=== PATIENT | female | born 1935 | race Hispanic/Latino ===

== ENCOUNTER 2016-12-12 18:47 | Inpatient (IN) | payer MEDICARE ==
[2016-12-12 18:59] VITALS: BMI 49.1
[2016-12-12] MEDS ORDERED: Albuterol-Ipratrop 3 mg / 0.5 (3 ml) UD IH STA (19:13)
--- NOTE | 2016-12-12 19:17 | ED PDOC ---
Arrival/HPI - General Chief Complaint: Dizziness/Lightheaded Time Seen by Provider: 12/12/16 19:04 Historian: Patient, Family (son) - History of Present Illness Time/Duration: Prior to Arrival Symptom Course: Unchanged Severity Level: Moderate Activities at Onset: Rest Associated Symptoms (Text): 12/12/16 19:14 Son reports that the patient got up this morning and her blood sugar was 69. Today around noon time she was getting her lunch and felt dizzy and fell and possibly had a syncopal episode. She spent the afternoon on the floor and was able to drag herself from the kitchen into the living room and speak with her son on the telephone. She did not eat her lunch. She denies any trauma. No chest pain. There is chronic dyspnea. No abdominal pain nausea or vomiting. She did have several days of diarrhea last week. No fever. 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, had hyst) Hx Chemotherapy: Yes (15 yrs ago) - Integumentary Hx Dermatological Disorder: No Other/Comment: ble dry discolored, slightly reddened, slight redness under abd fold, small red raises rash under both breasts, dry skin both feet - Musculoskeletal/Rheumatological Hx Arthritis: Yes Hx Falls: No - Gastrointestinal Hx Gastrointestinal Disorders: Yes (CONSTIPATION) - Genitourinary/Gynecological Hx Genitourinary Disorders: (unknown) Hx Incontinence: Yes (urgency) - Psychiatric Hx Psychophysiologic Disorder: No Hx Substance Use: No - Surgical History Hx Hysterectomy: Yes (uterine ca 15 yrs ago) Other/Comment: abd surgery had obstruction hernia repaired at the same time around 8 yrs ago...partial colectomy? for obstruction 8 yrs ago... and pacemaker - Anesthesia Hx Anesthesia: Yes Hx Anesthesia Reactions: No Hx Malignant Hyperthermia: No Family/Social History - Physician Review Nursing Documentation Reviewed: Yes Family/Social History: Unknown Family HX Smoking Status: Never Smoked Hx Alcohol Use: No Hx Substance Use: No Allergies/Home Meds Allergies/Adverse Reactions: Allergies hydrocodone bitartrate [From Vicoprofen] Allergy (Intermediate, Verified 00:51) RASH ibuprofen [From Vicoprofen] Allergy (Intermediate, Verified 08/09/16 00:51) RASH adhesive Allergy (Verified 08/09/16 00:51) RASH Penicillins Allergy (Verified 08/09/16 00:51) RASH warfarin sodium [From Coumadin] Allergy (Verified 08/09/16 00:51) RASH blisters on her legs Home Medications: Home Meds Medication Instructions Recorded Confirmed Arformoterol [Brovana] 15 mcg IH BID 06/11/16 12/12/16 Budesonide [Pulmicort Respules] 0.5 mg IH BID 06/11/16 12/12/16 Carvedilol [Coreg] 12.5 mg PO BID 06/11/16 12/12/16 Gabapentin [Neurontin] 100 mg PO TID 06/11/16 12/12/16 Levothyroxine Sodium [Levothroid] 0.137 mg PO QAM 06/11/16 12/12/16 Saxagliptin HCl [Onglyza] 2.5 mg PO DAILY 06/11/16 12/12/16 Spironolactone [Aldactone] 50 mg PO DAILY 06/11/16 12/12/16 GlipiZIDE [Glucotrol] 5 mg PO BID 12/12/16 12/12/16 Insulin Detemir [Levemir] 55 units SC DAILY 12/12/16 12/12/16 Losartan [Cozaar] 100 mg PO DAILY 12/12/16 12/12/16 Torsemide [Torsemide] 20 mg PO DAILY 12/12/16 12/12/16 Review of Systems - Physician Review All systems were reviewed & negative as marked: Yes - Review of Systems Constitutional: Fatigue. absent: Fevers Respiratory: SOB. absent: Cough, Sputum, Wheezing Cardiovascular: Syncope. absent: Chest Pain, Palpitations Gastrointestinal: Diarrhea. absent: Abdominal Pain, Nausea, Vomiting Genitourinary Female: absent: Dysuria, Frequency, Hematuria Neurological: absent: Headache, Dizziness Physical Exam Vital Signs Temp Pulse Resp BP Pulse Ox 12/12/16 20:26 121/68 12/12/16 20:10 97.5 F L 12/12/16 18:58 98.6 F 78 26 H 151/71 H 86 L Temperature: Afebrile Blood Pressure: Hypertensive Pulse: Regular Respiratory Rate: Tachypneic Appearance: Positive for: Well-Appearing, Non-Toxic, Comfortable, Other ( orbidly obese) Pain Distress: None Mental Status: Positive for: Alert and Oriented X 3 - Systems Exam Head: Present: Atraumatic, Normocephalic Pupils: Present: PERRL Extroacular Muscles: Present: EOMI Conjunctiva: Present: Normal Mouth: Present: Dry Pharnyx: No: ERYTHEMA, EXUDATE, TONSILS ENLARGED Neck: Present: Normal Range of Motion. No: MIDLINE TENDERNESS, Paraspinal Tenderness Respiratory/Chest: Present: Respiratory Distress, Accessory Muscle Use, Wheezes , Decreased Breath Sounds, Rhonchi, Tachypneic. No: Good Air Exchange, Rales, Retracting, Tender to Palpation Cardiovascular: Present: Regular Rate and Rhythm, Normal S1, S2. No: Murmurs Abdomen: Present: Normal Bowel Sounds. No: Tenderness, Distention, Peritoneal Signs, Rebound, Guarding Upper Extremity: Present: Normal Inspection. No: Cyanosis, Edema Lower Extremity: Present: Normal Inspection. No: Edema Neurological: Present: GCS=15, CN II-XII Intact, Speech Normal, Motor Func Grossly Intact Skin: Present: Warm, Dry, Normal Color, Other (bilateral lower extremity chronic venous stasis changes). No: Rashes Psychiatric: Present: Alert, Oriented x 3, Normal Insight, Normal Concentration Medical Decision Making ED Course and Treatment: 12/12/16 19:19 EKG is pacing rate approximately 75 12/12/16 20:04 chest 1 view shows extremely poor quality films with cardiomegaly and a pacemaker 12/12/16 21:30 discussed with , who requested consults with Drs. Garcia and Burton, who both have been called. - Lab Interpretations Lab Results: 12/12/16 19:00 12/12/16 19:00 Lab Results 12/12/16 20:10: pCO2 47 H, pO2 51.0 L, HCO3 22.1, ABG pH 7.28 L, ABG Total CO2 23.5, ABG O2 Saturation 87.0 L, ABG O2 Content 13.7 L, ABG Base Excess -4.7 L, ABG Hemoglobin 11.6 L, ABG Carboxyhemoglobin 2.4 H, POC ABG HHb (Measured) 12.6 H, ABG Methemoglobin 1.0, ABG O2 Capacity 15.7 L, Hgb O2 Saturation 84.0 L, FiO2 28.0, Urine Color Yellow, Urine Appearance Sl cloudy, Urine pH 6.0, Ur Specific [place] 1.025, Urine Protein Trace H, Urine Glucose (UA) Negative, Urine Ketones Negative, Urine Blood Moderate H, Urine Nitrate Negative, Urine Bilirubin Negative, Urine Urobilinogen 0.2, Ur Leukocyte Esterase Negative, Urine RBC 2 - 5, Urine WBC 0 - 2, Ur Epithelial Cells 0 - 2 12/12/16 19:00: WBC 14.1 H D, RBC 4.26, Hgb 12.5, Hct 37.6, MCV 88.3, MCH 29.3, MCHC 33.2, RDW 15.8 H, Plt Count 178, MPV 10.0, Gran % 87.5 H, Lymph % (Auto) 7.3 L, [place] % (Auto) 5.0, Eos % (Auto) 0.1 L, Baso % (Auto) 0.1, Gran # 12.35 H , Lymph # 1.0 L, [place] # 0.7 H, Eos # 0.0, Baso # 0.01, PT 15.1 H, INR 1.40 H, APTT 27.7, Sodium 138, Potassium 5.3 H, Chloride 101, Carbon Dioxide 24, Anion Gap 18, BUN 52 H, Creatinine 2.5 H, Est GFR ( Amer) 22, Est GFR (Non-Af Amer) 18, Random Glucose 156 H, Calcium 9.1, Phosphorus 4.6 H, Magnesium 1.5 L, Total Bilirubin 0.7, AST 40 H, ALT 33, Alkaline Phosphatase 63, Ammonia 20, Lactate Dehydrogenase 805 H, Total Creatine Kinase 908 H, CK-MB (CK-2) 9.0 H, CK -MB (CK-2) % 1.0 L, Troponin I 0.10, NT-Pro-B Natriuret Pep 9590 H, Total Protein 7.5, Albumin 3.8, Globulin 3.7, Albumin/Globulin Ratio 1.0 L, Alcohol, Quantitative < 10 - RAD Interpretation Radiology Orders: 12/12/16 19:11 HEAD W/O CONTRAST [CT] Stat CHEST PORTABLE [RAD] Stat CT scan of the head as read by the radiologist shows no acute findings. Pharmacist Manager: Radiologist - Medication Orders Current Medication Orders: Discontinued Medications Albuterol/Ipratropium (Duoneb 3 Mg/0.5 Mg (3 Ml) Ud) 3 ml IH ONCE STA Stop: 12/12/16 19:14 Last Admin: 12/12/16 20:25 Dose: 3 ML Furosemide (Lasix) 40 mg IVP ONCE ONE Stop: 12/12/16 20:05 Last Admin: 12/12/16 20:26 Dose: 40 MG MAR Blood Pressure Document 12/12/16 20:26 MR (Rec: 12/12/16 20:26 MR [id number]) Blood Pressure Blood Pressure (100/60-150/90 mm Hg) 121/68 IVP Administration Document 12/12/16 20:26 MR (Rec: 12/12/16 20:26 MR [id number]) Charges for Administration # of IVP Administrations 1 Nitroglycerin (Nitro-Bid 2% Oint) 1 ea TOP STAT STA Stop: 12/12/16 20:05 Last Admin: 12/12/16 20:26 Dose: 1 EA Disposition/Present on Arrival - Present on Arrival Any Indicators Present on Arrival: No History of DVT/PE: No History of Uncontrolled Diabetes: No Urinary Catheter: No History of Decub. Ulcer: No History Surgical Site Infection Following: None - Disposition Have Diagnosis and Disposition been Completed?: Yes Diagnosis: Acute exacerbation of CHF (congestive heart failure), Syncope, Hyperkalemia, Leukocytosis, Hypoxia, Renal failure, Elevated troponin, Dyspnea, COPD exacerbation Disposition: HOSPITALIZED Disposition Time: 21:30 Patient Plan: Admission, Telemetry Patient Problems: Current Active Problems Problem Status Diagnosed Acute exacerbation of CHF (congestive heart failure) Acute COPD exacerbation Acute Dyspnea Acute Elevated troponin Acute Hyperkalemia Acute Hypoxia Acute Leukocytosis Acute Renal failure Acute Syncope Acute Condition: SERIOUS Discharge Instructions (ExitCare): Heart Failure (ED), Syncope (ED) Referrals: Shreyas Kaplan MD [Primary Care Provider] - Follow up with primary
[2016-12-12 19:31] LABS: ADD MANUAL DIFF? NO
[2016-12-12 19:40] LABS: BASO # 0.01 K/mm3 (0.0-2.0); BASO % 0.1 % (0.0-3.0); EOS % 0.1 % (1.5-5.0); GRAN # 12.35 (1.4-6.5); GRAN % 87.5 % (50.0-68.0); HEMATOCRIT 37.6 % (36.0-48.0); LYMPH % 7.3 % (22.0-35.0); MEAN CELL VOLUME 88.3 fL (80.0-105.0); MEAN CORPUSCULAR HEMOGLOBIN 29.3 pg (25.0-35.0); MEAN CORPUSCULAR HGB CONC 33.2 g/dl (31.0-37.0); MONO # 0.7 (0.1-0.6); PLATELET COUNT 178 10^3/uL (120.0-450.0); RED CELL DISTRIBUTION WIDTH 15.8 % (11.5-14.5); WHITE BLOOD COUNT 14.1 10^3/ul (4.5-11.0)
[2016-12-12 19:48] LABS: BILIRUBIN,TOTAL 0.7 mg/dL (0.2-1.3); CALCIUM 9.1 mg/dL (8.4-10.5); INR 1.4 (0.93-1.08); MAGNESIUM 1.5 mg/dL (1.7-2.2); PARTIAL THROMBOPLASTIN TIME 27.7 Seconds (23.7-30.8); PHOSPHOROUS 4.6 mg/dL (2.5-4.5); POTASSIUM 5.3 mmol/L (3.6-5.0); TOTAL PROTEIN 7.5 g/dL (5.8-8.3)
[2016-12-12 19:59] LABS: TROPONIN I 0.1 ng/mL
--- NOTE | 2016-12-12 20:01 | CT ---
EXAM: CT Head Without Intravenous Contrast CLINICAL HISTORY: 81 years old, female; Signs and symptoms; Altered mental status/memory loss; Age related cognitive decline; Additional info: AMS TECHNIQUE: Axial computed tomography images of the head/brain without intravenous contrast. This CT exam was performed using one or more of the following dose reduction techniques: automated exposure control, adjustment of the mA and/or kV according to patient size, and/or use of iterative reconstruction technique. EXAM DATE/TIME: 12/12/2016 7:11 PM COMPARISON: No relevant prior studies available. FINDINGS: LIMITATIONS: Exam is limited by moderate streak/motion artifact. BRAIN: Areas of low density in the periventricular white matter bilaterally, most likely representing mild chronic small vessel ischemic changes. Diffuse, age-related cortical atrophy and ventriculomegaly. No definite acute abnormality identified, allowing for motion artifact. No definite acute hemorrhage seen within the brain. No acute extra-axial fluid collections visualized. No evidence of significant mass effect within the brain. VENTRICLES: See above. BONES/JOINTS: No acute fractures or other acute bony abnormality noted. SOFT TISSUES: No acute abnormality of the visualized soft tissues is seen. SINUSES: Visualized paranasal sinuses appear clear, except for a mucous retention cyst in the left maxillary sinus. MASTOID AIR CELLS: Mastoid air cells appear clear. IMPRESSION: - No definite acute findings seen within the brain, allowing for motion artifact. - See above for remaining findings.
[2016-12-12] MEDS ORDERED: Nitroglycerin 2% Ointment Foilpak UD TOP STA (20:04)
[2016-12-12 20:38] LABS: ARTERIAL BLOOD GAS HCO3 22.1 mmol/L (21-28); ARTERIAL BLOOD GAS O2 CAPACITY 15.7 mL/dl (16-24); ARTERIAL BLOOD GAS O2 CONTENT 13.7 ML/dl (15-23); ARTERIAL BLOOD GAS PH 7.28 (7.35-7.45); CARBOXYHEMOGLOBIN 2.4 % (0.5-1.5); HHB 12.6 % (0-5)
[2016-12-12 20:53] LABS: URINE BILIRUBIN NEGATIVE (NEGATIVE); URINE BLOOD MODERATE (NEGATIVE); URINE GLUCOSE (UA) NEGATIVE (NEGATIVE); URINE KETONE NEGATIVE (NEGATIVE); URINE LEUKOCYTE ESTERASE NEGATIVE Leu/uL (NEGATIVE); URINE PROTEIN TRACE mg/dL (<30 mg/dL); URINE UROBILINOGEN 0.2 E.U./dL (<1 E.U./dL)
[2016-12-12 20:54] LABS: URINE COLOR YELLOW (YELLOW)
[2016-12-12 20:55] LABS: URINE APPEARANCE SL CLOUDY (CLEAR)
[2016-12-12 21:15] LABS: URINE EPITHELIAL CELLS 0 - 2 /hpf (0-5); URINE WBC 0 - 2 /hpf (0-6)
[2016-12-13] MEDS ORDERED: Vancomycin 500mg in NS 500 MG/100 ML BAG IVPB ONE (03:57)
--- NOTE | 2016-12-13 08:04 | RAD ---
HISTORY: ams COMPARISON: 08/08/2016 FINDINGS: LUNGS: No active pulmonary disease. PLEURA: No significant pleural effusion identified, no pneumothorax apparent. CARDIOVASCULAR: Moderate cardiomegaly OSSEOUS STRUCTURES: No significant abnormalities. VISUALIZED UPPER ABDOMEN: Normal. OTHER FINDINGS: Right-sided dual lead pacemaker IMPRESSION: No active disease.
[2016-12-13] MEDS ORDERED: LEVOTHYROXINE SODIUM PO SCH ×2 (10:00)
[2016-12-13] MEDS ORDERED: Insulin Detemir 100 units/ml Vial (Levemir) SC SCH (10:00)
[2016-12-13] MEDS: Budesonide 0.5 mg/2 ml Inhal Susp UD IH SCH ×2 (10:19→19:07)
[2016-12-13] MEDS: Sodium Chloride 0.45% 1,000 ML IV SCH (10:41)
[2016-12-13] MEDS: Magnesium Oxide 400 mg Tab UD PO SCH ×2 (10:41→18:28)
[2016-12-13] MEDS: Arformoterol 15 mcg/2 ml Inh Sol IH SCH ×2 (10:53→19:07)
--- NOTE | 2016-12-13 11:20 | CARD ---
APPROVED REPORT EKG Measurement Heart [id number] IL [id number] <Conclusion> Electronic ventricular pacemaker
[2016-12-13] MEDS: LEVOTHYROXINE SODIUM PO SCH (11:28)
[2016-12-13] MEDS ORDERED: Insulin Reg-MEDIUM-Coverage SC SCH (11:30)
[2016-12-13] MEDS ORDERED: Insulin Reg-MEDIUM-Coverage SC ONE (11:45)
[2016-12-13] MEDS ORDERED: Insulin Regular 1 UNITS/0.01 ML ML ONE (11:46)
--- NOTE | 2016-12-13 12:11 | CON ---
DATE: 12/13/2016 INDICATIONS: Syncope. HISTORY OF PRESENT ILLNESS: This is an 81-year-old woman known to me from prior admission, admitted yesterday after a syncopal spell at home. Her blood sugar was low and she has been running relatively low blood sugars recently. She became dizzy and fell to the floor. She remained on the floor for about 5 hours, at which time her son found her after returning home from work. She was brought to the Emergency Room. Subsequently, she has remained stable. She remembers the event. This does not appear to have been true syncope. There was no vertigo, chest pain, shortness of breath, orthopnea, PND, palpitations. There is edema which has been a bit worse lately. There was no fever, chills, cough, sputum production, hemoptysis, abdominal pain, nausea, vomiting, diarrhea , constipation, melena. PAST MEDICAL HISTORY: Complex. She has COPD, congestive heart failure, hypertension, diabetes. Valvular heart disease with an echocardiogram in 2015 showing moderately severe aortic stenosis, moderate mitral regurgitation and tricuspid regurgitation with moderately severe pulmonary hypertension. She has a permanent pacemaker since the . She has had a hysterectomy for uterine cancer, a partial colectomy for diverticular disease. 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 There is no history of rheumatic fever, myocardial infarction, stroke, TIA or gout. MEDICATIONS: At the time of admission included spironolactone, Brovana, Coreg, Cozaar, Glucotrol, Levemir, levothyroid, Neurontin, Onglyza, Pulmicort, torsemide. ALLERGIES: SHE NOTES ALLERGIES TO SEVERAL MEDICATIONS INCLUDING HYDROCODONE, MOTRIN, PENICILLIN AND OTHERS. SOCIAL HISTORY: She lives at home. She has limited mobility. She uses a walker. She gets out to see physicians with assistance. She does not smoke. She does not drink alcohol. Her son assists her. FAMILY HISTORY: Notable for heart disease. REVIEW OF SYSTEMS: A 10-point review of systems is otherwise unremarkable except as noted above. PHYSICAL EXAMINATION: GENERAL: She is a well-developed elderly woman lying on a stretcher in the Emergency Room in no acute distress. VITAL SIGNS: Unremarkable. She is in a ventricular paced rhythm at about 70- 80 beats per minute. She is afebrile. Blood pressure 131/67, respirations 18, O2 sat 96% on nasal cannula. HEENT: Reveals no neck vein distention, thyromegaly or carotid bruits. Mucous membranes are moist. Conjunctivae pink. NECK: Supple. LUNG BERMUDEZ: A few scattered rhonchi. HEART: Revealed normal first and second heart sounds with systolic murmur along the left sternal border and at the cardiac apex. PMI not palpable. ABDOMEN: Obese, soft, benign. Bowel sounds present. No mass, organomegaly, tenderness, rebound guarding, CVA tenderness or palpable abdominal aortic aneurysm. EXTREMITIES: Revealed mild edema up to the shins. NEUROLOGIC: Awake, alert and oriented. SKIN: Warm and dry. No rash or cellulitis. PSYCHIATRIC: Normal as to mood and affect. LABORATORY AND IMAGING: A portable chest x-ray reveals no active disease. EKG demonstrates ventricular paced rhythm, atrial sensed. CT scan of the head reveals no definite acute findings. White count 14,100; hemoglobin 12.5; hematocrit 37.6; platelet count 178,000. PT, INR, PTT normal. Blood gases are noted. Electrolytes notable for potassium of 5.3, creatinine 2.5, BUN 52, magnesium 1.5, AST 40, ALT 33, alk phos 63, total bilirubin 0.7. CK elevated at 908, troponin 0.10, BNP 9590. Urinalysis is noted. IMPRESSION: The patient is an 81-year-old woman who suffered a fall at home, possibly related to hypoglycemia, possibly due to syncope. She has a ventricular paced rhythm. She was found to have a creatinine of 2.5 with elevated muscle enzymes and BNP, possible rhabdomyolysis. PLAN: At this time, she will be admitted to a telemetry bed. I would give her some IV fluids. We will get serial EKGs and enzymes. I will review her old records. We will monitor her blood sugars carefully. We will check stool for occult blood. We will monitor her renal function and her potassium level. We will check her for orthostatic changes. She can be out of bed to a chair. I will follow along with you. I will make additional recommendations based on her clinical course. Jona Manrique MD cc: [id number] TT: 12/13/2016 12:10:33 Confirmation # [id number] Dictation # [id number] dn JIM
[2016-12-13] MEDS: Insulin Reg-MEDIUM-Coverage SC SCH ×2 (17:03→22:00)
--- NOTE | 2016-12-13 17:07 | CON ---
DATE: 12/13/2016 REQUESTING PHYSICIAN: Dr. Kaplan. CHIEF COMPLAINT: The patient presents with dizziness and had a falling episode and noted to have con gestive heart failure. HISTORY OF PRESENT ILLNESS: The patient is an 81-year-old female with a history of COPD and chronic shortness of breath, congestive heart failure, renal insufficiency, and obesity, that presented to [facility] Emergency Room with a syncopal episode. The patient stated that she got dizzy and fell, but did no t feel she hurt herself. No fever, chills. No nausea, vomiting, no abdominal pain, no chest pain, n o diarrhea. PAST MEDICAL HISTORY: As above. ALLERGIES: SHE HAS ALLERGIES TO HYDROCODONE, IBUPROPHEN, ADHESIVE TAPE, PENICILLIN AND WARFARIN. MEDICATIONS: Can be evaluated as per the nurse's intake form. SOCIAL HISTORY: She has no history of ETOH abuse or drug abuse and no smoking. PHYSICAL EXAMINATION: VITAL SIGNS: Note that her temperature is 98.4, her pulse is 70, respirations are 18, and BP is 110/ 61. SKIN: Warm and dry. HEAD: Atraumatic, normocephalic. EYES: Reactive to light. EARS, NOSE AND THROAT: Seem to be within normal limits. NECK: Supple, no JVD, no thyroid enlargement, no lymph nodes. HEART: Has a regular rate and rhythm, normal S1, S2. LUNGS: Reveal decreased breath sounds at the bases. ABDOMEN: Soft, nontender, but obese. GENITALIA AND RECTAL: Deferred. MUSCULOSKELETAL: No joint deformities. EXTREMITIES: Reveal trace lower extremity edema. NEUROLOGIC: She seemed to be grossly intact. LABORATORY DATA: As far as her chest x-ray, it reveals no active disease. As far as her laboratorie s, the patient's white count is 14.1, hemoglobin is 12.5, hematocrit 37.6 with platelets of 178,000. Arterial blood gas reveals a pH of 7.28, pCO2 of 47, pO2 of 51. This was in the Emergency Room. He r sodium is 138, potassium 5.3, chloride 101, CO2 of 24 with a BUN of 52, creatinine of 5.5, and a, g lucose of 156. The patient's BNP is 9590. IMPRESSION: This patient has episode of syncope, etiology unclear. She has a history of chronic obs tructive pulmonary disease, renal insufficiency and noted to have increased troponins, must rule out myocardial infarction. The patient had increased BNP, most likely secondary to acute congestive hear t failure. Note that her white count is elevated and we must follow and she does have some renal ins ufficiency. PLAN: We will continue with aggressive pulmonary toilet. The patient is on Lasix for appropriate di uresis and is getting budesonide as well as Brovana. The patient will continue with aggressive pulmo nary toilet and will continue with O2 via nasal cannula. Follow labs and correct as needed and agata nue to treat aggressively along with the other consultants and the primary care doctor. Dillon Garcia MD cc: [id number] TT: 12/13/2016 17:07:09 Confirmation # [id number] Dictation # [id number] tn
[2016-12-13] MEDS: Tmp-Smz 800 mg-160 mg DS Tab PO SCH (18:27)
[2016-12-14] MEDS: Sodium Chloride 0.45% 1,000 ML IV SCH (06:28)
[2016-12-14] MEDS: Budesonide 0.5 mg/2 ml Inhal Susp UD IH SCH ×2 (07:38→19:46)
[2016-12-14] MEDS: Arformoterol 15 mcg/2 ml Inh Sol IH SCH ×2 (07:38→19:46)
[2016-12-14] MEDS: Insulin Reg-MEDIUM-Coverage SC SCH (07:54)
--- NOTE | 2016-12-14 07:58 | HP ---
HISTORY OF PRESENT ILLNESS: An 81-year-old white female with history of congestive cardiomyopathy, C OPD, Pickwickian syndrome, morbid obesity, vwv-gvklydi-knfbvblyn diabetes mellitus, chronic renal ins ufficiency, stage III. The patient has recently noticed to have had increasing swelling in the legs, also, and a small cellulitic lesion on the right lower extremity. The patient was home. She fell in the kitchen, became short of breath. Was unable to get to her feet, was unable to get to the phone. Eventually was able to call her family and was brought to Emergency Room. Was found to be in conge stive heart failure with BNP markedly elevated, and mild hypoxia and hypercarbia. The patient is on BiPAP at home. SOCIAL HISTORY: The patient is a nonsmoker, nondrinker. PAST MEDICAL HISTORY: She has a past medical history significant only for what has been stated above and also past surgical for a pacemaker inserted for complete heart block. REVIEW OF SYSTEMS: A 12-point review of systems is positive only for shortness of breath, dyspnea on exertion, and swell ing of the legs, without chest pain, without nausea, vomiting, without diaphoresis. The patient yuriy es any nausea, vomiting. Does complain of some diarrhea. Denies any headache, loss of consciousness , or change in strength in the upper or lower extremities. PHYSICAL EXAMINATION: GENERAL: Shows a well-developed, but obese, white female in no apparent distress. HEENT: Essentially normal limits. HEART: Regular sinus rhythm with controlled ventricular response. CHEST: Shows decreased breath sounds with some rales at both bases. ABDOMEN: Obese, but benign. EXTREMITIES: Show less edema this morning. There is a cellulitic area on the right lateral lower le g. NEUROLOGIC: Grossly intact. IMPRESSION: An 81-year-old white female presenting with congestive heart failure, exacerbation of ch ronic obstructive pulmonary disease, Pickwickian syndrome, insulin-dependent diabetes mellitus, cellu litis of the leg. Shreyas Kaplan MD cc: [id number] TT: 12/13/2016 16:39:03 carlos manuel
[2016-12-14 08:33] LABS: CALCIUM 8.8 mg/dL (8.4-10.5); MAGNESIUM 1.8 mg/dL (1.7-2.2); POTASSIUM 5.2 mmol/L (3.6-5.0)
[2016-12-14 09:03] LABS: TROPONIN I 0.29 ng/mL
[2016-12-14] MEDS ORDERED: LEVOTHYROXINE SODIUM PO SCH (10:00)
--- NOTE | 2016-12-14 10:25 | PN ---
DATE: 12/14/2016 An 81-year-old white female with history of congestive cardiomyopathy, pickwickian syndrome, COPD, pa danoaker, morbid obesity, cmc-hdiqimi-hbatdsniz diabetes mellitus. The patient was admitted with shor tness of breath and dyspnea after a fall at home. She also had some low blood sugar last night. Her insulin will be reduced and her protocol will also be reduced to low dose coverage. The patient is sitting up eating without complaints this morning. Her abdomen has some midepigastric pain, but tole rating her diet well. PHYSICAL EXAMINATION: EXTREMITIES: Without cyanosis, clubbing or edema. There is decreased edema from her on admission. There is also a small eschar in the right lateral leg with some cellulitis which is resolving on IV a ntibiotics. CHEST: Shows decreased breath sounds, but clear. HEART: Regular sinus rhythm. ABDOMEN: Obese, but benign. NEUROLOGIC: She is grossly intact. IMPRESSION: The patient does have an elevated BUN and creatinine of 52 and 2.5. She is on 40 mg of Lasix a day. Her white count is 14,000, her hemoglobin is 12.5. PLAN: To continue IV antibiotics, bronchodilators, afterload reduction and some diuretics and to fol low her BUN and creatinine closely. Shreyas Kaplan MD cc: [id number] TT: 12/14/2016 10:24:51 Confirmation # [id number] Dictation # [id number] tn
[2016-12-14] MEDS: Tmp-Smz 800 mg-160 mg DS Tab PO SCH ×2 (10:36→17:33)
[2016-12-14] MEDS: Insulin Detemir 100 units/ml Vial (Levemir) SC SCH (10:38)
[2016-12-14] MEDS: Magnesium Oxide 400 mg Tab UD PO SCH ×2 (10:38→17:38)
[2016-12-14] MEDS: POLYETHYLENE GLYCOL 3350 17 GM/Dose PACKET PO SCH ×2 (10:39→11:36)
[2016-12-14] MEDS: LEVOTHYROXINE SODIUM PO SCH (10:53)
[2016-12-14] MEDS: Insulin Reg-LOW-Coverage SC SCH ×3 (11:41→23:24)
--- NOTE | 2016-12-14 12:11 | PN ---
DATE: 12/14/2016 SUBJECTIVE: The patient is seen sitting in a chair on telemetry. She denies any lightheadedness. S he denies any chest pain either. CURRENT MEDICATIONS: Include Bactrim, Brovana, Colace, carvedilol 12.5 mg b.i.d., Cozaar 100 mg radha y, subcutaneous heparin, Klonopin, Lasix 40 mg daily, Levemir insulin, Levothroid 137 mcg daily, Pulm icort inhaler. OBJECTIVE: GENERAL: She is an elderly woman, appears comfortable at rest. VITAL SIGNS: Her blood pressure is 110/60 with a pulse of 70 with ventricular pacing, respirations a re 16. She is afebrile. HEENT: No JVD. Carotid upstrokes are diminished and delayed. CHEST: Bilateral scattered rhonchi are heard. HEART: PMI displaced laterally with a mid-peaking systolic murmur at the base as well as a systolic murmur at the lower left sternal border and apex. ABDOMEN: Soft, nontender, normoactive bowel sounds. EXTREMITIES: Mild cellulitic changes with 1+ leg edema. DIAGNOSTIC DATA: Potassium is 5.2, BUN and creatinine are 57 and 2.5. Total CK is 506 with negative MB fraction. This is improved from 908 yesterday. IMPRESSION: 1. Recent fall at home with mild rhabdomyolysis. 2. Moderate aortic stenosis. 3. Moderate mitral regurgitation. 4. Moderate left ventricular systolic dysfunction. 5. Hypertension and diabetes. 6. Rest of problems as noted. 7. Mildly elevated troponin in the setting of renal insufficiency, clinical significance unclear. RECOMMENDATIONS: Continued respiratory and antibiotic therapy is advised. Beta niko therapy will be continued at this time as well. A repeat troponin will be ordered for the morning. In general, conservative management is most appropriate at this time. We will continue to follow along and make further recommendations as appropriate. Greg Mcclure MD cc: [id number] TT: 12/14/2016 12:10:01 Confirmation # [id number] Dictation # [id number] en
[2016-12-14] MEDS: Nystatin 100,000 Units/gm Topical Pow(15 gm) TOP SCH ×2 (13:29→22:49)
--- NOTE | 2016-12-14 18:19 | PN ---
DATE: 12/14/2016 SUBJECTIVE: The patient is resting in the chair next to the bed with O2 via nasal cannula. She is e ating supper with no complaints of increased shortness of breath at this time. Family members are at the bedside. The patient stated that she had an episode of low blood sugar last night, for which th ey had to give her some IV dextrose. She, at this time, has no complaints of chest pain, no active w heezing; only occasional cough and phlegm. No abdominal pain. No diarrhea. PHYSICAL EXAMINATION: VITAL SIGNS: Note that her temperature is 97.2, her pulse is 62, respirations are 20, and BP is 103/ 68. SKIN: Warm and dry. HEAD: Atraumatic, normocephalic. EYES: Reactive to light. EARS, NOSE, AND THROAT: Seem to be within normal limits. NECK: Supple. No JVD, no thyroid enlargement, no lymph nodes. HEART: Regular rate and rhythm. Normal S1, S2. LUNGS: Reveal decreased breath sounds bilaterally. ABDOMEN: Soft, nontender, normal bowel sounds, but obese. GENITALIA AND RECTAL: Deferred. MUSCULOSKELETAL: No joint deformities. EXTREMITIES: Reveal positive lower extremity edema. NEUROLOGIC: She seemed to be grossly intact. IMPRESSION: This patient initially presented with syncopal episode and has a history of chronic obst ructive pulmonary disease. She has renal insufficiency and noted to have initially increased troponi ns, rule out acute coronary syndrome. The patient has increased BNP, most likely secondary to conges tive heart failure. PLAN: Will continue with aggressive pulmonary toilet. She is getting Lasix, as well as Brovana and budesonide. She is getting O2 via nasal cannula and will continue with her usual medications. We wi ll get the patient out of bed to chair and will follow closely and treat aggressively along with the other consultants and her primary care doctor. Dillon Garcia MD cc: [id number] TT: 12/14/2016 18:18:15 Confirmation # [id number] Dictation # [id number] carlos manuel
[2016-12-15 07:19] LABS: ADD MANUAL DIFF? NO
[2016-12-15 07:27] LABS: BASO # 0.02 K/mm3 (0.0-2.0); BASO % 0.3 % (0.0-3.0); EOS # 0.2 (0.0-0.7); EOS % 2.5 % (1.5-5.0); GRAN # 4.25 (1.4-6.5); GRAN % 65.6 % (50.0-68.0); HEMATOCRIT 35.4 % (36.0-48.0); LYMPH # 1.6 (1.2-3.4); LYMPH % 24.6 % (22.0-35.0); MEAN CELL VOLUME 88.1 fL (80.0-105.0); MEAN CORPUSCULAR HEMOGLOBIN 28.4 pg (25.0-35.0); MEAN CORPUSCULAR HGB CONC 32.2 g/dl (31.0-37.0); MEAN PLATELET VOLUME 10.1 fl (7.0-11.0); MONO # 0.5 (0.1-0.6); PLATELET COUNT 158 10^3/uL (120.0-450.0); RED CELL DISTRIBUTION WIDTH 15.9 % (11.5-14.5); WHITE BLOOD COUNT 6.5 10^3/ul (4.5-11.0)
[2016-12-15] MEDS: Insulin Reg-LOW-Coverage SC SCH ×4 (07:37→22:04)
[2016-12-15 07:55] LABS: TROPONIN I 0.22 ng/mL
[2016-12-15 07:57] LABS: ALB/GLOB RATIO 0.9 (1.1-1.8); BILIRUBIN,TOTAL 0.6 mg/dL (0.2-1.3); CALCIUM 8.7 mg/dL (8.4-10.5); MAGNESIUM 1.8 mg/dL (1.7-2.2); POTASSIUM 5.1 mmol/L (3.6-5.0); TOTAL PROTEIN 6.9 g/dL (5.8-8.3)
[2016-12-15] MEDS: Arformoterol 15 mcg/2 ml Inh Sol IH SCH ×2 (07:58→20:12)
[2016-12-15] MEDS: Budesonide 0.5 mg/2 ml Inhal Susp UD IH SCH ×2 (07:58→20:12)
[2016-12-15] MEDS: Levothyroxine 112 MCG TAB PO SCH (08:09)
[2016-12-15] MEDS: Levothyroxine 25 MCG TAB PO SCH (08:11)
--- NOTE | 2016-12-15 09:09 | CP.PCM.PN ---
Subjective - Date & Time of Evaluation Date of Evaluation: 12/15/16 Time of Evaluation: 07:00 - Subjective Subjective: Stable on 2R. She feels better. No CP or SOB. V/S noted. V. Paced PE: Lungs: rhonchi Cor.: S1s2 Abd.: soft Ext.; mild edema, chr. skin changes Neuro.; alert Labs noted: K+= 5.1, BS = 79, Cr.= 2.4, trop. = 0.22 BC x2 NG at 48 hrs. Objective - Vital Signs/Intake and Output Vital Signs (last 24 hours): Temp Pulse Resp BP Pulse Ox 97.9 F 65 20 97/46 L 98 12/15/16 00:00 12/15/16 06:00 12/15/16 00:00 12/15/16 00:00 12/15/16 00:00 Intake and Output: 12/15/16 12/15/16 06:59 18:59 Intake Total 360 Balance 360 - Medications Medications: Current Medications Arformoterol Tartrate (Brovana) 15 mcg IH BID [facility] Last Admin: 12/15/16 07:58 Dose: 15 mcg Budesonide (Pulmicort Respules) 0.5 mg IH BID [facility] Last Admin: 12/15/16 07:58 Dose: 0.5 mg Carvedilol (Coreg) 12.5 mg PO BID [facility] Last Admin: 12/14/16 17:33 Dose: 12.5 mg Clonazepam (Klonopin) 0.5 mg PO HS [facility] PRN Reason: Protocol Last Admin: 12/14/16 22:45 Dose: 0.5 mg Docusate Sodium (Colace) 100 mg PO BID [facility] Last Admin: 12/14/16 17:33 Dose: 100 mg Furosemide (Lasix) 40 mg IVP DAILY [facility] Last Admin: 12/14/16 10:37 Dose: 40 mg Heparin Sodium (Porcine) (Heparin) 5,000 units SC Q12 [facility] PRN Reason: Protocol Last Admin: 12/14/16 22:44 Dose: 5,000 units Home Med (Home Med) 0 unit PO DAILY [facility] Sodium Chloride (Sodium Chloride 0.45%) 1,000 mls @ 50 mls/hr IV .Q20H [facility] Last Admin: 12/14/16 06:28 Dose: Not Given Insulin Detemir (Levemir) 50 unit SC DAILY [facility] Last Admin: 12/14/16 10:38 Dose: 50 unit Insulin Human Regular (Humulin R Low) 0 units SC ACHS [facility] PRN Reason: Protocol Last Admin: 12/15/16 07:37 Dose: Not Given Levothyroxine Sodium (Synthroid) 112 mcg PO ACB [facility] Last Admin: 12/15/16 08:09 Dose: 112 mcg Levothyroxine Sodium (Synthroid) 25 mcg PO ACB [facility] Last Admin: 12/15/16 08:11 Dose: 25 mcg Losartan Potassium (Cozaar) 100 mg PO DAILY [facility] Last Admin: 12/14/16 10:37 Dose: 100 mg Magnesium Oxide (Mag-Ox) 400 mg PO BID [facility] Last Admin: 12/14/16 17:38 Dose: 400 mg Nystatin (Nystop Topical Powder) 0 gm TOP BID [facility] Last Admin: 12/14/16 22:49 Dose: Not Given Trimethoprim/Sulfamethoxazole (Bactrim Ds Tab) 1 tab PO BID [facility] PRN Reason: Protocol Last Admin: 12/14/16 17:33 Dose: 1 tab - Labs Labs: 12/15/16 07:08 12/15/16 07:08 PT 15.1 Seconds (9.9-11.8) H 12/12/16 19:00 INR 1.40 (0.93-1.08) H 12/12/16 19:00 APTT 27.7 Seconds (23.7-30.8) 12/12/16 19:00 Assessment and Plan - Assessment and Plan (Free Text) Plan: Assessment: Syncope/Fall Acute rhabdomyolysis Acute renal insufficiency Hypomagnesemia COPD CHF Diabetes HBP Valvular Heart Disease: Mod/Sev , Mod. MR and TR PH, mod./sev. 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 Plan: IVF AB OOB as shekhar. Monitor labs, I/O, renal fx., Mg.++, CKs, etc. As per Pulm., and Dr. Levy
[2016-12-15] MEDS ORDERED: Lactulose 10 gm/15 ml (Rectal Use) PR SCH (10:00)
[2016-12-15] MEDS: Nystatin 100,000 Units/gm Topical Pow(15 gm) TOP SCH ×2 (10:03→17:05)
[2016-12-15] MEDS: Tmp-Smz 800 mg-160 mg DS Tab PO SCH (10:09)
[2016-12-15] MEDS: GENERLAC PO SCH (10:10)
[2016-12-15] MEDS: Magnesium Oxide 400 mg Tab UD PO SCH ×2 (10:12→17:01)
[2016-12-15] MEDS: Insulin Detemir 100 units/ml Vial (Levemir) SC SCH (10:12)
[2016-12-15] MEDS: Sodium Chloride 0.45% 1,000 ML IV SCH (12:42)
[2016-12-15] MEDS ORDERED: Bacitracin Ointment 30 GM TUBE TOP SCH (14:21)
[2016-12-15] MEDS ORDERED: Bacitracin 500 Units/gm Oint Foilpak UD TOP SCH (15:44)
[2016-12-15] MEDS ORDERED: Bacitracin 500 Units/gm Oint Foilpak UD TOP STA (15:44)
--- NOTE | 2016-12-15 20:00 | PN ---
DATE: 12/15/2016 SUBJECTIVE: The patient is resting in a chair next to the bed with O2 via nasal cannula, eating some crackers. The patient has no complaints of increased shortness of breath. Does have occasional cou gh, no chest pain. No wheezing or congestion. No fever, chills, nausea or vomiting. PHYSICAL EXAMINATION: VITAL SIGNS: Her temperature is 98.4, her pulse is 62, respirations are 20, and BP is 123/58. SKIN: Warm and dry. HEENT: Head is atraumatic, normocephalic. Eyes reactive to light. Ear, nose and throat seemed to b e within normal limits. NECK: Supple. No JVD, no thyroid enlargement, no lymph nodes. HEART: Has a regular rate and rhythm. Normal S1, S2. LUNGS: Reveal decreased breath sounds bilaterally. No significant rales, rhonchi or wheezes. ABDOMEN: Soft, nontender, normal bowel sounds, but obese. GENITALIA AND RECTAL: Deferred. MUSCULOSKELETAL: No joint deformities. EXTREMITIES: Reveal positive lower extremity edema. NEUROLOGIC: She seemed to be grossly intact. LABORATORY DATA: Her white count is 6.5, hemoglobin is 11.4, hematocrit 35.4 with platelets of now o f . The patient's sodium is 135, potassium 5.1, chloride 101, CO2 of 26 with a BUN of 57, creat inine of 2.4, glucose of 117. Troponin is still elevated at 0.22. IMPRESSION: The patient presented with a history of a syncopal episode at home. She has a history o f chronic obstructive pulmonary disease, obesity, hypoventilation syndrome. The patient has renal in sufficiency and continues to have increased troponins, rule out myocardial infarction. The patient p resented with congestive heart failure as well. She has morbid obesity. PLAN: We will continue with aggressive pulmonary toilet. The patient is getting Lasix for diuresis and is on Brovana and budesonide. She is getting O2 via nasal cannula and is encouraged to get out o f bed to chair. We will continue to treat aggressively along with the other consultants and the [facility] doctor. Dillon Garcia MD cc: [id number] TT: 12/15/2016 19:58:59 Confirmation # [id number] Dictation # [id number] dn
[2016-12-16 02:39] VITALS: RESP 19; O2SAT 94
[2016-12-16 06:54] VITALS: TEMP 97.8
[2016-12-16 07:14] LABS: CALCIUM 8.8 mg/dL (8.4-10.5)
[2016-12-16 07:26] LABS: POTASSIUM 5.1 mmol/L (3.6-5.0)
--- NOTE | 2016-12-16 08:12 | PN ---
DATE: 12/15/2016 The patient is an 81-year-old, patient of Dr. Kaplan; covering for him. Came to Emergency Room on ___; came with shortness of breath and increasing leg swelling so patient is being diurese d, but currently in telemetry. PHYSICAL EXAMINATION: GENERAL: She is fully awake, alert, oriented, communicative. VITAL SIGNS: She is afebrile, pulse 64, respirations 20, blood pressure 121/63. LUNGS: Bilaterally a few ____ expiratory rhonchi and decreased breath sounds at bases. HEART: S1, S2 audible. ABDOMEN: Soft, very obese, nontender. No rebound. No guarding. Bilateral legs, +3 edema. LABORATORY: WBC 6.5, hemoglobin 11.4, hematocrit 35.4, platelets of 158. Chemistry: Sodium 135, po tassium 5.1, chloride 101, CO2 of 26, BUN 57, creatinine 2.4, blood sugar of 77. Troponin 0.22. Blo od cultures are negative. CT scan of the head is unremarkable. ASSESSMENT: 1. Morbid obesity. 2. Acute on chronic congestive heart failure. 3. Hyperkalemia. 4. Syncope, status post fall. 5. Mild rhabdomyolysis, improving. 6. Renal insufficiency, improving. 7. Chronic obstructive pulmonary disease. 8. Kzb-qgdcpfj-sawpadfyj diabetes. 9. Severe aortic stenosis. 10. Pulmonary hypertension. 11. Status post pacemaker placement. 12. Leukocytosis, improving. PLAN: Currently, the patient is on IV fluid. She is on Bactrim. Because of renal insufficiency, I will discontinue her Bactrim. For her leg ulcer, I would rather give her doxycycline. She is on DVT prophylaxis. She is receiving diuretics. Her blood sugar is being monitored. Will follow up her e lectrolytes in the a.m. Will reevaluate patient in the a.m. Sarah Park MD cc: [phone] TT: 12/15/2016 12:35:52 Confirmation # [id number] Dictation # [id number] mn
[2016-12-16] MEDS: Levothyroxine 112 MCG TAB PO SCH (08:40)
[2016-12-16] MEDS: Levothyroxine 25 MCG TAB PO SCH (08:40)
[2016-12-16] MEDS: Arformoterol 15 mcg/2 ml Inh Sol IH SCH (08:42)
[2016-12-16] MEDS: Budesonide 0.5 mg/2 ml Inhal Susp UD IH SCH (08:43)
[2016-12-16] MEDS: Magnesium Oxide 400 mg Tab UD PO SCH (09:48)
[2016-12-16] MEDS: GENERLAC PO SCH (09:50)
[2016-12-16] MEDS: Insulin Reg-LOW-Coverage SC SCH (09:50)
[2016-12-16] MEDS: Nystatin 100,000 Units/gm Topical Pow(15 gm) TOP SCH (09:51)
[2016-12-16 09:52] VITALS: BP 114/84
[2016-12-16 10:22] VITALS: PULSE 60
--- NOTE | 2016-12-16 10:28 | PN ---
DATE: 12/16/2016 SUBJECTIVE: The patient is seen sitting in a chair on telemetry. She feels somewhat better. She de nies any recurrent dizziness. She is awaiting a transitional care unit bed. CURRENT MEDICATIONS: Include Brovana, Cipro 500 mg b.i.d., carvedilol 12.5 mg b.i.d., Cozaar 100 mg daily, subcutaneous heparin, insulin coverage, Lasix 40 mg daily, Synthroid 137 mcg daily, Pulmicort inhaler and Klonopin at bedtime as well as Chronulac. PHYSICAL EXAMINATION: GENERAL: She is an obese, elderly woman. VITAL SIGNS: Her blood pressure is 114/84 with a pulse of 80 with ventricular paced rhythm. Respira tions are 16. She is afebrile. HEENT: No JVD. CHEST: A few scattered rhonchi, no rales noted. HEART: PMI displaced laterally with a mid-peaking systolic murmur at the base radiating to the carot ids as well as a systolic murmur at the apex radiating to the axilla. ABDOMEN: Soft, nontender, normoactive bowel sounds. EXTREMITIES: No edema. Chronic cellulitic changes noted. DIAGNOSTIC DATA: BUN and creatinine 59 and 2.4, potassium is 5.1. IMPRESSION: 1. Recent near syncope and fall, appears clinically improved. 2. Acute on chronic renal insufficiency. 3. History of chronic obstructive pulmonary disease. 4. Moderately severe aortic stenosis with moderate mitral and tricuspid regurgitation. 5. Status post permanent pacemaker implant. 6. Rest of problems as noted. RECOMMENDATIONS: IV fluids will be discontinued at this time. Lasix will be switched to oral admini stration as well. She appears stable from a cardiac standpoint for transfer to TCU at this time. Fa ll precautions should continue. We will continue to follow along and make further recommendations as appropriate. Greg Mcclure MD cc: [id number] TT: 12/16/2016 10:27:59 Confirmation # [id number] Dictation # [id number] shabbir
[2016-12-16] MEDS: Insulin Detemir 100 units/ml Vial (Levemir) SC SCH (10:36)
--- NOTE | 2016-12-16 11:39 | PQF CHF ---
This form is a permanent part of the medical record Clarification of your documentation is requested to better reflect the severity of illness and intensity of treatment of your patient. Indicators present DX of CHF documented. Pt on IV Lasix. Please document type & severity to best reflect severity of illness & intensity of service [x] Diagnosis of CHF and/or history of CHF [] BNP > 200 [] Imaging Finding of Pulmonary Edema /Pleural Effusions [] Fluid/Volume Overload [] Pitting edema [] Ejection Fraction < 40% (Indicative of Systolic Heart Failure) [] Ejection Fraction > 40% (Indicative of Diastolic Heart Failure) [x] Dyspnea / Orthopenea / Paroxysmal Nocturnal Dyspnea [] Other: Location in the medical record that reflects the above clinical findings: [] Admission note Treatment Provided: [] IV Lasix PHYSICIAN'S RESPONSE Based on your medical judgment of the clinical indicators outlined above, are you treating this patient for a known or suspected: [] Acute CHF [] Systolic [] Diastolic [] Combined [] Chronic CHF [] Systolic [] Diastolic [] Combined [] Acute on Chronic CHF []Systolic [] Diastolic [x] Combined [] CHF due hypertension [] Acute systolic []Chronic systolic [] Acute/ chronic systolic [] Other, please indicate: [] [] If Unable to Determine, please check the box, sign and date. Present On Admission (POA) Indicator: [x] Present at the time of admission [] Not present at the time of admission [] Clinically Undetermined In responding to this query, please exercise your independent professional judgment. The fact that a question is asked does not imply that any particular answer is desired or expected. Thank you for your clarification on this documentation. If you have any questions please call:[ ] * Thank you, [ ]Jaz Feng RN CDS verification clerk JIM
--- NOTE | 2016-12-16 23:25 | DS ---
HISTORY OF PRESENT ILLNESS: The patient is an 81-year-old patient of Dr. Kaplan who was admitted on 12/12. She felt dizzy and she fell and patient states her blood sugar was low at 69. She got ___ __ to eat lunch, but she felt very dizzy and passed out. She was on the floor and was able to drag h erself into the kitchen and spoke with her son who called ambulance and she was brought to the ER. S he was found to have CHF. The patient was diuresed and seemed to be deconditioned, being sent to TCU for further evaluation. PAST MEDICAL HISTORY: 1. Morbid obesity. 2. Congestive heart failure. 3. Insulin-dependent diabetes. 4. Hypertension. 5. Valvular heart disease. 6. Severe aortic stenosis. 7. Mitral regurgitation. 8. Pulmonary hypertension. 9. Status post pacemaker placement in 1989. 10. Status post hysterectomy secondary to uterine cancer. 11. Status post partial colectomy. ALLERGIES: SHE HAS MULTIPLE ALLERGIES INCLUDING HYDROCODONE, MOTRIN, . SOCIAL HISTORY: She lives at home and she has limited mobility, mostly sits in the chair and moves a round with a walker. FAMILY HISTORY: Notable for coronary artery disease and parents. PHYSICAL EXAMINATION: GENERAL: She is awake and alert, communicative. VITAL SIGNS: She is afebrile. Pulse 84, respirations 19, blood pressure 114/84. LUNGS: Bilateral diffuse decreased breath sounds. HEART: S1, S2 audible. No murmur. ABDOMEN: Soft, nontender, no rebound, no guarding. NEUROLOGIC: She is awake and alert and communicative. Moves all extremities. She has a healing ulc er on the left garcia. LABORATORY EXAM: Sodium 136, potassium 5.1, chloride 100, CO2 25, BUN 59, creatinine 2.4, blood suga r 83. Troponin yesterday was 0.22. ASSESSMENT AND PLAN: 1. Status post syncope secondary to hypoglycemia. 2. Congestive heart failure. 3. Morbid obesity. 4. Hypertension. 5. Pulmonary hypertension. 6. Non-insulin dependent diabetes. PLAN: The patient is being transferred to TCU, will resume her medications. We will follow up close ly and will evaluate the patient in a.m. Sarah Park MD cc: [phone] TT: 12/16/2016 23:24:27 mn
== END 2016-12-16 11:35 | DRG 292 ==
LOC: ED 18:47 → ERH 21:27 → 2RSO 12-13 12:19
PROVIDERS: ADMIT Internal Medicine; ATTEND Internal Medicine
PROC: 5A09457 Assistance with Respiratory Ventilation, 24-96 Consecutive Hours, Continuous Positive Airway Pressure (ICD-10-PCS; principal; 2016-12-13)
PROC: 3E0F7GC Introduction of Other Therapeutic Substance into Respiratory Tract, Via Natural or Artificial Opening (ICD-10-PCS; 2016-12-13)
DX: I13.0 Hypertensive heart and chronic kidney disease with heart failure and stage 1 through stage 4 chronic kidney disease, or unspecified chronic kidney disease (principal); I50.40 Unspecified combined systolic (congestive) and diastolic (congestive) heart failure; M62.82 Rhabdomyolysis; E11.649 Type 2 diabetes mellitus with hypoglycemia without coma; L03.115 Cellulitis of right lower limb; I42.0 Dilated cardiomyopathy; E11.22 Type 2 diabetes mellitus with diabetic chronic kidney disease; E66.2 Morbid (severe) obesity with alveolar hypoventilation; Z68.43 Body mass index [BMI] 50.0-59.9, adult; J44.1 Chronic obstructive pulmonary disease with (acute) exacerbation; I27.2 Other secondary pulmonary hypertension; N18.3 Chronic kidney disease, stage 3 (moderate); I08.3 Combined rheumatic disorders of mitral, aortic and tricuspid valves; E83.42 Hypomagnesemia; E87.5 Hyperkalemia; Z91.81 History of falling; Z79.84 Long term (current) use of oral hypoglycemic drugs; Z85.42 Personal history of malignant neoplasm of other parts of uterus; Z90.710 Acquired absence of both cervix and uterus; Z90.49 Acquired absence of other specified parts of digestive tract; Z95.0 Presence of cardiac pacemaker; Z82.49 Family history of ischemic heart disease and other diseases of the circulatory system

== ENCOUNTER 2016-12-16 11:35 | Inpatient (IN) | payer OTHER, MEDICARE ==
[2016-12-16 12:20] VITALS: BMI 45.6
[2016-12-16] MEDS ORDERED: Pneumococcal 23-Valent Vaccine IM ONE (13:32)
[2016-12-16] MEDS: Insulin Reg-LOW-Coverage SC SCH ×2 (17:23→21:47)
[2016-12-16] MEDS: Nystatin 100,000 Units/gm Topical Pow(15 gm) TOP SCH (18:37)
[2016-12-16] MEDS: Magnesium Oxide 400 mg Tab UD PO SCH (18:38)
[2016-12-16] MEDS: Arformoterol 15 mcg/2 ml Inh Sol IH SCH (20:28)
[2016-12-16] MEDS: Budesonide 0.5 mg/2 ml Inhal Susp UD IH SCH (20:28)
[2016-12-17] MEDS: Insulin Reg-LOW-Coverage SC SCH ×4 (06:47→22:41)
[2016-12-17] MEDS: Budesonide 0.5 mg/2 ml Inhal Susp UD IH SCH ×3 (07:06→21:50)
[2016-12-17] MEDS: Arformoterol 15 mcg/2 ml Inh Sol IH SCH ×3 (07:06→21:50)
[2016-12-17] MEDS ORDERED: LEVOTHYROXINE SODIUM PO SCH (10:00)
[2016-12-17] MEDS: Magnesium Oxide 400 mg Tab UD PO SCH ×2 (10:07→17:39)
[2016-12-17] MEDS: Nystatin 100,000 Units/gm Topical Pow(15 gm) TOP SCH ×2 (10:08→17:47)
[2016-12-17] MEDS: Insulin Detemir 100 units/ml Vial (Levemir) SC SCH (10:09)
[2016-12-17] MEDS: Bacitracin Ointment 30 GM TUBE TOP SCH (10:09)
--- NOTE | 2016-12-17 12:04 | PN ---
DATE: 12/17/2016 SUBJECTIVE: The patient is seen sitting in a chair on TCU. She was transferred there yesterday. Sh yvette is comfortable. She does complain of some abdominal bloating and continues to have exertional dysp norma. She denies any further lightheadedness. CURRENT MEDICATIONS: Include Brovana, carvedilol 12.5 mg b.i.d., losartan 100 mg daily, subcutaneous heparin, insulin, Klonopin, Lasix 40 mg daily, Pulmicort inhaler as well as levothyroxine 137 mcg da wolf. OBJECTIVE: GENERAL: She is an elderly woman who is morbidly obese. VITAL SIGNS: Her blood pressure is 96/56 with a pulse of 100, respirations are 16. She is afebrile. HEENT: No JVD. CHEST: A few scattered rhonchi noted. HEART: PMI displaced laterally with a mid-peaking systolic murmur at the base radiating to the carot ids as well as a systolic murmur at the apex. ABDOMEN: Soft, protuberant, nontender, normoactive bowel sounds. EXTREMITIES: No edema. Chronic cellulitic changes are present. IMPRESSION: 1. Recent syncope and fall. Exact etiology unclear. 2. Acute on chronic renal insufficiency. 3. Moderately severe aortic stenosis with moderate mitral and tricuspid regurgitation. 4. Status post remote pacemaker implant. 5. Morbid obesity. RECOMMENDATIONS: Her current medications will continue. Intensified exercise efforts were encourage d. Sodium restriction should continue as well. In general, conservative management appears most arpita ropriate at this time. If she has recurrent syncope, more aggressive workup can be entertained. We will continue to follow along as needed. Greg Mcclure MD cc: [id number] TT: 12/17/2016 12:03:35 Confirmation # [id number] Dictation # [id number] shabbir
--- NOTE | 2016-12-17 19:31 | PN ---
DATE: 12/17/2016 SUBJECTIVE: The patient is resting in the chair with O2 via nasal cannula. No complaints of [facility] shortness of breath, cough, wheezing or chest congestion. She still has dyspnea on exertion. No chest pain. No fever or chills, nausea or vomiting. PHYSICAL EXAMINATION: VITAL SIGNS: Are stable. HEENT: Within normal limits. LUNGS: Reveal decreased breath sounds bilaterally. ABDOMEN: Soft, nontender, normal bowel sounds. GENITALIA AND RECTAL: Deferred. MUSCULOSKELETAL: No joint deformities. EXTREMITIES: Reveal positive lower extremity edema. NEUROLOGIC: She seemed to be grossly intact. IMPRESSION: This patient has a history of a syncopal episode at home. She has a history of chronic obstructive pulmonary disease as well as obesity, and obesity hypoventilation syndrome. The patient has renal insufficiency and associated increased troponins on this admission, rule out myocardial inf arction. She has a history of congestive heart failure as well as morbid obesity. PLAN: We will continue with aggressive pulmonary toilet, continue with O2 via nasal cannula, Lasix, Brovana and budesonide. The patient is out of bed to chair and we will continue to treat aggressivel y along with the other consultants and the primary care doctor. Dillon Garcia MD cc: [id number] TT: 12/17/2016 19:30:02 Confirmation # [id number] Dictation # [id number] carlos manuel
--- NOTE | 2016-12-17 19:45 | HP ---
HISTORY OF PRESENT ILLNESS: The patient is an 81-year-old who came to Emergency Room on 12/12 after e passed out. She states her sugar was low, she got up to eat something, but she fell. After some ti me she regained consciousness and called son who came to help her out and brought her to Emergency Ro om. She was found to be in congestive heart failure, so she was admitted for diuresis and rehabilita tion. Transferred to TCU yesterday. Denies any fever or chills. No nausea, vomiting, no diarrhea. PAST MEDICAL HISTORY: Significant for: 1. Hypertension. 2. Morbid obesity. 3. Renal insufficiency. 4. Severe aortic stenosis. 5. History of pacemaker placement. ALLERGIES: 1. HYDROCODONE. 2. IBUPROFEN. 3. ____ 4. PENICILLIN. 5. COUMADIN. SOCIAL HISTORY: She lives alone; however, the son is around who helps her out alot. REVIEW OF SYSTEMS: Significant for shortness of breath on exertion and generalized weakness, difficu lty walking. PHYSICAL EXAMINATION: GENERAL: She is sleepy, but arousable. VITAL SIGNS: She is afebrile, pulse 60, respirations 20, blood pressure 125/59. LUNGS: Bilateral fair airflow, no rhonchi or crackle. HEART: S1, S2 audible. ABDOMEN: Soft, nontender, no rebound, no guarding. NEUROLOGIC: The patient is awake and alert, communicative. EXTREMITIES: Bilateral leg +2 edema. She has a healing ulcer and a scab on the left garcia. LABORATORY EXAM: Blood sugar is 131. ASSESSMENT: 1. Status post syncope, probably secondary to hypoglycemia. 2. Hypertension. 3. Morbid obesity. 4. Congestive heart failure. 5. Insulin-dependent diabetes. 6. Deconditioning and difficulty walking. PLAN: The patient MAR reviewed. She is currently on Brovana, Colace. She is on Coreg 12.5 twice a day, losartan 100 daily. She is on DVT prophylaxis. Her blood sugar is being monitored. She is on Klonopin 0.5 twice a day. She was on Levemir. Encourage physical therapy. The patient will be foll owed by Dr. Kaplan. Sarah Park MD cc: [phone] TT: 12/17/2016 19:44:16 jn
[2016-12-18] MEDS: Insulin Reg-LOW-Coverage SC SCH ×4 (08:16→22:06)
[2016-12-18] MEDS: Arformoterol 15 mcg/2 ml Inh Sol IH SCH ×2 (09:13→21:22)
[2016-12-18] MEDS: Budesonide 0.5 mg/2 ml Inhal Susp UD IH SCH ×2 (09:13→21:22)
[2016-12-18] MEDS: Bacitracin Ointment 30 GM TUBE TOP SCH (09:39)
[2016-12-18] MEDS: Insulin Detemir 100 units/ml Vial (Levemir) SC SCH (09:41)
[2016-12-18] MEDS: Magnesium Oxide 400 mg Tab UD PO SCH ×2 (09:42→17:46)
[2016-12-18] MEDS: Nystatin 100,000 Units/gm Topical Pow(15 gm) TOP SCH ×2 (09:42→17:47)
[2016-12-18] MEDS: LACTULOSE 10 GM/15 ML PO PRN (10:28)
--- NOTE | 2016-12-18 17:19 | PN ---
DATE: 12/18/2016 SUBJECTIVE: The patient is resting in the chair with O2 via nasal cannula. No complaints of [facility] ed shortness of breath today. No cough, no wheezing, no congestion. She does get significantly dysp neic with minimal exertion. No chest pain, no fever or chills. PHYSICAL EXAMINATION: VITAL SIGNS: Stable. HEENT: Within normal limits. LUNGS: Reveal decreased breath sounds bilaterally. ABDOMEN: Soft, nontender, but obese. GENITALIA AND RECTAL: Deferred. MUSCULOSKELETAL: No joint deformities. EXTREMITIES: Reveal positive lower extremity edema. NEUROLOGIC: She seems to be grossly intact. IMPRESSION: The patient has a history of syncopal episode and carries a diagnosis of chronic obstruc tive pulmonary disease, obesity, obesity hypoventilation syndrome, renal insufficiency, congestive he art failure and morbid obesity. She had increased troponins, so there is a likelihood there may have been a myocardial infarction. PLAN: We will continue to be aggressive with our pulmonary toilet. The patient is getting O2 via na say cannula as well as Lasix, Brovana, and budesonide. She is out of bed to chair. We will continue treat aggressively along with the other consultants and the primary care doctor. Dillon Garcia MD cc: [id number] TT: 12/18/2016 17:18:17 Confirmation # [id number] Dictation # [id number] mn
[2016-12-19] MEDS: Arformoterol 15 mcg/2 ml Inh Sol IH SCH ×2 (07:30→21:19)
[2016-12-19] MEDS: Budesonide 0.5 mg/2 ml Inhal Susp UD IH SCH ×2 (07:31→21:20)
[2016-12-19] MEDS: Insulin Reg-LOW-Coverage SC SCH ×4 (07:46→23:00)
[2016-12-19] MEDS: Magnesium Oxide 400 mg Tab UD PO SCH ×2 (09:29→17:51)
[2016-12-19] MEDS: Nystatin 100,000 Units/gm Topical Pow(15 gm) TOP SCH ×2 (09:31→17:52)
--- NOTE | 2016-12-19 10:26 | PN ---
DATE: 12/19/2016 An 81-year-old white female admitted to the hospital with congestive heart failure, acute systolic an d diastolic on history of combined systolic and diastolic heart failure, COPD, Pickwickian syndrome, noninsulin-dependent diabetes mellitus, peripheral edema. The patient is doing well with physical th erapy and occupational therapy. She is tolerating CPAP. She has been diuresed. VITAL SIGNS: She is afebrile. We will repeat her laboratory data. She does have renal insufficiency stage III and we will need to be careful with her diuretics. The patient will continue present medication and we will repeat her l abs and continue physical therapy. Shreyas Kaplan MD cc: [id number] TT: 12/19/2016 10:26:26 Confirmation # [id number] Dictation # [id number] en
[2016-12-19] MEDS: Bacitracin Ointment 30 GM TUBE TOP SCH (11:45)
[2016-12-19] MEDS: Insulin Detemir 100 units/ml Vial (Levemir) SC SCH (11:46)
[2016-12-20] MEDS: Insulin Reg-LOW-Coverage SC SCH ×4 (06:43→21:57)
[2016-12-20] MEDS: Budesonide 0.5 mg/2 ml Inhal Susp UD IH SCH ×2 (07:25→20:41)
[2016-12-20] MEDS: Arformoterol 15 mcg/2 ml Inh Sol IH SCH ×3 (07:25→20:46)
[2016-12-20 07:35] LABS: ADD MANUAL DIFF? NO
[2016-12-20 07:39] LABS: BASO # 0.03 K/mm3 (0.0-2.0); BASO % 0.6 % (0.0-3.0); EOS # 0.2 (0.0-0.7); EOS % 3.9 % (1.5-5.0); GRAN # 3.27 (1.4-6.5); GRAN % 60.8 % (50.0-68.0); LYMPH # 1.5 (1.2-3.4); LYMPH % 27.1 % (22.0-35.0); MEAN CELL VOLUME 90.7 fL (80.0-105.0); MEAN CORPUSCULAR HEMOGLOBIN 28.2 pg (25.0-35.0); MEAN CORPUSCULAR HGB CONC 31.1 g/dl (31.0-37.0); MEAN PLATELET VOLUME 9.6 fl (7.0-11.0); MONO # 0.4 (0.1-0.6); MONO % 7.6 % (1.0-6.0); PLATELET COUNT 171 10^3/uL (120.0-450.0); RED CELL DISTRIBUTION WIDTH 16.1 % (11.5-14.5); WHITE BLOOD COUNT 5.4 10^3/ul (4.5-11.0)
[2016-12-20 07:54] LABS: ALB/GLOB RATIO 0.9 (1.1-1.8); BILIRUBIN,TOTAL 0.8 mg/dL (0.2-1.3); CALCIUM 9.2 mg/dL (8.4-10.5); POTASSIUM 5.3 mmol/L (3.6-5.0); TOTAL PROTEIN 7.2 g/dL (5.8-8.3)
[2016-12-20] MEDS: Magnesium Oxide 400 mg Tab UD PO SCH ×2 (11:07→18:46)
[2016-12-20] MEDS: Bacitracin Ointment 30 GM TUBE TOP SCH (13:58)
[2016-12-20] MEDS: Insulin Detemir 100 units/ml Vial (Levemir) SC SCH (14:05)
[2016-12-20] MEDS: Nystatin 100,000 Units/gm Topical Pow(15 gm) TOP SCH ×2 (14:07→18:47)
--- NOTE | 2016-12-20 16:28 | PN ---
DATE: 12/20/2016 SUBJECTIVE: The patient is resting in chair with O2 via nasal cannula. No complaints of increased c ough or congestion. The patient is getting BiPAP at bedtime and O2 via nasal cannula during the day. No fever or chills. No nausea, vomiting, no chest pain, no abdominal pain. PHYSICAL EXAMINATION: VITAL SIGNS: Stable. HEENT: Within normal limits. LUNGS: Reveal good breath sounds bilaterally. ABDOMEN: Soft, nontender, normal bowel sounds. No organomegaly noted. GENITALIA AND RECTAL: Deferred. MUSCULOSKELETAL: No joint deformities. EXTREMITIES: Reveal no edema. NEUROLOGIC: She seems to be grossly intact. IMPRESSION: This patient has a history of syncopal episodes as well as a diagnosis of chronic obstru ctive pulmonary disease, obesity, obesity hypoventilation syndrome, renal insufficiency, congestive h eart failure, morbid obesity and possible myocardial infarction. PLAN: We will continue with aggressive pulmonary toilet. The patient is on oxygen via nasal cannula and Lasix, Brovana and budesonide. Dillon Garcia MD cc: [id number] TT: 12/20/2016 16:27:51 Confirmation # [id number] Dictation # [id number] shabbir
--- NOTE | 2016-12-20 18:44 | PN ---
DATE: 12/20/2016 An 81-year-old white female admitted to the hospital with congestive heart failure, history of [facility] systolic and diastolic heart failure, COPD, Pickwickian syndrome, noninsulin-dependent diabetes me llitus, hypertension, morbid obesity. The patient is doing well on BiPAP, diuretics and afterload re duction. Repeat blood test that shows a normal H and H of 11.5 and 37. Her BUN and creatinine have dropped to 48 and 1.4, potassium is 5.3. PHYSICAL EXAMINATION: VITAL SIGNS: She is afebrile. Vital signs are stable. Blood pressure 126/61. CHEST: She has diffuse rales bilaterally. EXTREMITIES: Without cyanosis, clubbing or edema. HEART: Regular sinus rhythm. The patient has a pacemaker for heart block. The patient should continue physical therapy and occupa tional therapy and mild diuresis. Shreyas Kaplan MD cc: [id number] TT: 12/20/2016 18:43:34 Confirmation # [id number] Dictation # [id number] shabbir
[2016-12-21] MEDS: Insulin Reg-LOW-Coverage SC SCH ×4 (06:37→22:02)
[2016-12-21] MEDS: Arformoterol 15 mcg/2 ml Inh Sol IH SCH ×2 (07:22→20:07)
[2016-12-21] MEDS: Budesonide 0.5 mg/2 ml Inhal Susp UD IH SCH ×2 (07:22→20:07)
--- NOTE | 2016-12-21 09:01 | PN ---
DATE: 12/21/2016 An 81-year-old white female in TCU doing physical therapy and occupational therapy, recovering from e xacerbation of heart failure and COPD. The patient is doing well. Vital signs are stable. Her blood pressure is 134/73. Her BUN and creatinine have improved to 48 an d 1.4. Potassium is slightly elevated at 5.3 but within normal limits. Chest is clear to auscultatio n and percussion. The patient unable to do physical therapy without being excessively short of breat h. Heart rate is controlled at 61. Plan is to continue physical therapy and occupational therapy. Continue afterload reduction and diur etics. Shreyas Kaplan MD cc: 356 TT: 12/21/2016 09:00:40 Confirmation # [id number] Dictation # [id number] bhupendra
--- NOTE | 2016-12-21 09:26 | PN ---
DATE: 12/21/2016 SUBJECTIVE: The patient is seen sitting in a chair in the TCU. She is feeling somewhat better. She continues to have exertional dyspnea and uses oxygen occasionally. She denies any chest pain or pal pitations. CURRENT MEDICATIONS: Include Brovana, carvedilol 12.5 mg b.i.d., Cozaar 100 mg daily, subcutaneous h eparin, Klonopin 0.5 mg b.i.d., insulin coverage, Lasix 40 mg daily, Levemir insulin, Pulmicort inhal er, and Synthroid 137 mcg daily. OBJECTIVE: GENERAL: She is a morbidly obese, elderly woman. VITAL SIGNS: Her blood pressure is 130/70 with a pulse of 60, respirations are 16. She is afebrile. HEENT: No JVD. CHEST: Bilateral scattered rhonchi heard. No rales noted. HEART: PMI displaced laterally with a systolic murmur at the base as well as at the apex. ABDOMEN: Soft, morbidly obese with normoactive bowel sounds. EXTREMITIES: Chronic cellulitic changes with trace leg edema. DIAGNOSTIC DATA: No blood work pending from this morning. Last BUN and creatinine were 48 and 1.4 w ith a potassium of 5.3. IMPRESSION: 1. Recent syncopal event, etiology uncertain, possibly related to hypoglycemia. 2. Acute on chronic renal insufficiency, clinically improved. 3. Moderately severe aortic stenosis. 4. Moderate mitral and tricuspid regurgitation. 5. Morbid obesity. 6. Severe deconditioning. 7. Status post permanent pacemaker implant. RECOMMENDATIONS: Her current medications should be continued. Increased exercise efforts as able is advised. Attempts at weight loss would be beneficial. We will continue to follow along and make fu rther recommendations as appropriate. Greg Mcclure MD cc: [id number] TT: 12/21/2016 09:25:48 Confirmation # [id number] Dictation # [id number] tn
[2016-12-21] MEDS: Bacitracin Ointment 30 GM TUBE TOP SCH (11:15)
[2016-12-21] MEDS: Insulin Detemir 100 units/ml Vial (Levemir) SC SCH (11:28)
[2016-12-21] MEDS: Nystatin 100,000 Units/gm Topical Pow(15 gm) TOP SCH ×2 (11:29→18:14)
[2016-12-21] MEDS: Magnesium Oxide 400 mg Tab UD PO SCH ×2 (11:29→18:14)
[2016-12-22] MEDS: Insulin Reg-LOW-Coverage SC SCH ×4 (07:06→22:00)
[2016-12-22] MEDS: Arformoterol 15 mcg/2 ml Inh Sol IH SCH ×4 (07:33→22:13)
[2016-12-22] MEDS: Budesonide 0.5 mg/2 ml Inhal Susp UD IH SCH ×4 (07:33→22:13)
--- NOTE | 2016-12-22 09:34 | PN ---
DATE: 12/22/2016 An 81-year-old white female in TCU for deconditioning, recovering from congestive heart failure, COPD . The patient is doing well with physical therapy and occupational therapy. She is using BiPAP at [facility]. Her BUN and creatinine are stable at 48 and 1.4, potassium is 5.3. PHYSICAL EXAMINATION: VITAL SIGNS: She is afebrile. Blood pressure 132/64. EXTREMITIES: Decreased edema, decreased swelling in her legs. LUNGS: Decreased rales. She is less short of breath. Shreyas Kaplan MD cc: 356 TT: 12/22/2016 09:34:01 Confirmation # [id number] Dictation # [id number] en
[2016-12-22] MEDS: Magnesium Oxide 400 mg Tab UD PO SCH ×2 (10:14→18:00)
[2016-12-22] MEDS: Bacitracin Ointment 30 GM TUBE TOP SCH (10:14)
[2016-12-22] MEDS: Insulin Detemir 100 units/ml Vial (Levemir) SC SCH (10:14)
[2016-12-22] MEDS: Nystatin 100,000 Units/gm Topical Pow(15 gm) TOP SCH ×2 (10:15→18:48)
[2016-12-23] MEDS: Insulin Reg-LOW-Coverage SC SCH ×4 (06:30→21:49)
[2016-12-23] MEDS: Budesonide 0.5 mg/2 ml Inhal Susp UD IH SCH ×2 (09:17→20:04)
[2016-12-23] MEDS: Arformoterol 15 mcg/2 ml Inh Sol IH SCH ×2 (09:17→20:04)
[2016-12-23] MEDS: Bacitracin Ointment 30 GM TUBE TOP SCH (10:00)
[2016-12-23] MEDS: LACTULOSE 10 GM/15 ML PO PRN (10:00)
[2016-12-23] MEDS: Insulin Detemir 100 units/ml Vial (Levemir) SC SCH (10:01)
[2016-12-23] MEDS: Magnesium Oxide 400 mg Tab UD PO SCH ×2 (10:02→17:49)
[2016-12-23] MEDS: Nystatin 100,000 Units/gm Topical Pow(15 gm) TOP SCH ×2 (10:03→17:49)
--- NOTE | 2016-12-23 10:16 | PN ---
DATE: 12/23/2016 An 81-year-old white female in TCU, doing physical therapy and occupational therapy. The patient has a history of CHF, acute on chronic systolic and diastolic, COPD, Pickwickian syndrome, cellulitis of the legs, edema. The patient is doing well on diuretics. She is stable. Blood pressure is 150/76. She is afebrile. She is doing physical therapy, complaining today only of constipation. The patie nt will get her Genlac home medication today. PHYSICAL EXAMINATION: CHEST: Has decreased breath sounds and rales. EXTREMITIES: There is some slight erythema of the right lower extremity, but it is improving. NEUROLOGIC: Grossly intact. REVIEW OF SYSTEMS: A 12-point review of systems is unremarkable except for constipation. Shreyas Kaplan MD cc: 356 TT: 12/23/2016 10:15:55 Confirmation # [id number] Dictation # [id number] tn
[2016-12-24] MEDS: Insulin Reg-LOW-Coverage SC SCH ×4 (06:43→21:55)
[2016-12-24] MEDS: Budesonide 0.5 mg/2 ml Inhal Susp UD IH SCH ×3 (07:27→21:20)
[2016-12-24] MEDS: Arformoterol 15 mcg/2 ml Inh Sol IH SCH ×3 (07:27→21:20)
--- NOTE | 2016-12-24 10:02 | PN ---
DATE: 12/24/2016 SUBJECTIVE: An 81-year-old white female admitted with acute on chronic heart failure, systolic and d iastolic, COPD, Pickwickian syndrome, infected right lower leg. VITAL SIGNS: Stable. The patient is doing physical therapy and occupational therapy. She has completed a course of antibi otics and she also has been on BiPAP and diuretics and afterload reduction. The patient is planned f or discharge home in the morning. The patient is to continue physical therapy and occupational thera py. REVIEW OF SYSTEMS: A 12-point review of systems is unremarkable. PHYSICAL EXAMINATION: GENERAL: Unchanged. The patient is stable. Shreyas Kaplan MD cc: 356 TT: 12/24/2016 10:02:03 Confirmation # [id number] Dictation # [id number] vineet
[2016-12-24] MEDS: Bacitracin Ointment 30 GM TUBE TOP SCH (10:21)
[2016-12-24] MEDS: Magnesium Oxide 400 mg Tab UD PO SCH ×2 (10:23→17:31)
[2016-12-24] MEDS: Insulin Detemir 100 units/ml Vial (Levemir) SC SCH (10:24)
[2016-12-24] MEDS: Nystatin 100,000 Units/gm Topical Pow(15 gm) TOP SCH ×2 (10:24→17:31)
[2016-12-24 18:04] VITALS: RESP 14; TEMP 97.7; O2SAT 93
--- NOTE | 2016-12-24 18:08 | PN ---
DATE: 12/24/2016 SUBJECTIVE: The patient is resting in the chair, eating dinner, and her son is at the bedside. She has O2 via nasal cannula. No complaints of increased shortness of breath, cough, wheezing, chest con gestion. No chest pain, no abdominal pain. The patient, as per the son, is scheduled to go home in the morning. PHYSICAL EXAMINATION: VITAL SIGNS: Stable. HEENT: Within normal limits. LUNGS: Reveal decreased breath sounds bilaterally at the bases. ABDOMEN: Soft, obese. Decreased bowel sounds, nontender. EXTREMITIES: Reveal 1+ lower extremity edema. NEUROLOGIC: She seemed to be grossly intact. IMPRESSION: The patient has a history of severe chronic obstructive pulmonary disease, obesity, and obesity hypoventilation syndrome, renal insufficiency, congestive heart failure, morbid obesity, and presented this time with a syncopal episode. PLAN: We will continue with aggressive pulmonary toilet. The patient is on oxygen via nasal cannula . She is getting her Lasix as well as Brovana and budesonide. The patient is getting physical thera py and, as per son, is scheduled for discharge in the morning. Dillon Garcia MD cc: [id number] TT: 12/24/2016 18:07:28 Confirmation # [id number] Dictation # [id number] bhupendra
[2016-12-25] MEDS: Insulin Reg-LOW-Coverage SC SCH ×2 (06:57→11:06)
[2016-12-25] MEDS: Budesonide 0.5 mg/2 ml Inhal Susp UD IH SCH (07:20)
[2016-12-25] MEDS: Arformoterol 15 mcg/2 ml Inh Sol IH SCH (07:20)
[2016-12-25 08:27] VITALS: BP 126/70; PULSE 92
[2016-12-25] MEDS: Magnesium Oxide 400 mg Tab UD PO SCH (09:30)
[2016-12-25] MEDS: Nystatin 100,000 Units/gm Topical Pow(15 gm) TOP SCH (10:06)
[2016-12-25] MEDS: Bacitracin Ointment 30 GM TUBE TOP SCH (10:56)
[2016-12-25] MEDS: Insulin Detemir 100 units/ml Vial (Levemir) SC SCH (11:05)
--- NOTE | 2016-12-26 08:13 | DS ---
The patient is an 81-year-old white female admitted to the hospital with acute on chronic systolic an d diastolic heart failure. The patient was transferred to [facility] to TCU. She spent 8 days in TCU. She was admitted on 12/16/16. She is being discharged on 12/25/16. She was seen in [facility] by Dr. Garcia and Dr. Manrique. Her vital signs are stable on discharge. Her blood sugars were co ntrolled. She had less shortness of breath. Her BUN and creatinine were stable. On her last chemis try her blood sugar was 195. She is less short of breath. She has less rales. She is tolerating he r BiPAP at night. She will be discharged home in improved condition. FINAL DISCHARGE DIAGNOSES: Deconditioning, acute systolic and diastolic heart failure on chronic sys tolic and diastolic heart failure, pickwickian syndrome, chronic obstructive pulmonary disease, non-i nsulin dependent diabetes mellitus, obesity and heart failure. Shreyas Kaplan MD cc: [id number] TT: 12/25/2016 22:52:47 dc 12/26/2016 07:12:21
== END 2016-12-25 15:59 | disposition home or self-care (01) | DRG 291 ==
LOC: TRCU 11:35
PROVIDERS: ADMIT Internal Medicine; ATTEND Internal Medicine
PROC: 5A09557 Assistance with Respiratory Ventilation, Greater than 96 Consecutive Hours, Continuous Positive Airway Pressure (ICD-10-PCS; 2016-12-16)
PROC: F07Z9FZ Gait Training/Functional Ambulation Treatment using Assistive, Adaptive, Supportive or Protective Equipment (ICD-10-PCS; principal; 2016-12-18)
PROC: F07Z8FZ Transfer Training Treatment using Assistive, Adaptive, Supportive or Protective Equipment (ICD-10-PCS; 2016-12-18)
PROC: F07L6ZZ Therapeutic Exercise Treatment of Musculoskeletal System - Lower Back / Lower Extremity (ICD-10-PCS; 2016-12-18)
PROC: F08Z2FZ Grooming/Personal Hygiene Treatment using Assistive, Adaptive, Supportive or Protective Equipment (ICD-10-PCS; 2016-12-18)
DX: I13.0 Hypertensive heart and chronic kidney disease with heart failure and stage 1 through stage 4 chronic kidney disease, or unspecified chronic kidney disease (principal); I50.43 Acute on chronic combined systolic (congestive) and diastolic (congestive) heart failure; E11.22 Type 2 diabetes mellitus with diabetic chronic kidney disease; E66.2 Morbid (severe) obesity with alveolar hypoventilation; Z68.42 Body mass index [BMI] 45.0-49.9, adult; L03.119 Cellulitis of unspecified part of limb; I08.3 Combined rheumatic disorders of mitral, aortic and tricuspid valves; J44.9 Chronic obstructive pulmonary disease, unspecified; R26.2 Difficulty in walking, not elsewhere classified; N18.3 Chronic kidney disease, stage 3 (moderate); I45.9 Conduction disorder, unspecified; K59.00 Constipation, unspecified; Z95.0 Presence of cardiac pacemaker

== ENCOUNTER 2017-03-09 17:56 | Inpatient (IN) | payer MEDICARE ==
[2017-03-09 18:26] LABS: VENOUS BLOOD GAS BASE EXCESS -4.1 mmol/L (0.0-2.0); VENOUS BLOOD GAS PO2 67 mm/Hg (30-55); VENOUS BLOOD PH 7.31 (7.32-7.43)
--- NOTE | 2017-03-09 18:27 | ED PDOC ---
Arrival/HPI - General Chief Complaint: Shortness Of Breath Time Seen by Provider: 03/09/17 18:00 Historian: Patient, EMS, Other (Friend who translated for patient in Syrian) - History of Present Illness Narrative History of Present Illness (Text): 03/09/17 18:23 A 81 year old female, whose past medical history includes diabetes, CHF, hypothyroidism, aortic stenosis and pacemaker, presents to the emergency department complaining of shortness of breath that started 1 hour prior to arrival. Patient is Syrian speaking, history obtained by EMS and friend who translated for patient. Patient notes bilateral leg swelling, which is normal to baseline. She denies any fever, chills, nausea vomiting, abdominal pain, chest pain, cough or any other complaints. Patient is complaint with her medication. PMD: Dr. Kaplan Hydro Sprayer Operator: Dr. 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) Symptom Course: Unchanged Quality: Other Context: Home Past Medical History - Provider Review Nursing Documentation Reviewed: Yes - Infectious Disease Hx of Infectious Diseases: None - Cardiac Hx Cardiac Disorders: Yes Hx Hypertension: Yes - Pulmonary Hx Respiratory Disorders: Yes Hx Chronic Obstructive Pulmonary Disease (COPD): Yes - Neurological Hx Neurological Disorder: Yes (syncope) - HEENT Hx HEENT Disorder: No - Renal Hx Renal Disorder: Yes Hx Renal Failure: Yes - Endocrine/Metabolic Hx Endocrine Disorders: Yes Hx Diabetes Mellitus Type 2: Yes - Hematological/Oncological Hx Blood Disorders: Yes 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, had hyst) Hx Chemotherapy: Yes (15 yrs ago) - Integumentary Hx Dermatological Disorder: No - Musculoskeletal/Rheumatological Hx Musculoskeletal Disorders: No Hx Falls: No - Gastrointestinal Hx Gastrointestinal Disorders: Yes (CONSTIPATION) - Genitourinary/Gynecological Hx Genitourinary Disorders: Yes Hx Reproductive Disorders: Yes (uterine ca hyst chemo 15 yr ago) - Psychiatric Hx Psychophysiologic Disorder: No Hx Substance Use: No - Surgical History Hx Hysterectomy: Yes (uterine ca 15 yrs ago) Other/Comment: abd surgery had obstruction hernia repaired at the same time around 8 yrs ago...partial colectomy? for obstruction 8 yrs ago... and pacemaker - Anesthesia Hx Anesthesia: Yes Hx Anesthesia Reactions: No Hx Malignant Hyperthermia: No Family/Social History - Physician Review Nursing Documentation Reviewed: Yes Family/Social History: No Known Family HX Smoking Status: Smoker Currrent Status Unknown Hx Alcohol Use: No Hx Substance Use: No Allergies/Home Meds Allergies/Adverse Reactions: Allergies hydrocodone bitartrate [From Vicoprofen] Allergy (Intermediate, Verified 18:00) RASH ibuprofen [From Vicoprofen] Allergy (Intermediate, Verified 03/09/17 18:00) RASH adhesive Allergy (Verified 03/09/17 18:00) RASH Penicillins Allergy (Verified 03/09/17 18:00) RASH warfarin sodium [From Coumadin] Allergy (Verified 03/09/17 18:00) RASH blisters on her legs Home Medications: Home Meds Medication Instructions Recorded Confirmed Arformoterol [Brovana] 15 mcg IH BID 06/11/16 03/09/17 Budesonide [Pulmicort Respules] 0.5 mg IH BID 06/11/16 03/09/17 Carvedilol [Coreg] 12.5 mg PO BID 06/11/16 03/09/17 Gabapentin [Neurontin] 100 mg PO TID 06/11/16 03/09/17 Saxagliptin HCl [Onglyza] 2.5 mg PO DAILY 06/11/16 03/09/17 GlipiZIDE [Glucotrol] 5 mg PO BID 12/12/16 03/09/17 Insulin Detemir [Levemir] 55 units SC DAILY 12/12/16 03/09/17 Losartan [Cozaar] 100 mg PO DAILY 12/12/16 03/09/17 Torsemide 20 mg PO DAILY 12/12/16 03/09/17 Levothyroxine [Synthroid] 137 mcg PO DAILY 03/09/17 03/09/17 Review of Systems - Physician Review All systems were reviewed & negative as marked: Yes - Review of Systems Constitutional: absent: Fevers, Night Sweats Respiratory: SOB. absent: Cough Cardiovascular: absent: Chest Pain Gastrointestinal: absent: Abdominal Pain, Diarrhea, Nausea, Vomiting Physical Exam Vital Signs Reviewed: Yes Vital Signs Temp Pulse Resp BP Pulse Ox 03/09/17 18:27 77 26 H 156/85 H 98 03/09/17 18:26 163/103 H 03/09/17 18:16 97 F L 03/09/17 18:10 82 28 H 163/103 H 94 L 03/09/17 18:00 32 H 163/103 H Temperature: Afebrile Blood Pressure: Hypertensive Pulse: Regular Respiratory Rate: Tachypneic Appearance: Positive for: Well-Appearing, Non-Toxic, Comfortable Pain Distress: None Mental Status: Positive for: Alert and Oriented X 3 Finger Stick Blood Glucose: 197 - Systems Exam Head: Present: Atraumatic, Normocephalic Pupils: Present: PERRL Extroacular Muscles: Present: EOMI Conjunctiva: Present: Normal Mouth: Present: Moist Mucous Membranes Neck: Present: Normal Range of Motion Respiratory/Chest: Present: Good Air Exchange, Tachypneic (on bipap machine), Other (Bilateral lower lung field crackles). No: Respiratory Distress, Accessory Muscle Use Cardiovascular: Present: Regular Rate and Rhythm, Normal S1, S2. No: Murmurs Abdomen: Present: Normal Bowel Sounds. No: Tenderness, Distention, Peritoneal Signs Back: Present: Normal Inspection Upper Extremity: Present: Normal Inspection. No: Cyanosis, Edema Lower Extremity: Present: Edema (+2 pitting edema bilaterally), NORMAL PULSES. No: CALF TENDERNESS Neurological: Present: GCS=15, CN II-XII Intact, Speech Normal Skin: Present: Warm, Dry, Normal Color. No: Rashes Psychiatric: Present: Alert, Oriented x 3, Normal Insight, Normal Concentration Medical Decision Making ED Course and Treatment: 03/09/17 18:23 Impression: A 81 year old female with shortness of breath Differential Diagnosis included but are not limited to: CHF exacerbation Plan: -- Chest xray -- EKG -- Labs -- Blood culture -- Lasix -- Reassess and disposition Progress Notes: EKG shows paced rhythm at [address]-segment elevations, normal intervals , normal axis. Interpreted by me. 03/09/17 19:[address] Kaplan who will accept the patient to his service. Patient's respiratory status improved. Saturating well on BiPap 60%, 12/5. 03/09/17 19:36 Potassium elevated and treated with Dextrose/Insulin, Albuterol and Kayexlate. Patient improved and feels better. Will remove BiPap and place on Ventimask. 03/09/17 20:06 Patient doing well on ventimask at 40%. - Lab Interpretations Lab Results: 03/09/17 18:05 03/09/17 18:05 Lab Results 03/09/17 19:20: pCO2 41, pO2 108.0 H, HCO3 22.6, ABG pH 7.35, ABG Total CO2 23.9 , ABG O2 Saturation 99.4 H, ABG O2 Content 16.1, ABG Base Excess -2.9 L, ABG Hemoglobin 11.9, ABG Carboxyhemoglobin 2.3 H, POC ABG HHb (Measured) 0.6, ABG Methemoglobin 1.7, ABG O2 Capacity 16.2, Hgb O2 Saturation 95.5, FiO2 21.0 03/09/17 18:06: POC Glucose (mg/dL) 197 H 03/09/17 18:05: Sodium 137, Chloride 105, Potassium 6.2 H*, Carbon Dioxide 22, Anion Gap 16, BUN 66 H, Creatinine 2.1 H, Est GFR ( Amer) 27, Est GFR ( Non-Af Amer) 23, Random Glucose 196 H, Calcium 9.6, Total Bilirubin 0.6, AST 18 , ALT 20, Alkaline Phosphatase 64, Lactate Dehydrogenase 669, Total Creatine Kinase 85, Troponin I 0.07 D, NT-Pro-B Natriuret Pep 91420 H, Total Protein 7.5 , Albumin 4.0, Globulin 3.5, Albumin/Globulin Ratio 1.1 03/09/17 18:05: pO2 67 H, VBG pH 7.31 L, VBG pCO2 44.0, VBG HCO3 22.2, VBG Total CO2 23.6, VBG O2 Sat (Calc) 95.7 H, VBG Base Excess -4.1 L, VBG Potassium 6.1 H, Sodium 136.0, Chloride 106.0, Glucose 203 H, Lactate 0.8, FiO2 21.0, Venous Blood Potassium 6.1 H 03/09/17 18:05: PT 12.8 H, INR 1.19 H, APTT 26.8 03/09/17 18:05: WBC 10.0 D, RBC 4.12, Hgb 12.5, Hct 36.1, MCV 87.6, MCH 30.3, MCHC 34.6, RDW 14.7 H, Plt Count 200, MPV 9.4, Gran % 75.5 H, Lymph % (Auto) 17.4 L, Shoshone % (Auto) 5.2, Eos % (Auto) 1.7, Baso % (Auto) 0.2, Gran # 7.56 H, Lymph # 1.7, Shoshone # 0.5, Eos # 0.2, Baso # 0.02 I have reviewed the lab results: Yes - RAD Interpretation Radiology Orders: 03/09/17 18:01 CHEST PORTABLE [RAD] Stat - Medication Orders Current Medication Orders: Ondansetron HCl (Zofran Inj) 4 mg IVP Q4H PRN PRN Reason: Nausea/Vomiting Discontinued Medications Albuterol Sulfate (Albuterol 0.083% Inhal Kelly (2.5 Mg/3 Ml) Ud) 2.5 mg INH STAT STA Stop: 03/09/17 18:42 Last Admin: 03/09/17 19:19 Dose: 2.5 mg Dextrose (Dextrose 50% Inj) 50 ml IVP STAT STA Stop: 03/09/17 18:42 Last Admin: 03/09/17 19:19 Dose: 50 ml Furosemide (Lasix) Confirm Administered Dose 20 mg .ROUTE .[facility] Stop: 03/09/17 18:00 Last Admin: 03/09/17 18:00 Dose: 20 mg Furosemide (Lasix) 20 mg IVP STAT STA Stop: 03/09/17 18:01 Last Admin: 03/09/17 18:26 Dose: Insulin Human Regular (Humulin R) 10 units IVP STAT STA Stop: 03/09/17 18:42 Last Admin: 03/09/17 19:19 Dose: 10 units Sodium Polystyrene Sulfonate (Kayexalate Oral Susp) 15 gm PO STAT STA Stop: 03/09/17 18:42 Last Admin: 03/09/17 19:19 Dose: 15 gm - Scribe Statement The provider has reviewed the documentation as recorded by the Scribe Yari Lorenzana Provider Scribe Attestation: All medical record entries made by the Scribe were at my direction and personally dictated by me. I have reviewed the chart and agree that the record accurately reflects my personal performance of the history, physical exam, medical decision making, and the department course for this patient. I have also personally directed, reviewed, and agree with the discharge instructions and disposition. Disposition/Present on Arrival - Present on Arrival Any Indicators Present on Arrival: No History of DVT/PE: No History of Uncontrolled Diabetes: No Urinary Catheter: No History of Decub. Ulcer: No History Surgical Site Infection Following: None - Disposition Have Diagnosis and Disposition been Completed?: Yes Diagnosis: Congestive heart failure (CHF) Disposition: HOSPITALIZED Disposition Time: 19:03 Patient Plan: Admission Patient Problems: Current Active Problems Problem Status Onset Congestive heart failure (CHF) Acute Condition: GUARDED Discharge Instructions (ExitCare): Heart Failure (ED) Referrals: Shreyas Kaplan MD [Primary Care Provider] - Follow up with primary
[2017-03-09 18:32] LABS: BASO # 0.02 K/mm3 (0.0-2.0); BASO % 0.2 % (0.0-3.0); EOS # 0.2 (0.0-0.7); EOS % 1.7 % (1.5-5.0); GRAN # 7.56 (1.4-6.5); GRAN % 75.5 % (50.0-68.0); HEMOGLOBIN 12.5 gm/dL (12.0-16.0); LYMPH # 1.7 (1.2-3.4); LYMPH % 17.4 % (22.0-35.0); MEAN CELL VOLUME 87.6 fL (80.0-105.0); MEAN CORPUSCULAR HEMOGLOBIN 30.3 pg (25.0-35.0); MEAN CORPUSCULAR HGB CONC 34.6 g/dl (31.0-37.0); MEAN PLATELET VOLUME 9.4 fl (7.0-11.0); MONO # 0.5 (0.1-0.6); MONO % 5.2 % (1.0-6.0); PLATELET COUNT 200 10^3/uL (120.0-450.0); RBC 4.12 10^6/uL (3.5-6.1); RED CELL DISTRIBUTION WIDTH 14.7 % (11.5-14.5)
[2017-03-09 18:34] LABS: ALB/GLOB RATIO 1.1 (1.1-1.8); CALCIUM 9.6 mg/dL (8.4-10.5)
[2017-03-09 18:37] LABS: INR 1.19 (0.93-1.08); PARTIAL THROMBOPLASTIN TIME 26.8 Seconds (23.7-30.8); PROTHROMBIN TIME 12.8 Seconds (9.9-11.8)
[2017-03-09] MEDS ORDERED: Dextrose 50% SYRINGE Inj (50 ml) IVP STA (18:41)
[2017-03-09] MEDS ORDERED: Insulin Regular 1 UNITS/0.01 ML ML IVP STA (18:41)
[2017-03-09] MEDS ORDERED: Albuterol 0.083% Inhal Sol (2.5 mg/3 mL) UD INH STA (18:41)
[2017-03-09] MEDS ORDERED: Sod Polystyrene Sulf 15 gm/60 ml Oral Susp PO STA (18:41)
[2017-03-09 18:46] LABS: TROPONIN I 0.07 ng/mL
[2017-03-09 19:24] LABS: ARTERIAL BLOOD GAS HCO3 22.6 mmol/L (21-28); ARTERIAL BLOOD GAS HEMOGLOBIN 11.9 g/dL (11.7-17.4); ARTERIAL BLOOD GAS O2 CAPACITY 16.2 mL/dl (16-24); ARTERIAL BLOOD GAS O2 CONTENT 16.1 ML/dl (15-23); ARTERIAL BLOOD GAS O2 SAT 99.4 % (95-98); ARTERIAL BLOOD GAS PCO2 41 mm/Hg (35-45); ARTERIAL BLOOD GAS PH 7.35 (7.35-7.45); ARTERIAL BLOOD GAS TCO2 23.9 mmol.L (22-28)
--- NOTE | 2017-03-09 21:31 | CP.PCM.CON ---
<SAM TAYLOR - Last Filed: 03/09/17 21:03> History of Present Illness - History of Present Illness History of Present Illness: Patient is a 81 year old grenadian speaking female with a PMHx of CHF, DM, HTN, arthritis, hypothyroidism, valvular heart disease and chronic constipation, who presents today with a cc of shortness of breath. Pt reports multiple CHF exacerbations in the last year which required hospitalization. Pt states that her SOB began today around 5pm while she was watching TV. She states that she is compliant with all of her medications and her son was at bedside and confirmed this. She did not try anything to alleviate the shortness of breath. She states that she remains SOB while at rest and worsens with activity. Pt requires two pillows to elevate her while she sleeps. Pt also c/o of subjective fever over the last day. She denies chest pain, cough, n/v/d, chills, and abdominal pain. PMHx: CHF, COPD, DM, HTN, arthritis, hypothyroidism, valvular heart disease and chronic constipation PSH: abdominal hernia repair, bowel resection, pacemaker insertion Social: denies tobacco use, illicit drug use, and current alcohol use FMH: HTN, DM Allergies: Hydrocodone, ibuprofen, adhesive, penicillin, warfarin Meds: Carvedilol 12.5 mg BID gerenolac 10mg, torsemide 20mg clonazepam 0.5mg BID PRN spironolactone 50mg losartan 100mg synthroid 0.137mg onglyza 2.5mg levemir 55units brovana 15mcg BID nebulized Review of Systems - Review of Systems All systems: reviewed and no additional remarkable complaints except (12 point ROS negative other than those stated in HPI) Past Patient History - Infectious Disease Hx of Infectious Diseases: None - Past Social History Smoking Status: Smoker Currrent Status Unknown - CARDIAC Hx Cardiac Disorders: Yes Hx Hypertension: Yes - PULMONARY Hx Respiratory Disorders: Yes Hx Chronic Obstructive Pulmonary Disease (COPD): Yes - NEUROLOGICAL Hx Neurological Disorder: Yes (syncope) - HEENT Hx HEENT Problems: No - RENAL Hx Chronic Kidney Disease: Yes Hx Renal Failure: Yes - ENDOCRINE/METABOLIC Hx Endocrine Disorders: Yes Hx Diabetes Mellitus Type 2: Yes - HEMATOLOGICAL/ONCOLOGICAL Hx Blood Disorders: Yes 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, had hyst) Hx Chemotherapy: Yes (15 yrs ago) - INTEGUMENTARY Hx Dermatological Problems: No - MUSCULOSKELETAL/RHEUMATOLOGICAL Hx Musculoskeletal Disorders: No Hx Falls: No - GASTROINTESTINAL Hx Gastrointestinal Disorders: Yes (CONSTIPATION) - GENITOURINARY/GYNECOLOGICAL Hx Genitourinary Disorders: Yes Hx Reproductive Disorders: Yes (uterine ca hyst chemo 15 yr ago) - PSYCHIATRIC Hx Psychophysiologic Disorder: No Hx Substance Use: No - SURGICAL HISTORY Hx Hysterectomy: Yes (uterine ca 15 yrs ago) Other/Comment: abd surgery had obstruction hernia repaired at the same time around 8 yrs ago...partial colectomy? for obstruction 8 yrs ago... and pacemaker - ANESTHESIA Hx Anesthesia: Yes Hx Anesthesia Reactions: No Hx Malignant Hyperthermia: No Meds Allergies/Adverse Reactions: Allergies Allergy/AdvReac Type Severity Reaction Status Date / Time hydrocodone bitartrate Allergy Intermediate RASH Verified 03/09/17 18:00 [From Vicoprofen] ibuprofen [From Vicoprofen] Allergy Intermediate RASH Verified 03/09/17 18:00 adhesive Allergy RASH Verified 03/09/17 18:00 Penicillins Allergy RASH Verified 03/09/17 18:00 warfarin sodium Allergy RASH Verified 03/09/17 18:00 [From Coumadin] - Medications Medications: Current Medications Arformoterol Tartrate (Brovana) 15 mcg IH BID [facility] Budesonide (Pulmicort Respules) 0.5 mg IH BID [facility] Carvedilol (Coreg) 12.5 mg PO BID [facility] Gabapentin (Neurontin) 100 mg PO TID [facility] PRN Reason: Protocol Insulin Detemir (Levemir) 55 unit SC DAILY [facility] Levothyroxine Sodium (Synthroid) 137 mcg PO DAILY [facility] Losartan Potassium (Cozaar) 100 mg PO DAILY [facility] Magnesium Oxide (Mag-Ox) 400 mg PO BID [facility] Ondansetron HCl (Zofran Inj) 4 mg IVP Q4H PRN PRN Reason: Nausea/Vomiting Torsemide (Demadex) 20 mg PO DAILY [facility] Physical Exam - Head Exam Head Exam: ATRAUMATIC, NORMOCEPHALIC - Eye Exam Eye Exam: EOMI, PERRL - ENT Exam ENT Exam: Mucous Membranes Moist - Neck Exam Neck exam: Positive for: Full Rom. Negative for: Lymphadenopathy, Tenderness, Thyromegaly - Respiratory Exam Respiratory Exam: Accessory Muscle Use, Rales. absent: Chest Wall Tenderness, Rhonchi, Wheezes - Cardiovascular Exam Cardiovascular Exam: RRR, +S1, +S2. absent: Diastolic murmur, Gallop, Rubs, Systolic Murmur - GI/Abdominal Exam GI & Abdominal Exam: Soft. absent: Distended, Guarding, Rebound, Tenderness - Extremities Exam Extremities exam: Positive for: pedal edema (1+/4 b/l LE edema), pedal pulses present - Neurological Exam Neurological exam: Alert, Oriented x3 - Psychiatric Exam Psychiatric exam: Normal Affect, Normal Mood - Skin Skin Exam: Dry, Intact, Normal Color, Warm Results - Vital Signs Recent Vital Signs: Last Vital Signs Temp 97 F L 03/09/17 18:16 Pulse 75 03/09/17 20:32 Resp 22 03/09/17 20:32 BP 148/84 03/09/17 20:32 Pulse Ox 96 03/09/17 20:32 - Labs Result Diagrams: 03/09/17 18:05 03/09/17 18:05 Assessment & Plan - Assessment and Plan (Free Text) Assessment: 81 yo with PMHx of CHF,valvular heart disease, pacemaker, DM, HTN, and hypothyroidism to be admitted for evaluation and treatment for CHF exacerbation. 1. CHF exacerbation -CXR consistent with CHF exacerbation: cardiomegaly, b/l pleural edema, vascular congestion -BNP 03491, Trop 0.07 -F/u cardiology consult -F/u pulm consult -Cont Torsemide 20 mg daily -Monitor I's and O's -Limit fluid intake due to concern for fluid overload 2. Valvular Heart Disease -Cont coreg -EKG shows electronic pacing 3. COPD -Cont Brovana, Pulmacort -CPAP -Maintain O2 sat >88% 4. Hyperkalemia -K 6.2 -Cont Kayexalate -Monitor electrolytes and correct as needed 5. HTN -Cont. Cozaar -Heart healthy diet, limit fluid intake 6. DM -Cont Levemir 55 units SC daily -Cont gabapentin for diabetic neuropathy -Humalog ISS 7. Hypothroidism -Cont Synthroid -F/u TSH 8. GI/DVT PPx -Protonix -HSQ Pt seen and discussed in detail with Dr. Jett. Pt is hemodynamically stable and will be monitor further on tele, please reconsult if necessary. <Maliha POWELL,Sumeet - Last Filed: 03/11/17 20:16> Meds - Medications Medications: Current Medications Arformoterol Tartrate (Brovana) 15 mcg IH 799,1999 [facility] Budesonide (Pulmicort Respules) 0.5 mg IH [facility] Carvedilol (Coreg) 12.5 mg PO BID [facility] Last Admin: 03/11/17 17:35 Dose: 12.5 mg Clonazepam (Klonopin) 0.5 mg PO HS [facility] PRN Reason: Protocol Last Admin: 03/10/17 21:28 Dose: 0.5 mg Furosemide (Lasix) 40 mg IVP DAILY [facility] Last Admin: 03/11/17 10:27 Dose: 40 mg Heparin Sodium (Porcine) (Heparin) 5,000 units SC Q8H [facility] PRN Reason: Protocol Last Admin: 03/11/17 16:57 Dose: 5,000 units Insulin Detemir (Levemir) 45 unit SC DAILY [facility] Insulin Human Regular (Humulin R Low) 0 units SC ACHS [facility] PRN Reason: Protocol Last Admin: 03/11/17 16:57 Dose: 3 units Levothyroxine Sodium (Synthroid) 25 mcg PO ACB [facility] Last Admin: 03/11/17 07:44 Dose: 25 mcg Levothyroxine Sodium (Synthroid) 112 mcg PO ACB [facility] Last Admin: 03/11/17 07:44 Dose: 112 mcg Losartan Potassium (Cozaar) 100 mg PO DAILY [facility] Last Admin: 03/11/17 10:27 Dose: 100 mg Magnesium Oxide (Mag-Ox) 400 mg PO BID [facility] Last Admin: 03/11/17 17:35 Dose: 400 mg Nystatin (Nystop Topical Powder) 0 gm TOP BID [facility] Last Admin: 03/11/17 17:35 Dose: 1 applic Ondansetron HCl (Zofran Inj) 4 mg IVP Q4H PRN PRN Reason: Nausea/Vomiting Torsemide (Demadex) 20 mg PO DAILY [facility] Results - Vital Signs Recent Vital Signs: Last Vital Signs Temp 98 F 03/11/17 17:08 Pulse 60 03/11/17 17:08 Resp 20 03/11/17 17:08 BP 129/64 03/11/17 17:08 Pulse Ox 100 03/11/17 06:00 - Labs Result Diagrams: 03/09/17 18:05 03/11/17 07:12 Labs: Laboratory Results - last 24 hr 03/10/17 03/10/17 03/11/17 16:22 21:21 07:12 Sodium 137 Potassium 5.2 H Chloride 103 Carbon Dioxide 24 Anion Gap 15 BUN 67 H Creatinine 1.7 H Est GFR ( Amer) 35 Est GFR (Non-Af Amer) 29 POC Glucose (mg/dL) 203 H 172 H Random Glucose 61 L Calcium 9.2 03/11/17 03/11/17 03/11/17 07:20 10:12 11:54 Sodium Potassium Chloride Carbon Dioxide Anion Gap BUN Creatinine Est GFR ( Amer) Est GFR (Non-Af Amer) POC Glucose (mg/dL) 53 L 193 H 153 H Random Glucose Calcium 03/11/17 16:30 Sodium Potassium Chloride Carbon Dioxide Anion Gap BUN Creatinine Est GFR ( Amer) Est GFR (Non-Af Amer) POC Glucose (mg/dL) 257 H Random Glucose Calcium Attending/Attestation - Attestation I have personally seen and examined this patient.: Yes I have fully participated in the care of the patient.: Yes I have reviewed all pertinent clinical information: Yes Notes (Text): 03/11/17 20:14 -I agree with the above ICU evaluation/consult note completed by the resident physician. Because the patient's vitals normalized after initiation of O2 via venti mask in the ED, she doesn't require ICU level of care. Also, her elevated potassium was treated in the ED. If her condition deteriorates, please feel free to re- consult. Thanks.
[2017-03-09 23:21] VITALS: BMI 47.2
[2017-03-10 07:05] LABS: ALB/GLOB RATIO 1.1 (1.1-1.8); ALBUMIN 3.7 g/dL (3.0-4.8); CALCIUM 9.5 mg/dL (8.4-10.5)
--- NOTE | 2017-03-10 07:28 | RAD ---
HISTORY: sob r/o pna r/o chf COMPARISON: 12/12/2016. FINDINGS: LUNGS: There is pulmonary venous congestion and redistribution. There is subsegmental atelectasis in the right lower lobe and left mid lung. PLEURA: Question of small pleural effusions, no pneumothorax apparent. CARDIOVASCULAR: There is mild cardiomegaly. There is a right-sided dual lead transvenous permanent pacing device. OSSEOUS STRUCTURES: No significant abnormalities. VISUALIZED UPPER ABDOMEN: Normal. OTHER FINDINGS: None. IMPRESSION: Findings are most compatible with mild congestive heart failure.
[2017-03-10] MEDS: Levothyroxine 112 MCG TAB PO SCH (07:33)
[2017-03-10] MEDS: Levothyroxine 25 MCG TAB PO SCH (07:33)
[2017-03-10] MEDS: Budesonide 0.5 mg/2 ml Inhal Susp UD IH SCH ×2 (09:46→19:48)
[2017-03-10] MEDS: Arformoterol 15 mcg/2 ml Inh Sol IH SCH ×2 (09:46→19:47)
--- NOTE | 2017-03-10 09:58 | CON ---
DATE: 03/10/2017 INDICATIONS: Dyspnea, CHF. HISTORY OF PRESENT ILLNESS: This is an 81-year-old woman, known to me, admitted through the emergency room yesterday with a several hours of increasing shortness of breath, which became severe. She was brought to the emergency room where she complained of edema, shortness of breath, but no chest pain, syncope, pre-syncope, lightheadedness, dizziness, vertigo, fever, chills, cough, sputum production, hemoptysis, abdominal pain, nausea, vomiting, diarrhea, constipation, melena. PAST MEDICAL HISTORY: Notable for COPD, CHF, hypertension, diabetes. Echocardiography has demonstrated moderate to severe aortic stenosis with moderate mitral regurgitation and tricuspid regurgitation and moderate to severe pulmonary hypertension. She has a permanent pacemaker. She has undergone hysterectomy for uterine cancer, a partial colectomy for diverticulosis. She has had necrotizing fasciitis due to warfarin. There is no history of stroke, TIA, rheumatic fever or gout. MEDICATIONS: At the time of admission includes spironolactone, Brovana, Coreg, Cozaar, glipizide, Levemir, Mag-Ox, gabapentin, nystatin, Onglyza, Pulmicort, Synthroid and torsemide. ALLERGIES: SHE NOTES ALLERGIES TO HYDROCODONE, IBUPROFEN, PENICILLIN AND WARFARIN. SOCIAL HISTORY: She lives at home. She does not smoke cigarettes or drink alcohol. She is limited in her mobility. REVIEW OF SYSTEMS: Ten-point review of systems otherwise unremarkable except as noted above limited by language barrier. FAMILY HISTORY: Noncontributory. PHYSICAL EXAMINATION GENERAL: She is a well-developed elderly woman, sitting in bed with a BiPAP mask, in no acute distress. VITAL SIGNS: Notable for a paced rhythm at 60 beats per minute. She is afebrile. Blood pressure 149/73, respirations 18, O2 sat 97% to 99% on BiPAP mask. HEENT AND NECK: Reveals some neck vein distention. No carotid bruits. Mucous membranes moist. Conjunctivae pink. No thyromegaly. Neck is supple. CARDIOPULMONARY: Examination of the heart reveals normal first and second heart sounds, somewhat obscured. Systolic murmur along the left sternal border. PMI not palpable. LUNGS: Lung livingston have scattered rhonchi and rales at the bases. ABDOMEN: Soft. Bowel sounds present. No mass, organomegaly, tenderness, rebound, guarding, CVA tenderness or palpable abdominal aortic aneurysm. EXTREMITIES: Revealed mild edema. NEUROLOGIC: Awake, alert and oriented. SKIN: Warm and dry. No rashes or cellulitis. LABORATORY DATA AND IMAGING: A portable chest x-ray reveals congestive heart failure. EKG reveals a ventricular paced rhythm. White count, hemoglobin, hematocrit and platelet count are unremarkable. PT, INR and PTT unremarkable. Blood gas noted. Electrolytes are notable for a potassium of 6.2, after treatment this morning, 5.5. BUN 66, repeat 64. Creatinine 2.1, repeat 1.8. Blood sugars in the 100 to 200 range. LFTs unremarkable. CK 85, troponin 0.07, BNP 14,100. IMPRESSION: The patient is an 81-year-old woman admitted with relatively acute onset of shortness of breath with edema, found to have congestive heart failure, treated with IV Lasix and respiratory treatments as well as BiPAP mask during the night with some improvement this morning. There was no chest pain. Her potassium was elevated, this was treated. Repeat potassium is 5.5. She was on spironolactone. PLAN: At this time, I agree with current plans. Spironolactone will be held. I will check a troponin level this morning. She will get IV Lasix. We will monitor I's and O's and stool for occult blood. I would continue Coreg, Cozaar, insulin, Synthroid, Neurontin and Mag-Ox. She can be out of bed to chair. I will review her old records. I will order an echocardiogram. She will have an pulmonary consultation. Blood cultures are pending. I will follow along with you. I will make additional recommendations based on her clinical course. Jona Manrique MD MTDD
[2017-03-10] MEDS: Nystatin 100,000 Units/gm Topical Pow(15 gm) TOP SCH ×2 (10:04→17:41)
[2017-03-10] MEDS: Magnesium Oxide 400 mg Tab UD PO SCH ×2 (10:09→17:39)
--- NOTE | 2017-03-10 10:30 | IP.NPCORE ---
Heart Failure Core Measure - Heart Failure Left Ventricular Function to be assessed after discharge: Yes KAMRAN Inhibitor Prescribed: Yes Beta-Janet Prescribed: Carvedilol Angiotensin II Receptor Janet Prescribed: Yes AnticoagulationTherapy for Atrial Fibrillation/Atrialflutter: No Contraindication/Reason for not providing: n/a Hydralazine Nitrate Prescribed: No Contraindication/Reason for not providing: ri Implantable Cardioverter Defibrillator Therapy: Yes Cardiac Resynchronization Therapy Prescribed: Yes - Follow up Will be discharged to: Home Follow Up Date (must be within 7 days from discharge): 03/17/17 Follow Up Time: 09:00
[2017-03-10] MEDS: Insulin Detemir 100 units/ml Vial (Levemir) SC SCH (11:28)
[2017-03-10] MEDS: Insulin Reg-LOW-Coverage SC SCH ×3 (11:29→21:29)
--- NOTE | 2017-03-10 16:29 | CARD ---
APPROVED REPORT EKG Measurement Heart [id number] <Conclusion> Electronic ventricular pacemaker
--- NOTE | 2017-03-10 21:19 | HP ---
SUBJECTIVE: An 81-year-old white female with a long history of history of COPD, Pickwickian syndrome, CAD, history of congestive heart failure, systolic and diastolic chronic with acute exacerbation systolic heart failure. The patient was in her usual state of health at home; however, refusing to use *------* on a regular basis. Temperature was over 95 degrees with a high humidity. The patient became short of breath and had to be transported to the ER because of severe shortness of breath, was found to be hypoxic and hypercarbic, elevated BNP of over 14,000, accustomed with acute systolic heart failure on top of combined systolic and diastolic heart failure. The patient denies any fever or chills. Denies any cough. Denies any chest pain. PHYSICAL EXAMINATION: GENERAL: She is a well-developed and obese white female, improved this following morning after a night of sleeping with BiPAP. VITAL SIGNS: Stable. Blood pressure 149/73, temperature was 97.9, pulse of 60. CHEST: Clear to auscultation and percussion with decreased breath sounds in both bases. ABDOMEN: Obese but benign. HEART: Regular sinus rhythm. EXTREMITIES: Without cyanosis, clubbing, or edema. NEUROLOGIC: Sensation grossly intact. The patient also has a history of insulin and diabetes mellitus. She does not take insulin on a regular basis. LABORATORY DATA: BUN and creatinine are elevated to 64 and 1.8. She has a history of stage 3 chronic renal sufficiency in the past. Potassium was 5.5. She had a potassium of 6.2 in the ER, which was treated. IMPRESSION: Exacerbation of heart failure; poorly controlled diabetes mellitus, Pickwickian syndrome, chronic obstructive pulmonary disease and hypertension. Shreyas Kaplan MD
[2017-03-11] MEDS: Insulin Reg-LOW-Coverage SC SCH ×4 (07:30→22:10)
[2017-03-11] MEDS: Levothyroxine 112 MCG TAB PO SCH (07:44)
[2017-03-11] MEDS: Levothyroxine 25 MCG TAB PO SCH (07:44)
--- NOTE | 2017-03-11 07:48 | CP.PCM.PN ---
Subjective - Date & Time of Evaluation Date of Evaluation: 03/11/17 Time of Evaluation: 07:00 - Subjective Subjective: Stable on 2R. Slept with BiPap mask. No CP or SOB. V/S noted. Paced rhythm. PE: Lungs: rhonchi Cor.: S1S2, systolic murmur Abd.: soft Ext. Mild edema Neuro.: alert I/O N/A- incontinence Labs today pending BC x2 NG at 24 hrs. Objective - Vital Signs/Intake and Output Vital Signs (last 24 hours): Temp Pulse Resp BP Pulse Ox 98.0 F 60 20 125/69 100 03/11/17 06:00 03/11/17 06:00 03/11/17 06:00 03/11/17 06:00 03/11/17 06:00 Intake and Output: 03/11/17 03/11/17 06:59 18:59 Intake Total 360 Output Total 1 Balance 359 - Medications Medications: Current Medications Arformoterol Tartrate (Brovana) 15 mcg IH BID [facility] Last Admin: 03/10/17 19:47 Dose: 15 mcg Budesonide (Pulmicort Respules) 0.5 mg IH BID [facility] Last Admin: 03/10/17 19:48 Dose: 0.5 mg Carvedilol (Coreg) 12.5 mg PO BID [facility] Last Admin: 03/10/17 17:39 Dose: 12.5 mg Clonazepam (Klonopin) 0.5 mg PO HS [facility] PRN Reason: Protocol Last Admin: 03/10/17 21:28 Dose: 0.5 mg Furosemide (Lasix) 40 mg IVP DAILY [facility] Last Admin: 03/10/17 10:09 Dose: 40 mg Gabapentin (Neurontin) 100 mg PO TID [facility] PRN Reason: Protocol Last Admin: 03/10/17 17:39 Dose: 100 mg Insulin Detemir (Levemir) 55 unit SC DAILY [facility] Last Admin: 03/10/17 11:28 Dose: 55 unit Insulin Human Regular (Humulin R Low) 0 units SC ACHS [facility] PRN Reason: Protocol Last Admin: 03/11/17 07:30 Dose: Not Given Levothyroxine Sodium (Synthroid) 25 mcg PO ACB [facility] Last Admin: 03/10/17 07:33 Dose: 25 mcg Levothyroxine Sodium (Synthroid) 112 mcg PO ACB [facility] Last Admin: 03/10/17 07:33 Dose: 112 mcg Losartan Potassium (Cozaar) 100 mg PO DAILY [facility] Last Admin: 03/10/17 10:09 Dose: 100 mg Magnesium Oxide (Mag-Ox) 400 mg PO BID [facility] Last Admin: 03/10/17 17:39 Dose: 400 mg Nystatin (Nystop Topical Powder) 0 gm TOP BID [facility] Last Admin: 03/10/17 17:41 Dose: 1 applic Ondansetron HCl (Zofran Inj) 4 mg IVP Q4H PRN PRN Reason: Nausea/Vomiting Torsemide (Demadex) 20 mg PO DAILY [facility] - Labs Labs: 03/10/17 06:00 PT 12.8 Seconds (9.9-11.8) H 03/09/17 18:05 INR 1.19 (0.93-1.08) H 03/09/17 18:05 APTT 26.8 Seconds (23.7-30.8) 03/09/17 18:05 Assessment and Plan - Assessment and Plan (Free Text) Assessment: Dyspnea CHF COPD HBP Diabetes Obesity Valvular Heart Disease: Mod./Sev. , moderate M, moderate TR. Moderate/severe PH PPM S/P hysterectomy for uterine cancer Diverticulosis, s/p colectomy H/O nec. fasciitis due to warfarin Plan: Continue IV Lasix Pulmonary treatments Await AM labs OOB to chair as shekhar. DVT prevention: SQ heparin Monitor: labs, I/O, sats., BS's, etc. F/U CXR tomorrow. Will follow.
[2017-03-11] MEDS: Budesonide 0.5 mg/2 ml Inhal Susp UD IH SCH ×2 (08:21→22:30)
[2017-03-11] MEDS: Arformoterol 15 mcg/2 ml Inh Sol IH SCH ×2 (08:21→22:30)
[2017-03-11 08:27] LABS: CALCIUM 9.2 mg/dL (8.4-10.5)
[2017-03-11] MEDS: Insulin Detemir 100 units/ml Vial (Levemir) SC SCH (10:21)
[2017-03-11] MEDS: Magnesium Oxide 400 mg Tab UD PO SCH ×2 (10:28→17:35)
[2017-03-11] MEDS: Nystatin 100,000 Units/gm Topical Pow(15 gm) TOP SCH ×2 (10:29→17:35)
--- NOTE | 2017-03-11 16:58 | PN ---
DATE: 03/11/2017 HISTORY OF PRESENT ILLNESS: Ms. Umana she is an 81-year-old female with a chief complaint of developing shortness of breath several hours prior to coming to the emergency room. She has a lower extremity swelling as well as chest congestion and occasional cough. The patient has a history of congestive heart failure, obstructive sleep apnea, obesity, COPD, diabetes, hypothyroidism, and aortic stenosis. At this time feels much better with diuresis, she has on O2 via nasal cannula. No fever chills, nausea or vomiting. No abdominal pain. No chest pain. No diarrhea. The patient is using the CPAP at night and that does help. PAST MEDICAL HISTORY: As above. ALLERGIES: SHE HAS ALLERGIES TO WARFARIN, PENICILLIN, ADHESIVE TAPES, IBUPROFEN AND HYDROCODONE. MEDICATIONS: Medications can be evaluated as per the nurses intake form. SOCIAL HISTORY: No history of alcohol or substance abuse and no recent history of smoking. FAMILY HISTORY: Noncontributory. REVIEW OF SYSTEMS: Constitutional: All negative. HEENT: All negative. Respiratory: The patient presented with the shortness of breath and an congestion. Cardiovascular: No chest pain. No palpitations. Gastrointestinal: All negative. : All negative: Musculoskeletal: All negative. Neuropsychiatric: All negative. Hematological: All negative. Immunologic: All negative. Endocrine: All negative. all negative. PHYSICAL EXAMINATION: VITAL SIGNS: Her temperature is 97, her pulse is 60, respirations are 18, and blood pressure is 113/55. SKIN: Warm and dry. HEENT: Head is atraumatic and normocephalic. Eyes reactive to light. Ear, nose and throat seem to be within normal limits. NECK: Supple. No JVD. No thyroid enlargement. No lymph nodes. HEART: Regular rate rhythm, normal S1 and S2. LUNGS: Reveal decreased breath sound at the bases with occasional rhonchi. ABDOMEN: Soft and nontender, obese. Decreased bowel sounds. GENITALIA AND RECTAL: Deferred. MUSCULOSKELETAL: No joint deformities. EXTREMITIES: Reveal 1+ lower extremity edema. NEUROLOGICALLY: She seemed to be grossly intact. LABORATORY DATA: As far as her laboratories are concerned; her white count is 10.0, hemoglobin is 12.5, hematocrit is 36.1, platelets of 200,000. Her arterial blood gas reveals as pH of 7.35, pCO2 of 40, pO2 of 108. Sodium is 137, potassium 5.2, chloride 103, CO2 of 24, BUN of 61, creatinine of 1.7, and glucose of 61. IMPRESSION: This patient has congestive heart failure as noted on chest x-ray that had a small pleural effusion with right lower lobe atelectasis, as well as left mid lung small area of atelectasis as well. She has obstructive sleep apnea, obesity, chronic obstructive pulmonary disease, renal insufficiency, diabetes, hypothyroidism, and aortic stenosis. PLAN: We will continue with Brovana as a bronchodilators. The patient is getting heparin subq q. 8 and Lasix as appropriate diuretic. She is on Pulmicort via nebulizer as well and continues to get her Synthroid. We will continue to aggressive pulmonary toilet. She will continue with the BiPAP with O2 support. We will continue treat aggressively along with the other consultants and the primary care doctor. Dillon Garcia MD
--- NOTE | 2017-03-12 06:17 | ENDO ---
An 81-year-old white female with COPD, heart failure, elevated troponin, shortness of breath, congestive changes on EKG, hypoxia, chronic renal insufficiency, 67 and 1.7. White count of 10,000. Hemoglobin stable. Hyperkalemia on admission down to 5.2 today. Afebrile. Plan is to continue hydration for treatment of heart failure, treatment of COPD, Pickwickian syndrome, on BiPAP. The patient is improved with less shortness of breath. She did make enzymes, which has been slightly come down to the point that she did have also some elevated troponin, which have reduced. She is comfortable today. She is . Her blood sugars are better controlled. Plan is to continue treatment for heart failure and chronic renal insufficiency and exacerbation of COPD. Shreyas Kaplan MD
--- NOTE | 2017-03-12 07:14 | CP.PCM.PN ---
Subjective - Date & Time of Evaluation Date of Evaluation: 03/12/17 Time of Evaluation: 07:00 - Subjective Subjective: Stable on 2R. Slept with BiPap mask. No CP or SOB. V/S noted. Paced rhythm. PE: Lungs: rhonchi Cor.: S1S2, systolic murmur Abd.: soft Ext. Mild edema Neuro.: alert I/O N/A- incontinence Labs 03/11 noted. Cr.= 1.7, K+= 5.2. todays labs pending. BC x2 NG at 48 hrs. Objective - Vital Signs/Intake and Output Vital Signs (last 24 hours): Temp Pulse Resp BP Pulse Ox 97.5 F L 60 18 114/51 L 98 03/12/17 06:00 03/12/17 06:00 03/12/17 06:00 03/12/17 06:00 03/12/17 06:00 - Medications Medications: Current Medications Arformoterol Tartrate (Brovana) 15 mcg [facility] Last Admin: 03/11/17 22:30 Dose: 15 mcg Budesonide (Pulmicort Respules) 0.5 mg [facility] Last Admin: 03/11/17 22:30 Dose: 0.5 mg Carvedilol (Coreg) 12.5 mg PO BID [facility] Last Admin: 03/11/17 17:35 Dose: 12.5 mg Clonazepam (Klonopin) 0.5 mg PO HS [facility] PRN Reason: Protocol Last Admin: 03/11/17 22:10 Dose: 0.5 mg Furosemide (Lasix) 40 mg IVP DAILY [facility] Last Admin: 03/11/17 10:27 Dose: 40 mg Heparin Sodium (Porcine) (Heparin) 5,000 units SC Q8H [facility] PRN Reason: Protocol Last Admin: 03/11/17 22:56 Dose: 5,000 units Insulin Detemir (Levemir) 45 unit SC DAILY [facility] Insulin Human Regular (Humulin R Low) 0 units SC [facility] PRN Reason: Protocol Last Admin: 03/11/17 22:10 Dose: Not Given Levothyroxine Sodium (Synthroid) 25 mcg PO ACB [facility] Last Admin: 03/11/17 07:44 Dose: 25 mcg Levothyroxine Sodium (Synthroid) 112 mcg PO ACB [facility] Last Admin: 03/11/17 07:44 Dose: 112 mcg Losartan Potassium (Cozaar) 100 mg PO DAILY [facility] Last Admin: 03/11/17 10:27 Dose: 100 mg Magnesium Oxide (Mag-Ox) 400 mg PO BID [facility] Last Admin: 03/11/17 17:35 Dose: 400 mg Nystatin (Nystop Topical Powder) 0 gm TOP BID [facility] Last Admin: 03/11/17 17:35 Dose: 1 applic Ondansetron HCl (Zofran Inj) 4 mg IVP Q4H PRN PRN Reason: Nausea/Vomiting Torsemide (Demadex) 20 mg PO DAILY [facility] - Labs Labs: 03/11/17 07:12 PT 12.8 Seconds (9.9-11.8) H 03/09/17 18:05 INR 1.19 (0.93-1.08) H 03/09/17 18:05 APTT 26.8 Seconds (23.7-30.8) 03/09/17 18:05 Assessment and Plan - Assessment and Plan (Free Text) Assessment: Dyspnea CHF COPD HBP Diabetes Obesity Valvular Heart Disease: Mod./Sev. , moderate M, moderate TR. Moderate/severe PH PPM S/P hysterectomy for uterine cancer Diverticulosis, s/p colectomy H/O nec. fasciitis due to warfarin Plan: Continue IV Lasix Pulmonary treatments, as per Dr. Radha Farias AM labs OOB to chair as shekhar. DVT prevention: SQ heparin Monitor: labs, I/O, sats., BS's, etc. F/U CXR. Will follow.
[2017-03-12] MEDS: Arformoterol 15 mcg/2 ml Inh Sol IH SCH ×2 (07:43→20:04)
[2017-03-12] MEDS: Budesonide 0.5 mg/2 ml Inhal Susp UD IH SCH ×2 (07:43→20:04)
[2017-03-12] MEDS: Insulin Reg-LOW-Coverage SC SCH ×4 (08:03→21:57)
[2017-03-12] MEDS: Levothyroxine 112 MCG TAB PO SCH (08:04)
[2017-03-12] MEDS: Levothyroxine 25 MCG TAB PO SCH (08:04)
[2017-03-12 08:24] LABS: CALCIUM 9.2 mg/dL (8.4-10.5); MAGNESIUM 1.9 mg/dL (1.7-2.2)
[2017-03-12] MEDS: Insulin Detemir 100 units/ml Vial (Levemir) SC SCH (10:06)
[2017-03-12] MEDS: Nystatin 100,000 Units/gm Topical Pow(15 gm) TOP SCH (10:06)
[2017-03-12] MEDS: Magnesium Oxide 400 mg Tab UD PO SCH ×2 (10:06→17:27)
--- NOTE | 2017-03-12 10:18 | PN ---
DATE: SUBJECTIVE: The patient is an 81-year-old white female admitted to hospital with COPD and CHF and stage III renal insufficiency. The patient is improving steadily. PHYSICAL EXAMINATION GENERAL: She is awake, alert, and oriented x3. VITAL SIGNS: Stable. She is afebrile. Blood pressure is 114/51. CHEST: Clear to auscultation and percussion. CARDIOVASCULAR: Regular sinus rhythm. EXTREMITIES: Without cyanosis, clubbing, or edema. Her last BUN and creatinine 67 and 1.7. She has a repeat for tomorrow. She was hyperkalemic, but has now a potassium of 5.2 which will also be repeated in the morning. Vital signs are stable. The patient is an insulin dependant diabetic. Her blood sugars are better controlled. She is tolerating her CPAP, but the CPAP pressure will be changed to 12/6 with 35% FiO2. The patient is tolerating CPAP well. ASSESSMENT AND PLAN: Start physical therapy and occupational therapy, to remonitor her kidney function and I will continue to treat her for heart failure and chronic obstructive pulmonary disease. Shreyas Kaplan MD
--- NOTE | 2017-03-12 10:28 | RAD ---
HISTORY: CHF COMPARISON: 03/09/2017 TECHNIQUE: Chest PA and lateral FINDINGS: LUNGS: Please note that the film is mislabeled, right and left markers being reversed. Linear scar/atelectasis mid left lung, unchanged. No infiltrate. PLEURA: No significant pleural effusion identified. No pneumothorax apparent. CARDIOVASCULAR: Mild cardiomegaly. Permanent pacemaker. No congestive change. OSSEOUS STRUCTURES: No significant abnormalities. VISUALIZED UPPER ABDOMEN: Normal. OTHER FINDINGS: None. IMPRESSION: No acute infiltrate. Linear scar/ atelectasis mid left lung. Permanent pacemaker. Cardiomegaly.
[2017-03-13 06:30] VITALS: O2SAT 97
[2017-03-13] MEDS: Levothyroxine 25 MCG TAB PO SCH (07:58)
[2017-03-13] MEDS: Insulin Reg-LOW-Coverage SC SCH ×2 (07:58→12:04)
[2017-03-13] MEDS: Levothyroxine 112 MCG TAB PO SCH (07:58)
[2017-03-13 08:07] LABS: ALB/GLOB RATIO 1.1 (1.1-1.8); ALBUMIN 3.6 g/dL (3.0-4.8); CALCIUM 9.4 mg/dL (8.4-10.5)
--- NOTE | 2017-03-13 08:13 | CP.PCM.PN ---
Subjective - Date & Time of Evaluation Date of Evaluation: 03/13/17 Time of Evaluation: 07:00 - Subjective Subjective: Stable on 2R. She feels better. No CP or SOB. V/S noted. Paced rhythm. PE: Lungs: few rhonchi Cor.: S1S2, systolic murmur Abd.: soft Ext. no edema Neuro.: alert I/O N/A- incontinence Labs 03/12 noted. Cr.= 1.8, K+= 5.5. Todays labs pending. BC x2 NG at 3 days CXR: see report. Lungs appear clear now. No effusion. Objective - Vital Signs/Intake and Output Vital Signs (last 24 hours): Temp Pulse Resp BP Pulse Ox 97.5 F L 80 20 133/89 97 03/13/17 06:00 03/13/17 06:00 03/13/17 06:00 03/13/17 06:00 03/13/17 06:00 Intake and Output: 03/13/17 03/13/17 06:59 18:59 Intake Total 600 Balance 600 - Medications Medications: Current Medications Arformoterol Tartrate (Brovana) 15 mcg 799,1999 [facility] Last Admin: 03/12/17 20:04 Dose: 15 mcg Budesonide (Pulmicort Respules) 0.5 mg [facility] Last Admin: 03/12/17 20:04 Dose: 0.5 mg Carvedilol (Coreg) 12.5 mg PO BID [facility] Last Admin: 03/12/17 17:27 Dose: 12.5 mg Clonazepam (Klonopin) 0.5 mg PO HS [facility] PRN Reason: Protocol Last Admin: 03/12/17 21:51 Dose: 0.5 mg Heparin Sodium (Porcine) (Heparin) 5,000 units SC Q8H [facility] PRN Reason: Protocol Last Admin: 03/13/17 07:58 Dose: 5,000 units Insulin Detemir (Levemir) 45 unit SC DAILY [facility] Last Admin: 03/12/17 10:06 Dose: 45 unit Insulin Human Regular (Humulin R Low) 0 units SC ACHS [facility] PRN Reason: Protocol Last Admin: 03/13/17 07:58 Dose: Not Given Lactulose (Enulose) 10 gm PO DAILY [facility] Last Admin: 03/12/17 11:51 Dose: 10 gm Levothyroxine Sodium (Synthroid) 25 mcg PO ACB [facility] Last Admin: 03/13/17 07:58 Dose: 25 mcg Levothyroxine Sodium (Synthroid) 112 mcg PO ACB [facility] Last Admin: 03/13/17 07:58 Dose: 112 mcg Losartan Potassium (Cozaar) 100 mg PO DAILY [facility] Last Admin: 03/12/17 10:04 Dose: 100 mg Magnesium Oxide (Mag-Ox) 400 mg PO BID [facility] Last Admin: 03/12/17 17:27 Dose: 400 mg Nystatin (Nystop Topical Powder) 0 gm TOP BID [facility] Last Admin: 03/12/17 10:06 Dose: 1 applic Ondansetron HCl (Zofran Inj) 4 mg IVP Q4H PRN PRN Reason: Nausea/Vomiting Torsemide (Demadex) 20 mg PO DAILY [facility] - Labs Labs: 03/12/17 08:07 PT 12.8 Seconds (9.9-11.8) H 03/09/17 18:05 INR 1.19 (0.93-1.08) H 03/09/17 18:05 APTT 26.8 Seconds (23.7-30.8) 03/09/17 18:05 Assessment and Plan - Assessment and Plan (Free Text) Assessment: Dyspnea CHF COPD HBP Diabetes Obesity Valvular Heart Disease: Mod./Sev. , moderate M, moderate TR. Moderate/severe PH PPM S/P hysterectomy for uterine cancer Diverticulosis, s/p colectomy H/O nec. fasciitis due to warfarin Hyperkalemia Plan: D/C IV Lasix. No diuretic today. Hold losartan Pulmonary treatments, as per Dr. Garcia Awanisha AM labs OOB to chair as shekhar./PT DVT prevention: SQ heparin Monitor: labs, I/O, sats., BS's, K+, etc. Will follow.
[2017-03-13] MEDS: Budesonide 0.5 mg/2 ml Inhal Susp UD IH SCH (08:24)
[2017-03-13] MEDS: Arformoterol 15 mcg/2 ml Inh Sol IH SCH (08:24)
[2017-03-13] MEDS: Nystatin 100,000 Units/gm Topical Pow(15 gm) TOP SCH (09:21)
--- NOTE | 2017-03-13 09:51 | PN ---
DATE: 03/12/2017 SUBJECTIVE: The patient is resting in bed, no complaint of fever, chills,shortness of breath, cough, wheezing, chest congestion. No abdominal pain. No chest pain. She does complain of some constipation and has some lactulose to help her to have bowel movement. She is on O2 nasal cannula. No significant cough or congestion. PHYSICAL EXAMINATION: VITAL SIGNS: Note that her temperature is 97.6, her pulse is 60, respiration is 18 and BP is 138/73. SKIN: Warm and dry. HEENT: Head atraumatic normocephalic. Eyes reactive to light. Ears, nose and throat seen to be within normal limits. NECK: Supple, no JVD, no thyroid enlargement, no lymph nodes. HEART: Has regular rate and rhythm. Normal S1 and S2. LUNGS: Reveal decreased breath sounds at the bases, no significant rales or rhonchi. ABDOMEN: Soft, no tender, normal bowel sounds. GENITALIA: Deferred. MUSCULOSKELETAL: No joint deformities. EXTREMITIES: Reveal positive lower extremity edema. NEUROLOGIC: She seems to be grossly intact. LABORATORY DATA: No new laboratories for today. Chest x-reveals that there is linier scaring and atelectasis in the mid eft lung, unchanged. No infiltrates. IMPRESSION: The patient has congestive heart failure and some left-sided atelectasis on the chest x-ray. She has a history of obstructive sleep apnea, obesity, COPD, renal insufficiency,diabetes, hypothyroidism and aortic stenosis. PLAN: We will continue with Brovana, add bronchodilators. The patient is on heparin subQ as well as Lasix and will continue with Pulmicort via nebulizers as well. She is on her Synthroid and we will continue with aggressive pulmonary toilet. The patient is getting BiPAP and O2 at night and will continue to follow with the other doctors. Dillon Garcia MD
[2017-03-13] MEDS: Insulin Detemir 100 units/ml Vial (Levemir) SC SCH (12:05)
[2017-03-13 12:07] VITALS: BP 119/63; RESP 18; TEMP 98.3
[2017-03-13 15:24] VITALS: PULSE 60
--- NOTE | 2017-03-14 08:00 | PN ---
SUBJECTIVE: An 81-year-old white female who came into hospital with COPD and congestive heart failure. The patient is improving slowly, less short of breath and less rales. The patient does have chronic renal insufficiency, stage III. Her BUN is elevated to 85 and creatinine is 1.9, and potassium is 5.3. PHYSICAL EXAMINATION: VITAL SIGNS: Stable. GENERAL: The patient is without complaint. HEENT: unremarkable. LUNGS: Chest is clear. CARDIOPULMONARY: The patient's heart rate is regular rate and in sinus rhythm IMPRESSION AND PLAN:. The patient will be evaluated by Dr. Costa for chronic renal insufficiency, stage 3 and nephropathy, possible hypertensive and atherosclerotic nephropathy. The patient is also starting physical therapy and occupational therapy. We will transfer to [facility] when bed available. Shreyas Kaplan MD
--- NOTE | 2017-03-14 13:42 | CON ---
DATE: 03/13/2017 REASON FOR CONSULTATION: Hyperkalemia, chronic kidney disease stage IV. HISTORY OF PRESENT ILLNESS: An 81-year-old [place] female with history of NIDDM, hypertension, CHF, and COPD was admitted on 03/09/2017, with complaints of shortness of breath, dyspnea on exertion, mild respiratory distress. In the emergency room she was found to have a BNP of 1400. The patient was admitted with the diagnosis of decompensated congestive heart failure. The patient was diuresed. Also the patient was requested for elevated BUN and creatinine, BUN of 85, creatinine 1.9, and potassium of 5.3. Currently, patient report mild dyspnea on exertion, cough, and shortness of breath. She denies any chest tightness. She denies any abdominal pain. She denies any nausea, vomiting. She reports increased urine output. She reports that she is getting diuretic. PAST MEDICAL AND SURGICAL HISTORY: NIDDM, hypertension, CHF, COPD, and CAD. FAMILY HISTORY: Noncontributory. SOCIAL HISTORY: No smoking, no alcohol use, no IV drug abuse. ALLERGIES: HYDROCODONE, PENICILLIN, AND COUMADIN. CURRENT MEDICATIONS: Brovana, Coreg, lactulose, heparin, insulin, Klonopin, Pulmicort, Synthroid, and Zofran. REVIEW OF SYSTEMS: All systems are reviewed, pertinent positive as mentioned in the history of presenting illness, rest unremarkable. PHYSICAL EXAMINATION: GENERAL: Obese, elderly lady sitting in chair in mild distress. VITAL SIGNS: Blood pressure 119/63, heart rate 74, respiratory rate 18, and temperature 98.3. HEENT: Normocephalic, atraumatic. NECK: Supple. No JVD. LUNGS: Bilateral rhonchi, scattered wheeze. No rales. CARDIAC: S1, S2, regular rate and rhythm, no murmurs, no rubs. ABDOMEN: Obese, distended, soft, nontender, bowel sounds present. EXTREMITIES: Chronic stasis changes, 1+ pitting edema of the lower extremities. INTAKE AND OUTPUT: . LABORATORY DATA: Sodium 136. potassium 5.6, chloride 99, CO2 of 26, BUN 85, creatinine 1.9, glucose 135, calcium 9.4, AST 22, ALT 26, and albumin 3.6. ASSESSMENT AND PLAN: 1. Acute kidney injury superimposed on chronic kidney disease stage IV, largely . 2. Mild hyperkalemia. 3. Non-insulin dependent diabetes mellitus. 4. Hypertension. 5. Congestive heart failure. 6. Chronic obstructive pulmonary disease. PLAN: 1. Limit use of diuretic perhaps change torsemide 10 mg daily. 2. No treatment is needed for mild hyperkalemia. 3. 2 gram potassium diet. 4. Avoid nephrotoxins. 5. Monitor electrolytes daily. Thank you for the courtesy of this consultation. We will follow this patient closely. Imelda Costa MD
--- NOTE | 2017-03-15 05:23 | DS ---
Patient was admitted with acute systolic congestive heart failure, history of combined systolic diastolic heart failure, COPD, Pickwickian syndrome, , diabetes mellitus, obesity, and hypertension. Patient was admitted to the hospital with renal insufficiency and congestive heart failure. Patient was treated with diuretics. She had worsening of her renal failure. She was seen in consultation with Dr. Costa. Her diuretics were stopped. renal function and then she was started on physical therapy and occupational therapy. Her shortness of breath improved. Her oxygenation improved. She was then transferred to TCU. FINAL DISCHARGE DIAGNOSES: Acute systolic congestive heart failure on top of chronic combined systolic diastolic heart failure, chronic obstructive pulmonary disease, Pickwickian syndrome, insulin-dependent diabetes mellitus, morbid obesity, hypertension, chronic renal insufficiency, stage 4. Shreyas Kaplan MD
== END 2017-03-13 16:54 | DRG 291 ==
LOC: ED 17:56 → ERH 19:30 → 2RSO 21:30
PROVIDERS: ADMIT Internal Medicine; ATTEND Internal Medicine
PROC: 5A09457 Assistance with Respiratory Ventilation, 24-96 Consecutive Hours, Continuous Positive Airway Pressure (ICD-10-PCS; principal; 2017-03-10)
PROC: 3E0F7GC Introduction of Other Therapeutic Substance into Respiratory Tract, Via Natural or Artificial Opening (ICD-10-PCS; 2017-03-10)
DX: I13.0 Hypertensive heart and chronic kidney disease with heart failure and stage 1 through stage 4 chronic kidney disease, or unspecified chronic kidney disease (principal); I50.23 Acute on chronic systolic (congestive) heart failure; N18.4 Chronic kidney disease, stage 4 (severe); E11.22 Type 2 diabetes mellitus with diabetic chronic kidney disease; E11.40 Type 2 diabetes mellitus with diabetic neuropathy, unspecified; I27.2 Other secondary pulmonary hypertension; N17.9 Acute kidney failure, unspecified; E66.2 Morbid (severe) obesity with alveolar hypoventilation; I50.32 Chronic diastolic (congestive) heart failure; J98.11 Atelectasis; E11.65 Type 2 diabetes mellitus with hyperglycemia; E87.5 Hyperkalemia; I25.10 Atherosclerotic heart disease of native coronary artery without angina pectoris; R09.02 Hypoxemia; Z68.39 Body mass index [BMI] 39.0-39.9, adult; E03.9 Hypothyroidism, unspecified; M19.90 Unspecified osteoarthritis, unspecified site; K59.09 Other constipation; G47.33 Obstructive sleep apnea (adult) (pediatric); I08.3 Combined rheumatic disorders of mitral, aortic and tricuspid valves; J44.9 Chronic obstructive pulmonary disease, unspecified; Z90.710 Acquired absence of both cervix and uterus; Z85.42 Personal history of malignant neoplasm of other parts of uterus; Z79.4 Long term (current) use of insulin; Z90.49 Acquired absence of other specified parts of digestive tract; Z79.84 Long term (current) use of oral hypoglycemic drugs

== ENCOUNTER 2017-03-13 16:56 | Inpatient (IN) | payer OTHER, MEDICARE ==
[2017-03-13] MEDS ORDERED: Arformoterol 15 mcg/2 ml Inh Sol IH SCH (18:00)
[2017-03-13] MEDS ORDERED: Budesonide 0.5 mg/2 ml Inhal Susp UD IH SCH (18:00)
[2017-03-13] MEDS: Insulin Reg-LOW-Coverage SC SCH ×2 (18:34→21:33)
[2017-03-13] MEDS: Nystatin 100,000 Units/gm Topical Pow(15 gm) TOP SCH (18:35)
[2017-03-13 18:38] VITALS: BMI 37.6
[2017-03-13] MEDS ORDERED: Pneumococcal 23-Valent Vaccine IM ONE (18:38)
[2017-03-13] MEDS: Budesonide 0.5 mg/2 ml Inhal Susp UD IH SCH (20:38)
[2017-03-13] MEDS: Arformoterol 15 mcg/2 ml Inh Sol IH SCH (20:38)
[2017-03-14] MEDS: Insulin Reg-LOW-Coverage SC SCH ×4 (06:57→22:02)
[2017-03-14] MEDS: Levothyroxine 25 MCG TAB PO SCH (06:57)
[2017-03-14] MEDS: Levothyroxine 112 MCG TAB PO SCH (06:58)
[2017-03-14] MEDS: Budesonide 0.5 mg/2 ml Inhal Susp UD IH SCH ×2 (08:31→20:32)
[2017-03-14] MEDS: Arformoterol 15 mcg/2 ml Inh Sol IH SCH ×2 (08:31→20:32)
--- NOTE | 2017-03-14 08:59 | CP.PCM.PN ---
Subjective - Date & Time of Evaluation Date of Evaluation: 03/14/17 Time of Evaluation: 07:00 - Subjective Subjective: Stable in TCU now. No CP or SOB at rest. Sitting in chair. She did not sleep well last night. She does not like the BiPap mask. V/S noted. PE: Lungs: few rhonchi Cor.: S1S2, systolic murmur Abd.: obese, benign Ext.: no edema Neuro.: alert Labs yesterday noted. K+= 5.5, Cr.= 1.9 Objective - Vital Signs/Intake and Output Vital Signs (last 24 hours): Temp Pulse Resp BP Pulse Ox 98 F 61 18 145/73 03/13/17 18:16 03/14/17 02:00 03/13/17 18:16 03/13/17 18:36 - Medications Medications: Current Medications Arformoterol Tartrate (Brovana) 15 mcg [facility] [id number] [facility] PRN Reason: Protocol Last Admin: 03/14/17 08:31 Dose: 15 mcg Budesonide (Pulmicort Respules) 0.5 mg [facility] [id number] [facility] PRN Reason: Protocol Last Admin: 03/14/17 08:31 Dose: 0.5 mg Carvedilol (Coreg) 12.5 mg PO BID [facility] PRN Reason: Protocol Last Admin: 03/13/17 18:36 Dose: 12.5 mg Clonazepam (Klonopin) 0.5 mg PO HS [facility] PRN Reason: Protocol Last Admin: 03/13/17 21:30 Dose: 0.5 mg Heparin Sodium (Porcine) (Heparin) 5,000 units SC Q8 [facility] PRN Reason: Protocol Last Admin: 03/14/17 05:50 Dose: 5,000 units Insulin Detemir (Levemir) 45 unit SC DAILY [facility] PRN Reason: Protocol Insulin Human Regular (Humulin R Low) 0 units SC ACHS [facility] PRN Reason: Protocol Last Admin: 03/14/17 06:57 Dose: 1 units Lactulose (Enulose) 10 gm PO DAILY [facility] PRN Reason: Protocol Levothyroxine Sodium (Synthroid) 25 mcg PO ACB [facility] Last Admin: 03/14/17 06:57 Dose: 25 mcg Levothyroxine Sodium (Synthroid) 112 mcg PO ACB [facility] Last Admin: 03/14/17 06:58 Dose: 112 mcg Nystatin (Nystop Topical Powder) 0 gm TOP BID [facility] PRN Reason: Protocol Last Admin: 03/13/17 18:35 Dose: 1 pod Ondansetron HCl (Zofran Inj) 4 mg IVP Q4H PRN; Protocol PRN Reason: Nausea/Vomiting Assessment and Plan - Assessment and Plan (Free Text) Assessment: Dyspnea/CHF, improved Hyperkalemia with acute on chronic renal insufficiency in setting of diuretic therapy. COPD HBP Diabetes Valvular Heart Disease: Mod./Sev. , Mod. MR and TR, Mod./Sev. PH Obesity PPM S/P hysterectomy for uterine cancer Diverticulosis, s/p colectomy H/O necrotizing fasciitis due to warfarin Plan: TCU/PT/Rehab Renal Evaluation Pulmonary F/U Check AM labs: BMP Hold furosemide for now Monitor: Labs, K+, I/O Will follow.
[2017-03-14] MEDS ORDERED: Levothyroxine 25 MCG TAB PO SCH (10:00)
[2017-03-14 10:40] LABS: CALCIUM 9.1 mg/dL (8.4-10.5)
[2017-03-14] MEDS: Nystatin 100,000 Units/gm Topical Pow(15 gm) TOP SCH ×2 (10:53→18:01)
[2017-03-14] MEDS: Insulin Detemir 100 units/ml Vial (Levemir) SC SCH (10:53)
[2017-03-14 10:55] LABS: POTASSIUM 5.6 mmol/L (3.6-5.0)
[2017-03-14] MEDS ORDERED: Sod Polystyrene Sulf 15 gm/60 ml Oral Susp PO ONE (16:00)
--- NOTE | 2017-03-14 18:32 | PN ---
SUBJECTIVE: An 81-year-old female transferred from [facility] to TCU for deconditioning. The patient has history of COPD and congestive heart failure. Has been treated in [facility]. She has improved steadily. She also has renal insufficiency for which was seen in consultation by Dr. Costa yesterday. She will have her potassium-rich foods held. She will be hydrated. She will be renal function and workup with Dr. Costa. REVIEW OF SYSTEMS: A 12-point review of systems is unremarkable. PHYSICAL EXAMINATION: GENERAL: Unchanged. There is no complaints. VITAL SIGNS: Unchanged. PLAN: Plan is to continue current treatment and continue to monitor her renal function and start physical therapy. Shreyas Kaplan MD
[2017-03-14 19:45] LABS: URINE BILIRUBIN NEGATIVE (NEGATIVE); URINE BLOOD SMALL (NEGATIVE); URINE GLUCOSE (UA) NEGATIVE (NEGATIVE); URINE KETONE NEGATIVE (NEGATIVE); URINE LEUKOCYTE ESTERASE LARGE Leu/uL (NEGATIVE); URINE PROTEIN TRACE mg/dL (<30 mg/dL); URINE UROBILINOGEN 0.2 E.U./dL (<1 E.U./dL)
[2017-03-14 19:48] LABS: URINE APPEARANCE CLOUDY (CLEAR); URINE COLOR YELLOW (YELLOW)
--- NOTE | 2017-03-14 19:56 | PN ---
DATE: 03/14/2017 SUBJECTIVE: complains of increased shortness of breath, cough, wheezing, chest congestion. No chest pain. No abdominal pain. No diarrhea. No fevers. PHYSICAL EXAMINATION: HEENT: Eyes reactive to light. Ear, nose, and throat seem to be within normal limits. NECK: Supple. No JVD. No thyroid enlargement or lymph nodes. HEART: Regular rate and rhythm. Normal S1 and S2. LUNGS: Reveal decreased breath sounds at the bases. No significant rales or rhonchi. ABDOMEN: Soft, nontender. Normal bowel sounds. No organomegaly noted. GENITALIA AND RECTAL: Deferred. MUSCULOSKELETAL: No joint deformities. EXTREMITIES: Reveal lower extremity edema. NEUROLOGIC: Neurologically, she seems to be grossly intact. IMPRESSION: The patient has congestive heart failure and left-sided atelectasis on x-ray. She has a history of obstructive sleep apnea, obesity, chronic obstructive pulmonary disease, renal insufficiency, diabetes, hypothyroidism, and aortic stenosis. PLAN: We will continue with Brovana bronchodilator. The patient is getting heparin subcutaneous and Lasix for diuresis. She is on Pulmicort as well as Synthroid and gets BiPAP with O2 support at night. We will . Dillon Garcia MD
[2017-03-14 19:58] LABS: URINE BACTERIA MANY (NEG); URINE EPITHELIAL CELLS 0 - 2 /hpf (0-5); URINE WBC TNTC /hpf (0-6)
--- NOTE | 2017-03-14 21:58 | CON ---
DATE: 03/14/2017 REFERRING PHYSICIAN: Shreyas Kaplan MD REASON FOR CONSULTATION: Evaluation of the patient unknown to me with worsening prerenal azotemia in the setting of CHF and cardiomyopathy, who had been on diuretic therapy. HISTORY OF PRESENT ILLNESS: The patient is a pleasant 81-year-old white female with a history of COPD, Pickwickian syndrome, history of coronary artery disease, history of CHF, permanent pacemaker, history of severe cardiomyopathy with an ejection fraction of 22% with concentric LVH and valvular heart disease, aortic stenosis, aortic insufficiency, tricuspid regurgitation, mitral regurgitation, history of diabetes currently on insulin, history of hypertension. The patient was transferred over to the TCU yesterday for further management. Of note, the patient has a raising BUN and creatinine. Her baseline BUN is in the 40-50 range and BUN presently is 92. Her baseline creatinine is the 1.4 range, it is currently 1.8. Of note, her potassium level is elevated this morning at 5.6, it was as high as 6.2 during the hospitalization in acute care. The patient is currently off angiotensin receptor niko therapy. She is not receiving any medications that would raise her potassium level. We are asked to evaluate the patient for her worsening prerenal azotemia and hyperkaliemia. PAST MEDICAL HISTORY: Significant for COPD, Pickwickian syndrome, coronary artery disease, CHF with cardiomyopathy ejection fraction of 22%, valvular heart disease, IDDM and hypertension. CURRENT MEDICATIONS: Include Brovana, Coreg, Enulose, heparin, insulin, Klonopin, Levemir, nystatin, Pulmicort Respules, Synthroid and Zofran. The patient is currently off Aldactone and off Demadex. She is off Losartan. ALLERGIES: The patient is allergic to HYDROCODONE, BITARTRATE, IBUPROFEN, ADHESIVE, PENICILLIN, AND WARFARIN. SOCIAL HISTORY: No history of cigarette smoking. No history of alcohol use. FAMILY HISTORY: The patient does not remember and is likely noncontributory. REVIEW OF SYSTEMS: A 10-point systems reviewed with the patient. The patient denies any ongoing issues other than what is noted above in present illness. PHYSICAL EXAMINATION: GENERAL: The patient is currently seen in the TCU. She is sitting up in a chair. She appears to be in no acute distress. She states that her leg edema has significantly improved with diuretic therapy. She is not short of breath at rest. VITAL SIGNS: Blood pressure 103/60, temperature 98.1, pulse 70, respiratory rate 20, oxygen saturation is 90%. HEENT EXAM: Shows it to be normocephalic and atraumatic. Conjunctivae are pink. Sclerae are nonicteric. Pupils equal, round and reactive to light and accommodation. Extraocular muscles are intact. Posterior pharynx is normal. NECK: Supple. No neck vein distention. No thyromegaly. No lymphadenopathy. No bruits. CHEST: Clear to auscultation and percussion. No rales. No rhonchi. No wheezing. CARDIOVASCULAR: Shows distant heart sounds. S1 and S2 appear normal. /AI/TR/MR. No S3, no S4, no rub. ABDOMEN: Obese. Bowel sounds normal. No rebound. No guarding. No masses. EXTREMITIES: Showed no pitting lower extremity edema, but her legs do appear puffy. Diminished lower extremity pulses bilaterally. NEUROLOGIC: Shows her to be alert, oriented x3 with no gross focal motor or sensory deficits noted. LABORATORY DATA AND IMAGING: Chest x-ray showed acute pulmonary disease, no CHF. EKG showed permanent pacemaker. CBC: White blood cell count 10.0, hemoglobin 12.5 with platelet count of 200,000. Chemistries shows sodium 133, potassium 5.6, chloride 97 with a CO2 of 24, BUN of 92 with a creatinine of 1.8, glucose is 334. Calcium was 9.1. TSH done on 03/13, was normal and 0.86. Albumin level was 3.6. Liver enzymes are normal. ASSESSMENT: 1. Prerenal azotemia, worsening. This was quite possible in the setting of diuretic therapy, given for treat of congestive heart failure. Presently, the patient is off all diuretics. I expect with liquid oral rehydration that her BUN would drop down to the 40-50 range and creatinine would drop down to the 1.4 range. Indeed the patient does have chronic kidney disease stage III. We will obtain a urinalysis. We will check for any proteinuria. 2. Hyperkaliemia. The patient had been on angiotensin receptor niko, this has been discontinued. The patient will be started on renal diet, 2 g potassium restriction. I will give her a 1 dose of Kayexalate today 30 g and sorbitol to help her potassium level. 3. History of coronary artery disease, severe cardiomyopathy with an ejection fraction of 22%, congestive heart failure status post permanent pacemaker. The patient has valvular heart disease /AI/TR/MR. 4. History of insulin-dependent diabetes mellitus. Continue present medication. Continue monitor sugars on routine basis. 5. History of hypertension. Blood pressure is controlled on present medical therapy. 6. History of chronic obstructive pulmonary disease with Pickwickian syndrome. We will continue to monitor the patient's respiratory status during the hospitalization and TCU stay. PLAN: 1. Agree with discontinuation of the angiotensin receptor niko and diuretic. 2. Kayexalate 30 g and sorbitol x1 dose. 3. Renal diet and low-potassium diet. 4. Obtain urinalysis. 4. Continue to monitor the patient closely in the TCU. Obtain daily weights. 5. Encourage the patient to increase oral hydration. We will try to avoid IV fluid hydration as well as BUN and creatinine, did not increase further. Thank you for letting me part take and share in the care of your patient. Roby Mccabe MD
[2017-03-15] MEDS: Levothyroxine 25 MCG TAB PO SCH (06:29)
[2017-03-15] MEDS: Levothyroxine 112 MCG TAB PO SCH (06:29)
[2017-03-15] MEDS: Insulin Reg-LOW-Coverage SC SCH ×4 (06:42→22:18)
[2017-03-15] MEDS: Arformoterol 15 mcg/2 ml Inh Sol IH SCH ×2 (07:17→20:06)
[2017-03-15] MEDS: Budesonide 0.5 mg/2 ml Inhal Susp UD IH SCH ×2 (07:17→20:06)
[2017-03-15 08:01] LABS: CALCIUM 9.4 mg/dL (8.4-10.5); MAGNESIUM 2.2 mg/dL (1.7-2.2); PHOSPHOROUS 4.7 mg/dL (2.5-4.5)
[2017-03-15] MEDS: Insulin Detemir 100 units/ml Vial (Levemir) SC SCH (10:26)
[2017-03-15] MEDS: Nystatin 100,000 Units/gm Topical Pow(15 gm) TOP SCH ×2 (10:27→17:46)
--- NOTE | 2017-03-15 10:56 | PN ---
SUBJECTIVE: An 81-year-old white female with congestive heart failure, COPD and diabetes mellitus. The patient has chronic renal insufficiency, stage III at this point. OBJECTIVE: BUN and creatinine are 87 and 1.6. IMPRESSION: The patient is we are waiting an information regarding proteinuria and renal disease. The patient states she is doing physical therapy therapy. PLAN: The plan is to continue to follow BUN and creatinine and continue her treatment for deconditioning and heart failure and COPD. Shreyas Kaplan MD
[2017-03-15] MEDS ORDERED: Ergocalciferol 50,000 Intl Units Cap PO SCH (17:15)
--- NOTE | 2017-03-15 18:54 | PN ---
DATE: 03/15/2017 SUBJECTIVE: The patient is seen sitting in chair. She is awake, she is alert, she is comfortable. She denies any shortness of breath. She denies any chest pain. PHYSICAL EXAMINATION: GENERAL: Obese, elderly lady, sitting in chair. VITAL SIGNS: Blood pressure 141/68, heart rate 70, respiratory rate 20, and temperature 97.3. HEENT: Normocephalic, atraumatic. NECK: Supple. No JVD. LUNGS: Bilateral equal air entry. No rales. CARDIAC: S1, S2, regular rate and rhythm, no murmurs, no rubs. ABDOMEN: Obese, distended, soft, nontender, bowel sounds present. EXTREMITIES: No lower extremity edema. INTAKE AND OUTPUT: Not charted. LABORATORY DATA: Reveals that sodium 137, potassium 5.0, chloride 101, CO2 of 25, BUN 87, creatinine 1.6, glucose 108, calcium 9.4, phosphorous 4.7, magnesium 2.2, vitamin D less than 12.8. CURRENT MEDICATIONS: Brovana, Coreg, Enulose, heparin, Klonopin, insulin, nystatin, Synthroid, Tylenol, Zofran. ASSESSMENT: 1. Resolved acute kidney injury, underlying chronic renal disease stage III/IV. 2. Status post decompensated congestive heart failure. 3. Low vitamin D. 4. Resolved hyperkaliemia. 5. Coronary artery disease, cardiomyopathy, congestive heart failure. 6. Noninsulin-dependent diabetes mellitus. PLAN: 1. Okay to hold ARB for now. 2. Agree with discontinuation of diuretics. 3. Monitor creatinine and potassium closely. 4. Start Drisdol 50,000 units once a week. Imelda Costa MD MTDVicky
--- NOTE | 2017-03-15 18:55 | PN ---
DATE: 03/15/2017 SUBJECTIVE: The patient was seen sitting in chair in transitional care unit. She feels comfortable. Her leg edema has improved and dyspnea has somewhat improved as well. She does complain of a dry month. CURRENT MEDICATIONS: Include Brovana, carvedilol 12.5 mg b.i.d., subcutaneous heparin, insulin coverage, Klonopin, Levemir insulin, Pulmicort inhaler and Synthroid. Diuretics are currently on hold. OBJECTIVE GENERAL: She is an obese elderly woman. VITAL SIGNS: Her blood pressure is 140/68 with a pulse of 70 and respirations are 16. She is afebrile. HEENT: No JVD. CHEST: Diminished breath sounds at the base. HEART: PMI displaced laterally with a systolic murmur at the base as well as at the low left sternal border and apex. ABDOMEN: Soft, obese, nontender, normoactive bowel sounds. EXTREMITIES: Chronic cellulitic changes noted with trace to 1+ pitting edema. DIAGNOSTIC DATA: Potassium 5.0 and BUN and creatinine 87 and 1.6. IMPRESSION: 1. Decompensated congestive heart failure, acute on chronic, with some degree of prerenal azotemia at present due to over diuresis. 2. Moderate aortic stenosis. 3. Moderate mitral regurgitation. 4. Moderate left ventricular systolic dysfunction. 5. Morbid obesity. 6. Status post permanent pacemaker implant. RECOMMENDATIONS: Diuretic therapy will continued to be withheld at the present time and renal parameters will be monitored. Rest of the medications will continue unchanged. She was encouraged to increase her activities while on the TCU as much as possible. We will be happy to follow and make further recommendations as appropriate. Greg Mcclure MD
[2017-03-16 06:08] LABS: ALB/GLOB RATIO 1.1 (1.1-1.8); BILIRUBIN,TOTAL 0.6 mg/dL (0.2-1.3); CALCIUM 9.4 mg/dL (8.4-10.5); POTASSIUM 4.6 mmol/L (3.6-5.0); TOTAL PROTEIN 6.9 g/dL (5.8-8.3)
[2017-03-16] MEDS: Insulin Reg-LOW-Coverage SC SCH ×4 (06:51→21:23)
[2017-03-16] MEDS: Budesonide 0.5 mg/2 ml Inhal Susp UD IH SCH ×2 (07:27→20:07)
[2017-03-16] MEDS: Arformoterol 15 mcg/2 ml Inh Sol IH SCH ×2 (07:27→20:07)
--- NOTE | 2017-03-16 07:35 | CP.PCM.PN ---
Subjective - Date & Time of Evaluation Date of Evaluation: 03/16/17 Time of Evaluation: 07:00 - Subjective Subjective: Stable in TCU now. No CP or SOB. Sitting in chair now. + ambulation with walker. V/S noted. PE: Lungs: few rhonchi Cor.: S1S2, systolic murmur Abd.: obese, benign Ext.: no edema Neuro.: alert Labs noted. K+= 4.6, Cr.= 1.5 Objective - Vital Signs/Intake and Output Vital Signs (last 24 hours): Temp Pulse Resp BP Pulse Ox 97.3 F L 72 20 141/81 99 03/15/17 10:00 03/16/17 00:55 03/15/17 10:00 03/15/17 17:40 03/15/17 10:00 - Medications Medications: Current Medications Acetaminophen (Tylenol 325mg Tab) 650 mg PO Q6H PRN; Protocol PRN Reason: Headache Last Admin: 03/14/17 18:42 Dose: 650 mg Arformoterol Tartrate (Brovana) 15 mcg IH [id number] [facility]BERTO PRN Reason: Protocol Last Admin: 03/16/17 07:27 Dose: 15 mcg Budesonide (Pulmicort Respules) 0.5 mg IH [id number] [facility]O PRN Reason: Protocol Last Admin: 03/16/17 07:27 Dose: 0.5 mg Carvedilol (Coreg) 12.5 mg PO BID [facility] PRN Reason: Protocol Last Admin: 03/15/17 17:40 Dose: 12.5 mg Clonazepam (Klonopin) 0.5 mg PO HS [facility] PRN Reason: Protocol Last Admin: 03/15/17 21:49 Dose: 0.5 mg Ergocalciferol (Drisdol 50,000 Intl Units Cap) 1 cap PO Q7D ERIBERTO Last Admin: 03/15/17 18:17 Dose: 1 cap Heparin Sodium (Porcine) (Heparin) 5,000 units SC Q8 [facility]O PRN Reason: Protocol Last Admin: 03/16/17 05:56 Dose: 5,000 units Insulin Detemir (Levemir) 45 unit SC DAILY [facility] PRN Reason: Protocol Last Admin: 03/15/17 10:26 Dose: Not Given Insulin Human Regular (Humulin R Low) 0 units SC ACHS [facility]ERTO PRN Reason: Protocol Last Admin: 03/16/17 06:51 Dose: 2 units Lactulose (Enulose) 10 gm PO DAILY [facility] PRN Reason: Protocol Last Admin: 03/15/17 10:26 Dose: 10 gm Levothyroxine Sodium (Synthroid) 25 mcg PO ACB [facility] Last Admin: 03/15/17 06:29 Dose: 25 mcg Levothyroxine Sodium (Synthroid) 112 mcg PO ACB [facility] Last Admin: 03/15/17 06:29 Dose: 112 mcg Nystatin (Nystop Topical Powder) 0 gm TOP BID [facility] PRN Reason: Protocol Last Admin: 03/15/17 17:46 Dose: 1 applic Ondansetron HCl (Zofran Inj) 4 mg IVP Q4H PRN; Protocol PRN Reason: Nausea/Vomiting - Labs Labs: 03/16/17 05:25 Assessment and Plan - Assessment and Plan (Free Text) Assessment: Dyspnea/CHF, improved Hyperkalemia with acute on chronic renal insufficiency in setting of diuretic therapy, resolved. COPD HBP Diabetes Valvular Heart Disease: Mod./Sev. , Mod. MR and TR, Mod./Sev. PH Obesity PPM S/P hysterectomy for uterine cancer Diverticulosis, s/p colectomy H/O necrotizing fasciitis due to warfarin Plan: TCU/PT/Rehab Pulmonary and Renal F/U Hold furosemide for now Monitor: Labs, K+, I/O Will follow.
[2017-03-16] MEDS: Levothyroxine 112 MCG TAB PO SCH (08:17)
[2017-03-16] MEDS: Levothyroxine 25 MCG TAB PO SCH (08:17)
[2017-03-16] MEDS: Nystatin 100,000 Units/gm Topical Pow(15 gm) TOP SCH ×2 (10:11→17:32)
[2017-03-16] MEDS: Insulin Detemir 100 units/ml Vial (Levemir) SC SCH (11:16)
--- NOTE | 2017-03-16 12:05 | PN ---
DATE: 03/16/2017 SUBJECTIVE: The patient is seen, sitting in chair. She is awake, she is alert. She is on oxygen via nasal cannula. PHYSICAL EXAMINATION: GENERAL: Morbidly obese, elderly lady, sitting in chair. VITAL SIGNS: Blood pressure 133/76, heart rate 69, respiratory rate 18, and temperature 97.8. HEENT: Normocephalic, atraumatic. NECK: Supple. No JVD. LUNGS: Bilateral equal air entry. No rales. CARDIAC: S1, S2, regular rate and rhythm, no murmurs, no rubs. ABDOMEN: Obese, distended, soft, nontender, bowel sounds present. EXTREMITIES: 1+ pitting edema at lower extremity. INTAKE AND OUTPUT: Not charted. LABORATORY DATA: Sodium 137, potassium 4.6, chloride 101, CO2 of 28, BUN 78, creatinine 1.5, glucose 179, calcium 9.4. CURRENT MEDICATIONS: Brovana, Coreg 12.5 b.i.d., vitamin D 50,000 units once a week, Lactulose, heparin, insulin, Klonopin, nystatin, Pulmicort, Synthroid, Tylenol and Zofran. ASSESSMENT: 1. Resolved acute kidney injury. 2. Underlying chronic renal disease stage III/IV. 3. Resolved hyperkaliemia. 4. Decompensated congestive heart failure. 5. Hypertension. 6. Noninsulin-dependent diabetes mellitus. 7. Morbid obesity. PLAN: 1. Restart torsemide 20 mg daily. 2. Monitor daily weights. 3. Monitor potassium and creatinine. 4. Continue to hold Losartan for now. Imelda Costa MD MTDD
[2017-03-17 06:21] LABS: ALB/GLOB RATIO 1.2 (1.1-1.8); BILIRUBIN,TOTAL 0.7 mg/dL (0.2-1.3); CALCIUM 9.6 mg/dL (8.4-10.5); POTASSIUM 4.2 mmol/L (3.6-5.0); TOTAL PROTEIN 7.2 g/dL (5.8-8.3)
[2017-03-17] MEDS: Insulin Reg-LOW-Coverage SC SCH ×4 (07:02→21:44)
[2017-03-17] MEDS: Budesonide 0.5 mg/2 ml Inhal Susp UD IH SCH ×2 (07:27→20:12)
[2017-03-17] MEDS: Arformoterol 15 mcg/2 ml Inh Sol IH SCH ×2 (07:27→20:12)
[2017-03-17] MEDS: Levothyroxine 25 MCG TAB PO SCH (08:33)
[2017-03-17] MEDS: Levothyroxine 112 MCG TAB PO SCH (08:33)
--- NOTE | 2017-03-17 08:40 | CP.PCM.PN ---
Subjective - Date & Time of Evaluation Date of Evaluation: 03/17/17 Time of Evaluation: 07:00 - Subjective Subjective: Stable in TCU. No CP or SOB. Sitting in chair. + ambulation with walker. V/S noted. PE: Lungs: few rhonchi Cor.: S1S2, systolic murmur Abd.: obese, benign Ext.: no edema Neuro.: alert Labs noted. K+= 4.2, Cr.= 1.5 Objective - Vital Signs/Intake and Output Vital Signs (last 24 hours): Temp Pulse Resp BP Pulse Ox 98 F 77 20 136/75 99 03/16/17 14:00 03/17/17 01:18 03/16/17 14:00 03/16/17 17:37 03/16/17 14:00 - Medications Medications: Current Medications Acetaminophen (Tylenol 325mg Tab) 650 mg PO Q6H PRN; Protocol PRN Reason: Headache Last Admin: 03/14/17 18:42 Dose: 650 mg Arformoterol Tartrate (Brovana) 15 mcg IH [id number] ERIBERTO PRN Reason: Protocol Last Admin: 03/17/17 07:27 Dose: 15 mcg Budesonide (Pulmicort Respules) 0.5 mg IH [id number] ERIBERTO PRN Reason: Protocol Last Admin: 03/17/17 07:27 Dose: 0.5 mg Carvedilol (Coreg) 12.5 mg PO BID E[facility]BERTO PRN Reason: Protocol Last Admin: 03/16/17 17:37 Dose: 12.5 mg Clonazepam (Klonopin) 0.5 mg PO HS ERIBERTO PRN Reason: Protocol Last Admin: 03/16/17 21:20 Dose: 0.5 mg Ergocalciferol (Drisdol 50,000 Intl Units Cap) 1 cap PO Q7D ERIBERTO Last Admin: 03/15/17 18:17 Dose: 1 cap Heparin Sodium (Porcine) (Heparin) 5,000 units SC Q8 ERIBERTO PRN Reason: Protocol Last Admin: 03/17/17 05:33 Dose: 5,000 units Insulin Detemir (Levemir) 45 unit SC DAILY ERIBERTO PRN Reason: Protocol Last Admin: 03/16/17 11:16 Dose: 45 unit Insulin Human Regular (Humulin R Low) 0 units SC ACHS ERIBERTO PRN Reason: Protocol Last Admin: 03/17/17 07:02 Dose: Not Given Lactulose (Enulose) 10 gm PO DAILY ERIBERTO PRN Reason: Protocol Last Admin: 03/16/17 10:08 Dose: 10 gm Levothyroxine Sodium (Synthroid) [address] [facility] Last Admin: 03/17/17 08:33 Dose: 25 mcg Levothyroxine Sodium (Synthroid) 112 mcg PO ACB ERIBERTO Last Admin: 03/17/17 08:33 Dose: 112 mcg Nystatin (Nystop Topical Powder) 0 gm TOP BID ERIBERTO PRN Reason: Protocol Last Admin: 03/16/17 17:32 Dose: 1 applic Ondansetron HCl (Zofran Inj) 4 mg IVP Q4H PRN; Protocol PRN Reason: Nausea/Vomiting Torsemide (Demadex) [address] [facility] Last Admin: 03/16/17 11:30 Dose: 20 mg - Labs Labs: 03/17/17 05:00 Assessment and Plan - Assessment and Plan (Free Text) Assessment: Dyspnea/CHF, improved Hyperkalemia with acute on chronic renal insufficiency in setting of diuretic therapy, resolved. COPD HBP Diabetes Valvular Heart Disease: Mod./Sev. , Mod. MR and TR, Mod./Sev. PH Obesity PPM S/P hysterectomy for uterine cancer Diverticulosis, s/p colectomy H/O necrotizing fasciitis due to warfarin Plan: TCU/PT/Rehab Pulmonary and Renal F/U PO torsemide Monitor: Labs, K+, I/O Will follow.
[2017-03-17] MEDS: Insulin Detemir 100 units/ml Vial (Levemir) SC SCH (10:50)
[2017-03-17] MEDS: Nystatin 100,000 Units/gm Topical Pow(15 gm) TOP SCH ×2 (10:52→17:52)
--- NOTE | 2017-03-17 12:30 | CP.PCM.PN ---
<HARSH CHIU - Last Filed: 03/17/17 12:27> Subjective - Date & Time of Evaluation Date of Evaluation: 03/17/17 Time of Evaluation: 10:00 - Subjective Subjective: Medicine Team (Dr. Winters) covering for Dr. Kaplan pt was seen and examined in her room. pt is on chair. pt denies any cp, sob, fevers, n/v/d, weakness or headaches. States that she gets to walk daily for rehab. Objective - Vital Signs/Intake and Output Vital Signs (last 24 hours): Temp Pulse Resp BP Pulse Ox 97.8 F 69 18 141/77 98 03/17/17 10:17 03/17/17 11:14 03/17/17 10:17 03/17/17 11:14 03/17/17 10:17 - Medications Medications: Current Medications Acetaminophen (Tylenol 325mg Tab) 650 mg PO Q6H PRN; Protocol PRN Reason: Headache Last Admin: 03/14/17 18:42 Dose: 650 mg Arformoterol Tartrate (Brovana) 15 mcg IH [id number] ERIBERTO PRN Reason: Protocol Last Admin: 03/17/17 07:27 Dose: 15 mcg Budesonide (Pulmicort Respules) 0.5 mg IH [id number] ERIBERTO PRN Reason: Protocol Last Admin: 03/17/17 07:27 Dose: 0.5 mg Carvedilol (Coreg) 12.5 mg PO BID ERIBERTO PRN Reason: Protocol Last Admin: 03/17/17 11:14 Dose: 12.5 mg Clonazepam (Klonopin) 0.5 mg PO HS ERIBERTO PRN Reason: Protocol Last Admin: 03/16/17 21:20 Dose: 0.5 mg Ergocalciferol (Drisdol 50,000 Intl Units Cap) 1 cap PO Q7D ERIBERTO Last Admin: 03/15/17 18:17 Dose: 1 cap Heparin Sodium (Porcine) (Heparin) 5,000 units SC Q8 ERIBERTO PRN Reason: Protocol Last Admin: 03/17/17 05:33 Dose: 5,000 units Insulin Detemir (Levemir) 45 unit SC DAILY ERIBERTO PRN Reason: Protocol Last Admin: 03/17/17 10:50 Dose: 45 unit Insulin Human Regular (Humulin R Low) 0 units SC ACHS ERIBERTO PRN Reason: Protocol Last Admin: 03/17/17 11:53 Dose: 2 units Lactulose (Enulose) 10 gm PO DAILY [facility] PRN Reason: Protocol Last Admin: 03/17/17 10:50 Dose: 10 gm Levothyroxine Sodium (Synthroid) 25 mcg PO ACB [facility] Last Admin: 03/17/17 08:33 Dose: 25 mcg Levothyroxine Sodium (Synthroid) 112 mcg PO ACB [facility] Last Admin: 03/17/17 08:33 Dose: 112 mcg Nystatin (Nystop Topical Powder) 0 gm TOP BID [facility] PRN Reason: Protocol Last Admin: 03/17/17 10:52 Dose: 1 applic Ondansetron HCl (Zofran Inj) 4 mg IVP Q4H PRN; Protocol PRN Reason: Nausea/Vomiting Torsemide (Demadex) 20 mg PO DAILY [facility] Last Admin: 03/17/17 10:49 Dose: 20 mg - Labs Labs: 03/17/17 05:00 - Constitutional Appears: Non-toxic, No Acute Distress - Head Exam Head Exam: ATRAUMATIC, NORMAL INSPECTION, NORMOCEPHALIC - Eye Exam Eye Exam: EOMI, Normal appearance, PERRL Pupil Exam: NORMAL ACCOMODATION - ENT Exam ENT Exam: Mucous Membranes Moist, Normal Exam - Neck Exam Neck Exam: Normal Inspection - Respiratory Exam Respiratory Exam: NORMAL BREATHING PATTERN. absent: Accessory Muscle Use, Chest Wall Tenderness, Wheezes, Respiratory Distress, Stridor - Cardiovascular Exam Cardiovascular Exam: RRR, +S1, +S2. absent: Gallop, Rubs, Murmur - GI/Abdominal Exam GI & Abdominal Exam: Soft, Normal Bowel Sounds. absent: Distended, Tenderness Additional comments: obese - Extremities Exam Extremities Exam: Pedal Edema (1+). absent: Calf Tenderness, Tenderness - Neurological Exam Neurological Exam: Alert, Awake, Oriented x3 - Psychiatric Exam Psychiatric exam: Normal Affect, Normal Mood - Skin Skin Exam: Normal Color, Warm. absent: Cyanosis, Pallor Assessment and Plan - Assessment and Plan (Free Text) Assessment: 81F PMHx CHF, COPD, Pickwickian syn, DM2, Obesity and HTN p/w acute exacerbation of CHF. D/C from medicine floors and on TCU day 5 Plan: 1. Rehab - pt in TCU - receiving PT and OT therapy - pain: tylenol PRN 2. CHF exacebation - Torsemide 20mg daily 3. DM2 - Levemir 45u and ISS - accucheks 4. COPD - Brovana - pulmicort - O2 NC, 5. Hypothyroid - Synthroid 6. Obesity - HHD 7. HTN - coreg - HHD HHD Heparin Dispo: planned for d/c on 03/21 Patient was seen, examined and evaluated with attending, Dr. Singh Chiu PGY1 <Ita Winters - Last Filed: 03/17/17 16:38> Objective - Vital Signs/Intake and Output Vital Signs (last 24 hours): Temp Pulse Resp BP Pulse Ox 98 F 69 20 123/70 99 03/17/17 14:00 03/17/17 14:00 03/17/17 14:00 03/17/17 14:00 03/17/17 14:00 - Medications Medications: Current Medications Acetaminophen (Tylenol 325mg Tab) 650 mg PO Q6H PRN; Protocol PRN Reason: Headache Last Admin: 03/14/17 18:42 Dose: 650 mg Arformoterol Tartrate (Brovana) 15 mcg IH [id number] ERIBERTO PRN Reason: Protocol Last Admin: 03/17/17 07:27 Dose: 15 mcg Budesonide (Pulmicort Respules) 0.5 mg IH [id number] ERIBERTO PRN Reason: Protocol Last Admin: 03/17/17 07:27 Dose: 0.5 mg Carvedilol (Coreg) 12.5 mg PO BID E[facility]BERTO PRN Reason: Protocol Last Admin: 03/17/17 11:14 Dose: 12.5 mg Clonazepam (Klonopin) 0.5 mg PO HS E[facility]BERTO PRN Reason: Protocol Last Admin: 03/16/17 21:20 Dose: 0.5 mg Ergocalciferol (Drisdol 50,000 Intl Units Cap) 1 cap PO Q7D [facility]RIBERTO Last Admin: 03/15/17 18:17 Dose: 1 cap Heparin Sodium (Porcine) (Heparin) 5,000 units SC Q8 [facility]BERTO PRN Reason: Protocol Last Admin: 03/17/17 14:53 Dose: 5,000 units Insulin Detemir (Levemir) 45 unit SC DAILY [facility] PRN Reason: Protocol Last Admin: 03/17/17 10:50 Dose: 45 unit Insulin Human Regular (Humulin R Low) 0 units SC ACHS ERIBERTO PRN Reason: Protocol Last Admin: 03/17/17 11:53 Dose: 2 units Lactulose (Enulose) 10 gm PO DAILY [facility]O PRN Reason: Protocol Last Admin: 03/17/17 10:50 Dose: 10 gm Levothyroxine Sodium (Synthroid) 25 mcg PO ACB [facility] Last Admin: 03/17/17 08:33 Dose: 25 mcg Levothyroxine Sodium (Synthroid) 112 mcg PO ACB [facility] Last Admin: 03/17/17 08:33 Dose: 112 mcg Nystatin (Nystop Topical Powder) 0 gm TOP BID [facility]BERTO PRN Reason: Protocol Last Admin: 03/17/17 10:52 Dose: 1 applic Ondansetron HCl (Zofran Inj) 4 mg IVP Q4H PRN; Protocol PRN Reason: Nausea/Vomiting Torsemide (Demadex) 20 mg PO DAILY [facility] Last Admin: 03/17/17 10:49 Dose: 20 mg - Labs Labs: 03/17/17 05:00 Attending/Attestation - Attestation I have personally seen and examined this patient.: Yes I have fully participated in the care of the patient.: Yes I have reviewed all pertinent clinical information, including history, physical exam and plan: Yes Notes (Text): 03/17/17 16:29 Attending note; Patient seen and examined with resident in TCU. Patient is a 81-year-old female with PMHx CHF, COPD,DM2, Obesity and HTN initially admitted to the medical floor with acute exacerbation of CHF. the patient was stabilized and transferred to TCU. Patient is clinically stable. Denies any chest pain, shortness of breath. Chronic kidney disease; creatinine stable at 1.5. COPD; continue oxygen. Patient is oxygen dependent. Continue BiPAP at night. diabetes; continue Levemir. Adjust dosage as needed. Continue physical therapy. The patient walks with walker at home. Upon discharge the patient will follow up with PMD DR. Kaplan. 03/17/17 16:37
--- NOTE | 2017-03-17 16:02 | PN ---
DATE: 03/17/2017 SUBJECTIVE: The patient is seen, sitting in chair. She is awake, she is alert, she is comfortable. She denies any pain. She denies any shortness of breath. PHYSICAL EXAMINATION: GENERAL: Elderly lady, sitting in chair. VITAL SIGNS: Blood pressure 141/77, heart rate 69, respiratory rate 18, temperature 97.8. HEENT: Normocephalic, atraumatic. NECK: Supple. No JVD. LUNGS: Bilateral rhonchi, distant breath sounds, minimal rales. CARDIAC: S1, S2, regular rate and rhythm, no murmurs, no rubs. ABDOMEN: Obese, distended, soft, nontender, bowel sounds present. EXTREMITIES: Trace lower extremity edema. INTAKE AND OUTPUT: Not charted. LABORATORY DATA: Sodium 139, potassium 4.2, chloride 99, CO2 of 29, BUN 74, creatinine 1.5, glucose 97, calcium 9.6. AST 24, ALT 28, albumin 3.9. CURRENT MEDICATIONS: Coreg 12.5 b.i.d., Demadex 20, vitamin D, Lactulose, heparin, insulin, Klonopin, Levemir, nystatin, Synthroid, Tylenol and Zofran. ASSESSMENT: 1. Status post acute kidney injury, resolved. 2. Stable chronic kidney disease stage III/IV. 3. Resolved hyperkaliemia. 4. Decompensated congestive heart failure. 5. Morbid obesity. 6. Noninsulin-dependent diabetes mellitus. PLAN: 1. The patient is now back on Demadex 20 mg daily. 2. Aldactone, still on hold. 3. ARB is on hold. 4. Continue to monitor off these medications. 5. Continue PT. Imelda Costa MD
[2017-03-18] MEDS: Levothyroxine 112 MCG TAB PO SCH (05:58)
[2017-03-18] MEDS: Levothyroxine 25 MCG TAB PO SCH (05:58)
[2017-03-18] MEDS: Insulin Reg-LOW-Coverage SC SCH ×4 (07:01→21:49)
[2017-03-18] MEDS: Budesonide 0.5 mg/2 ml Inhal Susp UD IH SCH ×2 (07:21→19:42)
[2017-03-18] MEDS: Arformoterol 15 mcg/2 ml Inh Sol IH SCH ×2 (07:21→19:42)
[2017-03-18 07:57] LABS: ALB/GLOB RATIO 1.1 (1.1-1.8); BILIRUBIN,TOTAL 0.6 mg/dL (0.2-1.3); CALCIUM 9.4 mg/dL (8.4-10.5); POTASSIUM 4.1 mmol/L (3.6-5.0); TOTAL PROTEIN 7.2 g/dL (5.8-8.3)
[2017-03-18] MEDS: Nystatin 100,000 Units/gm Topical Pow(15 gm) TOP SCH ×2 (11:21→17:50)
[2017-03-18] MEDS: Insulin Detemir 100 units/ml Vial (Levemir) SC SCH (11:57)
--- NOTE | 2017-03-18 15:38 | PN ---
DATE: 03/18/2017 SUBJECTIVE: The patient is seen, sitting in chair. The patient is awake. She is alert. She is comfortable. She denies any shortness of breath. She denies any chest pain. PHYSICAL EXAMINATION GENERAL: Obese, elderly lady, sitting in chair. VITAL SIGNS: Blood pressure 131/78, heart rate 69, respiratory rate 18, temperature 98.3. LUNGS: Bilateral equal air entry, minimal basal rales. EXTREMITIES: Trace lower extremity edema. INTAKE AND OUTPUT: Not charted. LABORATORY DATA: Sodium 138, potassium 4.1, chloride 96, CO2 of 30, BUN 72, creatinine 1.5, glucose 125, calcium 9.4. CURRENT MEDICATIONS: Torsemide was started on . ASSESSMENT: 1. Resolved acute kidney injury. 2. Resolved . 3. Congestive heart failure, compensated. 4. Tae-dozmhsd-ktzlwdxjf diabetes mellitus. 5: Hypertension. 6: Cardiomyopathy. PLAN: 1: Continue Demadex 20 mg daily. 2. Restart Losartan at a lower dose, 25 mg daily, for cardio protection. 3: Monitor potassium and creatinine. 4: Monitor daily weights. 5: Stay off Aldactone. Imelda Costa MD
--- NOTE | 2017-03-18 15:50 | PN ---
DATE: 03/18/2017 SUBJECTIVE: The patient is seen, sitting in a chair on transitional care unit. She feels better. Her edema has improved. Her dyspnea improved as well. She is anxious to go home within the next several days. CURRENT MEDICATION: Include Brovana, carvedilol 12.5 mg b.i.d., Demadex 20 mg daily, subcutaneous heparin, insulin coverage, Klonopin, Levemir insulin, Pulmicort inhaler, and Synthroid 137 mcg daily. OBJECTIVE: GENERAL: She is an obese elderly woman. VITAL SIGNS: Her blood pressure is 130/70 with a pulse of 70 and respirations are 16. She is afebrile. HEENT: No JVD. CHEST: Bilateral rhonchi heard. No rales noted. HEART: PMI displaced laterally with a systolic murmur at the base as well as at the left sternal border. ABDOMEN: Soft, nontender with bowel sounds. EXTREMITIES: Chronic cellulitic changes with trace edema noted. DIAGNOSTIC DATA: Potassium 4.1 and BUN and creatinine 72 and 1.5. IMPRESSION: 1. Decompensated congestive heart failure, acute on chronic, clinically improved. 2. Acute on chronic renal insufficiency. 3. Moderately severe aortic stenosis with moderate mitral and tricuspid regurgitation. 4. Chronic obesity. 5. History of hypertension and diabetes. 6. History of necrotizing fasciitis with Coumadin use in the past. RECOMMENDATIONS: Her current medications should be continued. Maintenance of her prerenal state appears necessary to avoid recurrence of decompensated heart failure. From a cardiac standpoint, she appears stable for discharge home within the next several days. We will follow along as needed. Greg Mcclure MD
--- NOTE | 2017-03-18 22:01 | PN ---
DATE: 03/18/2017 REFERRING PHYSICIAN: Dr. Winters. This is Dr. Escalera covering for Dr. Dillon Garcia. SUBJECTIVE: She is out of bed to chair. Night was unremarkable. Tolerated BiPAP well. No headache, no rhinitis. Short of breath with minimal exertion. Mild cough. No nausea, no vomiting, no diarrhea. No leg pain, no leg swelling. PHYSICAL EXAMINATION GENERAL: In no acute distress. VITAL SIGNS: Temperature is 98, heart rate 71, respiratory rate is 18, blood pressure 137/75, pulse oximetry 100% on nasal cannula. HEENT: Moist mucous membranes. Small oral cavity. Crowded airway. NECK: Supple. No JVD. HEART: S1 and S2. LUNGS: Fair airflow with few rhonchi. ABDOMEN: Soft, nontender. No organomegaly. EXTREMITIES: No cyanosis, no clubbing, no edema. NEUROLOGIC: Awake, alert. Follow simple commands. LABORATORY DATA: Shows sodium 138, potassium 4.1, chloride 96, bicarbonate 30, BUN 72, creatinine 1.5, glucose is 125, calcium is 9.4, AST is 26, ALT 27, alkaline phosphatase is 52, albumin 3.8. MEDICATIONS: She is on Brovana 50 mcg inhaled twice a day, Coreg 12.5 mg twice a day, Cozaar 25 mg daily, , 20 mg daily, vitamin D 50,000 units subcu q.7 days, lactulose 10 mg daily, heparin 5000 units subcu q.8 hourly, insulin coverage, Klonopin 0.5 mg at bedtime, Levemir 48 units subcu daily, Pulmicort inhaled twice a day, Synthroid 25 mcg daily, Synthroid 112 mcg, total dose is 137 mcg daily, Tylenol p.r.n. basis, Zofran p.r.n. basis. IMPRESSION AND PLAN: Chronic obstructive lung disease, heart failure, diabetes, sleep apnea syndrome, hypertension, hypothyroid. Pulmonary point of view, she is okay. I will continue BiPAP while sleeping, keep bronchodilator, gastric prophylaxis, DVT prophylaxis, fall precautions. Continue therapy. Thank you and we will follow with you. Murphy Escalera MD
[2017-03-19] MEDS: Levothyroxine 112 MCG TAB PO SCH (05:36)
[2017-03-19] MEDS: Levothyroxine 25 MCG TAB PO SCH (05:36)
[2017-03-19] MEDS: Insulin Reg-LOW-Coverage SC SCH ×4 (06:31→22:21)
[2017-03-19 07:04] LABS: HEMATOCRIT 35.5 % (36.0-48.0); MEAN CELL VOLUME 89.9 fL (80.0-105.0); MEAN CORPUSCULAR HEMOGLOBIN 29.9 pg (25.0-35.0); MEAN CORPUSCULAR HGB CONC 33.2 g/dl (31.0-37.0); MEAN PLATELET VOLUME 9.5 fl (7.0-11.0); RED CELL DISTRIBUTION WIDTH 14.3 % (11.5-14.5)
[2017-03-19 07:20] LABS: BILIRUBIN,TOTAL 0.8 mg/dL (0.2-1.3); CALCIUM 9.2 mg/dL (8.4-10.5); POTASSIUM 4.4 mmol/L (3.6-5.0); TOTAL PROTEIN 7.2 g/dL (5.8-8.3)
[2017-03-19] MEDS: Arformoterol 15 mcg/2 ml Inh Sol IH SCH ×2 (07:23→19:39)
[2017-03-19] MEDS: Budesonide 0.5 mg/2 ml Inhal Susp UD IH SCH ×2 (07:23→19:39)
[2017-03-19] MEDS: Insulin Detemir 100 units/ml Vial (Levemir) SC SCH (10:40)
[2017-03-19] MEDS: Nystatin 100,000 Units/gm Topical Pow(15 gm) TOP SCH ×2 (10:41→17:38)
--- NOTE | 2017-03-19 15:10 | CP.PCM.PN ---
<SONIAHARSH - Last Filed: 03/19/17 15:01> Subjective - Date & Time of Evaluation Date of Evaluation: 03/19/17 Time of Evaluation: 10:15 - Subjective Subjective: Medicine Team (Dr. Pearl) covering for Dr. Kaplan pt was seen and examined bedside. pt is on chair receiving her nebulizer treatment. pt denies cp, sob, n/v/d, fevers or any weakness. pt also notes that the swelling in her legs has improved. Objective - Vital Signs/Intake and Output Vital Signs (last 24 hours): Temp Pulse Resp BP Pulse Ox 97.1 F L 69 18 131/75 100 03/18/17 16:12 03/19/17 10:39 03/18/17 16:12 03/19/17 10:39 03/18/17 06:00 Intake and Output: 03/19/17 03/19/17 06:59 18:59 Intake Total 120 Balance 120 - Medications Medications: Current Medications Acetaminophen (Tylenol 325mg Tab) 650 mg PO Q6H PRN; Protocol PRN Reason: Headache Last Admin: 03/14/17 18:42 Dose: 650 mg Arformoterol Tartrate (Brovana) 15 mcg IH [id number] ERIBERTO PRN Reason: Protocol Last Admin: 03/19/17 07:23 Dose: 15 mcg Budesonide (Pulmicort Respules) 0.5 mg IH [id number] ERIBERTO PRN Reason: Protocol Last Admin: 03/19/17 07:23 Dose: 0.5 mg Carvedilol (Coreg) 12.5 mg PO BID ERIBERTO PRN Reason: Protocol Last Admin: 03/19/17 10:37 Dose: 12.5 mg Clonazepam (Klonopin) 0.5 mg PO HS ERIBERTO PRN Reason: Protocol Last Admin: 03/18/17 21:20 Dose: 0.5 mg Ergocalciferol (Drisdol 50,000 Intl Units Cap) 1 cap PO Q7D ERIBERTO Last Admin: 03/15/17 18:17 Dose: 1 cap Heparin Sodium (Porcine) (Heparin) 5,000 units SC Q8 ERIBERTO PRN Reason: Protocol Last Admin: 03/19/17 13:41 Dose: 5,000 units Insulin Detemir (Levemir) 48 unit SC DAILY ERIBERTO PRN Reason: Protocol Last Admin: 03/19/17 10:40 Dose: 48 unit Insulin Human Regular (Humulin R Low) 0 units SC ACHS [facility] [place] PRN Reason: Protocol Last Admin: 03/19/17 12:47 Dose: 1 units Lactulose (Enulose) 10 gm PO DAILY [facility] [place] PRN Reason: Protocol Last Admin: 03/19/17 10:40 Dose: 10 gm Levothyroxine Sodium (Synthroid) 25 mcg PO 0630 [facility] [place] Last Admin: 03/19/17 05:36 Dose: 25 mcg Levothyroxine Sodium (Synthroid) 112 mcg PO 0630 [facility] Last Admin: 03/19/17 05:36 Dose: 112 mcg Losartan Potassium (Cozaar) 25 mg PO DAILY [facility] Last Admin: 03/19/17 10:39 Dose: 25 mg Nystatin (Nystop Topical Powder) 0 gm TOP BID [facility] [place] PRN Reason: Protocol Last Admin: 03/19/17 10:41 Dose: 1 applic Ondansetron HCl (Zofran Inj) 4 mg IVP Q4H PRN; Protocol PRN Reason: Nausea/Vomiting Torsemide (Demadex) 20 mg PO DAILY [facility] [place] Last Admin: 03/19/17 10:40 Dose: 20 mg - Labs Labs: 03/19/17 06:30 03/19/17 06:30 - Additional Findings Additional findings: - Constitutional Appears: Non-toxic, No Acute Distress - Head Exam Head Exam: ATRAUMATIC, NORMAL INSPECTION, NORMOCEPHALIC - Eye Exam Eye Exam: EOMI, Normal appearance, PERRL Pupil Exam: NORMAL ACCOMODATION - ENT Exam ENT Exam: Mucous Membranes Moist, Normal Exam - Neck Exam Neck Exam: Normal Inspection - Respiratory Exam Respiratory Exam: NORMAL BREATHING PATTERN. absent: Accessory Muscle Use, Chest Wall Tenderness, Wheezes, Respiratory Distress, Stridor - Cardiovascular Exam Cardiovascular Exam: RRR, +S1, +S2. absent: Gallop, Rubs, Murmur - GI/Abdominal Exam GI & Abdominal Exam: Soft, Normal Bowel Sounds. absent: Distended, Tenderness Additional comments: obese - Extremities Exam Extremities Exam: Pedal Edema (1+). absent: Calf Tenderness, Tenderness - Neurological Exam Neurological Exam: Alert, Awake, Oriented x3 - Psychiatric Exam Psychiatric exam: Normal Affect, Normal Mood - Skin Skin Exam: Normal Color, Warm. absent: Cyanosis, Pallor Assessment and Plan - Assessment and Plan (Free Text) Assessment: 81F PMHx CHF, COPD, Pickwickian syn, DM2, Obesity and HTN p/w acute exacerbation of CHF. D/C from medicine floors and on TCU day 7 Plan: 1. Rehab - pt in TCU - receiving PT and OT therapy - pain: tylenol PRN - zofran PRN 2. CHF exacebation - Torsemide 20mg daily 3. DM2 - Levemir 45u and ISS - accucheks 4. COPD - Brovana - pulmicort - O2 NC 5. low vitamin D - Ergocalciferol 6. Hypothyroid - Synthroid 7. Obesity - HHD 8. HTN - coreg - Cozaar - HHD Diet: HHD PPX: Heparin Dispo: planned for d/c on 03/21 Patient was seen, examined and evaluated with attending, Dr. Dae Chiu PGY1 <Yue Pearl - Last Filed: 03/19/17 17:05> Objective - Vital Signs/Intake and Output Vital Signs (last 24 hours): Temp Pulse Resp BP Pulse Ox 98.8 F 69 16 131/75 100 03/19/17 10:00 03/19/17 10:39 03/19/17 10:00 03/19/17 10:39 03/18/17 06:00 Intake and Output: 03/19/17 03/19/17 06:59 18:59 Intake Total 120 Balance 120 - Medications Medications: Current Medications Acetaminophen (Tylenol 325mg Tab) 650 mg PO Q6H PRN; Protocol PRN Reason: Headache Last Admin: 03/14/17 18:42 Dose: 650 mg Arformoterol Tartrate (Brovana) 15 mcg IH [id number] ERIBERTO PRN Reason: Protocol Last Admin: 03/19/17 07:23 Dose: 15 mcg Budesonide (Pulmicort Respules) 0.5 mg IH [id number] ERIBERTO PRN Reason: Protocol Last Admin: 03/19/17 07:23 Dose: 0.5 mg Carvedilol (Coreg) 12.5 mg PO BID ERIBERTO PRN Reason: Protocol Last Admin: 03/19/17 10:37 Dose: 12.5 mg Clonazepam (Klonopin) 0.5 mg PO HS ERIBERTO PRN Reason: Protocol Last Admin: 03/18/17 21:20 Dose: 0.5 mg Ergocalciferol (Drisdol 50,000 Intl Units Cap) 1 cap PO Q7D [facility] [place] Last Admin: 03/15/17 18:17 Dose: 1 cap Heparin Sodium (Porcine) (Heparin) 5,000 units SC Q8 E[facility]BERT[facility] PRN Reason: Protocol Last Admin: 03/19/17 13:41 Dose: 5,000 units Insulin Detemir (Levemir) 48 unit SC DAILY ERIBERTO PRN Reason: Protocol Last Admin: 03/19/17 10:40 Dose: 48 unit Insulin Human Regular (Humulin R Low) 0 units SC ACHS [facility] PRN Reason: Protocol Last Admin: 03/19/17 12:47 Dose: 1 units Lactulose (Enulose) 10 gm PO DAILY [facility] PRN Reason: Protocol Last Admin: 03/19/17 10:40 Dose: 10 gm Levothyroxine Sodium (Synthroid) 25 mcg PO 0630 [facility] Last Admin: 03/19/17 05:36 Dose: 25 mcg Levothyroxine Sodium (Synthroid) 112 mcg PO 0630 ERIBERTO Last Admin: 03/19/17 05:36 Dose: 112 mcg Losartan Potassium (Cozaar) 25 mg PO DAILY [facility] Last Admin: 03/19/17 10:39 Dose: 25 mg Nystatin (Nystop Topical Powder) 0 gm TOP BID [facility] [place] PRN Reason: Protocol Last Admin: 03/19/17 10:41 Dose: 1 applic Ondansetron HCl (Zofran Inj) 4 mg IVP Q4H PRN; Protocol PRN Reason: Nausea/Vomiting Torsemide (Demadex) 20 mg PO DAILY [facility] Last Admin: 03/19/17 10:40 Dose: 20 mg - Labs Labs: 03/19/17 06:30 03/19/17 06:30 Attending/Attestation - Attestation I have personally seen and examined this patient.: Yes I have fully participated in the care of the patient.: Yes I have reviewed all pertinent clinical information, including history, physical exam and plan: Yes Notes (Text): 03/19/17 17:03 Patient seen and examined at bedside. Vitals, orders and labs reviewed. multi- speciality follow up ongoing. Renal function slightly worse today. Continue current regimen of LABA and bronchodilators. She feels better overall and denies any new complaints, participating in rehabilitation therapy. Agree with the the plan as discussed and outlined by the resident.
[2017-03-20] MEDS: Levothyroxine 112 MCG TAB PO SCH (05:49)
[2017-03-20] MEDS: Levothyroxine 25 MCG TAB PO SCH (05:51)
--- NOTE | 2017-03-20 06:04 | PN ---
DATE: 03/19/2017 REFERRING PHYSICIAN: Shreyas Kaplan MD SUBJECTIVE: She is out of bed to chair. Family is at bedside. Night was unremarkable. Tolerated BiPAP well. No headache. No rhinitis. No nausea, no vomiting. No diarrhea. Does have intermittent leg swelling. OBJECTIVE GENERAL: In no acute distress. VITAL SIGNS: Temperature is 98, heart rate is 67, respiratory rate is 18, blood pressure 113/70. HEENT: Moist mucous membrane. Crowded airway. Mallampati score is 4. NECK: Supple. No JVD. LUNGS: Has fair airflow with rhonchi. HEART: S1 and S2. ABDOMEN: Soft, nontender. No organomegaly. EXTREMITIES: Does have edema. NEUROLOGIC: Awake and alert. Follows simple commands. LABORATORY DATA: Hemoglobin 11.8, hematocrit 35.5, WBC 7.0, platelet is 187. Sodium 138, potassium 4.4, chloride 96, bicarbonate 33, BUN , creatinine 1.7, glucose 197, calcium 9.2, AST 25, ALT 26, alk phos is 50, albumin is 3.7. MEDICATIONS: She is on Brovana 15 mcg inhale q.12 hours, Coreg 12.5 mg twice a day, Cozaar 25 mg daily, , torsemide 20 mg daily, vitamin D 50,000 units every 7 days, lactulose 10 mg daily, heparin 5000 units subcu q.8 hours, insulin coverage, Klonopin 0.5 mg at bedtime, Levemir 48 units subcu daily, Pulmicort inhale twice a day, Synthroid, total is 137 mcg daily, Tylenol p.r.n., Zofran p.r.n. basis. IMPRESSION AND PLAN: Chronic obstructive lung disease, heart failure, diabetes, sleep apnea syndrome, hypertension, hypothyroid. Pulmonary point of view doing okay. I spoke to family at bedside. Continue current bilevel positive airway pressure, bronchodilator, gastric prophylaxis. Follow up renal function, fall precaution. Murphy Escalera MD
[2017-03-20] MEDS: Insulin Reg-LOW-Coverage SC SCH ×4 (06:50→21:23)
[2017-03-20 07:06] LABS: HEMATOCRIT 34.8 % (36.0-48.0); MEAN CELL VOLUME 89.5 fL (80.0-105.0); MEAN CORPUSCULAR HEMOGLOBIN 29.8 pg (25.0-35.0); MEAN CORPUSCULAR HGB CONC 33.3 g/dl (31.0-37.0); MEAN PLATELET VOLUME 10.1 fl (7.0-11.0); RED CELL DISTRIBUTION WIDTH 14.7 % (11.5-14.5); WHITE BLOOD COUNT 8.7 10^3/ul (4.5-11.0)
[2017-03-20 07:20] LABS: ALB/GLOB RATIO 1.1 (1.1-1.8); BILIRUBIN,TOTAL 0.8 mg/dL (0.2-1.3); CALCIUM 9.4 mg/dL (8.4-10.5); POTASSIUM 4.4 mmol/L (3.6-5.0); TOTAL PROTEIN 7.2 g/dL (5.8-8.3)
[2017-03-20] MEDS: Arformoterol 15 mcg/2 ml Inh Sol IH SCH ×2 (07:32→20:39)
[2017-03-20] MEDS: Budesonide 0.5 mg/2 ml Inhal Susp UD IH SCH ×2 (07:33→20:39)
[2017-03-20] MEDS: Nystatin 100,000 Units/gm Topical Pow(15 gm) TOP SCH ×2 (09:40→17:17)
--- NOTE | 2017-03-20 10:14 | PN ---
DATE: SUBJECTIVE: An 81-year-old white female in TCU doing physical therapy and occupational therapy, doing well. Chronic renal insufficiency stage III/IV, insulin-dependent diabetes mellitus, congestive cardiomyopathy, COPD. The patient has had some low blood sugars. We will drop her insulin from 48 to 45. She is also on 4 liters of oxygen. She does have COPD, Pickwickian syndrome. We will drop that to 2 liters. She is still having exacerbation of her underlying renal disease. She got 95 and 2.2 on BUN and creatinine. We will drop more or stop the Demadex at this point. Her hemoglobin is 11.6, her white count is stable. PHYSICAL EXAMINATION: VITAL SIGNS: She is afebrile. Her vital signs are stable. Blood pressure is 113/70. CHEST: Clear to auscultation and percussion. ABDOMEN: Obese, but benign. HEART: Regular sinus rhythm. EXTREMITIES: Without cyanosis, clubbing or edema. NEUROLOGIC: Sensation is grossly intact. Shreyas Kaplan MD
[2017-03-20] MEDS: Insulin Detemir 100 units/ml Vial (Levemir) SC SCH (11:09)
--- NOTE | 2017-03-20 14:35 | PN ---
DATE: 03/20/2017 SUBJECTIVE: The patient is seen, sitting in chair. She is awake, she is alert, she is comfortable. She reports she walked twice. PHYSICAL EXAMINATION: GENERAL: Morbidly obese, elderly lady, sitting in chair. VITAL SIGNS: Blood pressure 120/68, heart rate 70, respiratory rate 18, temperature 98.3. HEENT: Normocephalic, atraumatic. NECK: Supple. No JVD. LUNGS: Bilateral equal air entry, bilateral rhonchi, basal rales. CARDIAC: S1, S2, regular rate and rhythm, positive murmur, no rub. ABDOMEN: Obese, distended, soft, nontender, bowel sounds present. EXTREMITIES: 1+ pitting edema of the lower extremities. INTAKE AND OUTPUT: Not charted. LABORATORY DATA: WBC 8.7, hemoglobin 11.6, hematocrit 35, platelets 195. Sodium 136, potassium 4.4, chloride 96, CO2 of 29, BUN 95, creatinine 2.2, glucose 113. MEDICATIONS: List reviewed. ASSESSMENT: 1. Acute kidney injury superimposed on chronic kidney disease stage IV. 2. Congestive heart failure. 3. Noninsulin-dependent diabetes mellitus. 4. Prerenal azotemia. PLAN: 1. We will to discontinue diuretic and ARB. 2. My concern is that she will go into CHF. 3. Continue to monitor on Transitional Care Unit. 4. Aldactone has already been discontinued. Imelda Costa MD
--- NOTE | 2017-03-21 01:08 | PN ---
DATE: 03/20/2017 REFERRING PHYSICIAN: Dr. Kaplan. SUBJECTIVE: She is out of bed to chair. Night was unremarkable. Tolerated BiPAP well. Doing well in therapy. No headache. short of breath with exertion. No chest pain. No nausea, no vomiting, no diarrhea. Trace leg swelling. OBJECTIVE: GENERAL: No acute distress. VITAL SIGNS: Temperature is 98, heart rate is 70, respiratory rate is 20, blood pressure 106/61 and pulse oximetry 99% on nasal cannula. HEENT: Small oral cavity. Crowded airway. NECK: Supple. No JVD. CARDIOPULMONARY: S1 and S2. LUNGS: Has fair airflow with rhonchi.. ABDOMEN: Soft and nontender. No organomegaly.. EXTREMITIES: Does have trace edema. NEUROLOGIC: Awake and alert, follows simple commands. MEDICATIONS: She is on Brovana 15 mcg inhaled twice a day, Coreg 12.5 mg twice a day, vitamin D 50,000 units q. 7 days, lactulose 10 mg daily, insulin coverage, Klonopin 0.5 mg at bedtime, Levemir 45 units subq daily, Pulmicort inhaled twice a day, Synthroid total is 137 mcg daily, Tylenol p.r.n. basis and Zofran p.r.n. basis. LABORATORY DATA: Shows hemoglobin 11.6, hematocrit 34.8, WBC 8.7 and platelet is 195. Sodium 136, potassium 4.4, chloride 96, bicarbonate 29, BUN 95, creatinine 2.2, glucose 113, calcium 9.4. AST is 24, ALT 22, alkaline phosphatase is 51 and albumin 3.8. IMPRESSION AND PLAN: Chronic obstructive lung disease, also has congestive heart failure, sleep apnea syndrome, hypertension and hypothyroid. Continue to encourage bilevel positive airway pressure use, keep head at 45 degrees, bronchodilator, gastric prophylaxis and fall precaution. Continue therapy. Thank you, and we will follow with you. Murphy Escalera MD
[2017-03-21] MEDS: Levothyroxine 112 MCG TAB PO SCH (05:57)
[2017-03-21] MEDS: Levothyroxine 25 MCG TAB PO SCH (05:57)
[2017-03-21] MEDS: Arformoterol 15 mcg/2 ml Inh Sol IH SCH ×2 (07:23→19:57)
[2017-03-21] MEDS: Budesonide 0.5 mg/2 ml Inhal Susp UD IH SCH ×2 (07:24→19:58)
[2017-03-21] MEDS: Insulin Reg-LOW-Coverage SC SCH ×4 (08:18→22:41)
[2017-03-21] MEDS: Insulin Detemir 100 units/ml Vial (Levemir) SC SCH (10:08)
[2017-03-21] MEDS: Nystatin 100,000 Units/gm Topical Pow(15 gm) TOP SCH ×2 (10:08→17:57)
[2017-03-21 10:17] VITALS: RESP 18
[2017-03-21 16:05] VITALS: O2SAT 99
--- NOTE | 2017-03-21 17:47 | PN ---
SUBJECTIVE: The patient was currently seen in the TCU. She is sitting in a chair. She appears to be well compensated. She is using nasal canula oxygen, but is not short of breath and she appears to be euvolemic. Diuretics have been placed on hold because of her rise in BUN and creatinine. MEDICATIONS: Medication list reviewed. The patient is currently on Brovana, Coreg, vitamin D, Enulose, insulin, Klonopin, nystatin topical powder, Pulmicort Respules, Synthroid, Tylenol p.r.n. Zofran p.r.n. OBJECTIVE: VITAL SIGNS: Blood pressure 118/59, temperature 97.4, respiratory rate is 18, pulse is 71. HEENT EXAM: Shows it to be normocephalic and atraumatic. Conjunctivae are pink. Sclerae are nonicteric. NECK: Supple. No neck vein distention. CHEST: Essentially clear to auscultation and percussion with scattered rhonchi. Slight decreased breath sounds in the basis. CARDIOVASCULAR: Shows distant heart sounds. S1 and S2 appear normal. /AI/TR/MR. No S3, no S4, no rub. ABDOMEN: Soft. Bowel sounds normal. Moderate obesity. No rebound. No guarding. No masses. EXTREMITIES: Showed no lower extremity cyanosis or clubbing. No pitting edema. LABORATORY DATA AND IMAGING: White blood cell count 8.7, hemoglobin 11.6 with platelet count of 195,000. Chemistries: Normal sodium 136, potassium 4.4, chloride 96 with a CO2 of 29, BUN of 95 with a creatinine of 2.2, glucose is 113. Liver enzymes are normal, albumin is 3.8. Baseline BUN is in the 50s, best BUN levels during present impression were 72, now up to 95. Baseline creatinine is 1.3 - 1.4 range. Best creatinine during this admission was 1.5, it is currently 2.2. ASSESSMENT: 1. Acute renal prerenal azotemia, superimposed on chronic kidney disease stage III/IV. Diuretics have been placed on hold. The patient appears to be well compensated. She appears to be euvolemic. 2. Atherosclerotic heart disease with history of severe cardiomyopathy ejection fraction 22%, status post permanent pacemaker placement. The patient has valvular heart disease /AI/TR/MR. 3. History of chronic obstructive pulmonary disease with Pickwickian syndrome, appears to be stable. 4. History of hypothyroidism on thyroid replacement therapy. 5. Hypertension controlled on present medical therapy. 6. History of insulin-dependent diabetes mellitus with acceptable glucose control. PLAN: 1. No choice, but to hold diuretics. No significant lower extremity edema and her pulmonary acceptable. In light of her low ejection fraction, we will need to monitor for any worsening of her shortness of breath or retraction of fluid whether in her lungs or in her lower extremity. 2. Encouraged the patient to taking adequate amounts of p.o. hydration. 3. Continue to hold losartan in light of her elevated BUN and creatinine. 4. Continue to monitor glucose closely. The patient is on sliding-scale insulin and long-acting insulin. 5. Continue rehabilitation in the TCU. Roby Mccabe MD
--- NOTE | 2017-03-21 21:10 | PN ---
DATE: 03/21/2017 REFERRING PHYSICIANS: MD Shreyas Armando MD SUBJECTIVE: The patient is out of bed to chair. Night was unremarkable. Doing well in therapy. Tolerated her BiPAP well. Less short of breath with exhaustion. No nausea. No vomiting. No diarrhea. No other issues. She has a trace leg swelling. PHYSICAL EXAMINATION GENERAL: In no acute distress. VITAL SIGNS: Blood pressure 118/59, heart rate 71, respiratory rate 18, and pulse oximetry 99% on 4 L nasal cannula. HEENT: Moist mucous membranes. Crowded airway. Mallampati score is 4. NECK: Supple. No JVD. CARDIOPULMONARY: S1 and S2. LUNGS: Has fair airflow with rhonchi. ABDOMEN: Soft, nontender. No organomegaly. EXTREMITIES: Does have edema. NEUROLOGIC: Awake and alert. Follows simple commands. LABORATORY DATA: Blood sugar this morning 231. MEDICATIONS: She is on Brovana 15 mcg inhaled twice a day, Coreg 12.5 mg twice a day, vitamin D 50,000 units every 7 days, lactulose 10 mg p.o. daily, insulin coverage, Klonopin 0.5 mg daily, Levemir 48 units subcu daily, Pulmicort inhaled twice a day, Synthroid total is 137 mcg daily, Tylenol p.r.n., Zofran p.r.n. basis. IMPRESSION AND PLAN: Chronic obstructive lung disease, congestive heart failure, sleep apnea syndrome, hypertension, hypothyroid, morbid obesity. Pulmonary point of view doing okay. Continue therapy. Continue BiPAP while sleeping, bronchodilator, diuretics, gastric prophylaxis. Fall precautions. Thank you, and we will follow with you. Murphy Escalera MD
--- NOTE | 2017-03-21 21:51 | PN ---
DATE: 03/21/2017 SUBJECTIVE: An 81-year-old white female in TCU for exacerbation of heart failure, COPD, diabetes mellitus, chronic renal insufficiency III/IV, worsening renal failure, taken off diuretics. BUN and creatinine 95 and 2.2. PHYSICAL EXAMINATION VITAL SIGNS: The patient is afebrile. Vital signs are stable. LUNGS: Clear to auscultation and percussion. ABDOMEN: She does have an obese abdomen. EXTREMITIES: Without cyanosis, clubbing or edema. ASSESSMENT: She is tolerating diet well. She is doing her physical therapy and occupational therapy without shortness of breath. She is on BiPAP at night. PLAN: Continue physical therapy and occupational therapy and discharge home in the morning, off diuretics. Shreyas Kaplan MD
[2017-03-22 02:35] VITALS: PULSE 70
[2017-03-22] MEDS: Levothyroxine 25 MCG TAB PO SCH (06:12)
[2017-03-22] MEDS: Levothyroxine 112 MCG TAB PO SCH (06:13)
[2017-03-22 07:01] LABS: HEMATOCRIT 35.1 % (36.0-48.0); MEAN CELL VOLUME 89.5 fL (80.0-105.0); MEAN CORPUSCULAR HEMOGLOBIN 30.4 pg (25.0-35.0); MEAN CORPUSCULAR HGB CONC 33.9 g/dl (31.0-37.0); MEAN PLATELET VOLUME 9.7 fl (7.0-11.0); RED CELL DISTRIBUTION WIDTH 14.7 % (11.5-14.5); WHITE BLOOD COUNT 8.1 10^3/ul (4.5-11.0)
[2017-03-22 07:14] LABS: ALB/GLOB RATIO 1.1 (1.1-1.8); BILIRUBIN,TOTAL 0.8 mg/dL (0.2-1.3); CALCIUM 9.6 mg/dL (8.4-10.5); MAGNESIUM 2.1 mg/dL (1.7-2.2); PHOSPHOROUS 4.5 mg/dL (2.5-4.5); POTASSIUM 4.3 mmol/L (3.6-5.0); TOTAL PROTEIN 7.3 g/dL (5.8-8.3)
[2017-03-22] MEDS: Arformoterol 15 mcg/2 ml Inh Sol IH SCH (07:35)
[2017-03-22] MEDS: Budesonide 0.5 mg/2 ml Inhal Susp UD IH SCH (07:36)
[2017-03-22] MEDS: Insulin Reg-LOW-Coverage SC SCH ×2 (07:55→13:52)
[2017-03-22] MEDS: Insulin Detemir 100 units/ml Vial (Levemir) SC SCH (10:14)
[2017-03-22] MEDS: Nystatin 100,000 Units/gm Topical Pow(15 gm) TOP SCH (10:15)
[2017-03-22 10:17] VITALS: BP 133/78
[2017-03-22 10:39] VITALS: TEMP 97.8
--- NOTE | 2017-03-22 10:47 | PN ---
DATE: 03/22/2017 SUBJECTIVE: The patient is seen, sitting in a chair on TCU. She states she feels comfortable and her dyspnea is improved. Her edema is fairly well controlled. She denies any lightheadedness. CURRENT MEDICATIONS: Include Brovana; carvedilol 12.5 mg b.i.d., insulin coverage; Klonopin 0.5 mg at bedtime; Levemir insulin; Pulmicort inhalers; Synthroid. OBJECTIVE: GENERAL: She is an elderly woman, appears comfortable at rest. VITAL SIGNS: Her blood pressure is 118/50 with a pulse of 70, respirations are 16, and she is afebrile. HEENT: No JVD. CHEST: Diminished breath sounds at the bases. HEART: PMI is displaced laterally with a systolic murmur present at the bases as well as at the apex. ABDOMEN: Soft and nontender with normoactive bowel sounds. EXTREMITIES: Trace ankle edema. DIAGNOSTIC DATA: Potassium is 4.3; BUN and creatinine of 100 and 1.7; hemoglobin and hematocrit 11.9 and 35.1 with a white count of 8.1. IMPRESSION: 1. Acute on chronic congestive heart failure, predominantly systolic, clinically improved. 2. Prerenal azotemia, persistent, despite discontinuation of diuretics. 3. Moderate aortic stenosis. 4. Moderate left ventricular dysfunction. 5. Moderate mitral regurgitation. RECOMMENDATIONS: From a cardiac standpoint, she appears stable for discharge to home at this time. Outpatient followup will be arranged. Daily weights will be monitored at home. Followup per renal function will need to be assessed as an outpatient as well. She will likely need reinstitution of diuretic therapy, but we will also need to maintain significant prerenal azotemia to avoid further heart failure decompensation. Outpatient followup has been arranged. Greg Mcclure MD JIM
--- NOTE | 2017-03-22 14:49 | PN ---
DATE: 03/22/2017 SUBJECTIVE: The patient is seen, sitting in chair. She is awake, she is alert, she is comfortable. PHYSICAL EXAMINATION: GENERAL: Elderly lady, setting in chair. VITAL SIGNS: Blood pressure 133/78, heart rate 70, respiratory rate 18 and temperature 97.8. HEENT: Normocephalic, and atraumatic. NECK: Supple. No JVD. LUNGS: Bilateral equal air entry, minimal basal rales. CARDIAC: S1 and S2, regular rate and rhythm, no murmur, no rubs. ABDOMEN: Obese, distended, soft, nontender. Bowel sounds present. EXTREMITIES: Trace lower extremity edema. INTAKE AND OUTPUT: Not charted. LABORATORY DATA: WBC 8, hemoglobin 11.9, hematocrit 35, platelets 202. Sodium 136, potassium 4.3, chloride 98, CO2 of 28, BUN of 100,creatinine 1.7, glucose 95, calcium 9.6,phosphorous 4.5, and magnesium 2.1. CURRENT MEDICATIONS: Brovana, Coreg, Drisdol, Enulose, Humulin, insulin, nystatin, Pulmicort, Synthroid, Tylenol, and Zofran. ASSESSMENT AND PLAN: 1. Acute kidney injury, superimposed on chronic kidney disease, stage III/IV. 2. Prerenal azotemia. 3. Non-insulin dependent diabetes mellitus. 4. Congestive heart failure/cardiomyopathy. 5. Morbid obesity. 6. Hypothyroidism. 7. Chronic obstructive pulmonary disease. PLAN: 1. Discontinue diuretics. 2. Discontinue losartan. 3. Discontinue spironolactone. 4. Push p.o. intake. 5. Continue PT. Imelda Costa MD
--- NOTE | 2017-03-22 15:04 | PN ---
DATE: 03/22/2017 REFERRING PHYSICIAN: Dr. Kaplan. SUBJECTIVE: She is sitting up in a chair. Son is bedside. Night was unremarkable. Tolerated her CPAP well. No cough, no sputum production, no nausea, no vomiting, no diarrhea. Still has trace leg swelling. OBJECTIVE: GENERAL: No acute distress. VITAL SIGNS: Temperature is 98, heart rate is 70, respiratory rate is 18, blood pressure 133/78 and pulse oximetry 99% on nasal cannula. HEENT: Moist mucosa membranes. Crowded airway. HEART: S1 and S2. ABDOMEN: Soft, nontender. No organomegaly. EXTREMITIES: Does have edema. NEUROLOGIC: Awake and alert, follows simple commands. MEDICATIONS: Reviewed. No new change in medication recorded since yesterday. LABORATORY DATA: Shows hemoglobin 11.9, hematocrit 35.1, WBC 8.1 and platelets are 202. Sodium 136, potassium 4.3, chloride 98, bicarbonate 28, BUN 100, creatinine 1.7, glucose 95, calcium is 9.6, phosphorus 4.5. AST is 32, ALT 25, alkaline phosphatase is 49 and albumin is 3.8. IMPRESSION AND PLAN: Chronic obstructive lung disease, congestive heart failure, sleep apnea syndrome, hypertension, hypothyroid, morbid obesity. Pulmonary point of view, she is okay. I spoke to family. The patient does have home CPAP. She received new mask and filters couple of months ago. Continue encouraged BiPAP use at home. Keep head elevated at 47 degrees. Sleep apnea precaution and fall precaution. Continue followup with Dr. Kaplan. Advised to follow with Dr. Dillon Garcia from pulmonary point of view. Murphy Escalera MD
--- NOTE | 2017-03-23 04:01 | DS ---
HOSPITAL COURSE: An 81-year-old white female, is being deemed discharge from TCU after exacerbation of heart failure and COPD. The patient also has insulin-dependent diabetes mellitus and stage III/IV chronic renal insufficiency. The patient will be discharged home in improved condition and she follow as an outpatient. She will continue CPAP at home. She will be off diuretics at home because of her elevated BUN and creatinine, approximately, at this point 100 and 1.7. Vital signs are stable. The patient will remain on insulin coverage for her diabetes mellitus and she also remain on bronchodilators and reduction. The patient will be followed as an outpatient with Nephrology. DIAGNOSES: Acute exacerbation of systolic heart failure on top of combined diastolic and systolic heart failure, chronic obstructive pulmonary disease, Pickwickian syndrome, insulin-dependent diabetes mellitus and chronic renal insufficiency stage III/IV. Shreyas Kaplan MD
== END 2017-03-22 14:09 | disposition home health service (06) | DRG 291 ==
LOC: TRCU 16:56
PROVIDERS: ADMIT Internal Medicine; ATTEND Internal Medicine
PROC: F07Z9FZ Gait Training/Functional Ambulation Treatment using Assistive, Adaptive, Supportive or Protective Equipment (ICD-10-PCS; principal; 2017-03-14)
PROC: F07M6ZZ Therapeutic Exercise Treatment of Musculoskeletal System - Whole Body (ICD-10-PCS; 2017-03-14)
PROC: F08Z2ZZ Grooming/Personal Hygiene Treatment (ICD-10-PCS; 2017-03-14)
DX: I13.0 Hypertensive heart and chronic kidney disease with heart failure and stage 1 through stage 4 chronic kidney disease, or unspecified chronic kidney disease (principal); I50.41 Acute combined systolic (congestive) and diastolic (congestive) heart failure; N18.4 Chronic kidney disease, stage 4 (severe); E11.22 Type 2 diabetes mellitus with diabetic chronic kidney disease; N17.9 Acute kidney failure, unspecified; E66.2 Morbid (severe) obesity with alveolar hypoventilation; I08.3 Combined rheumatic disorders of mitral, aortic and tricuspid valves; I42.0 Dilated cardiomyopathy; J98.11 Atelectasis; E87.5 Hyperkalemia; E03.9 Hypothyroidism, unspecified; G47.33 Obstructive sleep apnea (adult) (pediatric); I25.10 Atherosclerotic heart disease of native coronary artery without angina pectoris; J44.9 Chronic obstructive pulmonary disease, unspecified; Z79.4 Long term (current) use of insulin; Z85.42 Personal history of malignant neoplasm of other parts of uterus; Z90.710 Acquired absence of both cervix and uterus; Z90.49 Acquired absence of other specified parts of digestive tract; Z95.0 Presence of cardiac pacemaker; Z99.81 Dependence on supplemental oxygen; K57.90 Diverticulosis of intestine, part unspecified, without perforation or abscess without bleeding; T50.2X5A Adverse effect of carbonic-anhydrase inhibitors, benzothiadiazides and other diuretics, initial encounter

== ENCOUNTER 2017-05-08 15:16 | Inpatient (IN) | payer MEDICARE ==
[2017-05-08 15:24] VITALS: BMI 47.2
--- NOTE | 2017-05-08 15:56 | ED PDOC ---
Arrival/HPI - General Historian: Patient, Family (son provided translation) - History of Present Illness Time/Duration: Other (began last evening) Symptom Onset: Sudden Symptom Course: Unchanged <Mikey Siddiqi - Last Filed: 05/08/17 16:22> <Mauro Ambrosio DO - Last Filed: 05/08/17 18:03> - General Chief Complaint: Shortness Of Breath Time Seen by Provider: 05/08/17 15:18 - History of Present Illness Narrative History of Present Illness (Text): 05/08/17 15:56 This is an 81 year old female with PMHx CHF, DM, COPD, Hypothyroidism who presents being in by her PMD Dr. Kaplan for evaluation of shortness of breath. Patient speaks Spanish, but son was at bedside and able to translate. Patient has been experiencing labored breathing since last night. The son brought her in to see Dr. Kaplan earlier today. After examination, Dr. Kaplan had her go to the ED for evaluation and admission. Patient states that she cannot tolerate lying down as it worsens her dyspnea. Patient not currently coughing but is complaining of abdominal bloating with excessive belching and gassy feeling. Patient's son states that her mother was previously prescribed Spironolactone but was changed to Bumex since it was ineffective. However, patient did not like the Bumex and stated that she felt sick while taking it, prompting her to revert to her Spironolactone. Patient denies fever, chills, chest pain, abdominal pain, dysuria. Patient has a history of pacemaker placement and is on home oxygen 2L per son. 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 for obstruction 8 yrs ago... and pacemaker - Anesthesia Hx Anesthesia: Yes Hx Anesthesia Reactions: No Hx Malignant Hyperthermia: No <Mikey Siddiqi - Last Filed: 05/08/17 16:22> Family/Social History - Physician Review Nursing Documentation Reviewed: Yes Family/Social History: No Known Family HX Smoking Status: Never Smoked Hx Alcohol Use: No Hx Substance Use: No <Mikey Siddiqi - Last Filed: 05/08/17 16:22> Allergies/Home Meds <Mikey Siddiqi - Last Filed: 05/08/17 16:22> <Mauro Ambrosio DO - Last Filed: 05/08/17 18:03> Allergies/Adverse Reactions: Allergies hydrocodone bitartrate [From Vicoprofen] Allergy (Intermediate, Verified 15:24) RASH ibuprofen [From Vicoprofen] Allergy (Intermediate, Verified 05/08/17 15:24) RASH adhesive Allergy (Verified 05/08/17 15:24) RASH Penicillins Allergy (Verified 05/08/17 15:24) RASH warfarin sodium [From Coumadin] Allergy (Verified 05/08/17 15:24) RASH blisters on her legs Home Medications: Home Meds Medication Instructions Recorded Confirmed Budesonide [Pulmicort Respules] 0.5 mg IH BID 06/11/16 05/08/17 GlipiZIDE [Glucotrol] 5 mg PO BID 12/12/16 05/08/17 Losartan [Cozaar] 100 mg PO DAILY 12/12/16 05/08/17 Levothyroxine [Synthroid] 137 mcg PO DAILY 03/09/17 05/08/17 Lactulose [Generlac] 10 gm PO BID PRN 03/12/17 05/08/17 Bumetanide [Bumex] 1 mg PO DAILY 05/08/17 05/08/17 Review of Systems - Review of Systems Constitutional: Normal Eyes: Normal ENT: Normal Respiratory: SOB. absent: Cough Cardiovascular: Edema. absent: Chest Pain Gastrointestinal: Other (bloating, excessive belching, gassy feeling). absent: Abdominal Pain Genitourinary Female: Normal. absent: Dysuria Musculoskeletal: Normal Skin: Normal Neurological: Normal Endocrine: Normal Hemo/Lymphatic: Normal <Mikey Siddiqi - Last Filed: 05/08/17 16:22> Physical Exam Vital Signs Reviewed: Yes Temperature: Afebrile Blood Pressure: Normal Pulse: Regular Respiratory Rate: Normal Appearance: Positive for: Uncomfortable Pain Distress: None Mental Status: Positive for: Alert and Oriented X 3 - Systems Exam Head: Present: Atraumatic, Normocephalic Pupils: Present: PERRL Extroacular Muscles: Present: EOMI Conjunctiva: Present: Normal Mouth: Present: Moist Mucous Membranes Neck: Present: Normal Range of Motion Respiratory/Chest: Present: Wheezes (heard anteriorly on the right side), Decreased Breath Sounds, Rales (bilateral lower lung [place]) Cardiovascular: Present: Normal S1, S2, Peripheal Pulses Present Abdomen: Present: Distention, Normal Bowel Sounds. No: Tenderness Upper Extremity: Present: Normal Inspection, NORMAL PULSES. No: Edema Lower Extremity: Present: Normal Inspection, Edema (marked pitting edema bilaterally), NORMAL PULSES. No: CALF TENDERNESS Neurological: Present: GCS=15, CN II-XII Intact Skin: Present: Warm, Dry. No: Normal Color (pale) Psychiatric: Present: Alert, Oriented x 3 <Mikey Siddiqi - Last Filed: 05/08/17 16:22> Medical Decision Making - Lab Interpretations I have reviewed the lab results: Yes - EKG Interpretation Interpreted by ED Physician: Yes Type: 12 lead EKG <Mikey Siddiqi - Last Filed: 05/08/17 16:22> <Mauro Ambrosio DO - Last Filed: 05/08/17 18:03> ED Course and Treatment: 05/08/17 16:08 CBC, CMP, Coags, Mag, Phos, EKG, Portable CXR, Cardiac ISO, BNP, Amylase, Lipase Lasix 40 mg IV given EKG shows Paced rhythm at rate 70 (Mikey Siddiqi) 05/08/17 18:[address] Kaplan. Accepted to his service in telemetry. (Mauro Ambrosio DO) - Lab Interpretations Lab Results: 05/08/17 15:30 05/08/17 15:30 Lab Results 05/08/17 15:30: Free T4 1.54, Total T3 0.75 L, TSH 3rd Generation 5.63 H 05/08/17 15:30: PT 14.5 H, INR 1.34 H, APTT 25.9 05/08/17 15:30: WBC 8.8, RBC 3.77, Hgb 11.5 L, Hct 36.0, MCV 95.5, MCH 30.5, MCHC 31.9, RDW 15.6 H, Plt Count 174, MPV 9.8, Gran % 78.6 H, Lymph % (Auto) 13.1 L, [place] % (Auto) 6.4 H, Eos % (Auto) 1.8, Baso % (Auto) 0.1, Gran # 6.87 H , Lymph # 1.2, [place] # 0.6, Eos # 0.2, Baso # 0.01 05/08/17 15:30: Sodium 140, Potassium 5.4 H, Chloride 102, Carbon Dioxide 28, Anion Gap 15, BUN 62 H, Creatinine 1.4, Est GFR ( Amer) 44, Est GFR (Non- Af Amer) 36, Random Glucose 212 H, Calcium 9.3, Phosphorus 3.7, Magnesium 2.0, Total Bilirubin 0.6, AST 24, ALT 30, Alkaline Phosphatase 75, Lactate Dehydrogenase 517, Total Creatine Kinase 70, Troponin I 0.05 D, NT-Pro-B Natriuret Pep 9850 H, Total Protein 6.4, Albumin 3.6, Globulin 2.8, Albumin/ Globulin Ratio 1.3, Amylase < 30 L, Lipase 19 L - RAD Interpretation Radiology Orders: 05/08/17 15:34 CXR [CHEST PORTABLE] [RAD] Stat - Medication Orders Current Medication Orders: Discontinued Medications Furosemide (Lasix) 40 mg IVP STAT STA Stop: 05/08/17 15:49 Last Admin: 05/08/17 15:55 Dose: 40 mg Sodium Polystyrene Sulfonate (Kayexalate Oral Susp) 15 gm PO STAT STA Stop: 05/08/17 17:15 Last Admin: 05/08/17 17:26 Dose: 15 gm - PA / SENIOR RESEARCH MANAGER / Resident Statement AMENA has reviewed & agrees with the documentation as recorded. AMENA has examined the patient and agrees with the treatment plan. <Mauro Ambrosio DO - Last Filed: 05/08/17 18:03> Disposition/Present on Arrival - Present on Arrival History of DVT/PE: No History of Uncontrolled Diabetes: No Urinary Catheter: No History of Decub. Ulcer: No History Surgical Site Infection Following: None <Mikey Siddiqi - Last Filed: 05/08/17 16:22> - Present on Arrival Any Indicators Present on Arrival: No - Disposition Have Diagnosis and Disposition been Completed?: Yes Disposition Time: 17:00 <Mauro Ambrosio DO - Last Filed: 05/08/17 18:03> - Disposition Diagnosis: Congestive heart failure (CHF), Acute exacerbation of CHF (congestive heart failure) Disposition: HOSPITALIZED Condition: FAIR Discharge Instructions (ExitCare): Heart Failure (ED) Referrals: Shreyas Kaplan MD [Primary Care Provider] - Follow up with primary Forms: [employer] ([place])
[2017-05-08 16:09] LABS: BASO # 0.01 K/mm3 (0.0-2.0); BASO % 0.1 % (0.0-3.0); EOS # 0.2 (0.0-0.7); EOS % 1.8 % (1.5-5.0); GRAN # 6.87 (1.4-6.5); GRAN % 78.6 % (50.0-68.0); LYMPH # 1.2 (1.2-3.4); LYMPH % 13.1 % (22.0-35.0); MEAN CELL VOLUME 95.5 fl (80.0-105.0); MEAN CORPUSCULAR HEMOGLOBIN 30.5 pg (25.0-35.0); MEAN CORPUSCULAR HGB CONC 31.9 g/dl (31.0-37.0); MEAN PLATELET VOLUME 9.8 fl (7.0-11.0); MONO # 0.6 (0.1-0.6); MONO % 6.4 % (1.0-6.0); RED CELL DISTRIBUTION WIDTH 15.6 % (11.5-14.5); WHITE BLOOD COUNT 8.8 10^3/ul (4.5-11.0)
[2017-05-08 16:13] LABS: ALB/GLOB RATIO 1.3 (1.1-1.8); ALKALINE PHOSPHATASE 75 U/L (38-126); ALT/SGPT 30 U/L (7-56); AST/SGOT 24 U/L (14-36); BILIRUBIN,TOTAL 0.6 mg/dL (0.2-1.3); BLOOD UREA NITROGEN 62 mg/dL (7-21); CALCIUM 9.3 mg/dL (8.4-10.5); CARBON DIOXIDE 28 mmol/L (21-33); CHLORIDE 102 mmol/L (98-107); GFR AFRICAN-AMERICAN 44; GLUCOSE,RANDOM 212 mg/dL (70-110); LIPASE 19 U/L (23-300); PHOSPHOROUS 3.7 mg/dL (2.5-4.5); POTASSIUM 5.4 mmol/L (3.6-5.0); SODIUM 140 mmol/L (132-148); TOTAL PROTEIN 6.4 g/dL (5.8-8.3)
[2017-05-08 16:22] LABS: INR 1.34 (0.93-1.08); PARTIAL THROMBOPLASTIN TIME 25.9 Seconds (23.7-30.8)
[2017-05-08 16:24] LABS: TROPONIN I 0.05 ng/mL
[2017-05-08 16:29] LABS: AMYLASE < 30 U/L (35-125)
[2017-05-08 16:30] LABS: FREE T4 1.54 ng/dL (0.78-2.19)
--- NOTE | 2017-05-08 16:32 | RAD ---
HISTORY: dyspnea COMPARISON: 03/12/2017 FINDINGS: LUNGS: There are low lung volumes. There is linear atelectasis in the left mid lung. PLEURA: No significant pleural effusion identified, no pneumothorax apparent. CARDIOVASCULAR: The heart is normal in size. Atherosclerotic aortic arch calcifications are present. . There is a right-sided transvenous permanent pacing device. OSSEOUS STRUCTURES: Within normal limits for the patient's age. There is lobular calcification superior to the greater tuberosity of the humerus which could represent calcific tendinitis. VISUALIZED UPPER ABDOMEN: Normal. OTHER FINDINGS: None. IMPRESSION: Low lung volumes may be related to poor inspiratory effort. No acute findings.
[2017-05-08 16:43] LABS: T3 0.75 ng/mL (0.97-1.69); THYROID STIMULATING HORMONE 5.63 mIU/mL (0.46-4.68)
[2017-05-08] MEDS ORDERED: Sod Polystyrene Sulf 15 gm/60 ml Oral Susp PO STA (17:14)
[2017-05-08] MEDS ORDERED: Ergocalciferol 50,000 Intl Units Cap PO SCH (18:15)
--- NOTE | 2017-05-08 20:40 | CARD ---
APPROVED REPORT EKG Measurement Heart [id number] <Conclusion> Electronic ventricular pacemaker
--- NOTE | 2017-05-08 20:41 | CARD ---
APPROVED REPORT EKG Measurement Heart [id number] <Conclusion> Electronic ventricular pacemaker
[2017-05-08] MEDS: Insulin Reg-LOW-Coverage SC SCH (22:46)
--- NOTE | 2017-05-08 23:20 | CP.PCM.PN ---
Subjective - Date & Time of Evaluation Date of Evaluation: 05/08/17 Time of Evaluation: 23:00 - Subjective Subjective: Pt was admitted earlier today for CHF. Pt seen for her request for Bipap which she uses at home. Sh denies any chest pain orany new symptoms at present. Old chart reviewed.Pt was on Bipap 07/26 with 60 % O2. VS stable. PMH:CHF,DM,COPD,Hypothyroidism. Objective - Vital Signs/Intake and Output Vital Signs (last 24 hours): Temp Pulse Resp BP Pulse Ox 97.7 F 70 20 132/68 95 05/08/17 15:42 05/08/17 19:33 05/08/17 19:33 05/08/17 19:33 05/08/17 19:33 - Medications Medications: Current Medications Arformoterol Tartrate (Brovana) 15 mcg IH [id number] ERIBERTO Budesonide (Pulmicort Respules) 0.5 mg IH BID ERIBERTO Carvedilol (Coreg) 12.5 mg PO BID ERIBERTO Clonazepam (Klonopin) 0.5 mg PO HS ERIBERTO PRN Reason: Protocol Last Admin: 05/08/17 22:46 Dose: 0.5 mg Ergocalciferol (Drisdol 50,000 Intl Units Cap) 1 cap PO Q7D ERIBERTO Last Admin: 05/08/17 18:27 Dose: 1 cap Furosemide (Lasix) 40 mg IVP DAILY [facility] Insulin Detemir (Levemir) 45 unit SC DAILY [facility] Insulin Human Regular (Humulin R Low) 0 units SC ACHS ERIBERTO PRN Reason: Protocol Last Admin: 05/08/17 22:46 Dose: Not Given Losartan Potassium (Cozaar) 100 mg PO DAILY [facility] - Labs Labs: PT 14.5 Seconds (9.9-11.8) H 05/08/17 15:30 INR 1.34 (0.93-1.08) H 05/08/17 15:30 APTT 25.9 Seconds (23.7-30.8) 05/08/17 15:30 - Constitutional Appears: No Acute Distress - Head Exam Head Exam: ATRAUMATIC, NORMAL INSPECTION, NORMOCEPHALIC - Eye Exam Eye Exam: Normal appearance - ENT Exam ENT Exam: Mucous Membranes Moist - Neck Exam Neck Exam: Normal Inspection - Respiratory Exam Respiratory Exam: Decreased Breath Sounds - Cardiovascular Exam Cardiovascular Exam: REGULAR RHYTHM (Vpaced rhythm on the moniter) - GI/Abdominal Exam GI & Abdominal Exam: Soft, Normal Bowel Sounds - Extremities Exam Extremities Exam: Pedal Edema (peter of both feet ,L > R side.). absent: Calf Tenderness - Neurological Exam Neurological Exam: Alert, Oriented x3 - Skin Skin Exam: Dry, Normal Color, Warm Assessment and Plan - Assessment and Plan (Free Text) Assessment: CHF COPD Plan: Will order Bipap 12/6 with 40% O2.
[2017-05-09] MEDS: Arformoterol 15 mcg/2 ml Inh Sol IH SCH ×3 (02:21→19:26)
--- NOTE | 2017-05-09 05:39 | HP ---
HISTORY OF PRESENT ILLNESS: The patient is an 81-year-old white female with a long history of congestive cardiomyopathy, status post pacemaker, history of pickwickian syndrome, morbid obesity and non-insulin diabetes mellitus and chronic renal insufficiency, stage III. The patient was seen in the office today complaining of shortness of breath, increasing in fluid retention, abdominal pain, nausea, failure to take her diuretics because of presumed abdominal issues from her medication and severe shortness of breath. The patient's dry weight is approximately 106 kg; she is approximately 231 pounds. At this point, she has gained approximately 25 pounds since her last admission to the hospital. The patient is seen with her son confined to wheelchair, visibly short of breath with increased respiratory rate and dyspnea at rest. PHYSICAL EXAMINATION VITAL SIGNS: Blood pressure is 140/80. CHEST: Shows rales at both bases and half-way up. CARDIAC: Regular sinus rhythm with positive S3, positive S4. ABDOMEN: Obese, but benign. EXTREMITIES: Without cyanosis, clubbing or edema. NEUROLOGIC: The patient is grossly intact. LABORATORY DATA: The patient was sent to the ER for admission and was found to have an INR of 1.34, a potassium 5.4, BUN up to 62 and creatinine of 1.4, a blood sugar of 212. BNP of 9050 and a TSH of 5.63. Chest x-ray on this patient in the ER revealed normal size heart, atelectasis at the mid left lung field, poor inspiratory effort. No evidence of CHF on chest x-ray. The patient was admitted to telemetry. IMPRESSION: This is an 81-year-old white female with approximately 25-pound weight gain, presumably be more; renal insufficiency; [id number]-nhxckmefg diabetes mellitus; congestive cardiomyopathy; pickwickian syndrome; volume overload; acute systolic congestive heart failure on combined systolic and diastolic chronic heart failure. Shreyas Kaplan MD
[2017-05-09] MEDS: Budesonide 0.5 mg/2 ml Inhal Susp UD IH SCH ×3 (08:13→19:26)
[2017-05-09] MEDS: Insulin Reg-LOW-Coverage SC SCH ×4 (08:43→22:02)
[2017-05-09] MEDS: Insulin Detemir 100 units/ml Vial (Levemir) SC SCH (11:08)
[2017-05-09] MEDS: POLYETHYLENE GLYCOL 3350 17 GM/Dose PACKET PO SCH (14:22)
--- NOTE | 2017-05-09 20:22 | PN ---
DATE: SUBJECTIVE: An 81-year-old white female with history of heart block with status post pacemaker, history of pickwickian syndrome, congestive cardiomyopathy, acute systolic heart failure on top of chronic combined systolic and diastolic heart failure, non-insulin dependent diabetes mellitus. The patient had gained approximately 30 pounds in the last several weeks, seen in my office yesterday with shortness of breath and then in the hospital today, following several doses of IV Lasix. The patient is markedly improved. She still has rales at both bases bilaterally, possibly nursing home up. She still has dyspnea on exertion and shortness of breath, but she is more comfortable at rest. PHYSICAL EXAMINATION: EXTREMITIES: Without cyanosis, clubbing, or edema. CHEST: Shows rales bilaterally, both bases. HEART: Regular sinus rhythm. GENERAL: The patient is on CPAP at night. VITAL SIGNS: Stable. PLAN: Continue gradual diuresis. The patient does have history of renal insufficiency in the past. Kidney function is markedly improved, she has 62 and 1.4 today and potassium of 5.4. Shreyas Kaplan MD
--- NOTE | 2017-05-09 21:58 | CARD ---
APPROVED REPORT EXAM: Two-dimensional and M-mode echocardiogram with Doppler and color Doppler. INDICATION Congestive Heart Failure 2D DIMENSIONS Left Atrium (2D)7.3 (1.6-4.0cm)IVSd1.2 (0.7-1.1cm) LVDd6.4 (3.9-5.9cm)LVOT Diameter2.1 (1.8-2.4cm) PWd1.2 (0.7-1.1cm)LVDs5.9 (2.5-4.0cm) FS (%) 8.1 %LVEF (%)17.6 (>50%) M-Mode DIMENSIONS Aortic Root3.40 (2.2-3.7cm)Aortic Cusp Exc.0.50 (1.5-2.0cm) Aortic Valve AoV Peak Jdmoxskq222.0cm/sAoV VTI67.2cmAO Peak GR.35mmHg LVOT Peak Mblaiotq73.7cm/sLVOT VTI13.20cmAO Mean GR.19mmHg NICO (VMAX)0.77cv8MTV (VTI)0.68cm2 Mitral Valve MV E Ovvrwnpz828.0cm/sMV A Ypkmtixz12.1cm/sMV HVI80gh E/A ratio1.6MVA (PHT)2.72cm2 TDI Lateral E' Peak V7.41cm/sMedial E' Peak V4.87cm/sE/Lateral E'14.0 E/Medial E'21.4 Pulmonary Valve PV Peak Ixtacnck67.9cm/sPV Peak Grad.1mmHg Tricuspid Valve TR Peak Vasifkvb254bz/sRAP ICHVCEYG50geVcMZ Peak Gr.60mmHg BSWF09ixZp LEFT VENTRICLE The Left Ventricle is mildly dilated. There is borderline concentric left ventricular hypertrophy. The systolic function is severely impaired. Sever Septal Hypokinesis RIGHT VENTRICLE The right ventricle is mildly dilated. There is normal right ventricular wall thickness. RV Systolic function is mildly reduced. There is a pacemaker lead in the right ventricle. ATRIA The left atrium is severely dilated. The right atrium is moderately dilated. AORTIC VALVE The aortic valve is moderately calcified. There is moderate valvular aortic stenosis. MITRAL VALVE Mitral regurgitation is moderate to severe. TRICUSPID VALVE There is severe tricuspid regurgitation. There is severe pulmonary hypertension. GREAT VESSELS The aortic root is normal in size. PERICARDIAL EFFUSION There is a trace loculated anterior pericardial effusion. <Conclusion> The Left Ventricle is mildly dilated. There is borderline concentric left ventricular hypertrophy. The systolic function is severely impaired. Sever Septal Hypokinesis The aortic valve is moderately calcified. There is moderate valvular aortic stenosis. Mitral regurgitation is moderate to severe. There is severe tricuspid regurgitation. There is severe pulmonary hypertension.
[2017-05-10 07:01] LABS: BASO # 0.02 K/mm3 (0.0-2.0); BASO % 0.3 % (0.0-3.0); EOS # 0.2 (0.0-0.7); EOS % 2.3 % (1.5-5.0); GRAN # 4.74 (1.4-6.5); GRAN % 72.2 % (50.0-68.0); HEMATOCRIT 34.2 % (36.0-48.0); LYMPH # 1.2 (1.2-3.4); LYMPH % 18.9 % (22.0-35.0); MEAN CELL VOLUME 96.6 fl (80.0-105.0); MEAN CORPUSCULAR HEMOGLOBIN 29.9 pg (25.0-35.0); MONO # 0.4 (0.1-0.6); MONO % 6.3 % (1.0-6.0); RED CELL DISTRIBUTION WIDTH 15.6 % (11.5-14.5); WHITE BLOOD COUNT 6.6 10^3/ul (4.5-11.0)
[2017-05-10 07:19] LABS: ALB/GLOB RATIO 1.2 (1.1-1.8); BILIRUBIN,TOTAL 0.7 mg/dL (0.2-1.3); CALCIUM 9.1 mg/dL (8.4-10.5); MAGNESIUM 1.8 mg/dL (1.7-2.2); POTASSIUM 4.2 mmol/L (3.6-5.0); TOTAL PROTEIN 6.1 g/dL (5.8-8.3)
[2017-05-10] MEDS: Arformoterol 15 mcg/2 ml Inh Sol IH SCH ×2 (08:03→19:37)
[2017-05-10] MEDS: Budesonide 0.5 mg/2 ml Inhal Susp UD IH SCH ×2 (08:04→19:38)
[2017-05-10] MEDS: Insulin Reg-LOW-Coverage SC SCH ×4 (08:23→21:57)
[2017-05-10] MEDS: Insulin Detemir 100 units/ml Vial (Levemir) SC SCH ×2 (09:13→09:24)
[2017-05-10] MEDS: POLYETHYLENE GLYCOL 3350 17 GM/Dose PACKET PO SCH (09:17)
--- NOTE | 2017-05-10 10:51 | PN ---
An 81-year-old white female admitted to hospital with congestive cardiomyopathy, hyperkalemia, chronic renal insufficiency and [id number] diabetes mellitus. The patient has been diuresed. Her BUN and creatinine are stable at 55 and 1.2, potassium is 4.2. The patient is doing well. She has slowly decreasing rales of both bases. She is less short of breath, so we will get the patient out of bed to chair today and start ambulation, possible TCU and will be discharged shortly. Shreyas Kaplan MD
--- NOTE | 2017-05-10 15:02 | CON ---
DATE OF CONSULTATION: 05/10/2017 REQUESTING PHYSICIAN: Shreyas Kaplan MD REASON FOR CONSULTATION: Dyspnea and edema HISTORY OF PRESENT ILLNESS: This is an 81-year-old woman well-known to us with multiple admissions for decompensated congestive heart failure, who was admitted from Dr. Kaplan's yesterday with increasing dyspnea, weight gain and edema. She was recently admitted for similar problems. While hospitalized then she developed severe prerenal azotemia with diuretic use. She has a history of moderate aortic stenosis with moderate mitral and tricuspid regurgitation. She has undergone a permanent pacemaker implant in the past for conduction system disease. She denies any chest pain. She was treated with IV diuretics and is feeling somewhat better at this time. PAST MEDICAL HISTORY: Notable for the problems mentioned above. She has undergone a previous hysterectomy for uterine carcinoma. She has also had a partial colectomy performed in the past for diverticulitis. She has a history of severe COPD and developed necrotizing fasciitis in the past with Coumadin use. CURRENT MEDICATIONS: Her current medications include Brovana, Colace, carvedilol 12.5 mg b.i.d., Cozaar 100 mg daily, Klonopin at bedtime, Lasix 40 mg IV daily, Levemir, insulin, MiraLax and Pulmicort inhaler. ALLERGIES: SHE HAS HAD REACTIONS TO A PENICILLIN, WARFARIN IN THE PAST WELL HYDROCODONE, IBUPROFEN, AND ADHESIVE TAPE. SOCIAL HISTORY: She does not smoke or drink. She lives at home with her family. FAMILY HISTORY: Mother following heart surgery for valvular heart disease. Her father from age-related illness, one brother has a history of atrial fibrillation. REVIEW OF SYSTEMS: A 10-point review of systems is otherwise unremarkable. PHYSICAL EXAMINATION: GENERAL: She is an elderly woman, who appears comfortable at rest. VITAL SIGNS: Her blood pressure is 130/62 with a pulse of 70 with atrial fibrillation, respirations were 16. She is afebrile. NECK: No JVD noted. CHEST: Diminished breath sounds at the bases with crackles at the left base. HEART: PMI displaced laterally with soft tones noted. Systolic murmur is noted at the bases as well as at lower left sternal border to the apex. ABDOMEN: Soft, obese, nontender. Normoactive bowel sounds. EXTREMITIES: 1+ leg edema. SKIN: Warm and dry. PSYCHIATRIC: Normal mood and affect. NEUROLOGIC: No gross motor or sensory deficits appreciable. Alert and oriented x3. DIAGNOSTIC DATA: Potassium is 4.2, BUN and creatinine are 55 and 1.2. Hemoglobin and hematocrit of 10.6 and 34.2 with a white count of 6.6, and platelet count 149,000. Electrocardiogram reveals underlying atrial fibrillation with electronic ventricular pacing. Chest x-ray reveals poor inspiratory effort with mild decrease vascular markings. IMPRESSION: 1. Decompensated congestive heart failure, acute on chronic, combined systolic and diastolic. 2. Multivalvular heart disease with aortic stenosis, mitral regurgitation and tricuspid regurgitation. 3. Conduction system disease with permanent pacemaker implant. 4. History of diabetes. 5. History of obesity. RECOMMENDATIONS: Gentle diuresis should continue. If she becomes excessively prerenal with holding her Cozaar during acute diuresis may be beneficial, so fluid restriction will be advised. In general continue conservative management will be planned. Thank you for this consultation and we will be happy to follow through her hospital course. Greg Mcclure MD
[2017-05-11 02:21] VITALS: PULSE 70
[2017-05-11] MEDS: Arformoterol 15 mcg/2 ml Inh Sol IH SCH (07:38)
[2017-05-11] MEDS: Budesonide 0.5 mg/2 ml Inhal Susp UD IH SCH ×3 (07:38→10:16)
[2017-05-11 07:58] VITALS: O2SAT 98
[2017-05-11] MEDS: Insulin Reg-LOW-Coverage SC SCH ×2 (08:16→13:07)
--- NOTE | 2017-05-11 09:35 | PN ---
DATE: This is an 81-year-old white female with asthma and acute congestive heart failure. The patient has history of CHF, COPD, Pickwickian syndrome, insulin-dependent diabetes mellitus, morbid obesity, status post pacemaker for heart block. The patient is doing well. She is being diuresed slowly. Her vital signs are stable. She had less shortness of breath, less dyspnea on exertion. She still has some rales at both bases, but decreased. Her BUN and creatinine have stabilized at 55 and 1.2, potassium is 4.2. The patient is tolerated her diet well. We will continue ambulation and possible TCU and continue diuresis. Shreyas Kaplan MD
[2017-05-11] MEDS: POLYETHYLENE GLYCOL 3350 17 GM/Dose PACKET PO SCH (10:15)
[2017-05-11] MEDS: Insulin Detemir 100 units/ml Vial (Levemir) SC SCH (10:15)
[2017-05-11 11:11] LABS: CALCIUM 8.7 mg/dL (8.4-10.5); POTASSIUM 4.4 mmol/L (3.6-5.0)
[2017-05-11 12:22] VITALS: BP 126/74; RESP 16; TEMP 98
--- NOTE | 2017-05-11 14:59 | RAD ---
HISTORY: POST PICC INSERTION COMPARISON: Portable chest 05/08/2017. FINDINGS: Parotid pacemaker again noted. Left abstract PICC catheters been inserted with the tip difficult to isolate due to body habitus and difficulty penetrating the mediastinum. The tip terminates likely in the superior vena cava near the junction with the left brachiocephalic vein. LUNGS: Limited bilateral basilar atelectasis or infiltrates are not excluded, particularly at the left side greater than the right. PLEURA: The generator from the pacemaker obscures the right costophrenic sulcus appears minimal right pleural effusion is not excluded. Small left pleural effusion is suggested blunting the left costophrenic sulcus. No pneumothorax CARDIOVASCULAR: Cardiomegaly is again noted. Mild interval pulmonary venous congestion is suspected. OSSEOUS STRUCTURES: Degenerative left shoulder changes again evident. VISUALIZED UPPER ABDOMEN: Normal. OTHER FINDINGS: None. IMPRESSION: 1. Left PICC insertion is identified with the tip difficult to the [place] definitively identified but likely terminates at the superior vena cava. No pneumothorax identified. 2. Mild CHF suspected. Clinically correlate further. 3. Limited bibasilar patchy atelectasis seen greater the left and right bases with infiltrate not excluded. Small pleural effusion is suspected and is also not excluded the right base laterally.
[2017-05-11] MEDS ORDERED: Pantoprazole 40 mg EC Tab PO STA (15:37)
--- NOTE | 2017-05-11 18:12 | PN ---
DATE: 05/11/2017 SUBJECTIVE: The patient is seen lying in bed on telemetry. She has been unable to get IV access and has not received any IV Lasix. Her dyspnea is about the same. She denies any chest pain. MEDICATIONS: Include Brovana, Carvedilol 12.5 mg b.i.d., losartan 100 mg daily, insulin coverage, Klonopin, Lasix 40 mg b.i.d., Levemir 45 mg daily and Pulmicort inhaler. OBJECTIVE: GENERAL: She is an obese elderly woman. VITAL SIGNS: Blood pressure is 148/80 with a pulse of 70 and atrial fibrillation and ventricular pacing, respirations are 16. She is afebrile. HEENT: No JVD. CHEST: Diminished breath sounds at the bases. HEART: PMI displaced laterally with a systolic murmur at the base as well as the lower left sternal border. ABDOMEN: Soft, obese, nontender, normoactive bowel sounds. EXTREMITIES: Reveal chronic cellulitic changes with 1-2+leg edema. DIAGNOSTIC DATA: Potassium 4.4, bicarbonate 35, BUN and creatinine of 50 and 1.2, glucose of 234. IMPRESSION: 1. Decompensating congestive heart failure acute on chronic, combined systolic and diastolic. 2. Poor IV access. 4. Multivalvular heart disease with aortic stenosis, mitral regurgitation, and tricuspid regurgitation. 5. Chronic obesity. 6. Sick sinus syndrome status post permanent pacemaker implant. 7. Underlying atrial fibrillation. RECOMMENDATIONS: Her current medications will be continued. A peripherally inserted central line is advised for blood drawing and Lasix administration. If she becomes more prerenal, her losartan will be withheld to allow for adequate diuresis. In general, continuing conservative management is most appropriate. We will continue to follow and make further recommendations as appropriate. Greg Mcclure MD
[2017-05-12] MEDS ORDERED: Pantoprazole 40 mg EC Tab PO SCH (06:00)
== END 2017-05-11 16:25 | DRG 291 ==
LOC: ED 15:16 → ERH 17:23 → 2RNO 21:35
PROVIDERS: ADMIT Internal Medicine; ATTEND Internal Medicine
DX: I13.0 Hypertensive heart and chronic kidney disease with heart failure and stage 1 through stage 4 chronic kidney disease, or unspecified chronic kidney disease (principal); I50.43 Acute on chronic combined systolic (congestive) and diastolic (congestive) heart failure; E11.22 Type 2 diabetes mellitus with diabetic chronic kidney disease; I42.0 Dilated cardiomyopathy; E66.2 Morbid (severe) obesity with alveolar hypoventilation; I49.5 Sick sinus syndrome; Z99.81 Dependence on supplemental oxygen; I27.2 Other secondary pulmonary hypertension; E87.5 Hyperkalemia; N18.3 Chronic kidney disease, stage 3 (moderate); E03.9 Hypothyroidism, unspecified; I08.3 Combined rheumatic disorders of mitral, aortic and tricuspid valves; I45.9 Conduction disorder, unspecified; I48.91 Unspecified atrial fibrillation; Z95.0 Presence of cardiac pacemaker; Z90.710 Acquired absence of both cervix and uterus; Z90.49 Acquired absence of other specified parts of digestive tract; Z85.42 Personal history of malignant neoplasm of other parts of uterus; Z79.899 Other long term (current) drug therapy; Z79.84 Long term (current) use of oral hypoglycemic drugs; Z79.4 Long term (current) use of insulin; J44.9 Chronic obstructive pulmonary disease, unspecified

== ENCOUNTER 2017-05-11 16:20 | Inpatient (IN) | payer OTHER, MEDICARE ==
[2017-05-11] MEDS: Insulin Reg-LOW-Coverage SC SCH ×3 (17:30→21:35)
[2017-05-11] MEDS ORDERED: Insulin Reg-LOW-Coverage SC SCH ×2 (17:38→22:00)
[2017-05-11] MEDS: Simethicone 80 mg Chewtab PO PRN (20:06)
[2017-05-11] MEDS: Arformoterol 15 mcg/2 ml Inh Sol IH SCH (20:29)
[2017-05-11] MEDS: Budesonide 0.5 mg/2 ml Inhal Susp UD IH SCH (20:29)
[2017-05-11 23:00] VITALS: BMI 45.0
[2017-05-11] MEDS ORDERED: Pneumococcal 23-Valent Vaccine IM ONE (23:00)
[2017-05-12] MEDS: Insulin Reg-LOW-Coverage SC SCH ×4 (06:56→21:50)
[2017-05-12] MEDS: Arformoterol 15 mcg/2 ml Inh Sol IH SCH ×2 (07:31→20:10)
[2017-05-12] MEDS: Budesonide 0.5 mg/2 ml Inhal Susp UD IH SCH ×2 (07:31→20:10)
[2017-05-12 08:32] LABS: POTASSIUM 4.2 mmol/L (3.6-5.0)
[2017-05-12] MEDS: POLYETHYLENE GLYCOL 3350 17 GM/Dose PACKET PO SCH (09:52)
[2017-05-12] MEDS: Simethicone 80 mg Chewtab PO PRN (09:54)
[2017-05-12] MEDS: Insulin Detemir 100 units/ml Vial (Levemir) SC SCH (09:56)
[2017-05-13] MEDS: Insulin Reg-LOW-Coverage SC SCH ×4 (06:57→21:58)
[2017-05-13] MEDS: Arformoterol 15 mcg/2 ml Inh Sol IH SCH ×2 (07:40→20:01)
[2017-05-13] MEDS: Budesonide 0.5 mg/2 ml Inhal Susp UD IH SCH ×2 (07:41→20:01)
[2017-05-13] MEDS: POLYETHYLENE GLYCOL 3350 17 GM/Dose PACKET PO SCH ×2 (10:27→10:34)
[2017-05-13] MEDS: Insulin Detemir 100 units/ml Vial (Levemir) SC SCH (10:27)
--- NOTE | 2017-05-13 10:44 | PN ---
DATE: 05/13/2017 SUBJECTIVE: The patient is seen lying in bed on the TCU. She is comfortable at the present time. Her appetite is improved. She denies any dyspnea at rest. CURRENT MEDICATIONS: Include Brovana, Carvedilol 12.5 mg b.i.d., Cozaar 100 mg daily, Klonopin at bedtime, Lasix 40 mg p.o. b.i.d., Levemir insulin and Pulmicort inhaler. OBJECTIVE: GENERAL: She is an obese elderly woman. VITAL SIGNS: Blood pressure is 130/76 with a pulse of 70, respirations are 14. She is afebrile. HEENT: No JVD. CHEST: Few scattered rhonchi heard. HEART: PMI displaced laterally with systolic murmur at the base as well as the lower left sternal border and apex. ABDOMEN: Soft, obese, nontender, normoactive bowel sounds. EXTREMITIES: Revealed 1+ edema with chronic cellulitic changes. DIAGNOSTIC DATA: Morning blood work is pending. Last BUN and creatinine were 46 and 1.2. IMPRESSION: 1. [id number] decompensating congestive heart failure, combined systolic and diastolic. 2. Multivalvular heart disease with aortic stenosis, tricuspid regurgitation and mitral regurgitation. 3. Atrial fibrillation. 4. Deconditioning. 5. Rest of problems as noted. RECOMMENDATIONS: From a cardiac standpoint, current medications should be continued. Continue diuresis as advised. A PICC line was inserted prior to transfer to enable IV Lasix use as needed as well as to facilitate the blood transfusion, she has poor venous access. We will continue to follow and make further recommendations as appropriate. Greg Mcclure MD
--- NOTE | 2017-05-13 12:33 | PN ---
DATE: 05/13/2017 SUBJECTIVE: The patient has no complaints of any chest pain. No shortness of breath. No headaches or dizziness. PHYSICAL EXAMINATION: VITAL SIGNS: Temperature is 98, pulse is 70, blood pressure is 129/76, respirations 18. GENERAL: The patient is lying in bed, flat, comfortable. HEENT: No oral lesion. Anicteric sclerae. Moist mucosa. NECK: No JVD, adenopathy, or thyromegaly. CARDIOVASCULAR: S1 and S2, regular. No murmurs, rubs, or gallops. LUNGS: Clear to auscultation bilaterally. No wheeze, rales, or rhonchi. ABDOMEN: Bowel sounds are positive, soft, nontender and nondistended. EXTREMITIES: no cyanosis, clubbing or edema. DIAGNOSTIC DATA: Creatinine is 1.2. ASSESSMENT: 1. Acute congestive heart failure secondary to systolic dysfunction, stable. 2. Chronic obstructive pulmonary disease. 3. Diabetes type II. 4. Obesity with a BMI of 45. 5. Sick sinus syndrome status post permanent pacemaker placement. PLAN: The patient is currently on MiraLax for constipation. She is going to continue with Pulmicort for her breathing. The patient is on Losartan for hypertension. She is on Brovana for her COPD. She has been followed by Dr. Jona Manrique from cardiology. The patient is on Lasix twice a day, this will be continued. I will get blood work on tomorrow. Manuel Lundberg MD
[2017-05-14] MEDS: Insulin Reg-LOW-Coverage SC SCH ×4 (06:48→21:41)
[2017-05-14] MEDS: POLYETHYLENE GLYCOL 3350 17 GM/Dose PACKET PO SCH (09:30)
[2017-05-14] MEDS: Insulin Detemir 100 units/ml Vial (Levemir) SC SCH (09:34)
[2017-05-14] MEDS: Arformoterol 15 mcg/2 ml Inh Sol IH SCH ×2 (16:57→21:08)
[2017-05-14] MEDS: Budesonide 0.5 mg/2 ml Inhal Susp UD IH SCH ×2 (21:08→21:09)
--- NOTE | 2017-05-14 23:11 | CP.PCM.PN ---
Subjective - Date & Time of Evaluation Date of Evaluation: 05/12/17 Time of Evaluation: 11:00 - Subjective Subjective: No complaints. No chest pain, diziness. Objective - Vital Signs/Intake and Output Vital Signs (last 24 hours): Temp Pulse Resp BP Pulse Ox 97.9 F 70 15 138/78 97 05/14/17 17:00 05/14/17 17:20 05/14/17 17:00 05/14/17 17:20 05/14/17 17:00 - Medications Medications: Current Medications Arformoterol Tartrate (Brovana) 15 mcg IH [id number] ERIBERTO PRN Reason: Protocol Last Admin: 05/14/17 21:08 Dose: 15 mcg Budesonide (Pulmicort Respules) 0.5 mg IH BID ERIBERTO PRN Reason: Protocol Last Admin: 05/14/17 21:09 Dose: 0.5 mg Carvedilol (Coreg) 12.5 mg PO BID ERIBERTO PRN Reason: Protocol Last Admin: 05/14/17 17:20 Dose: 12.5 mg Clonazepam (Klonopin) 0.5 mg PO HS ERIBERTO PRN Reason: Protocol Last Admin: 05/14/17 21:41 Dose: 0.5 mg Docusate Sodium (Colace) 100 mg PO BID ERIBERTO PRN Reason: Protocol Last Admin: 05/14/17 17:20 Dose: 100 mg Ergocalciferol (Drisdol 50,000 Intl Units Cap) 1 cap PO Q7D ERIBERTO PRN Reason: Protocol Furosemide (Lasix) 40 mg PO BID ERIBERTO PRN Reason: Protocol Last Admin: 05/14/17 17:20 Dose: 40 mg Insulin Detemir (Levemir) 45 unit SC DAILY ERIBERTO Last Admin: 05/14/17 09:34 Dose: 45 unit Insulin Human Regular (Humulin R Low) 0 units SC ACHS ERIBERTO PRN Reason: Protocol Last Admin: 05/14/17 21:41 Dose: Not Given Losartan Potassium (Cozaar) 100 mg PO DAILY ERIBERTO PRN Reason: Protocol Last Admin: 05/14/17 11:00 Dose: 100 mg Polyethylene Glycol (Miralax) 17 gm PO DAILY ERIBERTO PRN Reason: Protocol Last Admin: 05/14/17 09:30 Dose: Not Given Simethicone (Mylicon Chew Tab) 40 mg PO Q6H PRN; Protocol PRN Reason: gas pain Last Admin: 05/12/17 09:54 Dose: 40 mg - Labs Labs: 05/12/17 08:11 - Head Exam Head Exam: ATRAUMATIC, NORMAL INSPECTION, NORMOCEPHALIC - Eye Exam Pupil Exam: NORMAL ACCOMODATION - ENT Exam ENT Exam: Mucous Membranes Moist, Normal Exam - Neck Exam Neck Exam: Normal Inspection - Respiratory Exam Respiratory Exam: Clear to Ausculation Bilateral, NORMAL BREATHING PATTERN - Cardiovascular Exam Cardiovascular Exam: REGULAR RHYTHM, +S1, +S2 - GI/Abdominal Exam GI & Abdominal Exam: Normal Bowel Sounds - Extremities Exam Extremities Exam: Normal Inspection - Back Exam Back Exam: NORMAL INSPECTION - Neurological Exam Neurological Exam: Alert, Awake - Skin Skin Exam: Normal Color Assessment and Plan - Assessment and Plan (Free Text) Assessment: 1. COPD. 2. Sick sinus syndrome 3. CHF 4. anemia Plan : continue cardiac meds, losartan, lasix. Cardiology following. CV- stable. Continue bronchodilators.
[2017-05-15] MEDS: Insulin Reg-LOW-Coverage SC SCH ×4 (06:47→22:32)
--- NOTE | 2017-05-15 07:14 | PN ---
DATE: 05/14/2017 SUBJECTIVE: The patient is seen lying in bed on the TCU. She is currently using her BiPAP system. She is comfortable. She did some ambulation yesterday. Dyspnea is improved and edema is improved as well. Morning labs are pending. MEDICATIONS: Her current medications remain Brovana, Carvedilol 12.5 mg b.i.d., Cozaar 100 mg daily, Klonopin, Lasix 40 mg b.i.d., Levemir insulin and Pulmicort. OBJECTIVE: GENERAL: She is a obese, elderly woman. VITAL SIGNS: Her blood pressure is 106/56 with a pulse of 100, and respirations are 16. She is afebrile. HEENT: No JVD. CHEST: Bilateral scattered rhonchi and diminished breath sounds at the bases. HEART: PMI displaced laterally with a systolic murmur at the base and left sternal border. ABDOMEN: Soft, obese, nontender, normoactive bowel sounds. EXTREMITIES: No edema. DIAGNOSTIC DATA: Blood work pending. IMPRESSION: 1. Decompensating congestive heart failure, acute on chronic, combined systolic and diastolic. 2. Multivalvular heart disease with aortic stenosis, mitral regurgitation, and tricuspid regurgitation. 3. Chronic atrial fibrillation. 4. Rest of problems as noted. RECOMMENDATIONS: Her current medications will be continued. Negative fluid balances should be maintained. Blood work can be drawn from the PICC line, which was inserted during her recent hospitalization and she was encouraged to increase activities as able. We will follow as needed. Greg Mcclure MD
[2017-05-15] MEDS: Arformoterol 15 mcg/2 ml Inh Sol IH SCH ×2 (07:43→19:36)
--- NOTE | 2017-05-15 07:59 | CP.PCM.PN ---
Subjective - Date & Time of Evaluation Date of Evaluation: 05/15/17 Time of Evaluation: 07:00 - Subjective Subjective: Stable in TCU. Slept with BiPap. No SOB or CP. V/S noted. PE: Lungs: decreased BS at the bases Cor.: S1S2 Abd.: soft Ext.: no edema neuro.: alert Objective - Vital Signs/Intake and Output Vital Signs (last 24 hours): Temp Pulse Resp BP Pulse Ox 97.9 F 70 15 138/78 97 05/14/17 17:00 05/15/17 01:59 05/14/17 17:00 05/14/17 17:20 05/14/17 17:00 Intake and Output: 05/15/17 05/15/17 06:59 18:59 Output Total 300 Balance -300 - Medications Medications: Current Medications Arformoterol Tartrate (Brovana) 15 mcg IH [id number] ERIBERTO PRN Reason: Protocol Last Admin: 05/14/17 21:08 Dose: 15 mcg Budesonide (Pulmicort Respules) 0.5 mg IH BID ERIBERTO PRN Reason: Protocol Last Admin: 05/14/17 21:09 Dose: 0.5 mg Carvedilol (Coreg) 12.5 mg PO BID ERIBERTO PRN Reason: Protocol Last Admin: 05/14/17 17:20 Dose: 12.5 mg Clonazepam (Klonopin) 0.5 mg PO HS ERIBERTO PRN Reason: Protocol Last Admin: 05/14/17 21:41 Dose: 0.5 mg Docusate Sodium (Colace) 100 mg PO BID ERIBERTO PRN Reason: Protocol Last Admin: 05/14/17 17:20 Dose: 100 mg Ergocalciferol (Drisdol 50,000 Intl Units Cap) 1 cap PO Q7D ERIBERTO PRN Reason: Protocol Furosemide (Lasix) 40 mg PO BID ERIBERTO PRN Reason: Protocol Last Admin: 05/14/17 17:20 Dose: 40 mg Insulin Detemir (Levemir) 45 unit SC DAILY ERIBERTO Last Admin: 05/14/17 09:34 Dose: 45 unit Insulin Human Regular (Humulin R Low) 0 units SC ACHS ERIBERTO PRN Reason: Protocol Last Admin: 05/15/17 06:47 Dose: Not Given Losartan Potassium (Cozaar) 100 mg PO DAILY ERIBERTO PRN Reason: Protocol Last Admin: 05/14/17 11:00 Dose: 100 mg Polyethylene Glycol (Miralax) 17 gm PO DAILY ERIBERTO PRN Reason: Protocol Last Admin: 05/14/17 09:30 Dose: Not Given Simethicone (Mylicon Chew Tab) 40 mg PO Q6H PRN; Protocol PRN Reason: gas pain Last Admin: 05/12/17 09:54 Dose: 40 mg - Labs Labs: 05/12/17 08:11 Assessment and Plan - Assessment and Plan (Free Text) Assessment: CHF Valvular Heart Disease: Mod./Sev. , MR and TR. PH, mod./sev. Severe LVD CHF HBP Diabetes PPM S/P hysterectomy for uterine cancer S/P colectomy for diverticulitis Necrotizing fasciiitis due to warfarin Plan: Check BMP, CBC Continue current meds OOB to chair as shekhar/PT/rehab. BiPap.
[2017-05-15] MEDS: POLYETHYLENE GLYCOL 3350 17 GM/Dose PACKET PO SCH ×2 (09:30→09:33)
[2017-05-15] MEDS: Insulin Detemir 100 units/ml Vial (Levemir) SC SCH (09:43)
[2017-05-15] MEDS: Budesonide 0.5 mg/2 ml Inhal Susp UD IH SCH ×2 (10:00→19:37)
[2017-05-15] MEDS ORDERED: Ergocalciferol 50,000 Intl Units Cap PO SCH (18:00)
[2017-05-16 06:11] LABS: BASO # 0.02 K/mm3 (0.0-2.0); BASO % 0.3 % (0.0-3.0); EOS # 0.3 (0.0-0.7); EOS % 4.4 % (1.5-5.0); GRAN # 4.12 (1.4-6.5); GRAN % 62.5 % (50.0-68.0); HEMATOCRIT 35.3 % (36.0-48.0); LYMPH # 1.7 (1.2-3.4); LYMPH % 25.5 % (22.0-35.0); MEAN CELL VOLUME 96.2 fl (80.0-105.0); MEAN CORPUSCULAR HEMOGLOBIN 30.2 pg (25.0-35.0); MEAN CORPUSCULAR HGB CONC 31.4 g/dl (31.0-37.0); MEAN PLATELET VOLUME 9.6 fl (7.0-11.0); MONO # 0.5 (0.1-0.6); MONO % 7.3 % (1.0-6.0); RED CELL DISTRIBUTION WIDTH 15.4 % (11.5-14.5); WHITE BLOOD COUNT 6.6 10^3/ul (4.5-11.0)
[2017-05-16 06:25] LABS: CALCIUM 8.8 mg/dL (8.4-10.5); POTASSIUM 3.9 mmol/L (3.6-5.0)
[2017-05-16] MEDS: Insulin Reg-LOW-Coverage SC SCH ×4 (07:05→21:55)
[2017-05-16] MEDS: Budesonide 0.5 mg/2 ml Inhal Susp UD IH SCH ×2 (08:20→20:25)
[2017-05-16] MEDS: Arformoterol 15 mcg/2 ml Inh Sol IH SCH ×2 (08:20→20:25)
--- NOTE | 2017-05-16 11:19 | PN ---
An 81-year-old white female admitted to the hospital with some congestive heart failure; fluid overload; chronic renal insufficiency, stage III; non insulin diabetes mellitus; acute systolic on combined systolic and diastolic heart failure; Pickwickian syndrome; morbid obesity; COPD. The patient is on BiPAP, continuous oxygen. Her lungs are clear today. There is lots of fluid. Her BUN and creatinine have stabilized at 15 and 1.2. She is still receiving p.o. Lasix. Otherwise, blood pressure is stable. Her blood sugar is 124. Vital signs are stable. Chest: The patient is without chest pain or shortness of breath. Continue physical therapy and occupational therapy. Shreyas Kaplan MD
[2017-05-16] MEDS: POLYETHYLENE GLYCOL 3350 17 GM/Dose PACKET PO SCH (11:55)
[2017-05-16] MEDS: Insulin Detemir 100 units/ml Vial (Levemir) SC SCH (11:58)
[2017-05-17] MEDS: Insulin Reg-LOW-Coverage SC SCH ×4 (06:36→21:38)
[2017-05-17] MEDS: Arformoterol 15 mcg/2 ml Inh Sol IH SCH ×2 (08:30→21:10)
[2017-05-17] MEDS: Budesonide 0.5 mg/2 ml Inhal Susp UD IH SCH ×2 (08:31→21:10)
[2017-05-17] MEDS: Insulin Detemir 100 units/ml Vial (Levemir) SC SCH (10:45)
[2017-05-17] MEDS: POLYETHYLENE GLYCOL 3350 17 GM/Dose PACKET PO SCH (10:47)
--- NOTE | 2017-05-17 14:27 | PN ---
SUBJECTIVE: An 81-year-old white female in TCU, doing physical therapy and occupational therapy. PHYSICAL EXAMINATION: VITAL SIGNS: Stable. ASSESSMENT AND PLAN: The patient is status post acute congestive heart failure. The patient is tolerating her diet well. She is progressing with physical therapy and occupational therapy. The patient will be discharge home in the next several days to continue her therapy. Her BUN and creatinine has been stable; however, she is up to 50 and 1.2, when she was admitted. Otherwise, she is stable and tolerating her diet and physical therapy. Shreyas Kaplan MD
[2017-05-18] MEDS: Insulin Reg-LOW-Coverage SC SCH ×4 (06:44→22:45)
[2017-05-18] MEDS: Arformoterol 15 mcg/2 ml Inh Sol IH SCH ×2 (08:42→19:28)
[2017-05-18] MEDS: Budesonide 0.5 mg/2 ml Inhal Susp UD IH SCH ×2 (08:42→19:28)
[2017-05-18] MEDS: POLYETHYLENE GLYCOL 3350 17 GM/Dose PACKET PO SCH (11:08)
[2017-05-18] MEDS: Insulin Detemir 100 units/ml Vial (Levemir) SC SCH (11:08)
[2017-05-19] MEDS: Insulin Reg-LOW-Coverage SC SCH ×4 (06:47→22:05)
[2017-05-19] MEDS: Budesonide 0.5 mg/2 ml Inhal Susp UD IH SCH ×2 (07:14→20:03)
[2017-05-19] MEDS: Arformoterol 15 mcg/2 ml Inh Sol IH SCH ×2 (07:14→20:03)
[2017-05-19 10:34] LABS: HEMATOCRIT 36.3 % (36.0-48.0); MEAN CELL VOLUME 96.3 fl (80.0-105.0); MEAN CORPUSCULAR HEMOGLOBIN 30.2 pg (25.0-35.0); MEAN CORPUSCULAR HGB CONC 31.4 g/dl (31.0-37.0); MEAN PLATELET VOLUME 9.7 fl (7.0-11.0); RED CELL DISTRIBUTION WIDTH 15.3 % (11.5-14.5)
[2017-05-19 10:42] LABS: CALCIUM 8.6 mg/dL (8.4-10.5); POTASSIUM 4.4 mmol/L (3.6-5.0)
[2017-05-19] MEDS: Insulin Detemir 100 units/ml Vial (Levemir) SC SCH (11:00)
[2017-05-19] MEDS: POLYETHYLENE GLYCOL 3350 17 GM/Dose PACKET PO SCH (11:42)
[2017-05-19 16:49] VITALS: O2SAT 97
--- NOTE | 2017-05-19 17:59 | CP.PCM.PN ---
<EzJosen - Last Filed: 05/19/17 18:01> Subjective - Date & Time of Evaluation Date of Evaluation: 05/19/17 Time of Evaluation: 06:57 - Subjective Subjective: Patient was seen and examined at bedside. The patient reports feeling better than yesterday. The patient denies any chest pain, shortness of breath, nausea , vomiting, changes in vision, abdominal pain, lightheadedness, dizziness, or any other complaints. Objective - Vital Signs/Intake and Output Vital Signs (last 24 hours): Temp Pulse Resp BP Pulse Ox 97.8 F 69 15 130/55 L 97 05/19/17 16:49 05/19/17 17:54 05/19/17 16:49 05/19/17 17:54 05/19/17 16:49 Intake and Output: 05/19/17 05/19/17 06:59 18:59 Output Total 600 Balance -600 - Medications Medications: Current Medications Arformoterol Tartrate (Brovana) 15 mcg IH [id number] ERIBERTO PRN Reason: Protocol Last Admin: 05/19/17 07:14 Dose: 15 mcg Budesonide (Pulmicort Respules) 0.5 mg IH 0800,2000 ERIBERTO PRN Reason: Protocol Last Admin: 05/19/17 07:14 Dose: 0.5 mg Carvedilol (Coreg) 12.5 mg PO 0800,1800 ERIBERTO PRN Reason: Protocol Last Admin: 05/19/17 17:54 Dose: 12.5 mg Clonazepam (Klonopin) 0.5 mg PO HS ERIBERTO PRN Reason: Protocol Last Admin: 05/18/17 21:33 Dose: 0.5 mg Docusate Sodium (Colace) 100 mg PO BID ERIBERTO PRN Reason: Protocol Last Admin: 05/19/17 17:54 Dose: 100 mg Ergocalciferol (Drisdol 50,000 Intl Units Cap) 1 cap PO Q7D ERIBERTO PRN Reason: Protocol Last Admin: 05/15/17 17:59 Dose: 1 cap Furosemide (Lasix) 40 mg PO 0600,1400 ERIBERTO PRN Reason: Protocol Last Admin: 05/19/17 14:39 Dose: 40 mg Insulin Detemir (Levemir) 45 unit SC DAILY ERIBERTO Last Admin: 05/19/17 11:00 Dose: 45 unit Insulin Human Regular (Humulin R Low) 0 units SC ACHS ERIBERTO PRN Reason: Protocol Last Admin: 05/19/17 17:53 Dose: 1 units Losartan Potassium (Cozaar) 100 mg PO DAILY ERIBERTO PRN Reason: Protocol Last Admin: 05/19/17 11:36 Dose: 100 mg Polyethylene Glycol (Miralax) 17 gm PO DAILY ERIBERTO PRN Reason: Protocol Last Admin: 05/19/17 11:42 Dose: Not Given Simethicone (Mylicon Chew Tab) 40 mg PO Q6H PRN; Protocol PRN Reason: gas pain Last Admin: 05/12/17 09:54 Dose: 40 mg - Labs Labs: 05/19/17 10:30 05/19/17 10:30 - Head Exam Head Exam: ATRAUMATIC, NORMAL INSPECTION, NORMOCEPHALIC - Eye Exam Eye Exam: EOMI, Normal appearance, PERRL. absent: Periorbital tenderness Pupil Exam: NORMAL ACCOMODATION, PERRL. absent: Irregular, Unequal - ENT Exam ENT Exam: Mucous Membranes Moist, Normal Exam. absent: Normal Oropharynx - Neck Exam Neck Exam: Full ROM, Normal Inspection. absent: Lymphadenopathy, Thyromegaly - Respiratory Exam Respiratory Exam: Clear to Ausculation Bilateral, NORMAL BREATHING PATTERN. absent: Accessory Muscle Use, Chest Wall Tenderness, Respiratory Distress - Cardiovascular Exam Cardiovascular Exam: REGULAR RHYTHM, RRR, +S1, +S2. absent: Gallop, Rubs - GI/Abdominal Exam GI & Abdominal Exam: Soft, Normal Bowel Sounds. absent: Tenderness, Hyperactive Bowel Sounds - Extremities Exam Extremities Exam: Full ROM. absent: Pedal Edema, Tenderness - Back Exam Back Exam: NORMAL INSPECTION. absent: CVA tenderness (L), CVA tenderness (R), paraspinal tenderness - Neurological Exam Neurological Exam: Alert, Awake, CN II-XII Intact, Normal Gait, Oriented x3 - Psychiatric Exam Psychiatric exam: Normal Affect, Normal Mood - Skin Skin Exam: Dry, Intact Assessment and Plan - Assessment and Plan (Free Text) Assessment: CHF Valvular Heart Disease: Mod./Sev. , MR and TR. PH, mod./sev. Severe LVD CHF HBP Diabetes PPM S/P hysterectomy for uterine cancer S/P colectomy for diverticulitis Necrotizing fasciiitis due to warfarin Plan: Plan : continue cardiac meds, losartan, lasix, diabetic medications. Cardiology following. Patient tolerating Physical therapy with no complications. Continue chair to bed as tolerated. CV- stable. Continue bronchodilators. <Lizette Hernandez - Last Filed: 05/20/17 07:31> Objective - Vital Signs/Intake and Output Vital Signs (last 24 hours): Temp Pulse Resp BP Pulse Ox 97.1 F L 70 20 114/74 97 05/20/17 06:00 05/20/17 06:00 05/20/17 06:00 05/20/17 06:00 05/19/17 16:49 Intake and Output: 05/20/17 05/20/17 06:59 18:59 Intake Total 250 Balance 250 - Medications Medications: Current Medications Arformoterol Tartrate (Brovana) 15 mcg IH [id number] ERIBERTO PRN Reason: Protocol Last Admin: 05/19/17 20:03 Dose: 15 mcg Budesonide (Pulmicort Respules) 0.5 mg IH 0800,2000 ERIBERTO PRN Reason: Protocol Last Admin: 05/19/17 20:03 Dose: 0.5 mg Carvedilol (Coreg) 12.5 mg PO 0800,1800 ERIBERTO PRN Reason: Protocol Last Admin: 05/19/17 17:54 Dose: 12.5 mg Clonazepam (Klonopin) 0.5 mg PO HS ERIBERTO PRN Reason: Protocol Last Admin: 05/19/17 22:01 Dose: 0.5 mg Docusate Sodium (Colace) 100 mg PO BID ERIBERTO PRN Reason: Protocol Last Admin: 05/19/17 17:54 Dose: 100 mg Ergocalciferol (Drisdol 50,000 Intl Units Cap) 1 cap PO Q7D ERIBERTO PRN Reason: Protocol Last Admin: 05/15/17 17:59 Dose: 1 cap Furosemide (Lasix) 40 mg PO 0600,1400 ERIBERTO PRN Reason: Protocol Last Admin: 05/20/17 05:50 Dose: 40 mg Insulin Detemir (Levemir) 45 unit SC DAILY ERIBERTO Last Admin: 05/19/17 11:00 Dose: 45 unit Insulin Human Regular (Humulin R Low) 0 units SC ACHS ERIBERTO PRN Reason: Protocol Last Admin: 05/20/17 06:43 Dose: Not Given Losartan Potassium (Cozaar) 100 mg PO DAILY ERIBERTO PRN Reason: Protocol Last Admin: 05/19/17 11:36 Dose: 100 mg Polyethylene Glycol (Miralax) 17 gm PO DAILY ERIBERTO PRN Reason: Protocol Last Admin: 05/19/17 11:42 Dose: Not Given Simethicone (Mylicon Chew Tab) 40 mg PO Q6H PRN; Protocol PRN Reason: gas pain Last Admin: 05/12/17 09:54 Dose: 40 mg - Labs Labs: 05/19/17 10:30 05/19/17 10:30 Attending/Attestation - Attestation I have personally seen and examined this patient.: Yes I have fully participated in the care of the patient.: Yes I have reviewed all pertinent clinical information, including history, physical exam and plan: Yes Notes (Text): 05/19/17 81 year old female with past medical history of CHF, hypertension and diabetes who was admitted for CHF exacerbation. Continue with lasix, losartan, and coreg. She is being followed by cardiology. Continue with insulin ss and levemir for diabetes. Continue with physical therapy. Lizette Hernandez MD Hospitalist.
[2017-05-20] MEDS: Insulin Reg-LOW-Coverage SC SCH (06:43)
[2017-05-20 06:55] VITALS: RESP 20
[2017-05-20] MEDS: Budesonide 0.5 mg/2 ml Inhal Susp UD IH SCH (08:35)
[2017-05-20] MEDS: Arformoterol 15 mcg/2 ml Inh Sol IH SCH (08:35)
[2017-05-20] MEDS: POLYETHYLENE GLYCOL 3350 17 GM/Dose PACKET PO SCH (09:53)
[2017-05-20 09:56] VITALS: BP 136/83; PULSE 69
[2017-05-20 10:51] VITALS: TEMP 97.9
--- NOTE | 2017-05-21 10:25 | CP.PCM.DIS ---
<SAM TAYLOR - Last Filed: 05/21/17 16:32> Provider - Provider Date of Admission: 05/11/17 16:20 Attending physician: Shreyas Kaplan MD Primary care physician: Shreyas Kaplan MD Consults: Cardio: Milankind Time Spent in preparation of Discharge (in minutes): 45 Hospital Course - Lab Results Lab Results: Most Recent Lab Values WBC 7.0 10^3/ul (4.5-11.0) 05/19/17 10:30 RBC 3.77 10^6/uL (3.5-6.1) 05/19/17 10:30 Hgb 11.4 g/dL (12.0-16.0) L 05/19/17 10:30 Hct 36.3 % (36.0-48.0) 05/19/17 10:30 MCV 96.3 fl (80.0-105.0) 05/19/17 10:30 MCH 30.2 pg (25.0-35.0) 05/19/17 10:30 MCHC 31.4 g/dl (31.0-37.0) 05/19/17 10:30 RDW 15.3 % (11.5-14.5) H 05/19/17 10:30 Plt Count 170 10^3/uL (120.0-450.0) 05/19/17 10:30 MPV 9.7 fl (7.0-11.0) 05/19/17 10:30 Gran % 62.5 % (50.0-68.0) 05/16/17 06:03 Lymph % (Auto) 25.5 % (22.0-35.0) 05/16/17 06:03 [place] % (Auto) 7.3 % (1.0-6.0) H 05/16/17 06:03 Eos % (Auto) 4.4 % (1.5-5.0) 05/16/17 06:03 Baso % (Auto) 0.3 % (0.0-3.0) 05/16/17 06:03 Gran # 4.12 (1.4-6.5) 05/16/17 06:03 Lymph # 1.7 (1.2-3.4) 05/16/17 06:03 [place] # 0.5 (0.1-0.6) 05/16/17 06:03 Eos # 0.3 (0.0-0.7) 05/16/17 06:03 Baso # 0.02 K/mm3 (0.0-2.0) 05/16/17 06:03 Sodium 139 mmol/L (132-148) 05/19/17 10:30 Potassium 4.4 mmol/L (3.6-5.0) 05/19/17 10:30 Chloride 90 mmol/L (98-107) L 05/19/17 10:30 Carbon Dioxide 39 mmol/L (21-33) H 05/19/17 10:30 Anion Gap 14 (10-20) 05/19/17 10:30 BUN 55 mg/dL (7-21) H 05/19/17 10:30 Creatinine 1.3 mg/dL (0.5-1.4) 05/19/17 10:30 Est GFR ( Amer) 47 05/19/17 10:30 Est GFR (Non-Af Amer) 39 05/19/17 10:30 POC Glucose (mg/dL) 185 mg/dL (65-110) H 05/20/17 11:19 Random Glucose 284 mg/dL (70-110) H 05/19/17 10:30 Calcium 8.6 mg/dL (8.4-10.5) 05/19/17 10:30 Stool Occult Blood Negative (NEGATIVE) 05/17/17 08:30 - Hospital Course Hospital Course: 81 yo female who has a past medical history of COPD and chronic renal insufficiency was initially admitted to [facility] for acute CHF as well as chornic systolic and diastolic heart failure. Cardiology was consulted recommendation were appreciated. Over her hospital stay patient was diuresed with clinical improvement. Pt tolerated treatment and renal function remained stable. Pt required BiPAP at night and supplemental oxygen during the day. On 05/11/17 patient clinically improved and was transferred to TCU. During patient's stay in TCU, pt was continued on lasix, losartan, coreg, ISS, and levemir. Cardiology continued to follow her during her stay at TCU. PT evaluated and treated her during her stay. After evaluation PT recommended that she could be discharged with home services. Today, patient was seen and examined at bedside. Pt denied any CP, SOB, n/v/d, dizziness, fatigue, WINTER, abdominal pain, dysuria. Pt states that she is feeling better today. Pt was remained clinically stable throughout her stay in TCU. It was determined that patient was medically stable to be discharged. Pt's PICC line was removed from her left arm. Pt was instructed to resume her medications and to follow up as an outpatient. Discharge Exam - Head Exam Head Exam: ATRAUMATIC, NORMAL INSPECTION, NORMOCEPHALIC - Eye Exam Eye Exam: EOMI, PERRL - ENT Exam ENT Exam: Mucous Membranes Moist - Neck Exam Neck exam: Full Rom - Respiratory Exam Respiratory Exam: Clear to PA & Lateral. absent: Accessory Muscle Use, Rales, Rhonchi, Wheezes, Respiratory Distress - Cardiovascular Exam Cardiovascular Exam: RRR, +S1, +S2. absent: Gallop, Rubs, +S4, Systolic Murmur - GI/Abdominal Exam GI & Abdominal Exam: Soft. absent: Distended, Guarding, Hypoactive Bowel Sounds , Organomegaly, Pulsatile Mass, Rigid, Tenderness - Extremities Exam Extremities exam: normal inspection Additional comments: PICC line removed from LUE - Neurological Exam Neurological exam: Alert, CN II-XII Intact, Oriented x3, Reflexes Normal - Psychiatric Exam Psychiatric exam: Normal Affect, Normal Mood - Skin Skin Exam: Dry, Intact, Normal Color, Warm Discharge Plan - Discharge Medications Prescriptions: Furosemide [Lasix] 40 mg PO 0600,1400 #30 tab - Follow Up Plan Condition: GOOD Disposition: HOME/ ROUTINE Instructions: Heart Failure (DC), Acute Respiratory Distress Syndrome (DC), Chronic Kidney Disease (DC), Renal Failure Diet (DC), COPD (Chronic Obstructive Pulmonary Disease) (DC) Additional Instructions: Please continue to take your medications as directed. Please follow up with PMD 1 week after discharge. Referrals: Shreyas Kaplan MD [Primary Care Provider] - <Lizette Hernandez - Last Filed: 05/21/17 16:47> Provider - Provider Date of Admission: 05/11/17 16:20 Attending physician: Shreyas Kaplan MD Primary care physician: Shreyas Kaplan MD Hospital Course - Lab Results Lab Results: Most Recent Lab Values WBC 7.0 10^3/ul (4.5-11.0) 05/19/17 10:30 RBC 3.77 10^6/uL (3.5-6.1) 05/19/17 10:30 Hgb 11.4 g/dL (12.0-16.0) L 05/19/17 10:30 Hct 36.3 % (36.0-48.0) 05/19/17 10:30 MCV 96.3 fl (80.0-105.0) 05/19/17 10:30 MCH 30.2 pg (25.0-35.0) 05/19/17 10:30 MCHC 31.4 g/dl (31.0-37.0) 05/19/17 10:30 RDW 15.3 % (11.5-14.5) H 05/19/17 10:30 Plt Count 170 10^3/uL (120.0-450.0) 05/19/17 10:30 MPV 9.7 fl (7.0-11.0) 05/19/17 10:30 Gran % 62.5 % (50.0-68.0) 05/16/17 06:03 Lymph % (Auto) 25.5 % (22.0-35.0) 05/16/17 06:03 [place] % (Auto) 7.3 % (1.0-6.0) H 05/16/17 06:03 Eos % (Auto) 4.4 % (1.5-5.0) 05/16/17 06:03 Baso % (Auto) 0.3 % (0.0-3.0) 05/16/17 06:03 Gran # 4.12 (1.4-6.5) 05/16/17 06:03 Lymph # 1.7 (1.2-3.4) 05/16/17 06:03 [place] # 0.5 (0.1-0.6) 05/16/17 06:03 Eos # 0.3 (0.0-0.7) 05/16/17 06:03 Baso # 0.02 K/mm3 (0.0-2.0) 05/16/17 06:03 Sodium 139 mmol/L (132-148) 05/19/17 10:30 Potassium 4.4 mmol/L (3.6-5.0) 05/19/17 10:30 Chloride 90 mmol/L (98-107) L 05/19/17 10:30 Carbon Dioxide 39 mmol/L (21-33) H 05/19/17 10:30 Anion Gap 14 (10-20) 05/19/17 10:30 BUN 55 mg/dL (7-21) H 05/19/17 10:30 Creatinine 1.3 mg/dL (0.5-1.4) 05/19/17 10:30 Est GFR ( Amer) 47 05/19/17 10:30 Est GFR (Non-Af Amer) 39 05/19/17 10:30 POC Glucose (mg/dL) 185 mg/dL (65-110) H 05/20/17 11:19 Random Glucose 284 mg/dL (70-110) H 05/19/17 10:30 Calcium 8.6 mg/dL (8.4-10.5) 05/19/17 10:30 Stool Occult Blood Negative (NEGATIVE) 05/17/17 08:30 Attending/Attestation - Attestation I have personally seen and examined this patient.: Yes I have fully participated in the care of the patient.: Yes I have reviewed all pertinent clinical information, including history, physical exam and plan: Yes Notes (Text): 05/20/17 81 year old female with past medical history of CHF, hypertension and diabetes who was admitted for CHF exacerbation. She was transferred to TCU for physical therapy rehabilation. She was doing well on lasix, losartan, and coreg. She was on duonebs for COPD and levemir for diabetes. She is discharged home to follow up with pmd and cardiology. Lizette Hernandez MD Hospitalist.
== END 2017-05-20 12:06 | disposition home or self-care (01) | DRG 291 ==
LOC: TRCU 16:20
PROVIDERS: ADMIT Internal Medicine; ATTEND Internal Medicine
PROC: 5A09557 Assistance with Respiratory Ventilation, Greater than 96 Consecutive Hours, Continuous Positive Airway Pressure (ICD-10-PCS; principal; 2017-05-12)
PROC: F07Z9FZ Gait Training/Functional Ambulation Treatment using Assistive, Adaptive, Supportive or Protective Equipment (ICD-10-PCS; 2017-05-13)
PROC: F07L6ZZ Therapeutic Exercise Treatment of Musculoskeletal System - Lower Back / Lower Extremity (ICD-10-PCS; 2017-05-13)
PROC: F07Z8FZ Transfer Training Treatment using Assistive, Adaptive, Supportive or Protective Equipment (ICD-10-PCS; 2017-05-14)
PROC: F08Z1FZ Dressing Techniques Treatment using Assistive, Adaptive, Supportive or Protective Equipment (ICD-10-PCS; 2017-05-15)
DX: I13.0 Hypertensive heart and chronic kidney disease with heart failure and stage 1 through stage 4 chronic kidney disease, or unspecified chronic kidney disease (principal); I50.43 Acute on chronic combined systolic (congestive) and diastolic (congestive) heart failure; M72.6 Necrotizing fasciitis; T45.515A Adverse effect of anticoagulants, initial encounter; E66.2 Morbid (severe) obesity with alveolar hypoventilation; Z68.41 Body mass index [BMI] 40.0-44.9, adult; E11.22 Type 2 diabetes mellitus with diabetic chronic kidney disease; I49.5 Sick sinus syndrome; N18.3 Chronic kidney disease, stage 3 (moderate); I08.3 Combined rheumatic disorders of mitral, aortic and tricuspid valves; J44.9 Chronic obstructive pulmonary disease, unspecified; D64.9 Anemia, unspecified; K59.00 Constipation, unspecified; I48.2 Chronic atrial fibrillation; Z90.710 Acquired absence of both cervix and uterus; Z85.42 Personal history of malignant neoplasm of other parts of uterus

== ENCOUNTER 2017-09-04 17:35 | Inpatient (IN) | payer MEDICARE ==
[2017-09-04 18:06] VITALS: BMI 45.5
--- NOTE | 2017-09-04 18:30 | ED PDOC ---
Arrival/HPI - General Chief Complaint: Shortness Of Breath Time Seen by Provider: 09/04/17 18:12 Historian: Family (Son) - History of Present Illness Narrative History of Present Illness (Text): 09/04/17 18:26 An 82 year old female, whose past medical history includes CHF, DM, COPD, Hypothyroidism, presents to the emergency department for fluid build up in her lungs. As per the patient's son, the patient was seen by her PMD today and was advised to bring the patient into the emergency department. The patient's son also notes that the patient developed a blister on her right leg 5 days ago, but it drained 3 days ago. The patient denies fevers, chills, headache, dizziness, abdominal pain, nausea, vomiting, diarrhea, back pain, neck pain, urinary/bowel changes, or any other complaint. PMD: Dr. Kaplan Time/Duration: Other (Today) Symptom Onset: Sudden Symptom Course: Unchanged Activities at Onset: Rest, Light Context: Home Past Medical History - Provider Review Nursing Documentation Reviewed: Yes - Infectious Disease Hx of Infectious Diseases: None - Cardiac Hx Cardiac Disorders: Yes (+pacemaker) Hx Atrial Fibrillation: Yes Hx Congestive Heart Failure: Yes - Pulmonary Hx Chronic Obstructive Pulmonary Disease (COPD): Yes - Neurological Hx Neurological Disorder: Yes (syncope) - HEENT Hx HEENT Disorder: No - Renal Hx Renal Failure: Yes - Endocrine/Metabolic Hx Diabetes Mellitus Type 2: Yes Hx Hypothyroidism: Yes - Hematological/Oncological Hx Blood Disorders: Yes 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 for obstruction 8 yrs ago... and pacemaker - Anesthesia Hx Anesthesia: Yes Hx Anesthesia Reactions: No Hx Malignant Hyperthermia: No Family/Social History - Physician Review Nursing Documentation Reviewed: Yes Family/Social History: No Known Family HX Smoking Status: Former Smoker Hx Alcohol Use: No Hx Substance Use: No Allergies/Home Meds Allergies/Adverse Reactions: Allergies hydrocodone bitartrate [From Vicoprofen] Allergy (Intermediate, Verified 20:01) RASH ibuprofen [From Vicoprofen] Allergy (Intermediate, Verified 05/11/17 20:01) RASH adhesive Allergy (Verified 05/11/17 20:01) RASH Penicillins Allergy (Verified 05/11/17 20:01) RASH warfarin sodium [From Coumadin] Allergy (Verified 05/11/17 20:01) RASH blisters on her legs Home Medications: Home Meds Medication Instructions Recorded Confirmed GlipiZIDE [Glucotrol] 5 mg PO BID 12/12/16 09/04/17 Levothyroxine [Synthroid] 137 mcg PO DAILY 03/09/17 09/04/17 Furosemide [Lasix] 30 mg PO 0600,1400 09/04/17 09/04/17 Insulin Glargine,Hum.rec.anlog 45 units SC DAILY 09/04/17 09/04/17 [Toujeo Solostar] Lactulose [Generlac] 2 tsp PO DAILY PRN 09/04/17 09/04/17 Sacubitril/Valsartan [Entresto 49 1 tab PO BID 09/04/17 09/04/17 mg-51 mg] Review of Systems - Physician Review All systems were reviewed & negative as marked: Yes - Review of Systems Constitutional: absent: Fevers Respiratory: SOB, Other (Fluid in Lungs.) Cardiovascular: absent: Chest Pain Gastrointestinal: absent: Abdominal Pain, Stool Changes, Diarrhea, Nausea, Vomiting Genitourinary Female: absent: Urine Output Changes Musculoskeletal: absent: Back Pain, Neck Pain Neurological: absent: Headache, Dizziness Physical Exam Vital Signs Reviewed: Yes Vital Signs Temp Pulse Resp BP Pulse Ox 09/04/17 19:00 116/51 L 09/04/17 18:30 14 09/04/17 18:28 97.6 F 70 20 119/71 88 L Temperature: Afebrile Blood Pressure: Normal Pulse: Regular Respiratory Rate: Normal Appearance: Positive for: Non-Toxic Pain Distress: Mild Mental Status: Positive for: Alert and Oriented X 3 - Systems Exam Head: Present: Atraumatic, Normocephalic Pupils: Present: PERRL Extroacular Muscles: Present: EOMI Conjunctiva: Present: Normal Mouth: Present: Moist Mucous Membranes Neck: Present: Normal Range of Motion Respiratory/Chest: Present: Respiratory Distress (Mild SOB), Rales (bilateral rales at both bases. ). No: Wheezes Cardiovascular: Present: Irregular Rhythm (Controlled irregular rhythm) Abdomen: Present: Normal Bowel Sounds, Other (Obese). No: Tenderness, Distention Back: Present: Normal Inspection Upper Extremity: Present: Neurovascularly Intact, Other (Self induced abrasions to the left arm and right trapezius. ) Lower Extremity: Present: Edema (Bilateral peripheral edema.), Capillary Refill < 2 s, Other (Open wound on right leg, wrapped. Unbroken vesicle of the anterior aspect of the left leg. ) Neurological: Present: GCS=15, CN II-XII Intact, Speech Normal Skin: Present: Warm, Dry, Pale, Abrasion (Self induced abrasions to the left arm and right trapezius. ). No: Rashes Psychiatric: Present: Alert, Oriented x 3, Normal Insight, Normal Concentration Medical Decision Making ED Course and Treatment: 09/04/17 18:37 Impression: An 82 year old female presents to the emergency department being sent in by her PMD with complaint of fluid in lungs. Plan: -- Chest X-ray -- Labs -- Lasix -- Reassess and disposition Prior Visits: Notes and results from previous visits were reviewed. Patient was last seen in the emergency department on 05/08/17. The patient was seen in the emergency department for complaints of shortness of breath. The patient was hospitalized. Progress Notes: - Lab Interpretations Lab Results: 09/04/17 19:46 09/04/17 19:46 Lab Results 09/04/17 19:46: Sodium 138, Potassium 6.1 H* D, Chloride 99, Carbon Dioxide 27, Anion Gap 18, BUN 155 H*, Creatinine 2.4 H, Est GFR ( Amer) 23, Est GFR ( Non-Af Amer) 19, Random Glucose 97, Calcium 8.6, Total Bilirubin 0.6, AST 24, ALT 29, Alkaline Phosphatase 73, Lactate Dehydrogenase 576, Total Creatine Kinase 94, Troponin I 0.06, NT-Pro-B Natriuret Pep 8820 H, Total Protein 6.8, Albumin 3.4, Globulin 3.4, Albumin/Globulin Ratio 1.0 L 09/04/17 19:46: WBC 5.4 D, RBC 3.54, Hgb 10.5 L, Hct 33.7 L, MCV 95.2, MCH 29.7 , MCHC 31.2, RDW 17.0 H, Plt Count 154, MPV 9.8, Gran % 74.2 H, Lymph % (Auto) 17.7 L, Sampson % (Auto) 5.9, Eos % (Auto) 2.0, Baso % (Auto) 0.2, Gran # 4.02, Lymph # 1.0 L, Sampson # 0.3, Eos # 0.1, Baso # 0.01 I have reviewed the lab results: Yes - RAD Interpretation Radiology Orders: 09/04/17 18:31 CHEST PORTABLE [RAD] Stat - Medication Orders Current Medication Orders: Vancomycin HCl (Vancomycin 1gm) 1 gm in 250 mls @ 167 mls/hr IVPB STAT STA PRN Reason: Protocol Stop: 09/04/17 22:56 Discontinued Medications Furosemide (Lasix) 40 mg IVP STAT STA Stop: 09/04/17 18:31 Last Admin: 09/04/17 19:00 Dose: 40 mg MAR Blood Pressure Document 09/04/17 19:00 (Rec: 09/04/17 21:21 [id number]) Blood Pressure Blood Pressure (100/60-150/90) 116/51 IVP Administration Document 09/04/17 19:00 (Rec: 09/04/17 21:21 [id number]) Charges for Administration # of IVP Administrations 1 Furosemide (Lasix) 20 mg IVP STAT STA Stop: 09/04/17 21:19 Sodium Polystyrene Sulfonate (Kayexalate Susp) 30 gm PO STAT STA Stop: 09/04/17 21:17 - Scribe Statement The provider has reviewed the documentation as recorded by the Leandroibyvette Copeland Provider Scribe Attestation: All medical record entries made by the Scribe were at my direction and personally dictated by me. I have reviewed the chart and agree that the record accurately reflects my personal performance of the history, physical exam, medical decision making, and the department course for this patient. I have also personally directed, reviewed, and agree with the discharge instructions and disposition. Disposition/Present on Arrival - Present on Arrival Any Indicators Present on Arrival: No History of DVT/PE: No History of Uncontrolled Diabetes: Yes Urinary Catheter: No History of Decub. Ulcer: No History Surgical Site Infection Following: None - Disposition Have Diagnosis and Disposition been Completed?: Yes Diagnosis: CHF (congestive heart failure) Disposition: HOSPITALIZED Disposition Time: 21:45 Patient Plan: Admission Condition: STABLE Discharge Instructions (ExitCare): Heart Failure (ED) Forms: [employer] ([place])
[2017-09-04 19:54] LABS: BASO # 0.01 K/mm3 (0.0-2.0); BASO % 0.2 % (0.0-3.0); EOS # 0.1 (0.0-0.7); GRAN # 4.02 (1.4-6.5); GRAN % 74.2 % (50.0-68.0); HEMOGLOBIN 10.5 g/dL (12.0-16.0); LYMPH % 17.7 % (22.0-35.0); MEAN CELL VOLUME 95.2 fl (80.0-105.0); MEAN CORPUSCULAR HEMOGLOBIN 29.7 pg (25.0-35.0); MEAN CORPUSCULAR HGB CONC 31.2 g/dl (31.0-37.0); MEAN PLATELET VOLUME 9.8 fl (7.0-11.0); MONO # 0.3 (0.1-0.6); MONO % 5.9 % (1.0-6.0); RBC 3.54 10^6/uL (3.5-6.1); WHITE BLOOD COUNT 5.4 10^3/ul (4.5-11.0)
[2017-09-04 20:18] LABS: TROPONIN I 0.06 ng/mL
[2017-09-04 20:38] LABS: ARTERIAL BLOOD GAS HCO3 25.4 mmol/L (21-28); ARTERIAL BLOOD GAS HEMOGLOBIN 9.8 g/dL (11.7-17.4); ARTERIAL BLOOD GAS O2 CAPACITY 13.5 mL/dl (16-24); ARTERIAL BLOOD GAS O2 CONTENT 12.4 ML/dl (15-23); ARTERIAL BLOOD GAS O2 SAT 91.9 % (95-98); ARTERIAL BLOOD GAS PCO2 46 mm/Hg (35-45); ARTERIAL BLOOD GAS PH 7.35 (7.35-7.45); ARTERIAL BLOOD GAS TCO2 26.8 mmol.L (22-28)
[2017-09-04 20:50] LABS: ALBUMIN 3.4 g/dL (3.0-4.8); CALCIUM 8.6 mg/dL (8.4-10.5)
[2017-09-04] MEDS ORDERED: Sod Polystyrene Sulf 15 gm/60 ml Susp PO STA (21:16)
[2017-09-04] MEDS ORDERED: Vancomycin 1gm in NS 250ml 1 GM/250 ML BAG IVPB STA (21:27)
[2017-09-04] MEDS ORDERED: Lactulose 10 gm/15 ml (Rectal Use) PR PRN (21:49)
--- NOTE | 2017-09-05 08:10 | RAD ---
HISTORY: sob COMPARISON: 05/11/2017 FINDINGS: LUNGS: No active pulmonary disease. PLEURA: No significant pleural effusion identified, no pneumothorax apparent. CARDIOVASCULAR: Severe cardiomegaly. Moderate vascular congestion OSSEOUS STRUCTURES: No significant abnormalities. VISUALIZED UPPER ABDOMEN: Normal. OTHER FINDINGS: None. IMPRESSION: Severe cardiomegaly. Moderate vascular congestion
[2017-09-05] MEDS: Arformoterol 15 mcg/2 ml Inh Sol IH SCH ×2 (08:31→20:12)
[2017-09-05] MEDS: Levothyroxine 25 MCG TAB PO SCH (08:31)
[2017-09-05] MEDS: Levothyroxine 112 MCG TAB PO SCH (08:31)
--- NOTE | 2017-09-05 10:44 | CARD ---
APPROVED REPORT EKG Measurement Heart [id number] <Conclusion> Electronic ventricular pacemaker
--- NOTE | 2017-09-05 13:56 | CON ---
DATE: 09/05/2017 REASON FOR CONSULTATION/INDICATIONS: Shortness of breath and edema. HISTORY OF PRESENT ILLNESS: This is an 82-year-old woman known to us with admission through the Emergency Room yesterday complaining of shortness of breath, increasing edema, and pruritus. She also noted a large blister on the right lower extremity, which leak fluid yesterday. There was no chest pain, syncope, palpitation, fever, chills, cough, sputum production, hemoptysis, abdominal pain, nausea, vomiting, diarrhea, constipation, or melena. PAST MEDICAL HISTORY: Complex. She has diabetes, COPD, congestive heart failure, and the most recent echocardiogram in April reveals severe LV dysfunction with moderate aortic stenosis, moderate mitral regurgitation, severe tricuspid regurgitation, and severe pulmonary hypertension. She has a permanent pacemaker. She has a history of uterine cancer with a hysterectomy. She has a history of diverticulitis with a partial colectomy. There is a history of hypothyroidism. MEDICATIONS: At the time of admission include glipizide, Synthroid, Lasix, Toujeo, lactulose and Entresto 49/51 b.i.d. ALLERGIES: SHE NOTES AN ALLERGY TO SEVERAL MEDICATIONS INCLUDING HYDROCODONE, IBUPROFEN, PENICILLIN AND MORPHINE, WHICH CAUSED NECROTIZING FASCITIS. SOCIAL HISTORY: She lives at home. She does not smoke. She does not drink. FAMILY HISTORY: Positive for heart disease. REVIEW OF SYSTEMS: A 10-point review of systems is otherwise unremarkable except as noted above. PHYSICAL EXAMINATION: GENERAL: She is a well-developed elderly woman, in no acute distress, lying on a stretcher in the Emergency Room. VITAL SIGNS: Notable for pulse of 80. She is afebrile. Blood pressure of 121/74, respirations of 20, and O2 saturation 88% to 95% on nasal canula. HEENT: Exam revealed no neck vein distention, thyromegaly or carotid bruits. Mucous membranes are moist. Conjunctivae are pink. NECK: Supple. RESPIRATORY: Lung livingston diminished breath sounds at the bases, scattered rhonchi. CARDIOVASCULAR: Examination of the heart revealed normal first and second heart sounds with systolic ejection murmur heard along the left sternal border. PMI is not palpable. ABDOMEN: Soft and bowel sounds present. No mass, organomegaly, tenderness, rebound or guarding. EXTREMITIES: Reveals severe lower extremity edema, the large bleb which has broken present on the right garcia. There are excoriations on the trunk, arms and legs. NEUROLOGIC: She is awake, alert and oriented. PSYCHIATRIC: Normal as to mood and affect. SKIN: Numerous excoriation noted. LABORATORY AND IMAGING STUDIES: A portable chest x-ray reveals severe cardiomegaly, moderate vascular congestion. EKG is done, but not available at this moment. White count is normal, hemoglobin of 10.5, hematocrit of 33.7, and platelet count is normal. Blood gas is noted. Electrolytes are notable for potassium of 6.1, BUN of 155, and creatinine of 2.4. LFTs are unremarkable. CK of 94. Troponin is 0.06. BNP is 8820. IMPRESSION: Marina Umana is an 82-year-old woman who presents with shortness of breath, lower extremity edema, bleb formation with drainage, acute renal failure with hyperkalemia. She is a diabetic with known severe left ventricular dysfunction and severe valvular heart disease and PH. She has a permanent pacemaker. PLAN: At this time, she will have a renal consultation by Dr. Costa. She has been given Kayexalate and IV Lasix and an ICU bed would be appropriate. I will review her old records and echocardiogram. She will be cultured. She is getting respiratory treatments, Coreg, lactulose, Klonopin, Rocephin, Synthroid, vancomycin. I will find her EKG, I will repeat EKG in the morning. I will repeat troponin in the morning. We await input from Dr. Costa, hemodialysis might be necessary. Inotropic support might be helpful short term. She will have a pulmonary consultation with Dr. Escalera. I will follow along with you. I will make additional recommendations based on her clinical course. Jona Manrique MD JIM
[2017-09-05] MEDS ORDERED: Influenza Vaccine 60 mcg/0.5 mL SYR (4YR UP) IM ONE (14:04)
[2017-09-05] MEDS ORDERED: Pneumococcal 23-Valent Vaccine IM ONE (14:04)
[2017-09-05] MEDS: DOBUTamine 500mg/250ml D5W 500 MG/250 ML BAG IV SCH (15:57)
[2017-09-05] MEDS: Insulin Lispro (humaLOG) LOW Coverage SC SCH ×2 (17:48→21:41)
--- NOTE | 2017-09-05 21:15 | US ---
EXAM: US Retroperitoneal Limited, Renal CLINICAL HISTORY: 82 years old, female; Abnormal findings; Abnormal lab test; Abnormal kidney function lab tests; Additional info: Arf, ckd 3 TECHNIQUE: Real-time ultrasound of the retroperitoneum (limited) with image documentation. COMPARISON: No relevant prior studies available. FINDINGS: Limitations: Body habitus. Right kidney: Normal echogenicity. No calculi. No hydronephrosis. Left kidney: Not visualized. IMPRESSION: 1. Nonvisualization of left kidney.
--- NOTE | 2017-09-06 02:03 | CON ---
DATE: 09/05/2017 REFERRING PHYSICIAN: Shreyas Kaplan MD REASON FOR CONSULT: Respiratory failure, cardiomyopathy, and heart failure. HISTORY OF PRESENT ILLNESS: This is an 82 years old female with multiple medical issue complaining of severe cardiac diastolic and systolic dysfunction, severe pulmonary hypertension, chronic lung disease, may have a sleep apnea syndrome, also has a valvular heart disease, history of cardiac pacemaker, obesity, suspected sleep apnea syndrome, history of diverticulitis and partial colectomy, comes in with shortness of breath, cough, orthopnea, lower extremity swelling, sloughing of her skin. No nausea. No vomiting. No diarrhea. PAST MEDICAL HISTORY: As per history of present illness. FAMILY HISTORY: Positive for heart disease. SOCIAL HISTORY: No active smoking. Denies any alcohol use. REVIEW OF SYSTEMS: No headache. No rhinitis. Has cough, shortness of breath, and orthopnea. No chest pain. Has increased abdominal girth, lower extremity swelling, and edema. ALLERGIES: HYDROCODONE, IBUPROFEN, PENICILLIN, MORPHINE. MEDICATIONS: She is on Brovana 50 mcg inhale twice a day, ceftriaxone 500 mg q.24 hours, Coreg 12.5 mg twice a day, lactulose gm p.r.n., insulin coverage, Klonopin 0.5 mg at bedtime, Synthroid 112 mcg a.c.b. PHYSICAL EXAMINATION: GENERAL: Lying in the bed. [id number] distress. VITAL SIGNS: Temperature is 98, heart rate 70, respiratory rate 18, blood pressure 116/68, pulse ox 91% on 2 L nasal cannula. HEENT: Moist mucous membrane. Crowded airway. Mallampati score is 4. NECK: Supple. No JVD. LUNGS: Have crackles at lower lung [place]. HEART: S1 and S2. ABDOMEN: Soft and nontender. No organomegaly. EXTREMITIES: No edema. Right leg has skin sloughing off, had a blister which broke. NEUROLOGICAL: Awake and alert. Follows simple command. LABORATORY DATA: Shows hemoglobin 10.5, hematocrit 33.7, WBC 5.4, platelets 154,000. ABG shows pH 7.35, pCO2 of 46, O2 of 62. Sodium 138, potassium 6.1, chloride 99, bicarbonate 27, BUN 155, creatinine 2.4, glucose 97, calcium 8.6, total bilirubin 0.6, AST 24, ALT 29, alkaline phosphatase is 73. Troponin 0.06, proBNP is 1820, albumin is 3.4. DIAGNOSTIC DATA: Chest x-ray was done in the ER shows severe cardiomegaly with congestion. IMPRESSION AND PLAN: Cardiomyopathy, pulmonary hypertension, respiratory failure, renal failure, hyperkalemia, chronic lung disease, may have a sleep apnea syndrome. I agree with Dr. Kaplan with the present management, add inhaled bronchodilator, keep at 45 degrees. Agreed to be admitted in Intensive Care Unit. We will start her on dobutamine small dose 2.5 mcg/kg/minute. 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 Watch for arrhythmia closely. Elevate lower extremity. Followup ABG, chest x-ray, CBC, CMP in the morning. Thank you and we will follow with you. Murphy Escalera MD
--- NOTE | 2017-09-06 02:39 | HP ---
HISTORY OF PRESENT ILLNESS: This is an 82-year-old white female with history of congestive cardiomyopathy, pickwickian syndrome, on CPAP at home, history of pacemaker insertion with decompensated heart failure, also has a history of non-insulin dependent diabetes mellitus, morbid obesity, and hypothyroidism. Patient had been at home and was recently being evaluated for possible third pacemaker wire when she was seen in the office complaining of markedly short of breath, swollen legs, and a large ruptured blister on the right lower extremity with impending cellulitis. Patient was seen in the office and was also found to have rales at both bases and gained approximately 28 pounds over the last several weeks and had 2 to 3+ pitting edema in both lower extremities and was directed to the ER and admitted. Patient, on admission, was found to have acute renal failure and congestive heart failure. PHYSICAL EXAMINATION: GENERAL: Shows a well developed but obese 82-year-old white female in moderate respiratory distress. Patient is also pale and short of breath. HEENT: Essentially within normal limits. HEART: Regular rate and rhythm, but positive S3 and positive S4. CHEST: Shows rales at both bases. ABDOMEN: Obese but benign. EXTREMITIES: Show 2 to 3+ pitting edema. There is also a large ruptured bullae on the right lower extremity with weeping edema and underlying cellulitis of the ruptured bullae. IMPRESSION: An 82-year-old white female presenting with decompensated acute on chronic systolic and diastolic heart failure, hypothyroidism, acute renal insufficiency on top of chronic renal insufficiency stage IV, insulin-dependent diabetes mellitus, cellulitis and peripheral edema. Shreyas Kaplan MD
--- NOTE | 2017-09-06 04:15 | CON ---
DATE: 09/05/2017 REFERRING MD: Shreyas Kaplan MD The patient admitted for Dr. Kaplan. REASON FOR CONSULTATION: Evaluation of the patient with an elevated BUN and creatinine in the setting of advanced cardiorenal syndrome. The patient is known to us from past evaluations. HISTORY OF PRESENT ILLNESS: The patient is a very pleasant 82-year-old obese white [place] female who was seen together with her son who is the scrap cutter. The patient has a history of chronic kidney disease stage 3/4, baseline creatinines when patient is at her best have been in the low to mid 1 range with baseline BUN's in the mid 50 range. History of NIDDM, on insulin therapy presently. History of hypertension, history of hypothyroidism, history of CHF, history of RADHA, on CPAP therapy, patient has Pickwickian syndrome. History of ASHD with cardiomyopathy, ejection fraction is reduced from 22% to 18% in the last year. The patient has a permanent pacemaker. She has aortic stenosis, aortic insufficiency, mitral regurgitation, tricuspid regurgitation. She has severe pulmonary hypertension, anemia likely secondary to chronic kidney disease and chronic medical disease. Past history of uterine cancer. The patient was sent over to the hospital and noted to have an elevated BUN of 155 with a creatinine of 2.4. The patient had been on diuretic therapy at home. She is grossly volume overloaded. She developed a water blister in her right leg which is opened. The patient was seen by Cardiology earlier, she was started on Dobutrex. There was some great concern about giving her large doses of diuretic therapy in light of her BUN of 155. According to the son, patient has had loss of appetite, she was complaining of severe pruritus. No hiccups. No nausea or vomiting. We were asked to evaluate the patient for the possibility of initiating dialysis. PAST MEDICAL HISTORY: Significant for chronic kidney disease stage 3/4; NIDDM, now on insulin; hypertension; hypothyroidism; history of CHF with cardiomyopathy; history of valvular heart disease, status post permanent pacemaker; history of possible COPD with obstructive sleep apnea, on CPAP therapy, patient has Pickwickian syndrome. History of severe pulmonary hypertension. History of anemia and past history of uterine cancer. MEDICATIONS AT HOME: Include that of Klonopin, Entresto, Synthroid, Lasix, Coreg, lactulose, Glucotrol, Toujeo insulin, Brovana. ALLERGIES: THE PATIENT IS ALLERGIC TO VICOPROFEN, IBUPROFEN, ADHESIVE TAPE, PENICILLIN, AND COUMADIN. CURRENT MEDICATIONS IN HOSPITAL: Include that of Brovana, ceftriaxone, Coreg, Dobutrex, lactulose, insulin, Klonopin, and Synthroid. SOCIAL HISTORY: No history of cigarette smoking. No history of alcohol use. The patient apparently lives alone with assistance from her son. Her had . FAMILY HISTORY: Positive history of ASHD. Positive history of diabetes. No history of chronic kidney disease. REVIEW OF SYSTEMS: As obtained from the patient's son: GENERAL: Decreased appetite, but no weight loss. ENT: Denies any hearing or visual problems. PULMONARY: Positive shortness of breath with any exertion. For the most part, patient is bedridden. CARDIAC: History as noted above, ASHD with cardiomyopathy, valvular heart disease along with pulmonary hypertension. GI: Increasing abdominal distention and pain, likely secondary to fluid retention. History of constipation. : History of chronic kidney disease, stage 3/4. FIELD ADJUSTER: Postmenopausal. ENDOCRINE: History of diabetes. MUSCULOSKELETAL: No issues. NEURO: No past history of CVA, TIA, seizures, or syncope. HEME/ONC: History of anemia, likely secondary to chronic kidney disease. PSYCHIATRIC: History is negative. PHYSICAL EXAMINATION: GENERAL: The patient is currently seen on 3R. She is lying supine in bed, IV Dobutrex is infusing. Urine output has been scanty. VITAL SIGNS: Blood pressure 116/68, heart rate 70, temperature 97.8 with a respiratory rate of 16, pulse ox is 91% on 2 L nasal cannula. HEENT: Exam shows her to be normocephalic, atraumatic. Conjunctivae are pale. Sclerae are nonicteric. Pupils are equal, reactive to light and accommodation. Extraocular muscles are intact. Posterior pharynx difficult to visualize. NECK: Supple. No neck vein distention. No thyromegaly. No lymphadenopathy. No bruits. CHEST: Decreased breath sounds at the bases. No rales, rhonchi, or wheezing. CARDIOVASCULAR: Shows distant heart sounds. S1 and S2 appear to be normal. /AI/MR/TR. No S3, no S4 audible. No rub. ABDOMEN: Obese. Distended. Positive intraabdominal fluid. Bowel sounds are decreased. No rebound, guarding, or masses. BACK: No CVAT. No spinal tenderness. EXTREMITIES: Show 1 to 2+ pitting edema of her lower extremity bilaterally. There is a dressing over a open blister, right lower leg. No cyanosis or clubbing. Diminished lower extremity pulses bilaterally. LABORATORY DATA AND IMAGING: Admitting chest x-ray showed cardiomegaly with mild pulmonary vascular congestion on 09/04/2017. Admitting EKG showed a paced rhythm. CBC: White blood cell count 5.4, hemoglobin 10.5 with a platelet count of 154,000. Blood gas showed a pH of 7.35, pO2 of 52, pCO2 of 46. Potassium 6.1 with a sodium of 138. Chloride 99 with a CO2 of 27. Anion gap was 18. BUN elevated at 155, her most recent BUN was in the mid 50 range. Creatinine is up to 2.4, most recent creatinine was in the 1.2 range. Glucose is 97. Calcium 8.6. Liver enzymes are normal. BNP elevated at 8820. Albumin is 3.4. Cardiac enzymes appear to be negative. ASSESSMENT: 1. Symptomatic and advanced acute renal failure with a BUN of 155, creatinine of 2.4. The patient is also mildly hyperkalemic. She has significant and severe fluid retention. She is symptomatic. She has loss of appetite. She has pruritus. I discussed with her son acting as an per diem interpreter the possibility for initiating dialysis. I did explain to them that at this point in time would be acute dialysis only. This would help us lower poison levels, remove fluid, and give her a general sense of well being. I also did explain to her that it is quite possible she would not be able to come off dialysis and that chronic dialysis would be necessary. She would like to think this over, talk to her son a little more, and perhaps discuss this with Dr. Kaplan. 2. History of atherosclerotic heart disease with cardiomyopathy, ejection fraction now 18%, status post permanent pacemaker, with aortic stenosis, aortic insufficiency, mitral regurgitation, tricuspid regurgitation, with severe pulmonary hypertension. Unfortunately, we are limited in that we cannot use high doses of diuretics given her BUN of 155. The patient is on ionotropic support with Dobutrex as per Dr. Manrique. 3. History of hypertension. Blood pressure is controlled on present medical therapy and with a low ejection fraction. No elevations of blood pressure noted. 4. Insulin-dependent diabetes mellitus. The patient will continue on sliding scale insulin. 5. History of possible chronic obstructive pulmonary disease, obstructive sleep apnea with continuous positive airway pressure therapy with Pickwickian syndrome. The patient should continue continuous positive airway pressure therapy at nighttime when she sleeps. 6. History of anemia, likely secondary to chronic kidney disease. 7. History of hypothyroidism. The patient will continue thyroid replacement therapy. PLAN: 1. I will await her son's decision after she discusses this with Dr. Kaplan. We can initiate a trial of dialysis. This will likely improve her fluid status, lower her BUN and creatinine, and avoid the need to try and challenge her with high doses of diuretic therapy which would likely elevate her BUN further. The patient is mildly symptomatic from her elevated BUN. She is having severe pruritus. She does have loss of appetite. I am also concerned about her hyperkalemia. 2. Continue renal diet. 3. Check phosphorus level, screen for secondary hyperparathyroidism. 4. Continue Dobutrex for ionotropic support. 5. I will be cautious with the use of IV diuretic therapy in this setting. 6. P.r.n. Kayexalate in the interim period to lower her potassium level. 7. Check iron saturations and start patient on Aranesp for any hemoglobin less than 10. 8. Obtain a urinalysis. 9. We will obtain an abdominal ultrasound to look at her kidneys to make certain that there is no other reason that her BUN and creatinine are so high. 10. Obtain urine sodium, urine creatinine, and urine Andrea stain along with her urinalysis. 11. I will await decision of patient after she discusses this matter with Dr. Kaplan. We can have PermCath placed tomorrow if she could initiate dialysis as early as tomorrow. Thank you for allowing me to partake and share in the care of your patient. Roby Mccabe MD
[2017-09-06 06:43] LABS: HEMOGLOBIN 9.9 g/dL (12.0-16.0); MEAN CELL VOLUME 95.5 fl (80.0-105.0); MEAN CORPUSCULAR HEMOGLOBIN 29.6 pg (25.0-35.0); MEAN CORPUSCULAR HGB CONC 30.9 g/dl (31.0-37.0); MEAN PLATELET VOLUME 9.7 fl (7.0-11.0); RBC 3.35 10^6/uL (3.5-6.1); RED CELL DISTRIBUTION WIDTH 17.6 % (11.5-14.5)
[2017-09-06 06:57] LABS: IRON 31 ug/dL (45-180)
[2017-09-06 06:59] LABS: TROPONIN I 0.08 ng/mL
[2017-09-06 07:06] LABS: TOTAL IRON BINDING CAPACITY 295 ug/dL (265-497)
[2017-09-06 07:27] LABS: % IRON SATURATION 10 % (20-55); T4 6.2 ug/dL (5.5-11.0)
[2017-09-06] MEDS: Arformoterol 15 mcg/2 ml Inh Sol IH SCH ×2 (07:41→19:49)
[2017-09-06 07:54] LABS: ALBUMIN 3.2 g/dL (3.0-4.8); CALCIUM 8.5 mg/dL (8.4-10.5); MAGNESIUM 2.2 mg/dL (1.7-2.2)
[2017-09-06] MEDS: Insulin Lispro (humaLOG) LOW Coverage SC SCH ×4 (08:11→22:32)
[2017-09-06] MEDS ORDERED: Sod Polystyrene Sulf 15 gm/60 ml Susp PO ONE (08:26)
[2017-09-06] MEDS: Levothyroxine 112 MCG TAB PO SCH (09:15)
[2017-09-06] MEDS: Levothyroxine 25 MCG TAB PO SCH (09:15)
--- NOTE | 2017-09-06 10:00 | CARD ---
APPROVED REPORT EKG Measurement Heart [id number] <Conclusion> Electronic ventricular pacemaker
[2017-09-06 11:13] LABS: FERRITIN 84.6 ng/mL
[2017-09-06] MEDS: Albuterol-Ipratrop 3 mg / 0.5 (3 ml) UD IH PRN ×2 (12:33→17:28)
--- NOTE | 2017-09-06 13:59 | PN ---
DATE: 09/06/2017 SUBJECTIVE: This is a 82-year-old white female, admitted to the hospital with anasarca, morbid obesity, congestive heart failure, acute on chronic systolic and diastolic heart failure, acute systolic heart failure, renal failure. The patient was seen by Dr. Costa. The patient is advised dialysis to remove excessive amounts of fluids and to correct electrolyte imbalance and azotemia. The patient is seen her son today and agreed with dialysis. We will continue on her medications. Also was complaining of pain. PHYSICAL EXAMINATION: VITAL SIGNS: Stable. CHEST: Shows some rales at both bases. ABDOMEN: Obese, but benign. HEART: Regular sinus rhythm. The patient does have a pacemaker. EXTREMITIES: Less edema than before. There is less weeping, less oozing. Shreyas Kaplan MD
[2017-09-06] MEDS: Albuterol-Ipratrop 3 mg / 0.5 (3 ml) UD IH SCH ×2 (14:37→19:49)
--- NOTE | 2017-09-06 16:47 | PN ---
DATE: 09/06/2017 SUBJECTIVE: The patient is seen lying in bed on Telemetry. She is seen in the presence of her son. She states that she is fairly uncomfortable due to her volume retention. She has agreed to undergo dialysis. She awaits catheter placement. CURRENT MEDICATIONS: Include Brovana, Rocephin, carvedilol 12.5 mg b.i.d., IV dobutamine, Klonopin, Synthroid and Percocet p.r.n. OBJECTIVE: GENERAL: She is obese elderly woman. VITAL SIGNS: Her blood pressure is 116/60 with a pulse of 70 with ventricular pacing, and respirations are 16. She is afebrile. HEENT: Facial plethora is noted. JVD is present. CHEST: Diminished breath sounds at the bases. HEART: Reveals PMI displaced laterally with a systolic murmur noted at the bases as well as the apex. ABDOMEN: Soft, obese with normoactive bowel sounds. EXTREMITIES: 3+ bilateral lower extremity edema. Her right leg is dressed where she has developed a ruptured bleb. DIAGNOSTIC DATA: Potassium is 5.1, BUN and creatinine are greater 120 and 2.0. White count 5.0, hemoglobin and hematocrit are 9.9 and 32.0 with platelet count 147,000. IMPRESSION: 1. Marked volume overload. 2. Acute on chronic renal failure. 3. Moderate aortic stenosis. 4. Moderate mitral regurgitation. 5. Severely reduced left ventricular systolic function. RECOMMENDATIONS: 1. Fluid management should be more expeditious with dialysis use, now that she has agreed to proceed plan should go forward as quickly as possible. 2. She was tentatively scheduled for LV lead placement for her pacemaker system tomorrow, this will be deferred pending her stabilization. 3. Intravenous diuretic therapy needs to be withheld given her severe prerenal azotemia currently at present. IV dobutamine will be continued for now, if this does not achieve adequate benefit milrinone can be considered. Avoidance of hypertension is advised given her valvular heart disease. Once she has been stabilized plans can be remained for transfer to [facility] for Dr. Mondragon to perform her pacemaker upgrade. We will continue to follow and make further recommendations as appropriate. Greg Mcclure MD [facility] # [id number] JIM
--- NOTE | 2017-09-06 19:39 | PN ---
DATE: 09/06/2017 PULMONARY PROGRESS NOTE REFERRING PHYSICIAN: Shreyas Kaplan MD SUBJECTIVE: She is lying in the bed. Family is at bedside. Night was unremarkable. Tolerated BiPAP well. Still short of breath and cough. No nausea. No vomiting. No diarrhea. Still have a leg swelling. Has an open wound in the right lower extremity. PHYSICAL EXAMINATION GENERAL: In mild distress. Active cough and shortness of breath. VITAL SIGNS: Temperature is 98, heart rate is 70, respiratory rate is 22, blood pressure is 135/79, pulse ox is 92% on nasal cannula. HEENT: Moist mucous membrane. Crowded airway. Mallampati score is IV. NECK: Supple. No JVD. LUNGS: Has a crackle and rhonchi. HEART: S1 and S2. ABDOMEN: Soft and nontender. No organomegaly. EXTREMITIES: There is edema in both lower extremities. NEUROLOGIC: Awake and alert. Does follow simple commands. MEDICATIONS: She is on Brovana 15 mcg inhale twice a day, also getting Rocephin 500 mg q. 24 hours, Coreg 12.5 mg twice a day, dobutamine IV 2.5 mcg/kg per minute, DuoNeb q. 2 hours p.r.n. and q. 6 hours round the clock, lactulose 6.6 g p.o. daily p.r.n. for constipation, iron sucrose 200 mg daily, Klonopin 0.5 mg at bedtime, Percocet 2.5/325 one tablet q. 4 hours p.r.n., total Synthroid 137 mcg p.o. daily. LABORATORY DATA: Shows hemoglobin 9.9, hemoglobin 32.7, WBC 5.7, platelets are 147. Sodium 142, potassium 5.1, chloride 103, bicarbonate 26, BUN 144, creatinine 2.0, glucose is 83, calcium 8.5, phosphorus 6.2, magnesium 2.2. Iron is 31, ferritin 84, ProBNP 10,100. ASSESSMENT AND PLAN: Cardiomyopathy, pulmonary hypertension, sleep apnea syndrome, renal failure, electrolyte imbalance, history of hypertension. Case discussed with the family at bedside. All the questions answered. Continue BiPAP while sleeping. Continue dobutamine for now. Being followed by Nephrology. Workup in progress for possible dialysis. Follow up labs in the morning. Thank you and we will follow with you. Murphy Escalera MD [facility] # [id number]
--- NOTE | 2017-09-06 19:47 | PN ---
DATE: 09/06/2017 SUBJECTIVE: The patient is seen lying in bed. She is complaining of shortness of breath. She also is complaining of severe nausea and retching earlier today. She complains of dyspnea with mild exertion. Son is at bedside. As per the son, the patient is now agreeable for dialysis treatment. PHYSICAL EXAMINATION: GENERAL: Morbidly obese elderly lady, lying in bed, in [id number] respiratory distress. VITAL SIGNS: Blood pressure 135/79, heart rate 70, respiratory rate 22, and temperature 97.6. HEENT: Normocephalic, atraumatic, positive pallor. NECK: Supple, no JVD. LUNGS: Bilateral rhonchi, distant breath sounds, basal decreased breath sounds. Cardiac: S1 and S2, regular rate and rhythm, positive murmur, no rub. ABDOMEN: Obese, distended, soft, nontender, bowel sounds present. EXTREMITIES: Ruptured blisters on the right lower extremity, 1+ pitting edema. INTAKE AND OUTPUT: Not charted. LABORATORY DATA: WBC 5.0, hemoglobin 9.9, hematocrit 32, platelets 147. Sodium 142, potassium 5.1, chloride 103, CO2 of 26, BUN 144, creatinine 2.0, glucose 112, calcium 8.5, phosphorus 6.2, magnesium 2.2, iron saturation 10, iron 31, ferritin 84, AST 27, ALT 22, BNP 10,000, albumin 3.2, and procalcitonin 0.05. Blood cultures no growth so far. Echocardiogram from April shows severe left ventricular dysfunction, septal dysfunction, severe pulmonary hypertension, moderate , severe TR. CURRENT MEDICATIONS: Brovana, ceftriaxone 1 gm q. 24, Coreg 12.5 b.i.d., dobutamine 6.9 mL/hour, DuoNeb, Enulose, Humalog, Klonopin, Percocet, Synthroid, Kayexalate 15 gm given this morning. ASSESSMENT: 1. Acute kidney injury superimposed on chronic kidney disease stage 4. Largely cardiorenal syndrome. The patient has severe cardiomyopathy, decreased ejection fraction, also severe pulmonary hypertension. 2. Lower extremity cellulitis. 3. Hypertension. 4. [id number] diabetes mellitus. 5. Chronic obstructive pulmonary disease/sleep apnea ?. 6. Chronic anemia. 7. Hypothyroidism. PLAN: 1. Renal function is moderately improved from yesterday. In light of her largely cardiorenal syndrome and severe cardiomyopathy, the patient may improve with inotropic support. I will discuss with Dr. Mcclure and for milrinone. 2. No plans for dialysis today, discussed with the patient at bedside and son at bedside. 3. We will await labs from tomorrow and if renal function is unchanged, we will recommend placement of catheter for dialysis. 4. Continue antibiotics for cellulitis, dose for creatinine clearance about 10 mL/minute. 5. Monitor fingersticks and continue insulin coverage. 6. Avoid hypotension. 7. Check stool occults, rule out GI bleed as a cause of her acute kidney injury since it is largely prerenal and hemoglobin is lower than baseline and iron stores are low. 8. Place Rodríguez catheter and monitor urine output closely. 9. Intravenous iron. Imelda Costa MD
[2017-09-07] MEDS: DOBUTamine 500mg/250ml D5W 500 MG/250 ML BAG IV SCH (01:59)
[2017-09-07] MEDS: Albuterol-Ipratrop 3 mg / 0.5 (3 ml) UD IH SCH ×4 (04:00→22:11)
[2017-09-07] MEDS: Arformoterol 15 mcg/2 ml Inh Sol IH SCH ×2 (07:35→22:11)
[2017-09-07 07:44] LABS: CALCIUM 8.7 mg/dL (8.4-10.5)
[2017-09-07 07:50] LABS: HEMOGLOBIN 9.8 g/dL (12.0-16.0); MEAN CORPUSCULAR HEMOGLOBIN 29.9 pg (25.0-35.0); MEAN CORPUSCULAR HGB CONC 30.8 g/dl (31.0-37.0); RBC 3.28 10^6/uL (3.5-6.1); RED CELL DISTRIBUTION WIDTH 17.6 % (11.5-14.5); WHITE BLOOD COUNT 4.5 10^3/ul (4.5-11.0)
[2017-09-07] MEDS: Insulin Lispro (humaLOG) LOW Coverage SC SCH ×4 (07:56→23:16)
[2017-09-07] MEDS ORDERED: Dextrose 50% SYRINGE Inj (50 ml) IVP ONE ×2 (08:13→22:29)
[2017-09-07] MEDS: Levothyroxine 112 MCG TAB PO SCH (08:55)
[2017-09-07] MEDS: Levothyroxine 25 MCG TAB PO SCH (08:55)
--- NOTE | 2017-09-07 09:04 | CP.PCM.PN ---
Subjective - Date & Time of Evaluation Date of Evaluation: 09/07/17 Time of Evaluation: 07:00 - Subjective Subjective: Stable on 2R. No CP or SOB this AM. BS low this AM. V/S noted. V. Paced. On . drip. PE: Lungs: rhonchi Cor.: S1S2, sys. murmur Abd.: soft Ext.: edema Neuro.: alert I/O 900 cc total urine yesterday as per her nurse. Labs noted. CMP pending today BC x2 NG at 48 hrs. Objective - Vital Signs/Intake and Output Vital Signs (last 24 hours): Temp Pulse Resp BP Pulse Ox 98.3 F 70 22 122/47 L 94 L 09/07/17 06:00 09/07/17 06:00 09/07/17 06:00 09/07/17 06:00 09/07/17 06:00 Intake and Output: 09/07/17 09/07/17 06:59 18:59 Intake Total 304 120 Output Total 600 600 Balance -296 -480 - Medications Medications: Current Medications Albuterol/Ipratropium (Duoneb 3 Mg/0.5 Mg (3 Ml) Ud) 3 ml IH Q2H PRN PRN Reason: Shortness of Breath Last Admin: 09/06/17 17:28 Dose: 3 ml Albuterol/Ipratropium (Duoneb 3 Mg/0.5 Mg (3 Ml) Ud) 3 ml IH [id number] [facility] Last Admin: 09/07/17 07:36 Dose: 3 ml Arformoterol Tartrate (Brovana) 15 mcg IH [id number] [facility] Last Admin: 09/07/17 07:35 Dose: 15 mcg Carvedilol (Coreg) 12.5 mg PO BID ERIBERTO Last Admin: 09/06/17 18:06 Dose: 12.5 mg Clonazepam (Klonopin) 0.5 mg PO HS ERIBERTO PRN Reason: Protocol Last Admin: 09/06/17 21:28 Dose: 0.5 mg Ceftriaxone Sodium 500 mg/ (Sodium Chloride) 100 mls @ 100 mls/hr IVPB Q24H ERIBERTO PRN Reason: Protocol Last Admin: 09/06/17 22:23 Dose: 100 mls/hr Dobutamine HCl/Dextrose (Dobutamine/Dextrose 5% 500mg/250ml) 500 mg in 250 mls @ 6.994 mls/hr IV .Q24H ERIBERTO PRN Reason: 2 MCG/KG/MIN Last Admin: 09/07/17 01:59 Dose: 6.994 mls/hr Iron Sucrose 200 mg/ Sodium (Chloride) 110 mls @ 110 mls/hr IVPB DAILY ERIBERTO Stop: 09/10/17 10:59 Last Admin: 09/06/17 15:22 Dose: 110 mls/hr Insulin Human Lispro (Humalog Low) 0 units SC ACHS ERIBERTO PRN Reason: Protocol Last Admin: 09/07/17 07:56 Dose: Not Given Lactulose (Enulose) 6.67 gm PO DAILY PRN PRN Reason: Constipation Levothyroxine Sodium (Synthroid) 25 mcg PO ACB ERIBERTO Last Admin: 09/06/17 09:15 Dose: 25 mcg Levothyroxine Sodium (Synthroid) 112 mcg PO ACB ERIBERTO Last Admin: 09/06/17 09:15 Dose: 112 mcg Oxycodone/Acetaminophen (Percocet 2.5/325 Mg Tab) 1 tab PO Q4H PRN PRN Reason: Pain, moderate (4-7) - Labs Labs: 09/07/17 05:45 09/07/17 05:45 Assessment and Plan - Assessment and Plan (Free Text) Assessment: Volume Overload Acute on chronic kidney disease Severe LVD with moderate and MR and Severe TR and PH by echo PPM COPD Diabetes Uterine cancer s/p hysterectomy Partial colectomy Hypothyroidism Plan: Await CMP today. 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 for hypoglycemia AB As per Renal, Pulmonary, Dr. Kaplan Monitor: I/O, labs, K+, stool for OB, sats., etc Will follow.
--- NOTE | 2017-09-07 14:17 | PN ---
DATE: 09/07/2017 SUBJECTIVE: An 82-year-old white female admitted in the hospital with acute systolic on chronic systolic/diastolic heart failure, renal failure, hyperkalemia, COPD, Pickwickian syndrome, cellulitis of the right lower extremity, anasarca with peripheral edema. The patient is somewhat improved overnight. BUN and creatinine down to 133 and 1.8. Potassium is 4.6. The patient is eating today, tolerating diet well. She slept better. She is on BiPAP. We are cautiously optimistic that she may or may not need acute hemodialysis for volume control and azotemia control. Dr. Costa is held off on having a catheter placed at this point. We are anticipating that possibly she may continue . However, we are going to assure we can control her fluid. Shreyas Kaplan MD
[2017-09-07] MEDS: Oxycodone/Acetaminophen 2.5/325 mg Tab PO PRN (15:22)
--- NOTE | 2017-09-07 18:47 | PN ---
DATE: 09/07/2017 SUBJECTIVE: The patient is seen sitting up in bed. She is awake. She is alert. She complains of shortness of breath. Mostly on exertion. She also complains of some cough. Her nausea has improved. Her appetite is back. As per the son, she has been eating and drinking much better today. She remains on dobutamine at 2 mcg per kilogram per minute. Her urine output has been started as 1200 mL in the last 24 hours. PAST MEDICAL, SURGICAL HISTORY, FAMILY HISTORY, SOCIAL HISTORY, REVIEW OF SYSTEMS: All reviewed and unchanged other than as mentioned in history of presenting illness. PHYSICAL EXAMINATION: GENERAL: Obese elderly lady sitting in bed. VITAL SIGNS: Blood pressure 115/77, heart rate 70, respiratory rate 18-19, temperature 97.7. HEENT: Normocephalic, atraumatic, positive pallor. NECK: Supple, no JVD. LUNGS: Bilateral equal air entry, bilateral equal expansion, basilar rales, left greater than right. CARDIAC: S1 and S2, regular rate and rhythm, positive murmur, no rub. ABDOMEN: Obese, distended, soft, nontender, bowel sounds present. EXTREMITIES: 2+ pitting edema of the lower extremities, blisters on the right lower extremity, cellulitis of the right lower extremity. INTAKE AND OUTPUT: 784/600 and then 600 this morning so far. LABORATORY DATA: WBC 4.5, hemoglobin 9.8, hematocrit 31.8, platelets 129. Sodium 142, potassium 4.6, chloride 103, CO2 29, BUN 133, creatinine 1.8, glucose 39, calcium 8.7, albumin 3.0. Blood cultures no growth so far. CURRENT MEDICATIONS: Brovana, ceftriaxone 500 q. 24, Coreg 12.5 b.i.d., dobutamine at 2 mcg per kilogram per minute, DuoNeb, Enulose, Humalog, iron sucrose 200 mg started yesterday, Klonopin, Percocet, and Synthroid. ASSESSMENT: 1. Acute kidney injury superimposed on chronic disease stage IV, largely cardiorenal syndrome is the cause of her acute kidney injury. 2. Decompensated congestive heart failure, bilateral pleural effusions, ascites, edema. 3. Severe pulmonary hypertension, congestive heart failure, cardiomyopathy, decreased ejection fraction of 18%. 4. Morbid obesity. 5. Anemia with low iron stores. 6. Hyperphosphatemia, hypocalcemia, suspect secondary hyperparathyroidism. 7. Hypothyroidism. 8. Chronic obstructive pulmonary disease/sleep apnea. PLAN: 1. Long discussion with the patient and son at bedside. We discussed that there seems to be some response to the dobutamine. The patient has put out 1200 mL of urine. Her symptoms are somewhat better. Her BUN and creatinine are better. Her BUN has come down to 133 and her creatinine is almost at baseline at 1.8. We will continue inotropic support. Will discuss with Dr. Mcclure regarding milrinone and if numbers are not significantly improved tomorrow, we will arrange for temporary catheter for ultrafiltration. 2. Continue antibiotics for cellulitis. 3. Monitor fingersticks. 4. Follow up stool occults, continue intravenous iron. 5. Monitor urine output closely. 6. Avoid nephrotoxins. Imelda Costa MD
[2017-09-07 21:21] LABS: CREATININE,RANDOM URINE 59 mg/dL
--- NOTE | 2017-09-07 22:29 | CP.PCM.PN ---
Subjective - Date & Time of Evaluation Date of Evaluation: 09/07/17 Time of Evaluation: 23:00 - Subjective Subjective: S:Nurse calls and tells that FSBS is 38 mg %. Patient has no complaints. No sweating, palpitation, abd pain. Pertinent medical record was reviewed. O:VSS. Not in distress. LUNGS: Normal breathing pattern. NEURO: Alert ,awake. A:Hypoglycemia. P:Dextrose 50 % , 50 CC IV x 1. Objective - Vital Signs/Intake and Output Vital Signs (last 24 hours): Temp Pulse Resp BP Pulse Ox 98.8 F 70 20 118/80 92 L 09/07/17 18:08 09/07/17 18:23 09/07/17 18:08 09/07/17 18:23 09/07/17 18:08 Intake and Output: 09/07/17 09/08/17 18:59 06:59 Intake Total 204 720 Output Total 600 300 Balance -396 420 - Medications Medications: Current Medications Albuterol/Ipratropium (Duoneb 3 Mg/0.5 Mg (3 Ml) Ud) 3 ml IH Q2H PRN PRN Reason: Shortness of Breath Last Admin: 09/06/17 17:28 Dose: 3 ml Albuterol/Ipratropium (Duoneb 3 Mg/0.5 Mg (3 Ml) Ud) 3 ml IH [id number] [facility] Last Admin: 09/07/17 22:11 Dose: 3 ml Arformoterol Tartrate (Brovana) 15 mcg IH [id number] [facility] Last Admin: 09/07/17 22:11 Dose: 15 mcg Carvedilol (Coreg) 12.5 mg PO BID [facility] Last Admin: 09/07/17 18:23 Dose: 12.5 mg Clonazepam (Klonopin) 0.5 mg PO HS [facility] PRN Reason: Protocol Last Admin: 09/07/17 21:43 Dose: 0.5 mg Ceftriaxone Sodium 500 mg/ (Sodium Chloride) 100 mls @ 100 mls/hr IVPB Q24H [facility] PRN Reason: Protocol Last Admin: 09/07/17 21:44 Dose: 100 mls/hr Dobutamine HCl/Dextrose (Dobutamine/Dextrose 5% 500mg/250ml) 500 mg in 250 mls @ 6.994 mls/hr IV .Q24H [facility] PRN Reason: 2 MCG/KG/MIN Last Admin: 09/07/17 01:59 Dose: 6.994 mls/hr Iron Sucrose 200 mg/ Sodium (Chloride) 110 mls @ 110 mls/hr IVPB DAILY [facility] Stop: 09/10/17 10:59 Last Admin: 09/07/17 10:39 Dose: 110 mls/hr Insulin Human Lispro (Humalog Low) 0 units SC ACHS [facility] PRN Reason: Protocol Last Admin: 09/07/17 17:12 Dose: Not Given Lactulose (Enulose) 6.67 gm PO DAILY PRN PRN Reason: Constipation Last Admin: 09/07/17 18:28 Dose: 6.67 gm Levothyroxine Sodium (Synthroid) 25 mcg PO ACB [facility] Last Admin: 09/07/17 08:55 Dose: 25 mcg Levothyroxine Sodium (Synthroid) 112 mcg PO ACB [facility] Last Admin: 09/07/17 08:55 Dose: 112 mcg Oxycodone/Acetaminophen (Percocet 2.5/325 Mg Tab) 1 tab PO Q4H PRN PRN Reason: Pain, moderate (4-7) Last Admin: 09/07/17 15:22 Dose: 1 tab - Labs Labs: 09/07/17 05:45 09/07/17 05:45
[2017-09-07] MEDS ORDERED: Dextrose 50% SYRINGE Inj (50 ml) ONE (22:31)
[2017-09-08] MEDS: Albuterol-Ipratrop 3 mg / 0.5 (3 ml) UD IH PRN (01:24)
[2017-09-08] MEDS: Albuterol-Ipratrop 3 mg / 0.5 (3 ml) UD IH SCH ×4 (01:26→21:04)
--- NOTE | 2017-09-08 03:17 | PN ---
PULMONARY PROGRESS NOTE DATE: 09/07/2017 REFERRING PHYSICIAN: Shreyas Kaplan MD SUBJECTIVE: She is lying in the bed, head at 45 degrees, and tolerated BiPAP well last night. She feels better. Decreased cough. Decreased shortness of breath. No abdominal pain. Decreased leg swelling. OBJECTIVE: GENERAL: In no acute distress. VITAL SIGNS: Temperature is 98, heart rate is 70, respiratory rate is 20, blood pressure is 118/80, and pulse oximetry is 92% on nasal cannula. HEENT: Moist mucous membrane. Crowded airway. Mallampati score is IV. NECK: Supple. No JVD. LUNGS: Has a crackle at the bases, scattered rhonchi. HEART: S1 and S2. ABDOMEN: Soft and nontender. No organomegaly. EXTREMITIES: Has edema. Right lower extremity has a skin sloughed off. NEUROLOGIC: Awake, alert, and follows simple commands. MEDICATIONS: She is on Brovana 15 mcg inhaled twice a day, Rocephin 1 g IV daily, Coreg 12.5 mg twice a day, dobutamine 2 mcg/kg/minute, DuoNeb q.2 hours p.r.n. and q.6 hours [id number], lactulose p.o. daily p.r.n., iron sucrose 200 mg daily, Klonopin 0.5 mg at bedtime, Percocet 2.5/325 one tablet q.4 hours p.r.n., and Synthroid total 137 mcg daily. LABORATORY DATA: Shows hemoglobin 9.8, hemoglobin 31.8, WBC 4.5, and platelet is 129. Sodium 142, potassium 4.6, chloride 103, bicarbonate 29, BUN 133, creatinine 1.8, glucose 93, and calcium is 8.7. Total bili 0.6, AST 21, ALT 28, alk phos is 63, and albumin is 3.0. Hepatitis B surface antibody is negative. Microbiology; blood culture has been no growth. IMPRESSION AND PLAN: Cardiomyopathy, pulmonary hypertension, severe sleep apnea syndrome, renal failure, electrolyte imbalance, history of hypertension, and may have a component of sleep apnea syndrome. I spoke to the patient's family at bedside. All the questions answered. We will continue dobutamine for now. Continue diuretics. Encourage bilevel positive airway pressure use. Gastric prophylaxis. Deep venous thrombosis prophylaxis. Thyroid replacement. Followup labs in the morning. Thank you and we will follow with you. Murphy Escalera MD
[2017-09-08] MEDS: DOBUTamine 500mg/250ml D5W 500 MG/250 ML BAG IV SCH (05:14)
[2017-09-08 06:34] LABS: HEMOGLOBIN 10.1 g/dL (12.0-16.0); MEAN CELL VOLUME 97.6 fl (80.0-105.0); MEAN CORPUSCULAR HEMOGLOBIN 29.8 pg (25.0-35.0); MEAN CORPUSCULAR HGB CONC 30.5 g/dl (31.0-37.0); MEAN PLATELET VOLUME 9.7 fl (7.0-11.0); RBC 3.39 10^6/uL (3.5-6.1); RED CELL DISTRIBUTION WIDTH 17.6 % (11.5-14.5); WHITE BLOOD COUNT 4.9 10^3/ul (4.5-11.0)
[2017-09-08] MEDS: Levothyroxine 25 MCG TAB PO SCH (06:42)
[2017-09-08] MEDS: Levothyroxine 112 MCG TAB PO SCH (06:42)
[2017-09-08 07:17] LABS: ALBUMIN 3.2 g/dL (3.0-4.8); CALCIUM 8.8 mg/dL (8.4-10.5)
--- NOTE | 2017-09-08 08:28 | CP.PCM.PN ---
Subjective - Date & Time of Evaluation Date of Evaluation: 09/08/17 Time of Evaluation: 07:00 - Subjective Subjective: Stable on 2R. No CP or SOB this AM. BiPap mask at night. V/S noted. V. Paced. On dobut. drip. PE: Lungs: rhonchi Cor.: S1S2, sys. murmur Abd.: soft Ext.: edema improved Neuro.: alert I/O N/A Labs noted. BUN 121, Cr.= 1.7 BC x2 NG at 3 days Objective - Vital Signs/Intake and Output Vital Signs (last 24 hours): Temp Pulse Resp BP Pulse Ox 98 F 75 20 128/80 98 09/08/17 06:00 09/08/17 06:00 09/08/17 06:00 09/08/17 06:00 09/08/17 06:00 Intake and Output: 09/08/17 09/08/17 06:59 18:59 Intake Total 904 0 Output Total 300 400 Balance 604 -400 - Medications Medications: Current Medications Albuterol/Ipratropium (Duoneb 3 Mg/0.5 Mg (3 Ml) Ud) 3 ml IH Q2H PRN PRN Reason: Shortness of Breath Last Admin: 09/08/17 01:24 Dose: 3 ml Albuterol/Ipratropium (Duoneb 3 Mg/0.5 Mg (3 Ml) Ud) 3 ml IH [id number] [facility] Last Admin: 09/08/17 01:26 Dose: 3 ml Arformoterol Tartrate (Brovana) 15 mcg IH [id number] [facility] Last Admin: 09/07/17 22:11 Dose: 15 mcg Carvedilol (Coreg) 12.5 mg PO BID [facility] Last Admin: 09/07/17 18:23 Dose: 12.5 mg Clonazepam (Klonopin) 0.5 mg PO HS [facility] PRN Reason: Protocol Last Admin: 09/07/17 21:43 Dose: 0.5 mg Ceftriaxone Sodium 500 mg/ (Sodium Chloride) 100 mls @ 100 mls/hr IVPB Q24H [facility] PRN Reason: Protocol Last Admin: 09/07/17 21:44 Dose: 100 mls/hr Dobutamine HCl/Dextrose (Dobutamine/Dextrose 5% 500mg/250ml) 500 mg in 250 mls @ 6.994 mls/hr IV .Q24H [facility] PRN Reason: 2 MCG/KG/MIN Last Admin: 09/08/17 05:14 Dose: Not Given Iron Sucrose 200 mg/ Sodium (Chloride) 110 mls @ 110 mls/hr IVPB DAILY [facility] Stop: 09/10/17 10:59 Last Admin: 09/07/17 10:39 Dose: 110 mls/hr Insulin Human Lispro (Humalog Low) 0 units SC ACHS [facility] PRN Reason: Protocol Last Admin: 09/07/17 23:16 Dose: Not Given Lactulose (Enulose) 6.67 gm PO DAILY PRN PRN Reason: Constipation Last Admin: 09/07/17 18:28 Dose: 6.67 gm Levothyroxine Sodium (Synthroid) 25 mcg PO ACB [facility] Last Admin: 09/08/17 06:42 Dose: 25 mcg Levothyroxine Sodium (Synthroid) 112 mcg PO ACB [facility] Last Admin: 09/08/17 06:42 Dose: 112 mcg Oxycodone/Acetaminophen (Percocet 2.5/325 Mg Tab) 1 tab PO Q4H PRN PRN Reason: Pain, moderate (4-7) Last Admin: 09/07/17 15:22 Dose: 1 tab - Labs Labs: 09/08/17 06:00 09/08/17 06:00 Assessment and Plan - Assessment and Plan (Free Text) Assessment: Volume Overload Acute on chronic kidney disease Severe LVD with moderate and MR and Severe TR and PH by echo PPM COPD Diabetes Uterine cancer s/p hysterectomy Partial colectomy Hypothyroidism Plan: FILM TOUCH UP INSPECTOR being considered/arranged Continue dobutamine drip for now Lasix use as per Renal AB As per Renal, Pulmonary, Dr. Kaplan Monitor: I/O, labs, K+, stool for OB, sats., etc Will follow.
[2017-09-08] MEDS: Insulin Lispro (humaLOG) LOW Coverage SC SCH ×4 (09:13→22:19)
[2017-09-08] MEDS: Arformoterol 15 mcg/2 ml Inh Sol IH SCH ×2 (10:02→21:03)
[2017-09-08] MEDS ORDERED: Lidocaine 2% Inj (20ml) ONE (10:13)
[2017-09-08] MEDS ORDERED: HEPARIN SODIUM/NS 2,000 ML IV ONE (10:14)
[2017-09-08] MEDS ORDERED: Midazolam 2 MG/2 ML VIAL ONE (10:14)
[2017-09-08] MEDS ORDERED: Iodixanol 320 MG/ML 100 ML BOTTLE IV ONE (10:14)
--- NOTE | 2017-09-08 18:30 | PN ---
DATE: 09/08/2017 SUBJECTIVE: The patient is seen lying in bed. She is seen in the dialysis unit. She had a temporary catheter inserted earlier today. She is still very short of breath. Dyspnea with minimal exertion. She has been on the dobutamine drip. Her urine output for the last 24 hours was 900 mL. PHYSICAL EXAMINATION: GENERAL: Moderately obese, elderly lady lying in bed. VITAL SIGNS: Blood pressure 129/70, heart rate 80, respiratory rate 20, and temperature 98. HEENT: Normocephalic and atraumatic. Positive pallor. NECK: Supple. No JVD. LUNGS: Bilateral equal air entry, bilateral rhonchi, basilar rales. CARDIAC: S1 and S2. Regular rate and rhythm. No murmur. No rub. ABDOMEN: Obese, distended, soft, and positive ascites. EXTREMITIES: 2+ pitting edema of the lower extremities. LABORATORY DATA: WBC 4.9, hemoglobin 10, hematocrit 33, and platelets 126. Sodium 144, potassium 4.7, chloride 105, CO2 of 30, BUN 121, creatinine 1.7, glucose 123, calcium is 8.8, AST 28, ALT 24, and albumin 3.2. CURRENT MEDICATIONS: Brovana, ceftriaxone, Coreg 12.5 b.i.d., dobutamine, DuoNeb, Enulose, insulin, iron sucrose , Klonopin, Percocet, and Synthroid. ASSESSMENT: 1. Decompensated congestive heart failure, volume overload, pleural effusions, and ascites. 2. Acute kidney injury, cardiorenal syndrome. 3. Pulmonary hypertension. 4. Underlying chronic kidney disease stage IV. 5. Suboptimal response to inotropes. PLAN: 1. Ultrafiltration today, we will do dry ultrafiltration with 2 hours and titrated . 2. If she tolerates the procedure, we will try to do it again tomorrow. 3. Continue dobutamine. 4. No plans to continue chronic dialysis. Imelda Costa MD
--- NOTE | 2017-09-08 18:32 | VASCULAR ---
PROCEDURE: Ultrasound and fluoroscopically guided temporary right IJ dialysis catheter. CLINICAL HISTORY: CHF. Acute renal failure. Needs temporary dialysis catheter. PHYSICIAN(S): Justice Capone M.D. TECHNIQUE: Technique: The relative risks and indications of the procedure were explained to the patient and her son and consent obtained. The patient was placed supine on the arteriogram table and the right neck and chest prepped/draped in the usual sterile fashion. 1% Xylocaine was used to anesthetize the skin and soft tissues at the insertion site. Under direct ultrasound guidance, a singlewall puncture of the right internal jugular vein was performed with a micropuncture set. A 0.035 angled Glidewire was advanced into the IVC. Sequential dilatation was performed with subsequent placement of a Schon XL temporary dialysis catheter with its tip in the right atrium. Both ports aspirate and flush easily. The catheter was secured and a dressing applied. The patient tolerated the procedure well. IMPRESSION: 1. Ultrasound and fluoroscopically placed temporary right IJ dialysis catheter.
[2017-09-08 20:56] LABS: HEPATITIS B SURFACE AG NEGATIVE (NEGATIVE)
[2017-09-08 21:02] LABS: HEPATITIS A IGM NEGATIVE (NEGATIVE); HEPATITIS B CORE AB Negative (NEGATIVE)
[2017-09-08 21:14] LABS: HEPATITIS C ANTIBODY Negative (NEGATIVE)
--- NOTE | 2017-09-09 02:01 | PN ---
DATE: 09/08/2017 SUBJECTIVE: She just came back from dialysis, placed on noninvasive ventilation, does not feel hungry and not want to eat. Breathing is slowly getting better. No hemoptysis, no hematemesis, no hematuria, no diarrhea reported. OBJECTIVE: GENERAL: On-noninvasive ventilation. VITAL SIGNS: Temperature is 98, heart rate 67, respiratory rate 18, blood pressure 142/52, pulse ox 94% on BiPAP. HEENT: Moist mucous membrane. Crowded airway. NECK: Supple. No JVD. LUNGS: Have crackles at the bases, few rhonchi. HEART: S1 and S2. ABDOMEN: Soft and nontender. No organomegaly. EXTREMITIES: Does have edema of both lower extremities. NEUROLOGIC: Awake, alert, and follows simple commands. MEDICATIONS: She is on Brovana inhaled twice a day, Rocephin 500 mg q. 24 hours, Coreg 12.5 mg twice a day, dobutamine 2 mcg/kg per minute, DuoNeb q. 2 hours p.r.n., DuoNeb q. 6 hours [id number], lactulose 6.67 gm p.o. daily p.r.n., insulin coverage, iron sucrose 200 mg daily, clonazepam 0.5 mg at bedtime, nasal saline one to each nostril twice a day p.r.n., Percocet 2.5/325 one tab q. 4 hours p.r.n., Synthroid 25 mcg a.c.b., levothyroxine total is 137 mcg daily. LABORATORY DATA: Shows hemoglobin 10.1, hematocrit 33.1, WBC 4.9, platelet is 126. Sodium 144, potassium 4.7, chloride 105, bicarbonate 30, BUN 121, creatinine 1.7, glucose 123, and calcium 8.8, ferritin 226, AST 28, ALT 24, alk phos is 59, albumin is 3.2. Microbiology; blood culture has been negative. IMPRESSION AND PLAN: Cardiomyopathy; pulmonary hypertension, severe; sleep apnea syndrome; renal failure; electrolyte imbalance; history of hypertension; status post dialysis, still requiring noninvasive ventilation. Spoke to the patient's family at bedside, spoke to nursing staff, also spoke to respiratory therapist. Keep on BiPAP for tonight. Hopefully, we will taper her off and try nasal canula during the daytime. Continue dobutamine, on dialysis, bronchodilator. Follow up labs in the morning. Thank you and we will follow with you. Murphy Escalera MD
[2017-09-09] MEDS: Albuterol-Ipratrop 3 mg / 0.5 (3 ml) UD IH SCH ×4 (02:55→21:27)
[2017-09-09 07:19] LABS: BASO # 0.01 K/mm3 (0.0-2.0); BASO % 0.2 % (0.0-3.0); EOS # 0.1 (0.0-0.7); EOS % 1.2 % (1.5-5.0); GRAN # 3.56 (1.4-6.5); GRAN % 71.5 % (50.0-68.0); HEMOGLOBIN 9.9 g/dL (12.0-16.0); LYMPH % 20.7 % (22.0-35.0); MEAN CELL VOLUME 98.8 fl (80.0-105.0); MEAN CORPUSCULAR HEMOGLOBIN 29.2 pg (25.0-35.0); MEAN CORPUSCULAR HGB CONC 29.6 g/dl (31.0-37.0); MEAN PLATELET VOLUME 10.5 fl (7.0-11.0); MONO # 0.3 (0.1-0.6); MONO % 6.4 % (1.0-6.0); RBC 3.39 10^6/uL (3.5-6.1); RED CELL DISTRIBUTION WIDTH 17.8 % (11.5-14.5)
[2017-09-09 07:21] LABS: CALCIUM 8.6 mg/dL (8.4-10.5); MAGNESIUM 2.3 mg/dL (1.7-2.2)
[2017-09-09] MEDS: Arformoterol 15 mcg/2 ml Inh Sol IH SCH ×2 (07:40→21:27)
[2017-09-09] MEDS: Insulin Lispro (humaLOG) LOW Coverage SC SCH ×4 (08:23→21:38)
[2017-09-09] MEDS: Levothyroxine 112 MCG TAB PO SCH (08:26)
[2017-09-09] MEDS: Levothyroxine 25 MCG TAB PO SCH (08:26)
--- NOTE | 2017-09-09 08:32 | CP.PCM.PN ---
Subjective - Date & Time of Evaluation Date of Evaluation: 09/09/17 Time of Evaluation: 07:00 - Subjective Subjective: Stable on 2R. S/P UF yesterday. Still dyspnea with min exertions V/S noted. V. Paced. On dobut. drip. PE: Lungs: rhonchi Cor.: S1S2, sys. murmur Abd.: soft Ext.: edema improved Neuro.: alert I/O N/A Labs noted. Cr.= 1.6 BC x2 NG at 4 days Objective - Vital Signs/Intake and Output Vital Signs (last 24 hours): Temp Pulse Resp BP Pulse Ox 98.1 F 65 20 123/57 L 97 09/09/17 06:00 09/09/17 06:00 09/09/17 06:00 09/09/17 06:00 09/09/17 06:00 Intake and Output: 09/09/17 09/09/17 06:59 18:59 Intake Total 184 0 Output Total 500 200 Balance -316 -200 - Medications Medications: Current Medications Albuterol/Ipratropium (Duoneb 3 Mg/0.5 Mg (3 Ml) Ud) 3 ml IH Q2H PRN PRN Reason: Shortness of Breath Last Admin: 09/08/17 01:24 Dose: 3 ml Albuterol/Ipratropium (Duoneb 3 Mg/0.5 Mg (3 Ml) Ud) 3 ml IH [id number] [facility] Last Admin: 09/09/17 07:41 Dose: 3 ml Arformoterol Tartrate (Brovana) 15 mcg IH [id number] [facility] Last Admin: 09/09/17 07:40 Dose: 15 mcg Carvedilol (Coreg) 12.5 mg PO BID [facility] Last Admin: 09/08/17 18:47 Dose: Not Given Clonazepam (Klonopin) 0.5 mg PO HS [facility] PRN Reason: Protocol Last Admin: 09/08/17 22:19 Dose: 0.5 mg Ceftriaxone Sodium 500 mg/ (Sodium Chloride) 100 mls @ 100 mls/hr IVPB Q24H [facility] PRN Reason: Protocol Last Admin: 09/08/17 22:17 Dose: 100 mls/hr Dobutamine HCl/Dextrose (Dobutamine/Dextrose 5% 500mg/250ml) 500 mg in 250 mls @ 6.994 mls/hr IV .Q24H [facility] PRN Reason: 2 MCG/KG/MIN Last Admin: 09/08/17 05:14 Dose: Not Given Iron Sucrose 200 mg/ Sodium (Chloride) 110 mls @ 110 mls/hr IVPB DAILY [facility] Stop: 09/10/17 10:59 Last Admin: 09/08/17 09:21 Dose: 110 mls/hr Insulin Human Lispro (Humalog Low) 0 units SC ACHS [facility] PRN Reason: Protocol Last Admin: 09/09/17 08:23 Dose: Not Given Lactulose (Enulose) 6.67 gm PO DAILY PRN PRN Reason: Constipation Last Admin: 09/08/17 09:18 Dose: 6.67 gm Levothyroxine Sodium (Synthroid) 25 mcg PO ACB [facility] Last Admin: 09/08/17 06:42 Dose: 25 mcg Levothyroxine Sodium (Synthroid) 112 mcg PO ACB [facility] Last Admin: 09/08/17 06:42 Dose: 112 mcg Oxycodone/Acetaminophen (Percocet 2.5/325 Mg Tab) 1 tab PO Q4H PRN PRN Reason: Pain, moderate (4-7) Last Admin: 09/07/17 15:22 Dose: 1 tab Sodium Chloride ([place]) 0 ml NS BID PRN PRN Reason: Nasal congestion - Labs Labs: 09/09/17 06:00 09/09/17 06:00 Assessment and Plan - Assessment and Plan (Free Text) Assessment: Volume Overload Acute on chronic kidney disease Severe LVD with moderate and MR and Severe TR and PH by echo PPM COPD Diabetes Uterine cancer s/p hysterectomy Partial colectomy Hypothyroidism Plan: UF today planned. Continue dobutamine drip for now Lasix use as per Renal AB As per Renal, Pulmonary, Dr. Kaplan Monitor: I/O, labs, K+, stool for OB, sats., etc Will follow.
[2017-09-09] MEDS: Oxycodone/Acetaminophen 2.5/325 mg Tab PO PRN (12:42)
--- NOTE | 2017-09-09 17:55 | PN ---
DATE: 09/09/2017 SUBJECTIVE: The patient is seen lying in bed. She reports she is feeling a little bit better today. Appetite is better. Son is at bedside. She still appears short of breath. PHYSICAL EXAMINATION: GENERAL: Obese, elderly lady, lying in bed. VITAL SIGNS: Blood pressure 123/57, heart rate 65, respiratory rate 20, temperature 98.1. HEENT: Normocephalic, atraumatic. NECK: Supple, no JVD. LUNGS: Bilateral equal air entry, bilateral basilar rales. CARDIAC: S1, S2, regular rate and rhythm, positive murmur. ABDOMEN: Obese, distended, soft, bowel sounds present. EXTREMITIES: 2+ pitting edema to lower extremities. INTAKE AND OUTPUT: Not charted. LABORATORY DATA: WBC 5, hemoglobin 9.9, hematocrit 34, platelets 128. Sodium 145, potassium 4.7, chloride 107, CO2 29, BUN 113, creatinine 1.6, glucose 106, calcium 8.6, phosphorus 5.0, magnesium 2.3. CURRENT MEDICATIONS: Brovana, ceftriaxone 500 q.24, Coreg 12.5 b.i.d., dobutamine discontinued, iron 200 mg IV piggyback, Klonopin, sodium chloride, Percocet, Synthroid. ASSESSMENT: 1. Acute kidney injury, superimposed on chronic kidney disease stage IV. Cardiorenal syndrome. 2. Coronary artery disease, congestive heart failure, cardiomyopathy, decreased ejection fraction of 18%, severe pulmonary hypertension. 3. Morbid obesity. 4. Chronic obstructive pulmonary disease/obstructive sleep apnea. 5. Anemia with low iron stores. 6. Hypothyroidism. PLAN: 1. Dialysis again today, yesterday was only ultrafiltration. 2 kg of fluid was removed. Today, we will dialyze her for 3 hours and try to remove another 2 kg. 2. We will assess for dialysis on a daily basis. 3. Daily labs. Imelda Costa MD
[2017-09-09] MEDS: DOBUTamine 500mg/250ml D5W 500 MG/250 ML BAG IV SCH ×3 (18:23→23:40)
--- NOTE | 2017-09-10 02:08 | PN ---
DATE: 09/08/2017 FOLLOWUP NOTE HISTORY OF PRESENT ILLNESS: Ms. Umana is an 82-year-old female admitted to the hospital with CHF, severe pulmonary hypertension, right leg cellulitis. She has acute on chronic kidney disease. She had a hemodialysis catheter port yesterday. Today, ultrafiltration was done. She has right leg cellulitis with IV antibiotics. Feeling better, still short of breath. MEDICATIONS: DuoNeb q. 3 hours p.r.n., Brovana inhalation, Coreg 12.5 mg p.o. b.i.d., ceftriaxone q. 24 hours, Klonopin 0.5 mg p.o. at bedtime, dobutamine drip, insulin, iron 110 daily, lactulose, levothyroxine 25 mcg daily, Percocet p.r.n. LABORATORY DATA: White count 4.9, hemoglobin 10.1, hematocrit 33.1, platelet 126. Sodium 145, potassium 4.7, creatinine 1.6, magnesium 2.3. PHYSICAL EXAMINATION: GENERAL: Comfortable in bed, in no acute distress. Morbidly obese. VITAL SIGNS: Temperature 98.7, heart rate 70 per minute, blood pressure 95/40, respiratory rate 19 per minute, oxygen saturation 89% on room air. HEENT: Normal. NECK: Supple. CHEST: Air entry present equal and bilateral. No added sounds. CARDIOVASCULAR: S1 and S2 normal. No murmur. No gallop. ABDOMEN: Soft, nontender, and obese. EXTREMITIES: Right leg cellulitis. CENTRAL NERVOUS SYSTEM: Alert and oriented x3. No focal, sensory or motor deficits. SPINE: Nontender. ASSESSMENT AND PLAN: End-stage renal disease, hemodialysis catheter placed today. She will receive the ultrafiltration today. Congestive heart failure with severe pulmonary hypertension. Currently, on cardiac meds Coreg, dobutamine drip. Klonopin p.r.n. for anxiety. Infectious Disease will continue antibiotics with ceftriaxone daily, bronchodilator, DuoNeb. She is on IV iron for chronic anemia. She might need erythropoietin support to maintain normal hemoglobin after correction of iron. Synthroid 112 mcg p.o. daily. We will continue to follow. Labs ordered for tomorrow. Awilda Vides MD
--- NOTE | 2017-09-10 02:17 | PN ---
DATE: 09/09/2017 SUBJECTIVE: She is in comfortable in bed, in no acute distress, respiratory distress improved. Denies any pain. No chest pain. REVIEW OF SYSTEMS: As per HPI. Rest of 12-point review of systems reviewed and negative. PHYSICAL EXAMINATION: GENERAL: Comfortable in bed, in no acute distress. VITAL SIGNS: Afebrile. Temperature 98.7, 100/40, respiratory rate 20 per minute, oxygen saturation 96% on BiPAP. Morbidly obese. NECK: No lymphadenopathy. CHEST: Air entry present and equal bilateral. No added sounds. CARDIOVASCULAR: S1 and S2 normal. No murmur. No gallop. ABDOMEN: Obese, nontender. EXTREMITIES: Right lower extremity cellulitis. MANAGEMENT LEAD: Alert and oriented x3. No focal sensory or motor deficits. LABORATORY DATA: White count 5000, hemoglobin 9.9, hematocrit 33.5, platelet 128. Glucose 158. ASSESSMENT: 1. End-stage renal disease on hemodialysis. 2. Pulmonary hypertension. 3. Congestive heart failure. 4. Chronic obstructive pulmonary disease. 5. Right leg cellulitis. PLAN: We will continue intravenous antibiotics, ceftriaxone. She is on BiPAP for respiratory distress. She will be hemodialyzed today. Yesterday was ultrafiltration. She is on dobutamine on insulin for diabetes mellitus type 2. Continue intravenous iron. Continue Synthroid. Awilda Vides MD
[2017-09-10] MEDS: Albuterol-Ipratrop 3 mg / 0.5 (3 ml) UD IH SCH ×4 (02:29→20:37)
--- NOTE | 2017-09-10 06:01 | PN ---
DATE: 09/09/2017 SUBJECTIVE: The patient is lying in the bed, had dialysis done, still needed BiPAP especially at night. Breathing is better. Still short of breath. No cough. No sputum production. No nausea. No vomiting. No diarrhea. Still has leg swelling. OBJECTIVE: GENERAL: In no acute distress. VITAL SIGNS: Temperature is 98, heart rate is 70, respiratory rate is 20, blood pressure is 95/40, and pulse oximetry is 90% on nasal cannula. HEENT: Moist mucous membrane. Crowded airway. Mallampati score is IV. NECK: Supple. No JVD. LUNGS: Has crackles. HEART: S1 and S2, irregular. ABDOMEN: Soft and nontender. No organomegaly. EXTREMITIES: Has edema. Lower extremity right leg has ulcer. NEUROLOGIC: Awake and follows simple commands. MEDICATIONS: She is on Brovana 15 mcg inhaled twice a day, Rocephin 1 g q. 24 hours, Coreg 12.5 mg twice a day, dobutamine IV drip, DuoNeb q.2 hours p.r.n. and DuoNeb q.6 hours [id number], lactulose 6.67 g p.o. daily p.r.n., insulin coverage, iron sucrose IV, Klonopin 0.5 mg at bedtime, nasal saline twice a day p.r.n., Percocet 2.5 mg one tablet q.4 hours p.r.n., and total Synthroid 137 mcg daily. LABORATORY DATA: Shows hemoglobin 9.9, hemoglobin 32.5, WBC 5.0, and platelet is 128. Sodium 145, potassium 4.7, chloride 107, bicarbonate 29, BUN 113, creatinine 1.6, glucose 106 and calcium is 8.6. Phosphorus 5.0 and magnesium 2.3. Microbiology; blood culture has been negative. IMPRESSION AND PLAN: Cardiomyopathy, pulmonary hypertension, severe sleep apnea syndrome, renal failure, electrolyte imbalance, hypotension, on dialysis now. Pulmonary point of view, slowly improving. Continue diuretics, dialysis, noninvasive ventilation, bronchodilator. Followup labs in the morning. Aspiration precaution. Thank you and we will follow with you. Murphy Escalera MD
[2017-09-10] MEDS: Arformoterol 15 mcg/2 ml Inh Sol IH SCH ×2 (07:50→20:37)
[2017-09-10] MEDS: Levothyroxine 112 MCG TAB PO SCH (08:23)
[2017-09-10] MEDS: Insulin Lispro (humaLOG) LOW Coverage SC SCH ×4 (08:23→21:41)
[2017-09-10] MEDS: Levothyroxine 25 MCG TAB PO SCH (08:23)
--- NOTE | 2017-09-10 08:26 | CP.PCM.PN ---
Subjective - Date & Time of Evaluation Date of Evaluation: 09/10/17 Time of Evaluation: 07:00 - Subjective Subjective: Stable on 2R. S/P HD yesterday, 2300 cc taken off according to her nurse. V/S noted. V. Paced. On dobut. drip. PE: Lungs: rhonchi Cor.: S1S2, sys. murmur Abd.: soft Ext.: edema improved Neuro.: alert I/O N/A Labs noted 09/09. Cr.= 1.6 BC x2 NG at 5 days Objective - Vital Signs/Intake and Output Vital Signs (last 24 hours): Temp Pulse Resp BP Pulse Ox 98.2 F 65 20 127/68 92 L 09/10/17 06:00 09/10/17 06:00 09/10/17 06:00 09/10/17 06:00 09/10/17 06:00 Intake and Output: 09/10/17 09/10/17 06:59 18:59 Intake Total 544 Output Total 550 Balance -6 - Medications Medications: Current Medications Albuterol/Ipratropium (Duoneb 3 Mg/0.5 Mg (3 Ml) Ud) 3 ml IH Q2H PRN PRN Reason: Shortness of Breath Last Admin: 09/08/17 01:24 Dose: 3 ml Albuterol/Ipratropium (Duoneb 3 Mg/0.5 Mg (3 Ml) Ud) 3 ml IH [id number] [facility] Last Admin: 09/10/17 07:50 Dose: 3 ml Arformoterol Tartrate (Brovana) 15 mcg IH [id number] [facility] Last Admin: 09/10/17 07:50 Dose: 15 mcg Carvedilol (Coreg) 12.5 mg PO BID [facility] Last Admin: 09/09/17 18:22 Dose: 12.5 mg Clonazepam (Klonopin) 0.5 mg PO HS [facility] PRN Reason: Protocol Last Admin: 09/09/17 22:15 Dose: 0.5 mg Ceftriaxone Sodium 500 mg/ (Sodium Chloride) 100 mls @ 100 mls/hr IVPB Q24H [facility] PRN Reason: Protocol Last Admin: 09/09/17 22:15 Dose: 100 mls/hr Dobutamine HCl/Dextrose (Dobutamine/Dextrose 5% 500mg/250ml) 500 mg in 250 mls @ 6.994 mls/hr IV .Q24H [facility] PRN Reason: 2 MCG/KG/MIN Last Admin: 09/09/17 23:40 Dose: 6.994 mls/hr Iron Sucrose 200 mg/ Sodium (Chloride) 110 mls @ 110 mls/hr IVPB DAILY [facility] Stop: 09/10/17 10:59 Last Admin: 09/09/17 09:33 Dose: 110 mls/hr Insulin Human Lispro (Humalog Low) 0 units SC ACHS [facility] PRN Reason: Protocol Last Admin: 09/09/17 21:38 Dose: Not Given Lactulose (Enulose) 6.67 gm PO DAILY PRN PRN Reason: Constipation Last Admin: 09/08/17 09:18 Dose: 6.67 gm Levothyroxine Sodium (Synthroid) 25 mcg PO ACB [facility] Last Admin: 09/09/17 08:26 Dose: 25 mcg Levothyroxine Sodium (Synthroid) 112 mcg PO ACB [facility] Last Admin: 09/09/17 08:26 Dose: 112 mcg Oxycodone/Acetaminophen (Percocet 2.5/325 Mg Tab) 1 tab PO Q4H PRN PRN Reason: Pain, moderate (4-7) Last Admin: 09/09/17 12:42 Dose: 1 tab Sodium Chloride ([place] Nasal [place]) 0 ml NS BID PRN PRN Reason: Nasal congestion - Labs Labs: 09/09/17 06:00 09/09/17 06:00 Assessment and Plan - Assessment and Plan (Free Text) Assessment: Volume Overload Acute on chronic kidney disease Severe LVD with moderate and MR and Severe TR and PH by echo PPM COPD Diabetes Uterine cancer s/p hysterectomy Partial colectomy Hypothyroidism Plan: HD as per Dr. Costa Continue dobutamine drip for now Lasix use as per Renal AB As per Pulmonary, Dr. Kaplan Monitor: I/O, labs, K+, stool for OB, sats., etc Will follow.
[2017-09-10] MEDS: DOBUTamine 500mg/250ml D5W 500 MG/250 ML BAG IV SCH (15:16)
[2017-09-10] MEDS ORDERED: Oxycodone/Acetaminophen 2.5/325 mg Tab PO PRN (20:22)
--- NOTE | 2017-09-11 00:56 | PN ---
DATE: 09/10/2017 SUBJECTIVE: The patient has no complaints of any chest pain. No shortness of breath. No headaches. PHYSICAL EXAMINATION: VITAL SIGNS: Temperature is 98.8, pulse is 70, blood pressure is /72, and respirations are 18. GENERAL: The patient is lying in bed, flat, comfortable. HEENT: No oral lesion. Anicteric sclerae. Moist mucosa. NECK: No JVD, adenopathy, or thyromegaly. CARDIOVASCULAR: S1 and S2, regular. No murmurs, rubs, or gallops. LUNGS: Clear to auscultation bilaterally. No wheeze, rales, or rhonchi. ABDOMEN: Bowel sounds are positive, soft, nontender and nondistended. EXTREMITIES: No cyanosis, clubbing or edema. LABORATORY DATA: White count of 5.0 and hemoglobin of 9.9. Creatinine is 1.6. ASSESSMENT: 1. End-stage renal disease, on hemodialysis. 2. Pulmonary hypertension. 3. Chronic obstructive pulmonary disease. 4. Right leg cellulitis. 5. Chronic kidney disease stage III. 6. Aortic stenosis. 7. Tricuspid regurgitation. 8. Diabetes type 2. 9. Hypothyroidism. PLAN: The patient is currently comfortable. She is receiving carvedilol for her heart disease. She is on Brovana for her breathing. She is on lactulose for constipation. The patient is receiving Klonopin for anxiety. She is receiving Synthroid for hypothyroidism. She had blood cultures x2 that were negative. Manuel Lundberg MD
--- NOTE | 2017-09-11 02:27 | PN ---
DATE: 09/10/2017 REFERRING PHYSICIAN: Shreyas Kaplan MD SUBJECTIVE: The patient is lying in the bed, on noninvasive ventilation, was earlier today on nasal cannula for 2 hours or so, short of breath with exertion. No nausea. No vomiting. No diarrhea. Decreased leg swelling, has a right leg ulcer. OBJECTIVE: GENERAL: In no acute distress. VITAL SIGNS: Temperature is 98, heart rate is 69, respiratory rate is 18, and blood pressure 143/72, pulse ox 92% on 4 L nasal cannula. HEENT: Moist mucous membranes. Crowded airway. Mallampati score is IV. NECK: Supple, no JVD. LUNGS: Have crackles and scattered rhonchi. HEART: S1, S2. ABDOMEN: Soft. Nontender. No organomegaly. EXTREMITIES: No edema. Right leg has ulcer. NEUROLOGIC: Awake and alert. Follows simple commands. MEDICATIONS: She is on Brovana 50 mcg inhaled twice a day, Rocephin 1 gm q.24 hours, Coreg 12.5 mg twice a day, dobutamine IV 2 mcg/kg per minute, DuoNeb q.12 hour p.r.n. and q.6 hour [id number], lactulose 6.67 gm p.o. daily, insulin coverage, Klonopin 0.5 mg at bedtime, nasal saline two sprays each nostril twice a day p.r.n., Percocet 2.5/325 one tablet q.4 hours p.r.n., Synthroid 137 mcg p.o. before breakfast. LABORATORY DATA: Review shows blood sugar this morning 138. Microbiology, blood culture has been negative. IMPRESSION AND PLAN: Cardiomyopathy, pulmonary hypertension, severe sleep apnea syndrome, renal failure, on dialysis, morbid obesity. I spoke to patient and family at bedside, all the questions were answered. Continue BiPAP while sleeping. Keep head at 45 degrees. Gastric prophylaxis, systemic compression device to lower extremity. Cardiology and Nephrology followup. Thank you, and we will follow with you. Murphy Escalera MD
--- NOTE | 2017-09-11 02:32 | PN ---
DATE: 09/10/2017 SUBJECTIVE: The patient is seen lying in bed. The patient is awake and alert. She complains of shortness of breath. PHYSICAL EXAMINATION: GENERAL: Morbidly obese elderly lady lying in bed. VITAL SIGNS: Blood pressure 143/72, heart rate 69, respiratory rate 18, temperature 98.8. HEENT: Normocephalic, atraumatic. NECK: Supple, no JVD. LUNGS: Bilateral equal air entry, bilateral equal expansion, basilar rales. CARDIAC: S1 and S2, regular rate and rhythm, positive murmur, no rub. ABDOMEN: Obese, distended, soft, nontender, bowel sounds present. EXTREMITIES: 2+ pitting edema of the lower extremities. INTAKE AND OUTPUT: 544/750. LABORATORY DATA: No new labs. CURRENT MEDICATIONS: Ceftriaxone 1 g daily, Coreg 12.5 b.i.d., dobutamine on hold, DuoNeb, Klonopin, Percocet, Synthroid, and Venofer. ASSESSMENT/PLAN: 1. Acute kidney injury superimposed on chronic kidney disease stage IV. 2. Cardiorenal syndrome. 3. Morbid obesity. 4. Coronary artery disease, congestive heart failure, comprehensive metabolic panel and, pulmonary hypertension. 5. Chronic obstructive pulmonary disease. 6. Anemia with low iron stores. PLAN: 1. No dialysis today. 2. Labs in morning. 3. Will assess for dialysis in a.m. 4. No plans for chronic dialysis at this time. Imelda Costa MD
[2017-09-11] MEDS: Albuterol-Ipratrop 3 mg / 0.5 (3 ml) UD IH SCH ×4 (03:13→19:48)
[2017-09-11 06:38] LABS: BASO # 0.02 K/mm3 (0.0-2.0); BASO % 0.3 % (0.0-3.0); EOS # 0.2 (0.0-0.7); GRAN # 4.8 (1.4-6.5); GRAN % 80.4 % (50.0-68.0); HEMOGLOBIN 10.1 g/dL (12.0-16.0); LYMPH # 0.7 (1.2-3.4); LYMPH % 12.4 % (22.0-35.0); MEAN CELL VOLUME 99.4 fl (80.0-105.0); MEAN CORPUSCULAR HEMOGLOBIN 29.7 pg (25.0-35.0); MEAN CORPUSCULAR HGB CONC 29.9 g/dl (31.0-37.0); MEAN PLATELET VOLUME 9.6 fl (7.0-11.0); MONO # 0.2 (0.1-0.6); MONO % 3.9 % (1.0-6.0); RBC 3.4 10^6/uL (3.5-6.1); RED CELL DISTRIBUTION WIDTH 17.6 % (11.5-14.5)
[2017-09-11 06:59] LABS: CALCIUM 8.7 mg/dL (8.4-10.5); MAGNESIUM 2.2 mg/dL (1.7-2.2)
[2017-09-11] MEDS: Arformoterol 15 mcg/2 ml Inh Sol IH SCH ×2 (07:52→19:48)
--- NOTE | 2017-09-11 07:52 | CP.PCM.PN ---
Subjective - Date & Time of Evaluation Date of Evaluation: 09/11/17 Time of Evaluation: 07:00 - Subjective Subjective: Stable on 2R. No HD yesterday. V/S noted. V. Paced. On dobut. drip. PE: Lungs: rhonchi Cor.: S1S2, sys. murmur Abd.: soft Ext.: + edema, improved Neuro.: alert I/O 527/400 Labs noted: Cr.= 1.5 BC x2 NG at 5 days Objective - Vital Signs/Intake and Output Vital Signs (last 24 hours): Temp Pulse Resp BP Pulse Ox 97.6 F 70 18 127/65 97 09/11/17 05:43 09/11/17 05:43 09/11/17 05:43 09/11/17 05:43 09/11/17 05:43 Intake and Output: 09/11/17 09/11/17 06:59 18:59 Intake Total 167 Output Total 200 Balance -33 - Medications Medications: Current Medications Albuterol/Ipratropium (Duoneb 3 Mg/0.5 Mg (3 Ml) Ud) 3 ml IH Q2H PRN PRN Reason: Shortness of Breath Last Admin: 09/08/17 01:24 Dose: 3 ml Albuterol/Ipratropium (Duoneb 3 Mg/0.5 Mg (3 Ml) Ud) 3 ml IH [id number] [facility] Last Admin: 09/11/17 03:13 Dose: 3 ml Arformoterol Tartrate (Brovana) 15 mcg IH [id number] [facility] Last Admin: 09/10/17 20:37 Dose: 15 mcg Carvedilol (Coreg) 12.5 mg PO BID [facility] Last Admin: 09/10/17 17:55 Dose: 12.5 mg Clonazepam (Klonopin) 0.5 mg PO HS [facility] PRN Reason: Protocol Last Admin: 09/10/17 22:41 Dose: 0.5 mg Dobutamine HCl/Dextrose (Dobutamine/Dextrose 5% 500mg/250ml) 500 mg in 250 mls @ 6.994 mls/hr IV .Q24H [facility] PRN Reason: 2 MCG/KG/MIN Last Admin: 09/10/17 15:16 Dose: Not Given Insulin Human Lispro (Humalog Low) 0 units SC ACHS [facility] PRN Reason: Protocol Last Admin: 09/10/17 21:41 Dose: Not Given Lactulose (Enulose) 6.67 gm PO DAILY PRN PRN Reason: Constipation Last Admin: 09/10/17 17:54 Dose: 6.67 gm Levothyroxine Sodium (Synthroid) 25 mcg PO ACB [facility] Last Admin: 09/10/17 08:23 Dose: 25 mcg Levothyroxine Sodium (Synthroid) 112 mcg PO ACB [facility] Last Admin: 09/10/17 08:23 Dose: 112 mcg Oxycodone/Acetaminophen (Percocet 2.5/325 Mg Tab) 1 tab PO Q4H PRN PRN Reason: Pain, moderate (4-7) Last Admin: 09/10/17 20:34 Dose: 1 tab Sodium Chloride ([place] Nasal [place]) 0 ml NS BID PRN PRN Reason: Nasal congestion - Labs Labs: 09/11/17 05:45 09/11/17 05:45 Assessment and Plan - Assessment and Plan (Free Text) Assessment: Volume Overload Acute on chronic kidney disease Severe LVD with moderate and MR and Severe TR and PH by echo PPM COPD Diabetes Uterine cancer s/p hysterectomy Partial colectomy Hypothyroidism Plan: HD as per Dr. Costa> today Continue dobutamine drip for now Lasix use as per Renal AB As per Pulmonary, Dr. Kaplan Monitor: I/O, labs, K+, stool for OB, sats., etc Will follow.
[2017-09-11] MEDS: Insulin Lispro (humaLOG) LOW Coverage SC SCH ×5 (08:42→22:17)
[2017-09-11] MEDS: Levothyroxine 25 MCG TAB PO SCH (08:46)
[2017-09-11] MEDS: Levothyroxine 112 MCG TAB PO SCH (08:46)
[2017-09-11] MEDS: DOBUTamine 500mg/250ml D5W 500 MG/250 ML BAG IV SCH ×2 (11:27→18:41)
[2017-09-11] MEDS: Albuterol-Ipratrop 3 mg / 0.5 (3 ml) UD IH PRN (11:42)
--- NOTE | 2017-09-11 13:55 | PN ---
DATE: 09/11/2017 SUBJECTIVE: An 82-year-old white female admitted to the hospital with congestive cardiomyopathy, pacemaker, insulin-dependent diabetes mellitus, peripheral edema, right lower leg cellulitis from ruptured bullae. The patient has had a temporary dialysis catheter placement by . She has had ultrafiltration to remove fluid. Her BUN and creatinine are improved, they are down to 74 and 1.5. Potassium is 4.3. PHYSICAL EXAMINATION VITAL SIGNS: The patient is afebrile. Vital signs are stable. Chest is clear to auscultation and percussion. Decreased edema in the legs. Decreased weeping from the right lower leg. Chest shows decreased breath sounds with rhonchi bilaterally. The patient is on BiPAP at night. Her blood sugars are controlled. Plan is to continue ultrafiltration and possibly, transfer for pacemaker modification by . Shreyas Kaplan MD
--- NOTE | 2017-09-11 17:48 | PN ---
DATE: 09/11/2017 SUBJECTIVE: The patient is seen lying in bed. She appears to be in mild respiratory distress. She denies any chest tightness, palpitations. PHYSICAL EXAMINATION: GENERAL: Morbidly obese elderly lady, lying in bed, in mild respiratory distress. VITAL SIGNS: Blood pressure 126/71, heart rate 70, respiratory rate 18, temperature 98.9. HEENT: Normocephalic, atraumatic, positive pallor. NECK: Supple, no JVD. LUNGS: Bilateral equal air entry, bilateral rhonchi, basilar rales. CARDIAC: S1, S2, regular rate and rhythm, positive murmur. ABDOMEN: Obese, distended, soft, nontender, bowel sounds present. EXTREMITIES: 2+ pitting edema of the lower extremities. INTAKE AND OUTPUT: 527/400. LABORATORY DATA: WBC 6, hemoglobin 10, hematocrit 34, platelets 107. Sodium 144, potassium 4.3, chloride 104, CO2 of 33, BUN 74, creatinine 1.5, glucose 132, calcium 8.7, phosphorus 3.4 magnesium 2.2. CURRENT MEDICATIONS: Coreg 12.5 b.i.d., dobutamine 2 mcg per kilogram per minute, DuoNeb, Enulose, Humalog, Klonopin, Percocet, Synthroid. ASSESSMENT/PLAN: 1. Acute kidney injury superimposed on chronic kidney disease stage 4, cardiorenal syndrome. 2. Coronary artery disease, congestive heart failure, cardiomyopathy, decreased ejection fraction. 3. Chronic obstructive pulmonary disease, pulmonary hypertension. 4. Morbid obesity. 5. Severe anemia, low iron stores, status post 1 gm of Venofer. 5. [id number]-vneucqcgi diabetes mellitus. 6. Hypertension. PLAN: 1. Dialysis again today, ultrafiltrate 2.5 to 3 kg. Hopefully, we can remove temporary dialysis catheter after dialysis today. 2. No plans for chronic dialysis at this time. 3. May require dialysis again, because her problem is mostly cardiorenal. 4. Discussed with son at length. 5. We will discuss with PMD and Cardiology. Imelda Costa MD
--- NOTE | 2017-09-12 | PN ---
DATE: 09/11/2017 PULMONARY PROGRESS NOTE REFERRING PHYSICIAN: Shreyas Kaplan MD SUBJECTIVE: She does come back from dialysis, on BiPAP. Night was unremarkable. Overall, slowly improving. Still have a cough. No sputum production. No nausea. No vomiting. No diarrhea. Decreased leg swelling. PHYSICAL EXAMINATION GENERAL: In no acute distress. VITAL SIGNS: Temperature is 98, heart rate is 70, respiratory rate is 18, blood pressure is 126/71 and pulse oximetry is 97% on BiPAP. HEENT: Moist mucous membranes. Crowded airway. Mallampati score is I. NECK: Supple. No JVD. LUNGS: Has crackles and scattered rhonchi. HEART: S1 and S2. ABDOMEN: Soft and nontender. No organomegaly. EXTREMITIES: Does have edema. Right leg have a skin ulcer. NEUROLOGIC: Awake and alert. Follow simple commands. MEDICATIONS: Reviewed and noted. Brovana inhaled twice a day, Coreg 12.5 mg twice a day, dobutamine 2 mcg/kg/minute, DuoNeb q. 12 hours. p.r.n. and q. 6 hours. [id number], lactulose 6 grams p.o. daily, insulin coverage, Klonopin 0.5 mg at bedtime, nasal saline two sprays each nostril q.12 hours. p.r.n., Percocet 2.5/325 one tablet q. 4 hours. p.r.n., and Synthroid 137 mcg daily. LABORATORY DATA: Shows hemoglobin of 10.1, hematocrit of 33.3, WBC is 6.0 and platelet count is 107. Sodium is 144, potassium is 4.3, chloride is 104, bicarbonate is 33, BUN is 74, creatinine is 1.5, glucose is 132, calcium is 8.7, phosphorus is 3.4 and magnesium is 2.2. Microbiology: Blood culture has been negative. IMPRESSION AND PLAN: Cardiomyopathy, pulmonary hypertension, severe sleep apnea syndrome, renal failure, on dialysis, and morbid obesity. Pulmonary point of view, she is doing okay. I spoke to respiratory therapist, as requested and the patient can may use 2 liters of nasal cannula during dinner, may titrate pulse oximetry about 90%. Use bilevel positive airway pressure while sleeping, in no respiratory distress. Gastric prophylaxis. Deep venous thrombosis prophylaxis. Being followed by Nephrology and Cardiology. May discontinue dobutamine by tomorrow. Thank you and we will follow with you. Murphy Escalera MD
[2017-09-12] MEDS: Albuterol-Ipratrop 3 mg / 0.5 (3 ml) UD IH SCH ×4 (01:47→20:27)
[2017-09-12] MEDS: Arformoterol 15 mcg/2 ml Inh Sol IH SCH ×2 (07:47→20:27)
--- NOTE | 2017-09-12 07:57 | CP.PCM.PN ---
Subjective - Date & Time of Evaluation Date of Evaluation: 09/12/17 Time of Evaluation: 07:00 - Subjective Subjective: Stable on 2R. S/P HD yesterday > 3 Lt taken off V/S noted. V. Paced. On dobut. drip. PE: Lungs: rhonchi Cor.: S1S2, sys. murmur Abd.: soft Ext.: + edema, improved Neuro.: alert Labs noted: Cr.= 1.5 BC x2 NG at 5 days Objective - Vital Signs/Intake and Output Vital Signs (last 24 hours): Temp Pulse Resp BP Pulse Ox 98.7 F 71 21 107/49 L 97 09/12/17 06:00 09/12/17 06:00 09/12/17 06:00 09/12/17 06:00 09/12/17 06:00 Intake and Output: 09/12/17 09/12/17 06:59 18:59 Intake Total 300 175 Output Total 300 100 Balance 0 75 - Medications Medications: Current Medications Albuterol/Ipratropium (Duoneb 3 Mg/0.5 Mg (3 Ml) Ud) 3 ml IH Q2H PRN PRN Reason: Shortness of Breath Last Admin: 09/11/17 11:42 Dose: 3 ml Albuterol/Ipratropium (Duoneb 3 Mg/0.5 Mg (3 Ml) Ud) 3 ml IH [id number] [facility] Last Admin: 09/12/17 07:47 Dose: 3 ml Arformoterol Tartrate (Brovana) 15 mcg IH [id number] [facility] Last Admin: 09/12/17 07:47 Dose: 15 mcg Carvedilol (Coreg) 12.5 mg PO BID [facility] Last Admin: 09/11/17 18:42 Dose: 12.5 mg Clonazepam (Klonopin) 0.5 mg PO HS [facility] PRN Reason: Protocol Last Admin: 09/11/17 22:15 Dose: 0.5 mg Dobutamine HCl/Dextrose (Dobutamine/Dextrose 5% 500mg/250ml) 500 mg in 250 mls @ 6.994 mls/hr IV .Q24H [facility] PRN Reason: 2 MCG/KG/MIN Last Admin: 09/11/17 18:41 Dose: Not Given Insulin Human Lispro (Humalog Low) 0 units SC ACHS [facility] PRN Reason: Protocol Last Admin: 09/11/17 22:17 Dose: Not Given Lactulose (Enulose) 6.67 gm PO DAILY PRN PRN Reason: Constipation Last Admin: 09/10/17 17:54 Dose: 6.67 gm Levothyroxine Sodium (Synthroid) 25 mcg PO ACB [facility] Last Admin: 09/11/17 08:46 Dose: 25 mcg Levothyroxine Sodium (Synthroid) 112 mcg PO ACB [facility] Last Admin: 09/11/17 08:46 Dose: 112 mcg Oxycodone/Acetaminophen (Percocet 2.5/325 Mg Tab) 1 tab PO Q4H PRN PRN Reason: Pain, moderate (4-7) Last Admin: 09/10/17 20:34 Dose: 1 tab Sodium Chloride ([place] Nasal [place]) 0 ml NS BID PRN PRN Reason: Nasal congestion - Labs Labs: 09/11/17 05:45 09/11/17 05:45 Assessment and Plan - Assessment and Plan (Free Text) Assessment: Volume Overload Acute on chronic kidney disease Severe LVD with moderate and MR and Severe TR and PH by echo PPM COPD Diabetes Uterine cancer s/p hysterectomy Partial colectomy Hypothyroidism Plan: HD as per Dr. Costa. Continue dobutamine drip for now. Lasix use as per Dr. Costa. As per Pulmonary, Dr. Kaplan Monitor: I/O, labs, K+, stool for OB, sats., etc Will follow.
[2017-09-12] MEDS: Insulin Lispro (humaLOG) LOW Coverage SC SCH ×4 (08:24→21:51)
[2017-09-12] MEDS: Levothyroxine 112 MCG TAB PO SCH (08:26)
[2017-09-12] MEDS: Levothyroxine 25 MCG TAB PO SCH (08:26)
[2017-09-12 12:51] LABS: HEMOGLOBIN 10.2 g/dL (12.0-16.0); MEAN CELL VOLUME 99.1 fl (80.0-105.0); MEAN CORPUSCULAR HEMOGLOBIN 29.8 pg (25.0-35.0); MEAN CORPUSCULAR HGB CONC 30.1 g/dl (31.0-37.0); MEAN PLATELET VOLUME 9.5 fl (7.0-11.0); RBC 3.42 10^6/uL (3.5-6.1); RED CELL DISTRIBUTION WIDTH 17.5 % (11.5-14.5); WHITE BLOOD COUNT 6.4 10^3/ul (4.5-11.0)
[2017-09-12 13:02] LABS: CALCIUM 8.5 mg/dL (8.4-10.5)
[2017-09-12] MEDS ORDERED: POLYETHYLENE GLYCOL 3350 17 GM/Dose PACKET PO ONE (13:53)
--- NOTE | 2017-09-12 15:42 | PN ---
DATE: 09/12/2017 SUBJECTIVE: An 81-year-old white female with congestive cardiomyopathy, admitted to the hospital with renal failure, congestive heart failure. The patient had several treatments with ultrafiltration. Her BUN and creatinine have been improved to 74 and 1.5. She is still somewhat short of breath and somewhat coughing. Her chest shows decreased breath sounds bilaterally. She is on BiPAP. PHYSICAL EXAMINATION: VITAL SIGNS: Stable. EXTREMITIES: Without cyanosis, clubbing or edema. The edema has resolved. Her cellulitic changes are improving. Plan is to continue ultrafiltration. We will discuss with Cardiology as far as sending the patient to [facility] for a change for additional for her pacemaker. Shreyas Kaplan MD
--- NOTE | 2017-09-12 18:19 | PN ---
DATE: 09/12/2017 SUBJECTIVE: Patient is seen lying in bed. She is awake. She is alert. She complains of abdominal pain. She complains of nausea. She complains of constipation. PHYSICAL EXAMINATION: GENERAL: Obese elderly lady, lying in bed. VITAL SIGNS: Blood pressure 120/64, heart rate 70, respiratory rate 18, temperature 98.8. HEENT: Normocephalic, atraumatic, positive pallor. NECK: Supple, no JVD. LUNGS: Bilateral equal air entry, no rales. CARDIAC: S1 and S2, regular rate and rhythm, no murmur, no rub. ABDOMEN: Obese, distended, soft, nontender, bowel sounds present. EXTREMITIES: 1+ pitting edema of the lower extremities. INTAKE AND OUTPUT: Not charted. LABORATORY DATA: WBC 6.4, hemoglobin 10, hematocrit 34, platelets 190. Sodium 140, potassium 4.3, chloride is 100, CO2 of 30, BUN 53, creatinine 1.7, glucose 131, calcium 8.5, phosphorus 3.4. CURRENT MEDICATIONS: Brovana, Coreg 12.5 b.i.d., dobutamine not given?, DuoNeb, Enulose, Humalog, clonazepam, Percocet, and Synthroid. ASSESSMENT: 1. Acute kidney injury superimposed on chronic kidney disease stage IV. 2. Cardiorenal syndrome. 3. Decompensated congestive heart failure/cardiomyopathy/decreased ejection fraction/pulmonary hypertension. 4. Morbid obesity. 5. Sleep apnea. 6. Cbo-vsgompy-dhyqgsvfq diabetes mellitus. 7. Hypertension. 8. Anemia of chronic disease. 9. Severe constipation. PLAN: 1. Change lactulose to daily. 2. MiraLax 17 g today. 3. No dialysis today. 4. Monitor daily labs. 5. Restart dobutamine? 6. Continue antihypertensives. 7. Continue glucose monitoring. Imelda Costa MD
[2017-09-13] MEDS: Albuterol-Ipratrop 3 mg / 0.5 (3 ml) UD IH PRN ×2 (00:19→17:56)
[2017-09-13] MEDS: Albuterol-Ipratrop 3 mg / 0.5 (3 ml) UD IH SCH ×4 (01:18→19:58)
--- NOTE | 2017-09-13 03:56 | PN ---
DATE: 09/12/2017 PULMONARY PROGRESS NOTE REFERRING PHYSICIAN: Shreyas Kaplan MD SUBJECTIVE: She is lying in the bed, head at 45 degrees, on nasal cannula oxygen, son is at the bedside. Night was unremarkable. Tolerated BiPAP well overnight. Breathing is better. No nausea, no vomiting, no diarrhea. Complaining of constipation, decreased leg swelling, has a right leg ulcer. OBJECTIVE: GENERAL: In no acute distress. VITAL SIGNS: Temperature is 99, heart rate is 82, respiratory rate is 24, blood pressure is 126/67, and pulse oximetry is 93% on nasal cannula. HEENT: Moist mucous membranes. Crowded airway. Mallampati score is 4. NECK: Supple. No JVD. LUNGS: Have a few crackles. HEART: S1, S2. ABDOMEN: Soft, nontender. No organomegaly. EXTREMITIES: Has a right leg nonhealing ulcer. NEUROLOGIC: Awake, alert, and follows simple command. MEDICATIONS: She is on Brovana inhaled twice a day, Coreg 12.5 mg twice a day, dobutamine 2 mcg/kg/minute, DuoNeb q.2 hours p.r.n., DuoNeb q.6 hours [id number], lactulose p.o. daily, insulin coverage, Klonopin 0.5 mg at bedtime, Percocet 5/325 one tablet q.4 hours p.r.n., Synthroid 137 mcg a.c.b. LABORATORY DATA: Shows hemoglobin 10.2, hematocrit 33.9, WBC 6.4, platelet is 90. Sodium 140, potassium 4.3, chloride 100, bicarbonate 30, BUN 53, creatinine 1.7, glucose 131, calcium 8.5, phosphorus 3.4. Microbiology, blood cultures have been negative. IMPRESSION AND PLAN: Cardiomyopathy, pulmonary hypertension, severe sleep apnea syndrome, renal failure, dialysis dependent, morbid obesity, right leg ulcer. I spoke to the patient's son at the bedside, all of their questions were answered, I spoke to the nursing staff too, already receiving lactulose for constipation. Pulmonary point of view, encourage BiPAP use, keep head at 45 degrees, bronchodilator. We will discontinue dobutamine. Thank you and we will follow with you. Murphy Escalera MD
[2017-09-13 07:33] LABS: ALB/GLOB RATIO 0.9 (1.1-1.8); ALBUMIN 2.8 g/dL (3.0-4.8); CALCIUM 8.5 mg/dL (8.4-10.5)
[2017-09-13] MEDS: Arformoterol 15 mcg/2 ml Inh Sol IH SCH ×2 (08:08→19:58)
[2017-09-13] MEDS: Insulin Lispro (humaLOG) LOW Coverage SC SCH ×4 (08:25→21:53)
[2017-09-13] MEDS: Levothyroxine 25 MCG TAB PO SCH (09:04)
[2017-09-13] MEDS: Levothyroxine 112 MCG TAB PO SCH (09:04)
--- NOTE | 2017-09-13 10:49 | PN ---
DATE: SUBJECTIVE: An 82-year-old white female admitted to the hospital with acute renal failure, congestive cardiomyopathy, hypertension, edema, and cellulitis of right lower extremity. PHYSICAL EXAMINATION: VITAL SIGNS: The patient is afebrile. Vital signs are stable. She is status post several treatments of ultrafiltration. BUN and creatinine are still elevated at 16 and , potassium is 4.2, blood sugar is controlled at 105. Hemoglobin is 10.2. The patient is still having cough congestion and shortness of breath. She is on BiPAP at night and oxygen during the day. She has done physical therapy. She is being evaluated for possible third lead for her pacemaker by Dr. Mondragon. Plan is to continue treatment of her heart failure, possible continue ultrafiltration and treatment of underlying PICC line inserted. Shreyas Kaplan MD
--- NOTE | 2017-09-13 14:45 | PN ---
DATE: 09/13/2017 SUBJECTIVE: The patient is seen lying in the bed on Telemetry. She denies any dyspnea at present. Her latest BUN and creatinine were 60 and 2.2. She did not undergo dialysis yesterday. CURRENT MEDICATIONS: Include Brovana, carvedilol 12.5 mg b.i.d., albuterol inhaler, lactulose, insulin coverage, Klonopin, Percocet, and Synthroid. PHYSICAL EXAMINATION: GENERAL: She is an obese elderly woman. VITAL SIGNS: Her blood pressure is 106/58 with pulse of 70 with ventricular pacing, respiratory rate is 16. She is afebrile. HEENT: No JVD. CHEST: Diminished breath sounds at the bases. HEART: PMI displaced laterally with a systolic murmur present at the base as well as at the apex. ABDOMEN: Soft, obese, and nontender. Normoactive bowel sounds. EXTREMITIES: Both legs are in compression stockings. 1+ edema is noted. DIAGNOSTIC DATA: Potassium is 4.2, BUN and creatinine are 60 and 2.2. IMPRESSION: 1. Volume overload secondary to multitude of factors including multivalvular heart disease, left ventricular dysfunction, and renal insufficiency. 2. Moderate aortic stenosis. 3. Moderate mitral regurgitation. 4. Moderately severe left ventricular systolic dysfunction. 5. Status post permanent pacemaker implant. RECOMMENDATIONS: Continued management issues remain problematic. Plans are to discontinue dialysis as per Dr. Costa, as her renal function has improved. She will require resumption of higher dose diuretic therapy, which will likely worsen her prerenal azotemia. Her LV systolic dysfunction remains a problem, as is her aortic stenosis, which is only likely to worsen as time progresses. Chronic inotropic therapy does not appear to be a sensible option and her LV systolic function is not likely to improve significantly should she undergo even percutaneous aortic valve replacement. Discussion has been held with her regarding upgrade of her pacemaker to a biventricular device. These plans are on hold pending stabilization of her other problems. We will continue to follow and make further recommendations as appropriate. Greg Mcclure MD J[facility]
--- NOTE | 2017-09-13 15:59 | RAD ---
HISTORY: shortness of breath COMPARISON: 09/04/2017 FINDINGS: LUNGS: Pulmonary vascular congestion PLEURA: No significant pleural effusion identified, no pneumothorax apparent. CARDIOVASCULAR: Cardiomegaly. Position/ configuration of pacemaker Satisfactory. Venous access catheter in satisfactory position. OSSEOUS STRUCTURES: No significant abnormalities. VISUALIZED UPPER ABDOMEN: Normal. OTHER FINDINGS: None. IMPRESSION: Cardiomegaly, pulmonary vascular plethora compatible with CHF.
--- NOTE | 2017-09-13 19:05 | PN ---
DATE: 09/13/2017 SUBJECTIVE: The patient is seen lying in bed. She is awake. She is alert. She reports she is feeling somewhat better today. Her breathing is better. She had a good night sleep. She has not moved her bowels. PHYSICAL EXAMINATION: GENERAL: Morbidly obese elderly lady lying in bed. VITAL SIGNS: Blood pressure 106/58, heart rate 70, respiratory rate 24, temperature 97.2. HEENT: Normocephalic, atraumatic, positive pallor. NECK: Supple, no JVD. LUNGS: Bilateral equal air entry, bilateral equal expansion, no rales appreciated. CARDIAC: S1 and S2, regular rate and rhythm, positive murmur. ABDOMEN: Obese, distended, soft, nontender, bowel sounds present. EXTREMITIES: 2+ pitting edema of the lower extremities. INTAKE AND OUTPUT: 715/250. LABORATORY DATA: WBC 6, hemoglobin 10, hematocrit 34, platelets 90. Sodium 139, potassium 4.2, chloride 101, CO2 31, BUN 60, creatinine 2.2, glucose 105, calcium 8.5, albumin 2.8, corrected calcium is 9.3. PTH 164. CURRENT MEDICATIONS: Brovana, Coreg 12.5 b.i.d., DuoNeb, Enulose, Humalog, Klonopin, Percocet, Synthroid, and dobutamine on hold. ASSESSMENT/PLAN: 1. Acute kidney injury superimposed on chronic kidney disease stage IV. 2. Coronary artery disease, congestive heart failure, cardiomyopathy, pulmonary hypertension. 3. Morbid obesity. 4. Chronic obstructive pulmonary disease/obstructive sleep apnea. 5. Anemia of multifactorial etiology. 6. Mfk-gozunwc-aayedqmnd diabetes mellitus. 7. Hypertension. PLAN: Case is discussed at length with son, patient. Case is discussed with Dr. Mcclure. No indication for further dialysis at this time. The patient has severe cardiomyopathy, pulmonary hypertension, moderate . The patient is fairly volume dependent. Currently, her kidney function is deteriorating most likely because of aggressive ultrafiltration. Therefore will not plan to do any further dialysis. If renal function appears to remain stable, we will plan to remove temporary dialysis catheter tomorrow. The patient to be likely not improve. Her renal function may continue to worsen. She may need renal replacement therapy in the future again. Past medical, surgical history, family history, social history, review of systems all reviewed and unchanged other than as mentioned in history of presenting illness. Imelda Costa MD
[2017-09-14] MEDS: Albuterol-Ipratrop 3 mg / 0.5 (3 ml) UD IH PRN (00:15)
[2017-09-14] MEDS: Albuterol-Ipratrop 3 mg / 0.5 (3 ml) UD IH SCH ×4 (01:17→20:02)
--- NOTE | 2017-09-14 04:44 | PN ---
DATE: 09/13/2017 PULMONARY PROGRESS NOTE REFERRING PHYSICIAN: Shreyas Kaplan MD SUBJECTIVE: She is lying in the bed, head at 45 degrees, on supplemental oxygen, feels okay. Still has some cough, shortness of breath. No chest pain. No nausea. No vomiting. No diarrhea. Still has leg swelling. PHYSICAL EXAMINATION: GENERAL: In no acute distress. VITAL SIGNS: Temperature is 98, heart rate is 78, respiratory rate is 18, blood pressure is 119/42, and pulse oximetry is 90% on nasal cannula. HEENT: Moist mucous membranes. Crowded airway. NECK: Short and thick neck. LUNGS: Have a few scattered rhonchi and crackles. HEART: S1 and S2. ABDOMEN: Obese, soft and nontender. EXTREMITIES: Does have edema. Right leg skin ulcer. NEUROLOGIC: Awake, alert, follows simple commands. MEDICATIONS: She is on Brovana inhaled twice a day, Coreg 12.5 mg twice a day, DuoNeb q.2 hours, DuoNeb q.6 hours [id number], lactulose 6.67 gm daily, insulin coverage, clonazepam 0.5 mg at bedtime, Lasix 80 mg IV twice a day, nasal saline twice a day, Percocet 2.5/325 one tablet q.4 hours p.r.n. Synthroid 137 mcg a.c.b. LABORATORY DATA: Reviewed. Sodium 139, potassium 4.2, chloride 101, bicarbonate 31, BUN 60, creatinine 2.2, glucose 105, calcium is 8.5, AST 19, ALT 24, alkaline phosphatase is 26, albumin is 2.6. Microbiology, blood culture, there is no growth. Chest x-day done today shows cardiomegaly, pulmonary vascular congestion. IMPRESSION AND PLAN: 1. Cardiomyopathy. 2. Pulmonary hypertension. 3. Sleep apnea syndrome. 4. Renal failure. 5. Dialysis dependent. 6. Morbid obesity. 7. Leg ulcer. PLAN. Pulmonary point of view, doing okay. 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 Thank you and we will follow with you. Murphy Escalera MD [facility] # [phone]
[2017-09-14 07:34] LABS: ALB/GLOB RATIO 0.9 (1.1-1.8); ALBUMIN 2.9 g/dL (3.0-4.8); CALCIUM 8.3 mg/dL (8.4-10.5)
[2017-09-14] MEDS: Arformoterol 15 mcg/2 ml Inh Sol IH SCH ×2 (07:45→20:02)
[2017-09-14] MEDS: Insulin Lispro (humaLOG) LOW Coverage SC SCH ×4 (08:07→21:29)
[2017-09-14] MEDS: Levothyroxine 112 MCG TAB PO SCH (08:18)
[2017-09-14] MEDS: Levothyroxine 25 MCG TAB PO SCH (08:18)
--- NOTE | 2017-09-14 08:59 | CP.PCM.PN ---
Subjective - Date & Time of Evaluation Date of Evaluation: 09/14/17 Time of Evaluation: 07:00 - Subjective Subjective: Stable on 2R. No CP. Still dyspneic. V/S noted. V. Paced. PE: Lungs: rhonchi Cor.: S1S2, sys. murmur Abd.: soft Ext.: + edema, improved Neuro.: alert Labs noted: Cr.= 2.9 BC x2 NG at 5 days CXR 09/13: CHF Objective - Vital Signs/Intake and Output Vital Signs (last 24 hours): Temp Pulse Resp BP Pulse Ox 98.1 F 70 24 93/56 L 98 09/14/17 06:00 09/14/17 06:00 09/14/17 06:00 09/14/17 06:00 09/14/17 00:01 Intake and Output: 09/14/17 09/14/17 06:59 18:59 Intake Total 480 Output Total 175 Balance 305 - Medications Medications: Current Medications Albuterol/Ipratropium (Duoneb 3 Mg/0.5 Mg (3 Ml) Ud) 3 ml IH Q2H PRN PRN Reason: Shortness of Breath Last Admin: 09/14/17 00:15 Dose: 3 ml Albuterol/Ipratropium (Duoneb 3 Mg/0.5 Mg (3 Ml) Ud) 3 ml IH [id number] [facility] Last Admin: 09/14/17 07:45 Dose: 3 ml Arformoterol Tartrate (Brovana) 15 mcg IH [id number] [facility] Last Admin: 09/14/17 07:45 Dose: 15 mcg Carvedilol (Coreg) 12.5 mg PO BID [facility] Last Admin: 09/13/17 17:42 Dose: 12.5 mg Clonazepam (Klonopin) 0.5 mg PO HS [facility] PRN Reason: Protocol Last Admin: 09/13/17 21:46 Dose: 0.5 mg Furosemide (Lasix) 80 mg IV BID [facility] Last Admin: 09/13/17 17:42 Dose: 80 mg Insulin Human Lispro (Humalog Low) 0 units SC ACHS [facility] PRN Reason: Protocol Last Admin: 09/14/17 08:07 Dose: Not Given Lactulose (Enulose) 6.67 gm PO DAILY [facility] Last Admin: 09/13/17 09:13 Dose: 6.67 gm Levothyroxine Sodium (Synthroid) 25 mcg PO ACB [facility] Last Admin: 09/14/17 08:18 Dose: 25 mcg Levothyroxine Sodium (Synthroid) 112 mcg PO ACB ERIBERT[facility] Last Admin: 09/14/17 08:18 Dose: 112 mcg Oxycodone/Acetaminophen (Percocet 2.5/325 Mg Tab) 1 tab PO Q4H PRN PRN Reason: Pain, moderate (4-7) Last Admin: 09/10/17 20:34 Dose: 1 tab Sodium Chloride ([place] Nasal [place]) 0 ml NS BID PRN PRN Reason: Nasal congestion - Labs Labs: 09/12/17 12:30 09/14/17 06:00 Assessment and Plan - Assessment and Plan (Free Text) Assessment: Volume Overload Acute on chronic kidney disease Severe LVD with moderate and MR and Severe TR and PH by echo PPM COPD Diabetes Uterine cancer s/p hysterectomy Partial colectomy Hypothyroidism Plan: HD as per Dr. Costa. She probably requires additional HD now. Lasix use as per Dr. Costa. As per Pulmonary, Dr. Kaplan Monitor: I/O, labs, K+, stool for OB, sats., etc Will follow.
[2017-09-14 15:08] LABS: MAGNESIUM 2.3 mg/dL (1.7-2.2)
[2017-09-14 15:20] LABS: EOS % 0.4 % (1.5-5.0); GRAN # 1.75 (1.4-6.5); GRAN % 76.5 % (50.0-68.0); HEMOGLOBIN 9.9 g/dL (12.0-16.0); LYMPH # 0.5 (1.2-3.4); LYMPH % 20.5 % (22.0-35.0); MEAN CELL VOLUME 102.4 fl (80.0-105.0); MEAN CORPUSCULAR HEMOGLOBIN 30.1 pg (25.0-35.0); MEAN CORPUSCULAR HGB CONC 29.4 g/dl (31.0-37.0); MEAN PLATELET VOLUME 10.6 fl (7.0-11.0); MONO # 0.1 (0.1-0.6); MONO % 2.6 % (1.0-6.0); RBC 3.29 10^6/uL (3.5-6.1); RED CELL DISTRIBUTION WIDTH 17.6 % (11.5-14.5)
[2017-09-14 15:22] LABS: WHITE BLOOD COUNT 2.3 10^3/ul (4.5-11.0)
[2017-09-14] MEDS ORDERED: Darbepoetin Alfa 60 mcg/ml Inj IVP ONE (16:15)
[2017-09-15] MEDS: Albuterol-Ipratrop 3 mg / 0.5 (3 ml) UD IH SCH ×4 (01:20→19:47)
--- NOTE | 2017-09-15 01:55 | CP.PCM.PCO ---
Assessment & Plan - Assessment and Plan (Free Text) Assessment: Pancytopenia likely related to uremia. iron deficiency , s/p 4 doses of IV iron. Will monitor blood counts . Full consult note to follow.
--- NOTE | 2017-09-15 02:12 | PN ---
DATE: 09/14/2017 REFERRING PHYSICIAN: Shreyas Kaplan MD. SUBJECTIVE: The patient is seen and evaluated in dialysis, just finished off her dialysis, on BiPAP. Night was unremarkable. Still short of breath, not much cough. No vomiting, no hematuria, no diarrhea. Decreased leg swelling. OBJECTIVE: GENERAL: No acute distress. VITAL SIGNS: Temperature is 98, heart rate 70, respiratory rate is 20, blood pressure 96/44, pulse ox is 98% on BiPAP with 40% oxygen. HEENT: Moist mucous membranes. Crowded airway. NECK: Short thick neck. LUNGS: Have crackles at the bases. Scattered rhonchi. HEART: S1, S2. ABDOMEN: Soft, nontender, nondistended. EXTREMITIES: Does have edema, right skin ulcer on the lower extremity. NEUROLOGIC: Awake and follows simple commands. MEDICATIONS: She is on Brovana inhaled twice a day, Coreg 12.5 mg twice a day, DuoNeb q.2h. p.r.n. q.6h. [id number], lactulose 6.6 gm p.o. daily, insulin coverage, Klonopin 0.5 mg at bedtime, Lasix 80 mg IV twice a day, nasal saline 2 sprays b.i.d. p.r.n., Percocet 2.5/325 one tab q.4h. p.r.n., Synthroid 137 mcg a.c.b. LABORATORY DATA: Shows hemoglobin 9.9, hematocrit 33.7, WBC 2.3, platelet is 90. Sodium 140, potassium 4.7, chloride 100, bicarbonate 29, BUN 75, creatinine 2.9, glucose 109, calcium is 8.3, phosphorus 5.7, magnesium 2.3, AST 21, ALT 25, alk phos is 47, albumin 2.9. Microbiology, blood culture, there is no growth. Chest x-ray done yesterday shows cardiomegaly pulmonary vascular congestion. IMPRESSION AND PLAN: Cardiomyopathy, pulmonary hypertension, sleep apnea syndrome, renal failure, presently on dialysis, morbid obesity, leg ulcers. From pulmonary point we will continue BiPAP while sleeping. Keep head 45 degrees. Bronchodilator, being followed by Cardiology and Nephrology. Followup labs in the morning. Continue BiPAP on p.r.n. basis. Thank you and we will follow with you. Murphy Escalera MD [facility] # [id number]
[2017-09-15 07:13] LABS: BASO # 0.01 K/mm3 (0.0-2.0); BASO % 0.2 % (0.0-3.0); GRAN # 3.85 (1.4-6.5); GRAN % 78.5 % (50.0-68.0); HEMOGLOBIN 10.3 g/dL (12.0-16.0); LYMPH # 0.6 (1.2-3.4); LYMPH % 12.9 % (22.0-35.0); MEAN CELL VOLUME 101.7 fl (80.0-105.0); MEAN CORPUSCULAR HEMOGLOBIN 29.7 pg (25.0-35.0); MEAN CORPUSCULAR HGB CONC 29.2 g/dl (31.0-37.0); MEAN PLATELET VOLUME 10.7 fl (7.0-11.0); MONO # 0.4 (0.1-0.6); MONO % 8.4 % (1.0-6.0); RBC 3.47 10^6/uL (3.5-6.1); RED CELL DISTRIBUTION WIDTH 17.7 % (11.5-14.5); WHITE BLOOD COUNT 4.9 10^3/ul (4.5-11.0)
[2017-09-15 07:44] LABS: ALB/GLOB RATIO 0.9 (1.1-1.8); CALCIUM 8.2 mg/dL (8.4-10.5)
--- NOTE | 2017-09-15 08:05 | CP.PCM.PN ---
Subjective - Date & Time of Evaluation Date of Evaluation: 09/15/17 Time of Evaluation: 07:00 - Subjective Subjective: Stable on 2R. No CP. Still dyspneic. + HD yesterday. V/S noted. V. Paced. PE: Lungs: rhonchi Cor.: S1S2, sys. murmur Abd.: soft Ext.: + edema, improved Neuro.: alert I/O= 220/450 recorded/ HD -2500 reported Labs noted: Cr.= 2.8 BC x2 NG at 5 days CXR 09/13: CHF Objective - Vital Signs/Intake and Output Vital Signs (last 24 hours): Temp Pulse Resp BP Pulse Ox 97.9 F 74 19 93/45 L 92 L 09/15/17 06:00 09/15/17 06:14 09/15/17 06:00 09/15/17 06:00 09/15/17 06:00 Intake and Output: 09/15/17 09/15/17 06:59 18:59 Intake Total 220 Output Total 450 Balance -230 - Medications Medications: Current Medications Albuterol/Ipratropium (Duoneb 3 Mg/0.5 Mg (3 Ml) Ud) 3 ml IH Q2H PRN PRN Reason: Shortness of Breath Last Admin: 09/14/17 00:15 Dose: 3 ml Albuterol/Ipratropium (Duoneb 3 Mg/0.5 Mg (3 Ml) Ud) 3 ml IH [id number] [facility] Last Admin: 09/15/17 01:20 Dose: 3 ml Arformoterol Tartrate (Brovana) 15 mcg IH [id number] [facility] Last Admin: 09/14/17 20:02 Dose: 15 mcg Carvedilol (Coreg) 12.5 mg PO BID [facility] Last Admin: 09/14/17 19:00 Dose: Not Given Clonazepam (Klonopin) 0.5 mg PO HS [facility] PRN Reason: Protocol Last Admin: 09/14/17 21:01 Dose: 0.5 mg Furosemide (Lasix) 80 mg IV BID [facility] Last Admin: 09/14/17 19:00 Dose: Not Given Insulin Human Lispro (Humalog Low) 0 units SC ACHS [facility] PRN Reason: Protocol Last Admin: 09/14/17 21:29 Dose: Not Given Lactulose (Enulose) 6.67 gm PO DAILY [facility] Last Admin: 09/14/17 10:16 Dose: 6.67 gm Levothyroxine Sodium (Synthroid) 25 mcg PO ACB [facility]RI[facility] Last Admin: 09/14/17 08:18 Dose: 25 mcg Levothyroxine Sodium (Synthroid) 112 mcg PO ACB [facility] Last Admin: 09/14/17 08:18 Dose: 112 mcg Oxycodone/Acetaminophen (Percocet 2.5/325 Mg Tab) 1 tab PO Q4H PRN PRN Reason: Pain, moderate (4-7) Last Admin: 09/10/17 20:34 Dose: 1 tab Sodium Chloride ([place] Nasal [place]) 0 ml NS BID PRN PRN Reason: Nasal congestion - Labs Labs: 09/15/17 06:00 09/15/17 06:00 Assessment and Plan - Assessment and Plan (Free Text) Assessment: Volume Overload Acute on chronic kidney disease Severe LVD with moderate and MR and Severe TR and PH by echo PPM COPD Diabetes Uterine cancer s/p hysterectomy Partial colectomy Hypothyroidism Plan: HD as per Dr. Costa. Lasix use as per Dr. Costa. As per Pulmonary, Dr. Kaplan Monitor: I/O, labs, K+, stool for OB, sats., etc Will follow.
[2017-09-15] MEDS: Arformoterol 15 mcg/2 ml Inh Sol IH SCH ×2 (08:08→19:47)
[2017-09-15] MEDS: Insulin Lispro (humaLOG) LOW Coverage SC SCH ×4 (08:28→21:36)
[2017-09-15] MEDS: Levothyroxine 25 MCG TAB PO SCH (08:31)
[2017-09-15] MEDS: Levothyroxine 112 MCG TAB PO SCH (08:31)
--- NOTE | 2017-09-15 08:51 | PN ---
DATE: 09/14/2017 SUBJECTIVE: The patient is seen lying in bed. She is lethargic. She is on BiPAP. Events are discussed with nursing staff. The patient was very lethargic. She has been hypoxic. She has been asking for BiPAP. She refused to get out of bed for physical therapy. She has not had a bowel movement. PHYSICAL EXAMINATION: GENERAL: Morbidly obese, elderly lady lying in bed. VITAL SIGNS: Blood pressure 104/58, heart rate 70, respiratory rate 24, and temperature 98.3. HEENT: Normocephalic, atraumatic, positive pallor. NECK: Supple, no JVD. LUNGS: Bilateral basilar rales, bilateral rhonchi. CARDIAC: S1 and S2, regular rate and rhythm, positive murmur, no rub. ABDOMEN: Obese, distended, soft, nontender, bowel sounds present. EXTREMITIES: 2+ pitting edema of the lower extremities. INTAKE AND OUTPUT: 480/225. LABORATORY DATA: Sodium 140, potassium 4.7, chloride 100, CO2 of 29, BUN 75, creatinine 2.9, glucose 109, calcium 8.3, AST 21, ALT 25. Chest x-ray from yesterday, cardiomegaly, pulmonary vascular congestion compatible with CHF. CURRENT MEDICATIONS: Brovana, Coreg 12.5 b.i.d., DuoNeb, Enulose, insulin, clonazepam, Lasix 80 IV q. 12, oxycodone, Synthroid. ASSESSMENT AND PLAN: 1. Acute kidney injury superimposed on chronic kidney disease stage 4, worsening renal parameters again. 2. Cardiorenal syndrome. 3. Superimposed acute tubular necrosis ? secondary to hypotension. 4. Morbid obesity. 5. Cdg-kkzvmab-jlvdbamfy diabetes mellitus. 6. Coronary artery disease, aortic stenosis, pulmonary hypertension. PLAN: Case discussed with son at length. The patient will likely require chronic dialysis. The patient is lethargic and obtunded today. This could be because of uremia, unclear. We will arrange for dialysis again today. We will reassess her mental status in a.m. The patient's son will discuss possibility of chronic dialysis with the patient. She may not agree. Case is discussed with Cardiology. Overall clinical status is poor. The patient is mostly homebound. She is not looking forward to going out three times a week for dialysis. PMSHx/FHx/ShX/ROS all reviewed Imelda Costa MD MTDVicky
--- NOTE | 2017-09-15 08:52 | PN ---
DATE: 09/14/2017 SUBJECTIVE: This is an 82-year-old white female admitted to the hospital with renal failure and congestive cardiomyopathy. The patient has had some ultrafiltration. She is also now started back on diuretics. His BUN and creatine had dropped to 75 and 2.9. The patient was seen in consultation by Dr. Baird; however, does not feel that the patient should be transferred for additional third wire for her pacemaker. Plan to continue diuresis and physical therapy and occupational therapy and also, CPAP. The patient is still lethargic, using BiPAP during the day and night. She still has morbid obesity and less edema, improved cellulitic changes on the right lower extremity, but still has not started on physical therapy or occupational therapy. Shreyas Kaplan MD
--- NOTE | 2017-09-15 10:44 | PN ---
DATE: SUBJECTIVE: An 82-year-old white female, admitted to the hospital with congestive heart failure, acute renal failure, congestive cardiomyopathy, insulin dependent diabetes mellitus, morbid obesity, . The patient is somewhat improved today after 3-1/2 hours of ultrafiltration yesterday removing 3 kg of fluid. She was slightly leukopenic, but she has got 3 doses of intervenous iron. Her hemoglobin of 10.4, white count is up to 4.9, her platelet count has . She was seen in consultation with Dr. Vides. PHYSICAL EXAMINATION: CHEST: Did show some rales and rhonchi and decreased breath sounds at both bases. HEART: Reveals regular sinus rhythm with positive S3, positive S4. ABDOMEN: Obese, but benign. EXTREMITIES: Show less edema. The patient is more awake and alert. She is using BiPAP less. PLAN: To continue cardiac report for decompensated heart failure. Continue ultrafiltration as needed. Followup BUN and creatinine now at 52 and 2.8. Physical therapy, occupational therapy. The patient did have bowel movement. Shreyas Kaplan MD
--- NOTE | 2017-09-15 18:31 | PN ---
DATE: 09/15/2017 SUBJECTIVE: The patient is seen lying in bed. She is arousable. She is on BiPAP. As per the nursing staff, the patient has been very hypotensive. She has been hypoxic. Any attempt to move her or make her sit results in desaturation. She is not eating. PHYSICAL EXAMINATION: GENERAL: Obese elderly lady lying in bed. VITAL SIGNS: Blood pressure 92/56, heart rate 70, respiratory rate 20, temperature 99.2, T-max is 99.2. HEENT: Normocephalic, atraumatic, positive pallor. NECK: Supple, no JVD. LUNGS: Bilateral equal air entry, bilateral rhonchi, basilar rales. CARDIAC: S1 and S2, regular rate and rhythm, no murmur, no rub. ABDOMEN: Obese, distended, soft, bowel sounds present. EXTREMITIES: 2+ pitting edema of the lower extremities. INTAKE AND OUTPUT: 220/450. LABORATORY DATA: WBC 4.9, hemoglobin 10, hematocrit 35, platelets 92. Sodium 137, potassium 4.4, chloride 99, CO2 28, BUN 52, creatinine 2.8, glucose 116,calcium 8.2, AST 25, ALT 23. CURRENT MEDICATIONS: Brovana, Coreg 12.5 b.i.d. given, DuoNeb inhalers, insulin, Klonopin, Lasix 80 mg not given, Percocet, Synthroid. ASSESSMENT: 1. Acute kidney injury superimposed on chronic kidney disease stage IV in the setting of cardiorenal syndrome. 2. Congestive heart failure/cardiomyopathy/pulmonary hypertension/moderate aortic stenosis. 3. Chronic obstructive pulmonary disease/obstructive sleep apnea/pulmonary hypertension. 4. Morbid obesity. 5. Noninsulin-dependent diabetes mellitus. 6. Cellulitis of the lower extremities. PLAN: 1. The patient was dialyzed yesterday, 2.5 kg of fluid was removed. 2. Will likely need chronic dialysis. 3. Poor prognosis. 4. We will discuss with family. 5. Discontinue Lasix. 6. Continue to monitor. Imelda Costa MD
[2017-09-15] MEDS: Albuterol-Ipratrop 3 mg / 0.5 (3 ml) UD IH PRN (23:57)
--- NOTE | 2017-09-16 01:03 | PN ---
PULMONARY PROGRESS NOTE DATE: 09/15/2017 REFERRING PHYSICIAN: Dr. Kaplan. SUBJECTIVE: She is lying in the bed, head at 45 degrees, on noninvasive ventilation, arousable, follows simple commands, still short of breath. No nausea, no vomiting, no diarrhea. Decreased leg swelling. PHYSICAL EXAMINATION: GENERAL: In no acute distress. VITAL SIGNS: Temperature is 98, heart rate is 69, respiratory rate is 20, blood pressure is 101/53 and pulse ox 97% on noninvasive ventilation, supplemental oxygen. HEENT: Short, thick neck. LUNGS: Revealed fair airflow with few rhonchi. HEART: S1 and S2. ABDOMEN: Soft, nontender, no organomegaly. EXTREMITIES: Decreased edema. Right leg has skin ulcer. NEUROLOGICAL: Awake and follows simple commands. MEDICATIONS: She is on Brovana inhaled twice a day, Coreg 12.5 mg twice a day, DuoNeb q. 2 hours p.r.n. and q. 6 hours [id number], lactulose 6.67 gm p.o. daily, insulin coverage, clonazepam 0.5 mg at bedtime, nasal saline q. 12 hours p.r.n., Percocet 2.5/325 one tab q. 4 hours p.r.n., total Synthroid 137mcg a.c.b. LABORATORY DATA: Shows [id number], hematocrit 35.3, WBC 4.9, platelet is 92. Sodium 137, potassium 4.4, chloride 99, bicarbonate 28, BUN 52, creatinine is 2.8, glucose 116, calcium is 8.2, AST 25, ALT 23, alk phos is 52, albumin is 3.0. Microbiology, blood cultures have been negative. IMPRESSION AND PLAN: Cardiomyopathy, pulmonary hypertension, sleep apnea syndrome, renal failure on dialysis, morbid obesity, leg ulcers. From pulmonary point of view, continue noninvasive ventilation at night and p.r.n. basis, being followed by Cardiology and Nephrology. Continue diuretics as well as hemodialysis. Avoid sedatives. Thank you, and we will follow up with you. Murphy Escalera MD
[2017-09-16] MEDS: Albuterol-Ipratrop 3 mg / 0.5 (3 ml) UD IH SCH ×4 (01:19→19:32)
[2017-09-16] MEDS: Insulin Lispro (humaLOG) LOW Coverage SC SCH ×4 (07:38→23:12)
[2017-09-16] MEDS: Levothyroxine 112 MCG TAB PO SCH (07:47)
[2017-09-16] MEDS: Levothyroxine 25 MCG TAB PO SCH (07:48)
[2017-09-16] MEDS: Arformoterol 15 mcg/2 ml Inh Sol IH SCH ×2 (07:56→22:55)
[2017-09-16 08:28] LABS: BASO # 0.01 K/mm3 (0.0-2.0); BASO % 0.2 % (0.0-3.0); EOS % 0.7 % (1.5-5.0); GRAN # 4.27 (1.4-6.5); GRAN % 77.6 % (50.0-68.0); HEMOGLOBIN 10.8 g/dL (12.0-16.0); LYMPH # 0.8 (1.2-3.4); MEAN CELL VOLUME 97.7 fl (80.0-105.0); MEAN CORPUSCULAR HEMOGLOBIN 30.5 pg (25.0-35.0); MEAN CORPUSCULAR HGB CONC 31.2 g/dl (31.0-37.0); MONO # 0.4 (0.1-0.6); MONO % 7.5 % (1.0-6.0); PLATELET COUNT 137 10^3/uL (120.0-450.0); RBC 3.54 10^6/uL (3.5-6.1); RED CELL DISTRIBUTION WIDTH 17.7 % (11.5-14.5); WHITE BLOOD COUNT 5.5 10^3/ul (4.5-11.0)
--- NOTE | 2017-09-16 12:39 | PN ---
DATE: 09/16/2017 SUBJECTIVE: The patient is seen lying in the bed on Telemetry. She is currently on BiPAP. She remains dyspneic with minimum exertion. MEDICATIONS: Her current medications include Brovana, carvedilol 12.5 mg b.i.d., DuoNeb inhaler, lactulose, Klonopin, Percocet p.r.n., and Synthroid. OBJECTIVE: GENERAL: She is an obese elderly woman. VITAL SIGNS: Her blood pressure is 116/46 with a pulse of 70 with ventricular pacing, respirations are 14. She is afebrile. HEENT: A BiPAP mask is in place. CHEST: Bilateral scattered rales with diminished breath sounds at the bases. HEART: PMI displaced laterally with soft tones noted. Systolic murmur present at the apex as well as at the baseline. ABDOMEN: Soft, obese, and nontender. Normoactive bowel sounds. EXTREMITIES: 2+ leg edema. DIAGNOSTIC DATA: White count 5.5, hemoglobin and hematocrit 10.8 and 34.6 with a platelet count of 137,000. BMP is pending. BUN and creatinine from yesterday was 52 and 2.8. Intake and output was suggested at 420 and 50 mL respectively. IMPRESSION: 1. Decompensated congestive heart failure, acute on chronic, predominantly systolic. 2. Severe renal insufficiency with a recent dialysis for relief of volume overload. 3. Moderate aortic stenosis. 4. Moderate mitral regurgitation. 5. Severe tricuspid regurgitation. 6. Status post permanent pacemaker implant. 7. Rest of problems as noted. RECOMMENDATIONS: It appears that chronic dialysis will need to be continued. Lasix has been placed on hold. She has had intermittent hypotension with Lasix administration of late. I discussed tentative plans for her pacemaker upgrade to a biventricular device with Dr. Mondragon. He advised deferring this for the present time given the risk of infection with her leg wound and indwelling dialysis catheter in addition to the uncertain benefit that this will provide given the complexity her other cardiac issues and renal dysfunction. In addition, contrast administration will be necessary for visualization of the coronary sinus, which would contribute to worsening renal dysfunction. We will continue to follow and make further recommendations as appropriate. Greg Mcclure MD
--- NOTE | 2017-09-16 13:45 | PN ---
DATE: SUBJECTIVE: An 82-year-old white female admitted to the hospital with congestive heart failure, fluid overload, acute renal failure. The patient has had several ultrafiltration treatments. Weight has dropped. She has improved. She has less shortness of breath, but she is still dyspneic. She is tolerating her diet. She has had bowel movement. She is doing limited physical therapy and occupational therapy. She is still short of breath just with speaking. PHYSICAL EXAMINATION CHEST: Decreased breath sounds and rhonchi at both bases. HEART: Reveals regular sinus rhythm, positive S4. ABDOMEN: Obese, but benign. ASSESSMENT AND PLAN: The patient is on BiPAP, insulin, Lasix, diuretics on the pacemaker. Shreyas Kaplan MD
[2017-09-16 14:12] LABS: ALB/GLOB RATIO 0.9 (1.1-1.8); CALCIUM 8.1 mg/dL (8.4-10.5); MAGNESIUM 2.1 mg/dL (1.7-2.2)
[2017-09-16] MEDS: Albuterol-Ipratrop 3 mg / 0.5 (3 ml) UD IH PRN (18:42)
--- NOTE | 2017-09-16 23:34 | PN ---
DATE: 09/16/2017 PULMONARY PROGRESS NOTE REFERRING PHYSICIAN: Shreyas Kaplan MD SUBJECTIVE: She is seen and examined in dialysis chair. Night was unremarkable. Still needed noninvasive ventilation. No cough. No sputum production. No nausea. No vomiting. No diarrhea. Decreased leg swelling. Still have a right leg ulcer, has a dressing. PHYSICAL EXAMINATION GENERAL: In no acute distress. VITAL SIGNS: Temperature is 98, heart rate 69, respiratory rate is 72, blood pressure 113/44, pulse ox is 90% on BiPAP with oxygen. HEENT: Moist mucous membrane. Crowded airway. NECK: Supple. No JVD. LUNGS: Fair airflow with rhonchi. HEART: S1 and S2. ABDOMEN: Soft and nontender. No organomegaly. EXTREMITIES: She does have a right leg ulcer. NEUROLOGIC: Sleepy, arousable. MEDICATIONS: She is on Brovana inhaled twice a day, Coreg 12.5 mg twice a day, albuterol/Atrovent nebulize q. 2 hours p.r.n. and q. 6 hours [id number], lactulose 6.67 g p.o. daily, insulin coverage, Klonopin 0.5 mg at bedtime, nasal saline 2 spray each nostril q. 2 hours p.r.n., Percocet 2.5/325 one tab q. 4 hours p.r.n., Synthroid 137 mcg daily. LABORATORY DATA: Shows hemoglobin 10.8, hematocrit 34.6, WBC 5.5, platelets are 137. Sodium 137, potassium 3.9, chloride 96, bicarbonate 28, BUN 53, creatinine is 2.9, glucose 130, calcium is 8.1, phosphorus is 8.1, magnesium is 2.1. AST is 22, ALT is 28, alk phos is 62, albumin is 3.0. Laboratory data reviewed, no other new lab is available. Microbiology, blood culture has been negative. IMPRESSION AND PLAN: Cardiomyopathy, pulmonary hypertension, sleep apnea syndrome, renal failure on dialysis, morbid obesity, leg ulcers. From pulmonary point of view, she is doing okay but she is almost noninvasive ventilation dependent, getting dialysis, being followed by Cardiology, . She may need lifelong dobutamine or milrinone, we will leave that decision for Cardiology. Thank you, and we will follow up with you. Murphy Escalera MD [facility] # [id number]
[2017-09-17] MEDS: Albuterol-Ipratrop 3 mg / 0.5 (3 ml) UD IH SCH ×4 (02:30→20:25)
[2017-09-17] MEDS: Arformoterol 15 mcg/2 ml Inh Sol IH SCH ×2 (07:49→20:25)
[2017-09-17] MEDS: Insulin Lispro (humaLOG) LOW Coverage SC SCH ×4 (08:25→22:00)
[2017-09-17] MEDS: Levothyroxine 25 MCG TAB PO SCH (08:33)
[2017-09-17] MEDS: Levothyroxine 112 MCG TAB PO SCH (08:33)
--- NOTE | 2017-09-17 10:32 | PN ---
DATE: 09/16/2017 SUBJECTIVE: The patient is seen in the dialysis unit. She is awake, she is alert. She is on BiPAP. PHYSICAL EXAMINATION: GENERAL: Morbidly obese, elderly lady lying in bed in the dialysis unit. VITAL SIGNS: Blood pressure 116/46, heart rate 70, respiratory rate 24, temperature 98. HEENT: Normocephalic, atraumatic. NECK: Supple, no JVD. LUNGS: Bilateral equal air entry, bilateral rhonchi, basilar rales. CARDIAC: S1, S2. Regular rate and rhythm, no murmur, no rub. ABDOMEN: Obese, distended, soft, nontender, bowel sounds present. EXTREMITIES: 2+ pitting edema of the lower extremities. INTAKE AND OUTPUT: Not charted. LABORATORY DATA: WBC 5.5, hemoglobin 10.8, hematocrit 35, platelets 137. Sodium 137, potassium 3.9, chloride 96, CO2 28, BUN 63, creatinine 2.9, glucose 130, calcium 8.1, phosphorus 4.1 and magnesium 2.1. ASSESSMENT AND PLAN: 1. Acute kidney injury superimposed on chronic kidney disease stage IV. 2. Cardiorenal syndrome. 3. Severe pulmonary hypertension/sleep apnea/chronic obstructive pulmonary disease. 4. Jta-ndceepu-ixrohccgi diabetes mellitus. 5. Hypertension. 6. Morbid obesity. PLAN: 1. The patient will likely require chronic dialysis. 2. Family to decide about agreement with plan for chronic dialysis. 3. Stable dialysis today. 4. Will require PermCath prior to discharge if everybody agrees to chronic dialysis. Imelda Costa MD
--- NOTE | 2017-09-17 16:59 | CON ---
DATE OF EVALUATION: 09/17/2017 REASON FOR CONSULTATION: Pancytopenia, iron-deficiency anemia. CONSULT REQUESTED BY: Shreyas Kaplan MD HISTORY OF PRESENT ILLNESS: Ms. Umana is an 82-year-old female admitted to the hospital on 09/04/2017 with history of CHF, diabetes mellitus, COPD, hypothyroidism, acute on chronic renal failure. She underwent hemodialysis during hospitalization. Iron studies showed severe iron-deficiency anemia. She is status post IV iron. On 09/10/2017, blood count declined, white count declined to 2.3, hemoglobin 9.9 and platelet count to 90,000. She also had right leg cellulitis for which she is on IV antibiotic. PAST MEDICAL HISTORY: Coronary artery disease, atrial fibrillation, pacemaker placement, COPD, history of syncope, diabetes mellitus type 2, history of uterine cancer 15 years ago, status post chemotherapy, osteoarthritis, morbid obesity, anxiety. PAST SURGICAL HISTORY: Hysterectomy for uterine cancer, hernia repair, partial colectomy for obstruction, pacemaker placement. REVIEW OF SYSTEMS: As per HPI. Rest of 12-point review of systems reviewed negative. ALLERGIES: MULTIPLE DRUG ALLERGIES; HYDROCODONE, IBUPROFEN, ADHESIVE. ALLERGY TO PENICILLIN, COUMADIN CAUSES RASH. HOME MEDICATIONS: Glipizide, levothyroxine, furosemide, insulin glargine, lactulose, Entresto b.i.d. PHYSICAL EXAMINATION: GENERAL: Comfortable, lying in bed, in no acute distress. VITAL SIGNS: Temperature 98.7, heart rate 85 per minute, blood pressure 110/70, respiratory rate 20 per minute, pulse ox is 88% on room air. HEENT: Pallor positive. NECK: No lymphadenopathy. CHEST: Air entry present and equal bilaterally. No added sounds. CARDIOVASCULAR: S1 and S2 normal. No murmur. No gallop. ABDOMEN: Soft and nontender. No hepatosplenomegaly. EXTREMITIES: Bilateral leg edema. Right lower extremity cellulitis improved. CENTRAL NERVOUS SYSTEM: Alert and oriented x3. No focal sensory or motor deficit. LABORATORY DATA: White count 5.5, hemoglobin 10.8, hematocrit 34.6, platelet count 137. Blood count on 09/14/2017; hemoglobin 9.9, platelet count 90,000. Hepatitis, serology negative. Immunofixation negative. Sodium 137, potassium 3.9, creatinine 2.9, calcium 8.1, iron 31. Serum protein electrophoresis, immunofixation, no M protein. ASSESSMENT: 1. Pancytopenia. 2. Acute on chronic renal failure. 3. Pulmonary hypertension. 4. Diabetes mellitus type 2. 5. Iron-deficiency anemia. 6. History of uterine cancer-in remission. PLAN: She developed pancytopenia on 09/14/2017, white count spontaneously recovered may be likely due to uremia. Hemoglobin improved to 10.8 with IV iron. She will need continuation of iron as on outpatient. Platelet count also improved to 137 from 90,000. She has a history of uterine cancer diagnosed with 15 years ago, has been in remission. No evidence of recurrence. Acute on chronic renal failure. She is currently on hemodialysis, Renal following. Severe pulmonary hypertension, morbid obesity, management as per Dr. Kaplan. Thank you Dr. Kaplan for allowing us to participate Ms. Umana's care. Awilda Vides MD
--- NOTE | 2017-09-17 21:00 | PN ---
DATE: 09/17/2017 SUBJECTIVE: The patient is seen lying in the bed on telemetry. She remains dyspneic with minimal exertion. Creatinine from the morning is pending. MEDICATIONS: Her current medications include Brovana, Coreg, carvedilol 12.5 mg b.i.d., DuoNeb inhaler, lactulose, insulin, Klonopin, Percocet p.r.n., and Synthroid. OBJECTIVE: GENERAL: She is an obese elderly woman. VITAL SIGNS: Her blood pressure is 100/66, pulse of 70 with ventricular pacing, respiratory rate are 16. She is afebrile. HEENT: No JVD. CHEST: Diminished breath sounds at the bases. HEART: PMI displaced laterally with soft tones noted. Systolic murmur is present at the base as well as at the apex. ABDOMEN: Soft, obese and nontender. Normoactive bowel sounds. EXTREMITIES:: 2+ leg edema. DIAGNOSTIC DATA: Morning blood work is pending. IMPRESSION: 1. Decompensated congestive heart failure, systolic, acute on chronic due to combined valvular heart disease and left ventricular dysfunction in the setting of renal insufficiency. 2. Severe renal insufficiency with recent dialysis requirement. 3. Moderate aortic stenosis. 4. Moderate mitral regurgitation, severe tricuspid regurgitation. 5. Prior permanent pacemaker implant. RECOMMENDATIONS: Diuretic therapy is currently on hold and continued dialysis will be planned. IF renal replacement therapy will be permanent, the need for access will need to be addressed. Eventual evaluation for possible upgrade of her pacemaker to biventricular device will be revisited; however, the likelihood of significant effort from this remains questionable. Overall prognosis given her LV dysfunction and multivalvular heart disease remains poor. We will follow her on a regular basis. Greg Mcclure MD [facility]
--- NOTE | 2017-09-17 23:53 | PN ---
DATE: 09/17/2017 PULMONARY PROGRESS NOTE REFERRING PHYSICIAN: Dr. Kaplan. SUBJECTIVE: The patient is lying in the bed head up 45 degree on supplemental oxygen, tolerated BiPAP well last night. She feels little better, still sleepy. No nausea. No vomiting. No diarrhea. Does have trace leg swelling. OBJECTIVE: GENERAL: In no acute distress. VITAL SIGNS: Temperature is 98, heart rate is 70, respiratory rate is 20, blood pressure is 110/48 and pulse oximetry is 90% on nasal cannula. HEENT: Moist mucous membranes. Crowded airway. NECK: Short thick neck. LUNGS: Fair airflow with few rhonchi. HEART: S1 and S2. ABDOMEN: Soft, nontender, no organomegaly. EXTREMITIES: Does have some edema. Right leg has ulcer with dressing. NEUROLOGIC: Awake, sleepy, arousable, follows simple command. MEDICATIONS: She is on Brovana inhaled twice a day, Coreg 12.5 mg twice day, DuoNeb q. 2 hours p.r.n., and q. 6 hours, [id number], lactose p.o. daily, insulin coverage, Klonopin 0.5 mg daily, nasal saline two sprays to each nostril q. 2 hours, Percocet 2.5/325 1 tab q. 4 hours p.r.n., and Synthroid 137 mcg p.o. daily. LABORATORY DATA: Reviewed and noted. Blood sugar 132. Microbiology, blood culture have been negative. IMPRESSION AND PLAN: Cardiomyopathy, pulmonary hypertension, sleep apnea syndrome, renal failure on dialysis, morbid obesity, leg ulcer. Pulmonary point of view, encourage BiPAP use on a daily basis, keep head up at 45 degrees, supplemental oxygen, being followed by cardiology, nephrology. Spoke to the patient's son at the bedside, all the questions answered. Thank you and we will follow with you. Murphy Escalera MD
[2017-09-18] MEDS: Albuterol-Ipratrop 3 mg / 0.5 (3 ml) UD IH SCH ×4 (02:13→18:30)
[2017-09-18] MEDS: Arformoterol 15 mcg/2 ml Inh Sol IH SCH ×2 (07:33→18:30)
[2017-09-18] MEDS: Levothyroxine 25 MCG TAB PO SCH (07:36)
[2017-09-18] MEDS: Levothyroxine 112 MCG TAB PO SCH (07:36)
[2017-09-18] MEDS: Insulin Lispro (humaLOG) LOW Coverage SC SCH ×4 (07:36→21:32)
--- NOTE | 2017-09-18 08:46 | CP.PCM.PN ---
Subjective - Date & Time of Evaluation Date of Evaluation: 09/18/17 Time of Evaluation: 07:00 - Subjective Subjective: Stable on 2R. No CP. Still dyspneic with edema V/S noted. V. Paced. PE: Lungs: rhonchi Cor.: S1S2, sys. murmur Abd.: soft Ext.: + edema Neuro.: alert I/O= 480/20 recorded. No HD yesterday BC x2 NG at 5 days CXR 09/13: CHF Objective - Vital Signs/Intake and Output Vital Signs (last 24 hours): Temp Pulse Resp BP Pulse Ox 97.3 F L 70 19 105/57 L 92 L 09/18/17 05:55 09/18/17 05:55 09/18/17 05:55 09/18/17 05:55 09/18/17 05:55 Intake and Output: 09/18/17 09/18/17 06:59 18:59 Intake Total 480 Output Total 20 Balance 460 - Medications Medications: Current Medications Albuterol/Ipratropium (Duoneb 3 Mg/0.5 Mg (3 Ml) Ud) 3 ml IH Q2H PRN PRN Reason: Shortness of Breath Last Admin: 09/16/17 18:42 Dose: 3 ml Albuterol/Ipratropium (Duoneb 3 Mg/0.5 Mg (3 Ml) Ud) 3 ml IH [id number] [facility] Last Admin: 09/18/17 07:33 Dose: 3 ml Arformoterol Tartrate (Brovana) 15 mcg IH [id number] [facility] Last Admin: 09/18/17 07:33 Dose: 15 mcg Carvedilol (Coreg) 12.5 mg PO BID [facility] Last Admin: 09/17/17 21:54 Dose: 12.5 mg Clonazepam (Klonopin) 0.5 mg PO HS [facility] PRN Reason: Protocol Last Admin: 09/17/17 21:55 Dose: 0.5 mg Insulin Human Lispro (Humalog Low) 0 units SC ACHS [facility] PRN Reason: Protocol Last Admin: 09/18/17 07:36 Dose: Not Given Lactulose (Enulose) 6.67 gm PO DAILY [facility] Last Admin: 09/17/17 10:49 Dose: 6.67 gm Levothyroxine Sodium (Synthroid) 25 mcg PO ACB [facility] Last Admin: 09/18/17 07:36 Dose: 25 mcg Levothyroxine Sodium (Synthroid) 112 mcg PO ACB [facility] Last Admin: 09/18/17 07:36 Dose: 112 mcg Sodium Chloride ([place] Nasal [place]) 0 ml NS BID PRN PRN Reason: Nasal congestion - Labs Labs: 09/16/17 07:00 09/16/17 13:43 Assessment and Plan - Assessment and Plan (Free Text) Assessment: Volume Overload Acute on chronic kidney disease Severe LVD with moderate and MR and Severe TR and PH by echo PPM COPD Diabetes Uterine cancer s/p hysterectomy Partial colectomy Hypothyroidism Plan: Chronic HD as per Dr. Costa. Lasix use as per Dr. Costa. As per Pulmonary, Dr. Kaplan also. Monitor: I/O, labs, K+, stool for OB, sats., etc Possible future ICD upgrade. Will follow.
--- NOTE | 2017-09-18 09:19 | PN ---
DATE: 09/17/2017 SUBJECTIVE: An 82-year-old white female admitted to the hospital with congestive cardiomyopathy, shortness of breath, fluid overload, acute renal failure. Patient has been on ultrafiltration for several days and also receiving diuretics. Patient is improved. Her color is back. She has less swelling in her legs. Her BUN and creatinine have decreased to 53 and 2.9, potassium is 3.9. The patient is stable. PHYSICAL EXAMINATION: GENERAL: Unchanged. The patient is seen at the bedside with her son. LUNGS: She still has decreased breath sounds bilaterally. ABDOMEN: Obese, but benign. EXTREMITIES: No cyanosis, clubbing or edema. Shreyas Kaplan MD
[2017-09-18 10:46] LABS: BASO # 0.03 K/mm3 (0.0-2.0); BASO % 0.5 % (0.0-3.0); EOS # 0.1 (0.0-0.7); EOS % 0.9 % (1.5-5.0); GRAN # 4.32 (1.4-6.5); GRAN % 74.6 % (50.0-68.0); HEMOGLOBIN 10.7 g/dL (12.0-16.0); LYMPH % 17.6 % (22.0-35.0); MEAN CELL VOLUME 98.9 fl (80.0-105.0); MEAN CORPUSCULAR HEMOGLOBIN 29.6 pg (25.0-35.0); MONO # 0.4 (0.1-0.6); MONO % 6.4 % (1.0-6.0); RBC 3.61 10^6/uL (3.5-6.1); RED CELL DISTRIBUTION WIDTH 17.5 % (11.5-14.5); WHITE BLOOD COUNT 5.8 10^3/ul (4.5-11.0)
[2017-09-18 10:49] LABS: ALB/GLOB RATIO 0.9 (1.1-1.8); ALBUMIN 2.9 g/dL (3.0-4.8); ALT/SGPT 25 U/L (7-56); AST/SGOT 23 U/L (14-36); BLOOD UREA NITROGEN 50 mg/dL (7-21); GFR AFRICAN-AMERICAN 15; GFR NON-AFRICAN AMERICAN 12; MAGNESIUM 2.1 mg/dL (1.7-2.2)
--- NOTE | 2017-09-18 15:52 | PN ---
DATE: 09/18/2017 SUBJECTIVE: An 82-year-old white female admitted to the hospital with intractable heart failure, COPD, intermittent diabetes mellitus, and renal failure. The patient is down to 53 and 2.9 of BUN and creatinine, potassium is 3.9. She has increasing shortness of breath. She is using BiPAP at night. She is responding poorly to IV Lasix. She has had multiple episodes of ultrafiltration. We will need a 24-hour urine to assess whether needs chronic dialysis for fluid management and also for azotemia. PHYSICAL EXAMINATION: LUNGS: There are decreased breath sounds, with rhonchi and rales bilaterally. ABDOMEN: Obese, but benign. HEART: with positive S4. EXTREMITIES: Show increased pedal edema today. Shreyas Kaplan MD
[2017-09-18 17:30] LABS: HEPATITIS B SURFACE AG Negative (NEGATIVE)
[2017-09-18 17:35] LABS: HEPATITIS B CORE AB NEGATIVE (NEGATIVE)
--- NOTE | 2017-09-18 18:49 | PN ---
DATE: 09/18/2017 SUBJECTIVE: The patient is seen sitting in bed. She is awake. She is alert. She is comfortable. She still has dyspnea on exertion. She has cough. She complains of shortness of breath. PHYSICAL EXAMINATION: GENERAL: Morbidly obese elderly lady sitting in bed. VITAL SIGNS: Blood pressure 122/64, heart rate 70, respiratory rate 22, temperature 98.2. HEENT: Normocephalic, atraumatic. NECK: Supple, no JVD. LUNGS: Bilateral equal air entry, bilateral rhonchi, basilar rales. CARDIAC: S1 and S2, regular rate, and rhythm, positive murmur, no rub. ABDOMEN: Obese, nontender, nondistended, bowel sounds present. EXTREMITIES: 2+ pitting edema of the lower extremities. INTAKE AND OUTPUT: Not charted. LABORATORY DATA: WBC 5.8, hemoglobin 10.7, hematocrit 36, platelets 103. Sodium 137, potassium 4.0, chloride 96, CO2 of 30, BUN 50, creatinine 3.5, glucose 190, calcium 8.0, phosphorus 3.8, magnesium 2.1, albumin 2.9. CURRENT MEDICATIONS: Brovana, Coreg 12.5 b.i.d., DuoNeb, Enulose, insulin, clonazepam and Synthroid. ASSESSMENT AND PLAN: 1. Acute kidney injury superimposed on chronic kidney disease stage IV, cardiorenal syndrome. 2. Morbid obesity. 3. Hwa-ncoxmaf-yqlvlqlzn diabetes mellitus. 4. Hypertension. 5. Coronary artery disease, aortic stenosis, pulmonary hypertension. PLAN: 1. Once again discussed with son that the patient will need chronic dialysis in order to maintain respiratory status. Son feels the patient is not willing for chronic dialysis. He will discuss with his mom. In the meantime, we will send her for dialysis today. We will dialyze for 3-1/2 hours and ultrafiltrate about 2-1/2 kg. 2. If family agrees for dialysis, will need removal of temporary catheter and placement of PermCath. 3. Discussed with social worker school. Imelda Costa MD
[2017-09-18 19:03] LABS: HEPATITIS C ANTIBODY NEGATIVE (NEGATIVE)
--- NOTE | 2017-09-18 23:49 | PN ---
DATE: 09/18/2017 PULMONARY PROGRESS NOTE REFERRING PHYSICIAN: Shreyas Kaplan MD SUBJECTIVE: She is seen and examined in dialysis chair. Night was unremarkable. Tolerating BiPAP well. Daytime is on nasal cannula. Cough is better. No nausea, vomiting, or diarrhea. Positive leg swelling. PHYSICAL EXAMINATION GENERAL: In no acute distress. VITAL SIGNS: Temperature is 98, heart rate 70, respiratory rate is 22, blood pressure 118/54, pulse ox 92% on BiPAP. HEENT: Moist mucous membranes. Crowded airway. Mallampati score is IV. NECK: Supple. No JVD. LUNGS: Has a fair airflow with few rhonchi. HEART: S1 and S2. ABDOMEN: Soft and nontender. No organomegaly. EXTREMITIES: Does have trace edema. Right leg has nonhealing skin ulcer. NEUROLOGIC: Awake and alert. Follows simple command. MEDICATIONS: She is on Brovana inhaled twice a day, Coreg 12.5 mg twice day, DuoNeb q. 2 hours p.r.n. and q. 6 hours round the clock, lactulose is 6.67 g p.o. daily, insulin coverage, Klonopin 0.5 mg at bedtime, nasal saline two sprays to each nostril twice a day, total Synthroid is 137 mcg a.c.b. LABORATORY DATA: Hemoglobin 10.7, hematocrit 35.7, WBC 5.8, platelet count is 103. Sodium 137, potassium 4.0, chloride 96, bicarbonate 30, BUN is 50, creatinine 3.5, glucose is 190, calcium 8.0, phosphorus 3.8, magnesium 2.1. AST 23, ALT 25, alk phos is 51, albumin 2.9. Microbiology: Blood cultures have been negative. IMPRESSION AND PLAN: Cardiomyopathy, pulmonary hypertension, sleep apnea syndrome, renal failure on dialysis, morbid obesity, leg ulcer. Pulmonary point of view, doing okay. Encourage BiPAP use when sleeping, keep head elevated at 45 degrees, supplemental oxygen. Cardiology and Nephrology follow up. Will need to attend a sleep study and PFT upon discharge as an outpatient. Out of bed to chair if possible. Get Physical Therapy involved. Thank you and we will follow with you. Murphy Escalera MD
[2017-09-19] MEDS: Albuterol-Ipratrop 3 mg / 0.5 (3 ml) UD IH SCH ×4 (01:51→20:13)
[2017-09-19] MEDS: Arformoterol 15 mcg/2 ml Inh Sol IH SCH ×2 (07:58→20:13)
[2017-09-19 08:07] LABS: ALBUMIN (PEP) 2.8 g/dL (3.8-4.8); ALPHA-1-GLOBULIN (PEP) 0.4 g/dL (0.2-0.3)
[2017-09-19] MEDS: Insulin Lispro (humaLOG) LOW Coverage SC SCH ×4 (08:08→21:49)
[2017-09-19] MEDS: Levothyroxine 25 MCG TAB PO SCH (08:14)
[2017-09-19] MEDS: Levothyroxine 112 MCG TAB PO SCH (08:14)
--- NOTE | 2017-09-19 08:24 | CP.PCM.PN ---
Subjective - Date & Time of Evaluation Date of Evaluation: 09/19/17 Time of Evaluation: 07:00 - Subjective Subjective: Stable on 2R. No CP. Still dyspneic with edema V/S noted. V. Paced. PE: Lungs: rhonchi Cor.: S1S2, sys. murmur Abd.: soft Ext.: + edema Neuro.: alert HD yesterday BC x2 NG at 5 days CXR 09/13: CHF Objective - Vital Signs/Intake and Output Vital Signs (last 24 hours): Temp Pulse Resp BP Pulse Ox 97.8 F 69 18 110/62 92 L 09/19/17 06:00 09/19/17 06:00 09/19/17 06:00 09/19/17 06:00 09/19/17 06:00 Intake and Output: 09/19/17 09/19/17 06:59 18:59 Intake Total 480 270 Output Total 50 10 Balance 430 260 - Medications Medications: Current Medications Albuterol/Ipratropium (Duoneb 3 Mg/0.5 Mg (3 Ml) Ud) 3 ml IH Q2H PRN PRN Reason: Shortness of Breath Last Admin: 09/16/17 18:42 Dose: 3 ml Albuterol/Ipratropium (Duoneb 3 Mg/0.5 Mg (3 Ml) Ud) 3 ml IH [id number] [facility] Last Admin: 09/19/17 07:58 Dose: 3 ml Arformoterol Tartrate (Brovana) 15 mcg IH [id number] [facility] Last Admin: 09/19/17 07:58 Dose: 15 mcg Carvedilol (Coreg) 12.5 mg PO BID [facility] Last Admin: 09/18/17 19:11 Dose: 12.5 mg Clonazepam (Klonopin) 0.5 mg PO HS [facility] PRN Reason: Protocol Last Admin: 09/18/17 21:17 Dose: 0.5 mg Insulin Human Lispro (Humalog Low) 0 units SC ACHS [facility] PRN Reason: Protocol Last Admin: 09/19/17 08:08 Dose: Not Given Lactulose (Enulose) 6.67 gm PO DAILY [facility] Last Admin: 09/18/17 09:51 Dose: 6.67 gm Levothyroxine Sodium (Synthroid) 25 mcg PO ACB [facility] Last Admin: 01/30/18 08:14 Dose: 25 mcg Levothyroxine Sodium (Synthroid) 112 mcg PO ACB [facility] Last Admin: 09/19/17 08:14 Dose: 112 mcg Sodium Chloride ([place] Nasal [place]) 0 ml NS BID PRN PRN Reason: Nasal congestion - Labs Labs: 09/18/17 09:46 09/18/17 10:30 Assessment and Plan - Assessment and Plan (Free Text) Assessment: Volume Overload Acute on chronic kidney disease Severe LVD with moderate and MR and Severe TR and PH by echo PPM COPD Diabetes Uterine cancer s/p hysterectomy Partial colectomy Hypothyroidism Plan: Chronic HD as per Dr. Costa, if patient/family agree. Lasix use as per Dr. Costa. As per Pulmonary, Dr. Kaplan also. Monitor: I/O, labs, K+, stool for OB, sats., etc Possible future ICD upgrade. Will follow.
--- NOTE | 2017-09-19 09:32 | PN ---
DATE: SUBJECTIVE: An 82-year-old white female, admitted to the hospital with congestive cardiomyopathy, renal failure. The patient is on ultrafiltration, was recommended by Dr. Costa to have chronic hemodialysis to control fluid balance. BUN and creatinine are stable at 50 and 3.5. The patient also has noninsulin-dependent diabetes mellitus. Has a history of a pacemaker. She has poor stamina. Poor functional capacity. Has not done much physical therapy or occupational therapy. She does have some blistering under the folds of the skin on the right abdomen and lower abdomen, which are noninfected at this point. Vital signs are stable. Tolerated diet well. Plan is to start on continuous hemodialysis and monitor her fluid balance. Also, I will repeat her chest x-ray. She does have some rhonchi and rales at both bases. Shreyas Kaplan MD
--- NOTE | 2017-09-19 10:42 | RAD ---
HISTORY: short of breath COMPARISON: 09/13/2017 FINDINGS: LUNGS: Technically limited examination. No infiltrate. PLEURA: No significant pleural effusion identified, no pneumothorax apparent. CARDIOVASCULAR: Cardiomegaly. Permanent pacemaker. Total right central venous dialysis catheter. OSSEOUS STRUCTURES: No significant abnormalities. VISUALIZED UPPER ABDOMEN: Normal. OTHER FINDINGS: None. IMPRESSION: No active disease.
--- NOTE | 2017-09-19 13:47 | CP.PCM.CON ---
History of Present Illness - History of Present Illness History of Present Illness: Palliative consult requested by Dr Marlen Kaplan Reason Goals of care HPI: 82 year old female with history of cardiomyopathy,COPD,CAD, CHF,pulmonary hypertension, CKD, DM who was sent by PMD due to increased shortness of breath, swelling of lower extremities and cellutlitis of right lower leg. Workup revealed patient to be in acute renal failure, CHf exacerbation. Patient has since had emergent dialysis. PMHX: CHF,DM,CAD,CKD,AYSE,COPD,pulmonary HTN,anemia,uterine cancer s/p cemetery, obstruction s/p colectomy, pacemaker, hernia repair Social History: Former smoker, no alcohol or drug use. , lives independently. Her son Mauro Umana is POA. Family History: Non contributory. Advance Care Planning : The patient does not have an Advanced Directive. Review of Systems: As per HPI, 12 point review otherwise negative Past Patient History - Infectious Disease Hx of Infectious Diseases: None - Past Social History Smoking Status: Former Smoker - CARDIAC Hx Cardiac Disorders: Yes (pacemaker, afib) Hx Congestive Heart Failure: Yes - PULMONARY Hx Chronic Obstructive Pulmonary Disease (COPD): Yes - NEUROLOGICAL Hx Neurological Disorder: Yes (syncope) - HEENT Hx HEENT Problems: No - RENAL Hx Renal Failure: Yes - ENDOCRINE/METABOLIC Hx Diabetes Mellitus Type 2: Yes Hx Hypothyroidism: Yes - HEMATOLOGICAL/ONCOLOGICAL Hx Blood Disorders: Yes 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, had hyst) Hx Chemotherapy: Yes (15 yrs ago) - INTEGUMENTARY Hx Dermatological Problems: No - MUSCULOSKELETAL/RHEUMATOLOGICAL Hx Arthritis: Yes - GASTROINTESTINAL Hx Gastrointestinal Disorders: Yes (CONSTIPATION,HERNIORHAPPHY,PARTIAL COLECTOMY ,) - GENITOURINARY/GYNECOLOGICAL Hx Genitourinary Disorders: Yes (INCONTINENT) Other/Comment: UTERINE CA - PSYCHIATRIC Hx Psychophysiologic Disorder: Yes Hx Anxiety: Yes Hx Substance Use: No - SURGICAL HISTORY Hx Surgeries: Yes Hx Hysterectomy: Yes (uterine ca 15 yrs ago) Other/Comment: abd surgery had obstruction hernia repaired at the same time around 8 yrs ago...partial colectomy? for obstruction 8 yrs ago... and pacemaker - ANESTHESIA Hx Anesthesia: Yes Hx Anesthesia Reactions: No Hx Malignant Hyperthermia: No Meds Allergies/Adverse Reactions: Allergies Allergy/AdvReac Type Severity Reaction Status Date / Time hydrocodone bitartrate Allergy Intermediate RASH Verified 09/05/17 12:02 [From Vicoprofen] ibuprofen [From Vicoprofen] Allergy Intermediate RASH Verified 09/05/17 12:02 adhesive Allergy RASH Verified 09/05/17 12:02 Penicillins Allergy RASH Verified 09/05/17 12:02 warfarin sodium Allergy RASH Verified 09/05/17 12:02 [From Coumadin] - Medications Medications: Current Medications Albuterol/Ipratropium (Duoneb 3 Mg/0.5 Mg (3 Ml) Ud) 3 ml IH Q2H PRN PRN Reason: Shortness of Breath Last Admin: 09/16/17 18:42 Dose: 3 ml Albuterol/Ipratropium (Duoneb 3 Mg/0.5 Mg (3 Ml) Ud) 3 ml IH [id number] [facility] Last Admin: 09/19/17 07:58 Dose: 3 ml Arformoterol Tartrate (Brovana) 15 mcg IH [id number] [facility] Last Admin: 09/19/17 07:58 Dose: 15 mcg Carvedilol (Coreg) 12.5 mg PO BID [facility] Last Admin: 09/19/17 10:23 Dose: 12.5 mg Clonazepam (Klonopin) 0.5 mg PO HS [facility] PRN Reason: Protocol Last Admin: 09/18/17 21:17 Dose: 0.5 mg Insulin Human Lispro (Humalog Low) 0 units SC ACHS [facility] PRN Reason: Protocol Last Admin: 09/19/17 13:03 Dose: 2 units Lactulose (Enulose) 6.67 gm PO DAILY [facility] Last Admin: 09/19/17 10:24 Dose: 6.67 gm Levothyroxine Sodium (Synthroid) 25 mcg PO ACB [facility] Last Admin: 09/19/17 08:14 Dose: 25 mcg Levothyroxine Sodium (Synthroid) 112 mcg PO ACB [facility] Last Admin: 09/19/17 08:14 Dose: 112 mcg Sodium Chloride ([place] Nasal [place]) 0 ml NS BID PRN PRN Reason: Nasal congestion Physical Exam - Constitutional Appears: No Acute Distress, Chronically Ill - Head Exam Head Exam: NORMOCEPHALIC - Eye Exam Eye Exam: Normal appearance, PERRL - ENT Exam ENT Exam: Mucous Membranes Moist, Normal Oropharynx - Neck Exam Neck exam: Positive for: Normal Inspection - Respiratory Exam Respiratory Exam: Clear to Auscultation Bilateral, NORMAL BREATHING PATTERN Additional comments: dyspnea on exertion - Cardiovascular Exam Cardiovascular Exam: REGULAR RHYTHM, +S1, +S2 - GI/Abdominal Exam GI & Abdominal Exam: Normal Bowel Sounds, Soft Additional comments: non tender - Extremities Exam Additional comments: bilateral lower extremity edema, right lower extremity cellulitis - Back Exam Back exam: NORMAL INSPECTION - Neurological Exam Neurological exam: Alert, Oriented x3 - Skin Skin Exam: Dry, Pallor - Additional Findings Additional findings: Palliative performance scale rating 40 % Results - Vital Signs Recent Vital Signs: Last Vital Signs Temp 98.1 F 09/19/17 12:00 Pulse 70 09/19/17 12:00 Resp 22 09/19/17 12:00 BP 106/60 09/19/17 12:00 Pulse Ox 92 L 09/19/17 06:00 - Labs Result Diagrams: 09/18/17 09:46 09/18/17 10:30 Labs: Laboratory Results - last 24 hr 09/15/17 09/18/17 09/18/17 06:00 07:26 10:30 POC Glucose (mg/dL) 128 H Albumin (PEP) 2.8 L Ikkgn-2-Bjusjfruz 0.4 H Jmqbw-3-Ygcrjvwhs 0.6 Boiv-3-Sfkufyst 0.4 Lprf-4-Gzecjnpq 0.4 Gamma Globulins 1.3 Abnorm Protein Band 1 TEST NOT PERFORMED Abnorm Protein Band 2 TEST NOT PERFORMED Abnorm Protein Band 3 TEST NOT PERFORMED RENEE & SPEP Interp See note Hep Bs Antigen Negative Hep Bs Antibody Hep B Core IgM Ab Negative Hepatitis C Antibody Negative 09/18/17 09/18/17 09/18/17 10:30 11:16 18:29 POC Glucose (mg/dL) 182 H 108 Albumin (PEP) Tltyd-8-Dejsqfasw Qgxwo-0-Mbuoizdjn Othf-3-Huzmsnss Gtyu-9-Dlpgtymj Gamma Globulins Abnorm Protein Band 1 Abnorm Protein Band 2 Abnorm Protein Band 3 RENEE & SPEP Interp Hep Bs Antigen Hep Bs Antibody Negative Hep B Core IgM Ab Hepatitis C Antibody 09/18/17 09/19/17 21:30 07:44 POC Glucose (mg/dL) 174 H 115 H Albumin (PEP) Jjvmf-7-Zjnbryrho Jtehx-0-Aqfqbygwj Czim-2-Gbawsebw Rave-5-Vjmhbukk Gamma Globulins Abnorm Protein Band 1 Abnorm Protein Band 2 Abnorm Protein Band 3 RENEE & SPEP Interp Hep Bs Antigen Hep Bs Antibody Hep B Core IgM Ab Hepatitis C Antibody Assessment & Plan - Assessment and Plan (Free Text) Assessment: 82 year old female with multiple comorbidites (see PMH) who is admitted with CHF exacerbation, AYSE, cellulitis of right LE. The patient has acute kidney failure and received emergent dialysis which has progressed to requiring chronic dialysis. The patient has expressed that she does not wish to receive permanent dialysis. I have been asked to speak with patient and family in order to establish future goals of care and advance care planning Aayush ROCHA and I met with patient and son. Patient expresses that she does not want dialysis, also states she does not want to keep returning to hospital. Patient and son understand that without dialysis patient is likely to . Patient states she just wants to be kept comfortable. Option for palliative care at [facility] introduced. Family agreeable. POLST directive explained. Patient does not want to be intubated/ have CPR/PEG feeding. POLST directive completed. A copy is placed in the chart. Time spent in goals of care and advance care planning, 30 minutes Plan: POLST: DNR/DNI Palliative support in establishing goals of care
--- NOTE | 2017-09-19 15:00 | PN ---
DATE: SUBJECTIVE: The patient is currently seen lying in bed. She appears to be in no acute distress. She has a significant reduction in her level of edema from when I saw her approximately 2 weeks ago. She appears to have tolerated dialysis well. I believe the intention is for her to continue with the outpatient dialysis. MEDICATIONS: Medication list reviewed. The patient is on Brovana, Coreg, DuoNeb, lactulose, insulin, Klonopin, [place] nasal spray and Synthroid. OBJECTIVE: INTAKE/OUTPUT: Intake 480, output 50 post hemodialysis. VITAL SIGNS: Blood pressure 106/60. Temperature 98.1, respiratory rate 22 with a pulse of 70. Pulse ox is 92%. HEENT: Shows her to be normocephalic, atraumatic. Conjunctivae are pink. Sclerae nonicteric. NECK: Supple. No neck vein distention. CHEST: Decreased breath sounds at her bases. Scattered rhonchi. No rales or wheezing. CARDIOVASCULAR: Shows a regular rate and rhythm with /AI/MR/TR. No rub. ABDOMEN: Obese. Nontender, nondistended. Bowel sounds are normal. EXTREMITIES: Show trace nonpitting ankle edema. She has a dressing over her right lower extremity. LABORATORY DATA AND IMAGING: Chest x-ray today shows no acute pulmonary disease. CBC from yesterday: White blood cell count 5.8, hemoglobin 10.7, platelet count is 103,000. Chemistry showed normal electrolytes. BUN 50 with a creatinine of 3.5. Glucose is 190. Calcium is 8.0 with an albumin level of 2.9, phosphorus 3.8 with a magnesium level of 2.1. ASSESSMENT: 1. Acute renal failure superimposed on chronic kidney disease stage IV in the setting of advanced cardiorenal syndrome. The patient has tolerated a trial of dialysis well. From what I understand from speaking to her, it appears that she is agreeable for outpatient dialysis. 2. History of atherosclerotic heart disease, cardiomyopathy, ejection fraction 18%, history of permanent pacemaker, aortic stenosis, aortic insufficiency, mitral regurgitation, tricuspid regurgitation with severe pulmonary hypertension. 3. History of hypertension. Blood pressure is controlled with present medication on dialysis. 4. History of insulin-dependent diabetes mellitus. The patient continues on sliding scale insulin. 5. History of chronic obstructive pulmonary disease, obstructive sleep apnea, Pickwickian syndrome. This will likely improve with dialysis. 6. History of anemia, in part secondary to chronic kidney disease. 7. History of hypothyroidism. The patient will continue present thyroid replacement therapy supplements. PLAN: 1. Continue three times a week dialysis. 2. Discuss with social worker palliative care setting up outpatient dialysis. 3. The patient encouraged that she has done remarkably well with dialysis and recommendation is for her to continue this in the outpatient setting. 4. Continue present medications. At present, no need for binder therapy. The patient should continue her renal diet. Roby Mccabe MD
--- NOTE | 2017-09-19 23:37 | PN ---
DATE OF EVALUATION: 09/19/2017 SUBJECTIVE: She is comfortable in bed, in no acute distress. Respiratory distress has improved. She developed pancytopenia. Blood counts have improved now. She is status post IV iron, and she has right lower leg cellulitis. She has poor appetite, but able to eat. No nausea. No vomiting. No chest pain. She is not ambulatory. Evaluated by Palliative Care today. REVIEW OF SYSTEMS: As per HPI, rest of 12 point review of systems reviewed and negative. MEDICATIONS: DuoNeb q.6 hours; scheduled Brovana 15 mcg inhalation q.12 hours; Coreg 12.5 mg p.o. b.i.d.; insulin; lactulose 6.6 gm daily; levothyroxine 25 mcg daily, 112 mcg in the morning; [place] nasal spray. LABS: White count 5.8, hemoglobin 10.7, hematocrit 35.7, platelet count 103, glucose 221. Creatinine 3.5, sodium 137, potassium 4, anion gap 16, creatinine 3.5, phosphorus 3.8. PHYSICAL EXAMINATION: GENERAL: Comfortable in bed, in no acute distress. HEENT: Negative. vitals : temp-98.5, HR 78/min, RR 20/min, PO2 98 % on O2 by NC CHEST: Air entry present and equal bilaterally. No added sounds. CARDIOVASCULAR: Heart rate is irregularly irregular. No murmur. No gallop. ABDOMEN: Soft and nontender. No hepatosplenomegaly. EXTREMITIES: right leg cellulitis improved. SPINE: Nontender. SKIN: No petechiae. No rash. ASSESSMENT: 1. Pancytopenia. 2. Acute on chronic renal failure. 3. Diabetes mellitus type 2. 4. Pulmonary hypertension. 5. Right lower extremity cellulitis. 6. History of uterine cancer. PLAN: Blood counts improved. White count has improved to 5.8 from 2.3. Hemoglobin is stable at 10.7. Platelet count has improved to 103,000, lowest was 90,000. She is currently on ultrafiltration. She has been recommended for chronic hemodialysis by Dr. Costa. Congestive cardiac failure, Cardiology is following. She is not ambulating. Supportive treatment as per Dr. Kaplan. She was evaluated by Palliative Care Services. I discussed with the patient's son yesterday, her clinical condition, answered all his questions. We will continue to monitor blood count closely. Hemoglobin improved after IV iron, currently stable. Awilda Vides MD MTDVicky
[2017-09-20] MEDS: Albuterol-Ipratrop 3 mg / 0.5 (3 ml) UD IH SCH ×4 (01:45→20:17)
--- NOTE | 2017-09-20 02:25 | PN ---
DATE: 09/19/2017 PULMONARY PROGRESS NOTE REFERRING PHYSICIAN: Shreyas Kaplan MD SUBJECTIVE: The patient is lying in the bed, on nasal cannula, sleepy, arousable. Night was unremarkable, tolerated BiPAP well. Some shortness of breath, not much cough. No nausea. No vomiting. No diarrhea. Decreased leg swelling. OBJECTIVE: GENERAL: In no acute distress. VITAL SIGNS: Temperature is 98, heart rate is 70, respiratory rate is 20, blood pressure is 106/60, pulse oximetry is 92% on nasal cannula. HEENT: Moist mucous membranes. Crowded airway. NECK: Supple. No JVD. LUNGS: Have a fair airflow with few rhonchi. HEART: S1 and S2. ABDOMEN: Soft, nontender. No organomegaly. EXTREMITIES: There is no edema, right leg has ulcer which has a dressing. NEUROLOGIC: Sleepy, arousable, follows simple command. MEDICATIONS: She is on Brovana 15 mcg twice a day; Coreg 12.5 mg twice day; DuoNeb q.2 hours p.r.n. and q.6 hours around the clock; lactulose is 6.67 gm p.o. daily; insulin coverage; Klonopin 0.5 mg at bedtime; nasal saline twice a day p.r.n.; Synthroid 137 mcg a.c.b. LABORATORY DATA: Shows blood sugar today 221. Chest x-ray done today shows no significant pleural effusion noted, cardiomegaly, permanent pacemaker noted, right-sided dialysis catheter noted. IMPRESSION AND PLAN: Cardiomyopathy, pulmonary hypertension, sleep apnea syndrome, renal failure on dialysis, morbid obesity, leg ulcer. Pulmonary point of view, encourage BiPAP use, keep head at 45 degrees, bronchodilator, may use supplement oxygen, out of bed to chair, may benefit from TICU type of services. Thank you and we will follow with you. Murphy Escalera MD
[2017-09-20 07:28] LABS: BASO # 0.01 K/mm3 (0.0-2.0); BASO % 0.2 % (0.0-3.0); EOS # 0.1 (0.0-0.7); EOS % 1.1 % (1.5-5.0); GRAN # 4.19 (1.4-6.5); GRAN % 74.3 % (50.0-68.0); HEMOGLOBIN 10.4 g/dL (12.0-16.0); LYMPH % 18.4 % (22.0-35.0); MEAN CELL VOLUME 98.3 fl (80.0-105.0); MEAN CORPUSCULAR HEMOGLOBIN 29.5 pg (25.0-35.0); MEAN PLATELET VOLUME 10.5 fl (7.0-11.0); MONO # 0.3 (0.1-0.6); RBC 3.53 10^6/uL (3.5-6.1); RED CELL DISTRIBUTION WIDTH 17.4 % (11.5-14.5); WHITE BLOOD COUNT 5.6 10^3/ul (4.5-11.0)
[2017-09-20] MEDS: Arformoterol 15 mcg/2 ml Inh Sol IH SCH (07:39)
[2017-09-20] MEDS: Insulin Lispro (humaLOG) LOW Coverage SC SCH ×4 (08:14→22:00)
[2017-09-20 08:16] LABS: ALB/GLOB RATIO 0.9 (1.1-1.8); ALBUMIN 2.7 g/dL (3.0-4.8); CALCIUM 7.9 mg/dL (8.4-10.5)
[2017-09-20] MEDS ORDERED: Levothyroxine 112 MCG TAB PO ONE (08:45)
[2017-09-20] MEDS: Levothyroxine 25 MCG TAB PO SCH (08:45)
[2017-09-20] MEDS ORDERED: Levothyroxine 25 MCG TAB PO ONE (08:45)
[2017-09-20] MEDS: Levothyroxine 112 MCG TAB PO SCH (08:45)
--- NOTE | 2017-09-20 15:05 | PN ---
DATE: 09/20/2017 SUBJECTIVE: The patient is seen lying in bed on telemetry. She has a BiPAP mask in place. She is somnolent. A meeting was had with the palliative care team and decision was made to withhold dialysis and enter into a hospice program. CURRENT MEDICATIONS: Her current medications include Coreg 12.5 mg b.i.d., DuoNeb inhaler, insulin coverage, and Synthroid. OBJECTIVE: GENERAL: She is an elderly woman who appears comfortable at rest. VITAL SIGNS: Her blood pressure is 102/56 with pulse of 70 with ventricular pacing, respirations are 14. She is afebrile. HEENT: No JVD. CHEST: Diminished breath sounds at the bases. HEART: PMI displaced laterally with soft tones noted. Systolic murmurs present at the base as well as the apex. ABDOMEN: Soft and obese with normoactive bowel sounds. EXTREMITIES: 1 to 2+ leg edema. DIAGNOSTIC DATA: Potassium is 3.4. BUN and creatinine 38 and 3.0. White count is 5.6, hemoglobin and hematocrit 10.4 and 34.7 with platelet count 108,000. IMPRESSION: 1. Decompensated congestive heart failure, acute on chronic, combined systolic and diastolic. 2. Persistent volume overload. 3. Acute on chronic renal failure with recent dialysis. 4. Moderate aortic stenosis. 5. Moderate mitral regurgitation. 6. Severe tricuspid regurgitation. 7. Chronic lung disease and diabetes. 8. Status post permanent pacemaker implant. RECOMMENDATIONS: At this time, supportive care and comfort care is advised. No aggressive measures will be undertaken at this time. We will continue to follow and make further recommendations as appropriate. Greg Mcclure MD
--- NOTE | 2017-09-20 18:06 | PN ---
DATE: 09/20/2017 SUBJECTIVE: The patient is seen sitting up in chair. She is awake. She is alert. She is comfortable. She does not appear to be in any kind of distress. PHYSICAL EXAMINATION GENERAL: Elderly lady sitting in bed. VITAL SIGNS: Blood pressure 98/58, heart rate 72, respiratory rate 21 and temperature 97.7. HEENT: Normocephalic, atraumatic, positive pallor. NECK: Supple, no JVD. LUNGS: Bilateral equal entry, bilateral equal expansion, basilar rales. CARDIAC: S1 and S2, regular rate and rhythm, positive murmur, no rub. ABDOMEN: Obese, distended, soft, nontender, bowel sounds present. EXTREMITIES: No lower extremity edema. LABORATORY DATA: WBCs 5.6, hemoglobin 10.4, hematocrit 35 and platelets 108. Sodium 137, potassium 3.4, chloride 98, CO2 of 31, BUN 38, creatinine 3.0, glucose 127, calcium 7.9, phosphorus 3.4 and magnesium 2.0. MEDICATIONS: Coreg 12.5 b.i.d., DuoNeb, Enulose, Humalog, insulin and Synthroid. ASSESSMENT: 1. End-stage cardiomyopathy, congestive heart failure. 2. Cardiorenal syndrome, acute kidney injury. 3. Morbid obesity. 4. Cfw-nszomtg-pikvdlpfi diabetes mellitus. 5. Anemia of chronic kidney disease. PLAN: 1. Events of last 24 hours noted. The patient does not want any further dialysis. She is being evaluated for hospice. 2. The patient understands her situation. She does not want dialysis, she clearly states this. We will followup. Imelda Costa MD
--- NOTE | 2017-09-20 20:15 | PN ---
DATE: 09/20/2017 PULMONARY PROGRESS NOTE REFERRING PHYSICIAN: Shreyas Kaplan MD SUBJECTIVE: The patient is lying on the bed. Family is at bedside, on nebulizer treatment, tolerated BiPAP well at night time. Cough and shortness of breath is better. No nausea, vomiting, or diarrhea. No leg swelling. OBJECTIVE: GENERAL: No acute distress. VITAL SIGNS: Temperature is 98, heart rate is 72, respiratory rate is 20, blood pressure is 98/44, and pulse ox 95% on room air. HEENT: Moist mucous membranes. Crowded airway. NECK: Supple. No JVD. Short, thick neck. LUNGS: Fair airflow with a few rhonchi. HEART: S1 and S2. ABDOMEN: Soft, nontender, no organomegaly. EXTREMITIES: Right leg has a dressing on skin wound. NEUROLOGIC: Sleepy, arousable, follows simple command. MEDICATIONS: She is on Coreg 12.5 mg twice day, DuoNeb q.2 hours p.r.n. and q. 6 hours kzpta-xfs-eomff, lactulose 6.67 gm p.o. daily, insulin coverage, nasal saline to each nostril twice a day, Synthroid 150 mcg daily. LABORATORY DATA: Shows hemoglobin 10.4, hematocrit 34.7, WBC 5.6, and platelet is 108. Sodium 137, potassium of 3.4, chloride 98, bicarbonate 31, BUN 38, creatinine 3.0, glucose 127, calcium is 7.9, phosphorus 3.4, magnesium 2.0. AST 26, ALT 25, alkaline phosphatase is 49, and albumin is 2.7. Microbiology: Blood cultures have been negative. IMPRESSION AND PLAN: Cardiomyopathy, pulmonary hypertension, sleep apnea syndrome, renal failure, on dialysis, morbid obesity, leg ulcer. Pulmonary point of view, doing okay. Continue supplemental oxygen. Continue and encourage BiPAP use at night, bronchodilator. Add gastric prophylaxis, DVT prophylaxis. Thank you and we will follow with you. Murphy Escalera MD
[2017-09-21] MEDS: Albuterol-Ipratrop 3 mg / 0.5 (3 ml) UD IH SCH ×3 (03:00→14:15)
[2017-09-21] MEDS ORDERED: Levothyroxine 150 MCG TAB PO SCH (06:00)
[2017-09-21] MEDS: Insulin Lispro (humaLOG) LOW Coverage SC SCH ×2 (08:44→12:21)
[2017-09-21] MEDS ORDERED: Enoxaparin 30 mg Syringe SC SCH (10:00)
--- NOTE | 2017-09-21 15:12 | PN ---
DATE: This is an 82-year-old white female admitted to the hospital with acute renal failure, congestive cardiomyopathy, and insulin-dependent diabetes mellitus. The patient has been made DNR/DNI, refusing dialysis. BUN and creatinine have improved to 38 and 3.0. Potassium is 3.4. The patient is less short of breath. She does use BiPAP at night and sometimes during the day. She has less rales today, less edema. She should be going home on home hospice when arranged as opposed to . Physical examination unchanged. The patient is awake and alert and oriented times 3. She has made a decision to be DNR/DNI and on dialysis. Shreyas Kaplan MD
[2017-09-21] MEDS ORDERED: SACUBITRIL 24mg/VALSARTAN 26mg tab PO SCH (18:00)
[2017-09-21 18:26] VITALS: BP 111/65; PULSE 69; RESP 20; TEMP 98.2; O2SAT 95
--- NOTE | 2017-09-21 23:34 | PN ---
DATE: PULMONARY PROGRESS NOTE REFERRING PHYSICIAN: Shreyas Kaplan MD SUBJECTIVE: She is lying in the bed, on supplemental oxygen, son is bedside, much more awake and alert, tolerated BiPAP well. No nausea, no vomiting, no diarrhea. No significant leg swelling. Has a right lower extremity dressing. OBJECTIVE: GENERAL: No acute distress. VITAL SIGNS: Temperature is 98, heart rate 69, respiratory rate is 20, blood pressure 111/65, pulse ox 95% on supplemental oxygen. HEENT: Moist mucous membranes. Crowded airway. NECK: Supple. No JVD. LUNGS: Has a fair airflow with rhonchi. HEART: S1, S2. ABDOMEN: Soft, nontender. No organomegaly. EXTREMITIES: No edema. NEUROLOGIC: Sleepy, arousable. Follows simple command. MEDICATIONS: Reviewed. No new change in medication reported since yesterday. LABORATORY DATA: Reviewed, blood sugar this morning 121. Microbiology, blood culture has been negative. IMPRESSION AND PLAN: Cardiomyopathy, pulmonary hypertension, sleep apnea syndrome, renal failure - presently on dialysis, morbid obesity, leg ulcers. Spoke to the patient's son at the bedside. All the questions answered. According to the patient, patient does have a CPAP machine at home, advised her to use CPAP while at subacute and should continue to use while at home. Spoke about sleep apnea, its consequences, relation to heart. Family expressed understanding. Thank you and we will follow with you. Murphy Escalera MD
--- NOTE | 2017-09-23 07:53 | DS ---
HOSPITAL COURSE: An 82-year-old white female admitted to the hospital with acute swelling and shortness of breath. The patient was found to have acute combined systolic and diastolic heart failure on chronic diastolic and systolic heart failure, pickwickian syndrome, COPD, fluid overload, acute renal failure, dud-zzkuizv-tpjezbuxg diabetes mellitus, history of a pacemaker. The patient was seen in consultation by Dr. Costa and Dr. Manrique because of the severe renal insufficiency and difficulty when using any diuretics. The patient had a Port-A-Cath put in by Dr. Justice Capone and started on ultrafiltration to decrease fluid. The patient had several ultrafiltration procedures, continued to have renal insufficiency and eventually was made a DNR/DNI by the family. The patient refused further hemodialysis and was able to be discharged home on hospice, to continue diuretic therapy at home and airflow reduction at home. FINAL DISCHARGE DIAGNOSES: On this patient will be combined systolic and diastolic heart failure, fluid overload, acute renal failure on top of chronic renal insufficiency stage IV, pjp-novkfjz-lcubphpuo diabetes mellitus, morbid obesity, chronic obstructive pulmonary disease, pickwickian syndrome, and pacemaker syndrome. Shreyas Kaplan MD
--- NOTE | 2017-09-25 08:43 | PQF RESP ---
09/22/17 Dr. Escalera, You document respiratory failure on your consult of 09/05. Hypoxia is documented. Please indicate whether respiratory failure is acute, chonic, or both. (Previous query form signed only.) Thank you. Clarification of your documentation is requested to better reflect the severity of illness and intensity of treatment of your patient. Indicators present [] Use of Home Oxygen [] Respiratory rate > 28 or <8/min (Labored respirations) [] PCO2 > 50 mm Hg or (Hypercapnia) (somnolence) [] PaO2 < 60 mm Hg or Hypoxemia (confusion) [] ABG blood gas pH < 7.35 [] SpO2 < 90% sat on Room Air [] Cyanosis [] Unable to Speak in Full Sentences [] Use of Accessory Muscles / Tripoding [] Wheezing [] Other: [] Location in the medical record that reflects the above clinical findings: [] Treatment Provided: [] PHYSICIAN'S RESPONSE Based on your medical judgment of the clinical indicators outlined above, are you treating this patient for a known or suspected: [] Acute Respiratory Failure (hypoxia or hypercapnia) [] Chronic Respiratory Failure (hypoxia or hypercapnia) [] Acute on Chronic Respiratory Failure (hypoxia or hypercapnia) [] Hypoxemia please specify ACUTE, CHRONIC or ACUTE on CHRONIC [] Other []_ [] If unable to determine, please check the box, sign and date. Present On Admission (POA) Indicator: [] Present at the time of admission [] Not present at the time of admission [] Clinically Undetermined In responding to this query, please exercise your independent professional judgment. The fact that a question is asked does not imply that any particular answer is desired or expected. Thank you for your clarification on this documentation. If you have any questions please call:[ ] * Thank you, [ ] button spindler Chronic Respiratory Failure Description: Respiratory failure is a syndrome in which the respiratory system fails in one or both of its gas exchange functions: oxygenation and carbon dioxide elimination. In theory, respiratory failure is defined as a Pa02 value of <60 mm/Hg or a PaC02 of >50 mm/Hg. However, these values may be affected by renal compensation. Respiratory failure may be acute or chronic. While acute respiratory failure is characterized by life-threatening derangement in arterial blood gases and acid-base balance, the manifestations of chronic respiratory failure are less dramatic and may not be as readily apparent. Classifications: Respiratory failure may be classified as hypoxemic (usually characterized by Pa02 of <60 mm/Hg) or hypercapnic (usually characterized by PaC02 >50 mm/Hg) and either may be acute or chronic. Chronic hypercapnic respiratory failure develops over time and allows for renal compensation and an increase in bicarbonate concentration; therefore the pH is usually only slightly decreased. The distinction between acute and chronic hypoxemic respiratory failure cannot readily be made on the basis of ABGs; the clinical markers of chronic hypoxemia, such as polythycemia or cor pulmonale suggest a long standing disorder (chronic hypoxemic respiratory failure). Clinical Indicators: dyspnea at rest or "chronic" dyspnea, concomitant conditions such as polycythemia or cor pulmonale, requirement for continuous oxygen support, forced expiratory volume in one second (FEV1) of 49 or less, pursed lip breathing, "barrel" chest, hyperinflation by CXR, muscle wasting, malnutrition/obesity, poor exercise capacity, peripheral edema, description as a "blue bloater" (usually associated with chronic, obstructive bronchitis) or "pink puffer" (usually associated with emphysema) Risks: Chronic Hypoxemic Respiratory Failure - COPD, pulmonary fibrosis, asthma , pulmonary arterial hypertension, granulomatous lung diseases, congenital heart disease, bronchiectasis, kyphoscoliosis, obesity; Chronic Hypercapnic Respiratory Failure - COPD, severe asthma, myasthenia gravis, polyneuropathy, polio, head and cervical spine injuries, obesity hypoventilation syndrome. Treatment: supplemental oxygen, bronchodilators, corticosteroids, adequate nutrition, lung transplant References: Am. J. Respir. Crit. Care Med. "Global Strategy for the Diagnosis, Management and Prevention of COPD: GOLD Exectuive Summary," Rafi Caceres Anzueto - 2007; Proceedings of the [employer] "Mechanisms and Measurements of Dyspnea in COPD," Tahira - 2006; WebMD; Respiratory Failure, Osvaldo Oliveira MD - 02/2006; Wai's Principles of Internal Medicine, 17th edition. Acute Respiratory Failure Acute Respiratory Failure indicators include: ~Respirations >28 ~Air hunger ~Use of accessory muscles of respiration ~Inability to speak in full sentences Cyanosis ~Pulse ox <90% RA or <95% on O2 pH <7.35 or >7.45 ~pO2 < 60 mm Hg (or 10mm below COPD patient's baseline) ~pCO2 >50mm Hg (or 10mm above COPD patient's baseline) "Respiratory failure may be assigned as a principal diagnosis when it is the condition established after study to be chiefly responsible for occasioning admission to the hospital. The fact that the respiratory failure was managed without intubation and mechanical ventilation does not preclude its use." [facility] 1988, p. 7 MTDD
== END 2017-09-21 20:05 | disposition hospice, home (50) | DRG 291 ==
LOC: ED 17:35 → ERH 21:29 → 3RSO 09-05 13:37
PROVIDERS: ADMIT Internal Medicine; ATTEND Internal Medicine
PROC: 5A09457 Assistance with Respiratory Ventilation, 24-96 Consecutive Hours, Continuous Positive Airway Pressure (ICD-10-PCS; 2017-09-08)
PROC: 05HM33Z Insertion of Infusion Device into Right Internal Jugular Vein, Percutaneous Approach (ICD-10-PCS; 2017-09-08)
PROC: B543ZZA Ultrasonography of Right Jugular Veins, Guidance (ICD-10-PCS; 2017-09-08)
PROC: B513ZZA Fluoroscopy of Right Jugular Veins, Guidance (ICD-10-PCS; 2017-09-08)
PROC: 5A1D70Z Performance of Urinary Filtration, Intermittent, Less than 6 Hours Per Day (ICD-10-PCS; 2017-09-08)
PROC: 5A1D70Z Performance of Urinary Filtration, Intermittent, Less than 6 Hours Per Day (ICD-10-PCS; 2017-09-09)
PROC: 5A1D70Z Performance of Urinary Filtration, Intermittent, Less than 6 Hours Per Day (ICD-10-PCS; principal; 2017-09-10)
PROC: 5A1D70Z Performance of Urinary Filtration, Intermittent, Less than 6 Hours Per Day (ICD-10-PCS; 2017-09-11)
PROC: 5A1D70Z Performance of Urinary Filtration, Intermittent, Less than 6 Hours Per Day (ICD-10-PCS; 2017-09-14)
PROC: 5A1D70Z Performance of Urinary Filtration, Intermittent, Less than 6 Hours Per Day (ICD-10-PCS; 2017-09-16)
PROC: 5A1D70Z Performance of Urinary Filtration, Intermittent, Less than 6 Hours Per Day (ICD-10-PCS; 2017-09-18)
DX: I13.2 Hypertensive heart and chronic kidney disease with heart failure and with stage 5 chronic kidney disease, or end stage renal disease (principal); I50.43 Acute on chronic combined systolic (congestive) and diastolic (congestive) heart failure; N17.0 Acute kidney failure with tubular necrosis; J96.01 Acute respiratory failure with hypoxia; D61.818 Other pancytopenia; E11.22 Type 2 diabetes mellitus with diabetic chronic kidney disease; E11.622 Type 2 diabetes mellitus with other skin ulcer; I95.9 Hypotension, unspecified; I08.3 Combined rheumatic disorders of mitral, aortic and tricuspid valves; E83.39 Other disorders of phosphorus metabolism; E11.649 Type 2 diabetes mellitus with hypoglycemia without coma; N18.6 End stage renal disease; R18.8 Other ascites; E66.2 Morbid (severe) obesity with alveolar hypoventilation; L03.115 Cellulitis of right lower limb; L03.116 Cellulitis of left lower limb; L97.919 Non-pressure chronic ulcer of unspecified part of right lower leg with unspecified severity; Z68.41 Body mass index [BMI] 40.0-44.9, adult; I27.20 Pulmonary hypertension, unspecified; I42.0 Dilated cardiomyopathy; J44.9 Chronic obstructive pulmonary disease, unspecified; I25.10 Atherosclerotic heart disease of native coronary artery without angina pectoris; I48.91 Unspecified atrial fibrillation; G47.33 Obstructive sleep apnea (adult) (pediatric); F41.9 Anxiety disorder, unspecified; E03.9 Hypothyroidism, unspecified; D63.1 Anemia in chronic kidney disease; D50.9 Iron deficiency anemia, unspecified; E83.51 Hypocalcemia; E87.5 Hyperkalemia; K59.00 Constipation, unspecified; L29.9 Pruritus, unspecified; S80.821A Blister (nonthermal), right lower leg, initial encounter; Z51.5 Encounter for palliative care; Z66 Do not resuscitate; Z79.4 Long term (current) use of insulin; Z85.42 Personal history of malignant neoplasm of other parts of uterus; Z87.891 Personal history of nicotine dependence; Z90.49 Acquired absence of other specified parts of digestive tract; Z90.710 Acquired absence of both cervix and uterus; Z91.15 Patient's noncompliance with renal dialysis; Z92.21 Personal history of antineoplastic chemotherapy; Z95.0 Presence of cardiac pacemaker; Z99.2 Dependence on renal dialysis; Z88.6 Allergy status to analgesic agent; Z88.0 Allergy status to penicillin; Z88.8 Allergy status to other drugs, medicaments and biological substances; Z91.048 Other nonmedicinal substance allergy status; R40.2412 Glasgow coma scale score 13-15, at arrival to emergency department; S40.812A Abrasion of left upper arm, initial encounter; S20.411A Abrasion of right back wall of thorax, initial encounter